=== PATIENT | male | born 1935 | race Caucasian/White ===

== ENCOUNTER 2017-07-04 07:24 | Inpatient (IN) | payer OTHER ==
[2017-07-04 07:34] VITALS: BMI 24.2
--- NOTE | 2017-07-04 07:37 | PDOC ---
History of Present Illness - General Chief Complaint: Pain Stated Complaint: ABDOMINAL PAIN Time Seen by Provider: 07/04/17 07:36 History Source: Patient - History of Present Illness Initial Comments: 07/04/17 07:44 Patient is an 82 y.o. male with a PMH of CAD (s/p stent) presents to the ED c/o 1 day h/o abdominal pain. Patient states the pain is diffuse, non-qualifiable, constant 10/10 with no identified triggering or relieving factors. The pain started yesterday morning and persisted all day yesterday increasing in severity and prompting his visit to ED this morning. Patient states he has only tolerated PO liquid intake and had 1 watery BM yesterday. Patient denies any associated fevers/chills, constipation, nausea/vomiting, dysuria/hematuria or bloody stools as well as testicular/scrotal pain. NKDA Surgical: Cardiac Stent Social: denies cigarettes, denies alcohol, denies recreational drugs PMD: Dr. Barahona 07/04/17 09:16 Past History - Past Medical History Allergies/Adverse Reactions: Allergies Allergy/AdvReac Type Severity Reaction Status Date / Time No Known Allergies Allergy Verified 07/04/17 07:30 Home Medications: Ambulatory Orders Amlodipine Besylate 5 mg PO DAILY 07/04/17 Aspirin [ASA -] 81 mg PO DAILY 07/04/17 Atenolol [Tenormin -] 50 mg PO DAILY 07/04/17 Isosorbide Mononitrate [Isosorbide Mononitrate ER] 30 mg PO DAILY 07/04/17 Losartan Potassium 50 mg PO DAILY 07/04/17 Lovastatin 40 mg PO DAILY 07/04/17 Cardiac Disorders: Yes (cad,angina) COPD: No HTN: Yes Hypercholesterolemia: Yes - Surgical History Cardiac Surgery: Yes (card stent) - Suicide/Smoking/Psychosocial Hx Smoking History: Former smoker Have you smoked in the past 12 months: No Information on smoking cessation initiated: No Hx Alcohol Use: No Drug/Substance Use Hx: No Substance Use Type: None Review of Systems - Review of Systems Constitutional: No: Chills, Fever HEENTM: No: Recent change in vision Respiratory: No: Cough, Shortness of Breath Cardiac (ROS): No: Chest Pain, Lightheadedness, Syncope ABD/GI: Yes: Abdominal cramping, Other (1 episode of loose watery stools). No: Constipated, Diarrhea, Nausea, Vomiting : No: Burning, Dysuria Neurological: No: Numbness, Tingling, Tremors, Weakness *Physical Exam - Vital Signs Last Vital Signs Temp Pulse Resp BP Pulse Ox 98.2 F 95 H 18 125/64 07/04/17 07:31 07/04/17 07:31 07/04/17 07:31 07/04/17 07:31 - Physical Exam Comments: 07/04/17 09:13 GENERAL: Awake, alert, and fully oriented, in no acute distress HEAD: No signs of trauma EYES: PERRLA, EOMI, sclera anicteric, conjunctiva clear ENT: Auricles normal inspection, hearing grossly normal, nares patent, oropharynx clear without exudates. Moist mucosa NECK: Normal ROM, supple, no lymphadenopathy, JVD, or masses LUNGS: Breath sounds equal, clear to auscultation bilaterally. No wheezes, and no crackles HEART: Regular rate and rhythm, normal S1 and S2, no murmurs, rubs or gallops ABDOMEN: diffuse TTP, (-) guarding, (-) rebound, minimal bowel sounds, (-) hernia/mass EXTREMITIES: Normal range of motion, no edema. No clubbing or cyanosis. No cords , erythema, or tenderness BACK: No midline spinal tenderness in cervical/thoracic/lumbar region NEUROLOGICAL: Normal speech, cranial nerves intact SKIN: Warm, Dry, normal turgor, no rashes or lesions noted. ED Treatment Course - LABORATORY CBC & Chemistry Diagram: 07/04/17 08:15 07/04/17 08:15 Medical Decision Making - Medical Decision Making 07/04/17 07:56 82 y.o. male with abdominal pain without fevers, emesis, GI/ signts Diffuse tenderness to palpation on physical exam without guarding or rebound. Differential diagnosis includes mesenteric ischemia, perforated diaphragm, early appendicitis, cholelithiasis. CTA angiogram for mesenteric ischemia + Abdominal XR for free air. Pain control with Morphine 07/04/17 09:23 Lactic Acid 2.9 --> will give 1 L IV NS, Cr 1.9 - no baseline in EMR. Will obtain CT w/o contrast. Abdominal XR pending 07/04/17 09:52 Abdominal XR shows dilated loops of bowel --possible illeus. No free air under diaphragm. CT pending. 07/04/17 11:19 CT showed possible complete vs. partial SBO with possible appendiceal inflammation. Paged surgery Dr. Wells. 07/04/17 12:48 Case d/w Dr. Wells. Requests CT Abdomen with PO contrast and NG Tube placement Patient's PMD, Dr. Castaneda, accepts for admission. Will continue pain control with Morphine pending BP. Will continue to monitor patient while in ED. *DC/Admit/Observation/Transfer Diagnosis at time of Disposition: Abdominal pain - Discharge Dispostion Condition at time of disposition: Good Admit: Yes - Referrals - Patient Instructions - Post Discharge Activity
--- NOTE | 2017-07-04 07:50 | PDOC ---
Attending Attestation - Resident Resident Name: Erin Friend - ED Attending Attestation I have performed the following: I have examined & evaluated the patient, The case was reviewed & discussed with the resident, I agree w/resident's findings & plan, Exceptions are as noted - HPI HPI: 07/04/17 07:49 82y M pmhx CAD, htn, hl, vascular disease, presents with 1 day of abd pain that is in the mid/lower abd diffuse, severe, constant but waxes and wanes for seconds at a time abd pain, nonradiating, without any alleviating/exacerbating factors. pain started when pt woke up yesterday and hasn't let up. no prrior episodes of similar pain. no prior hx of abd surgery. pt endorses 1 episode of loose stool. pt denies any n/v, fever/chills, melena/bpr, back pain, extermity numbness/ tingling/weakness. no associated chedst pain, shortness of breath, dc, cough. GENERAL: The patient is awake, alert, and fully oriented, Nontoxic - in no acute distress. HEAD: Normocephalic, atraumatic. EYES: extraocular movements intact, sclera anicteric, conjunctiva clear. ENT: Normal voice, Moist mucous membranes. NECK: Normal range of motion, supple LUNGS: Breath sounds equal, clear to auscultation bilaterally. No wheezes, no rhonchi, no rales. HEART: Regular rate and rhythm, normal S1 and S2 without murmur, rub or gallop. ABDOMEN: soft, moderate diffuse tenderness, +voluntary guarding EXTREMITIES: Normal range of motion, no edema. NEUROLOGICAL: No facial assymetry, Normal speech, moving ll 4 extremities spontaneously and symmetrically PSYCH: Normal mood, normal affect. SKIN: Warm, Dry, normal turgor, ddx - appendicitis, diverticulitis, uti, consider possible vascular cause -? mesenteric ischemia will ck labs, ua CTA abd will reassess morphine for pain - Physicial Exam PE: 07/06/17 07:21 see above - Medical Decision Making 07/04/17 11:11 The patient's blood work was reviewed it is notable for mild leukocytosis with a left shift Patient's creatinine was also elevated to 1.9, lactic acid also elevated. The patient was given fluids for hydration The patient's abdominal x-ray reveals a in obstructive/ileus picture His CAT scan shows SBO with possible mass, there is also inflammation of his appendix --> unclear what the acute cause of his pain but will consult surgery will give pt abx Heart Score/ECG Review - ECG Impressions Comment:: 07/04/17 08:59 Twelve-lead EKG was performed and reviewed by me. There is normal sinus rhythm with a normal rate. Right bundle-branch block TWI in leads 2,3, III
[2017-07-04] MEDS ORDERED: morphine CARPU-JECT 4 MG/1 ML DISP.SYRIN IVPUSH ONE ×2 (07:53→10:42)
[2017-07-04] MEDS ORDERED: morphine SULFATE 4 MG/ML VIAL ONE ×3 (08:09→12:01)
[2017-07-04 08:26] LABS: BASO % 0.1 % (0-2.0); HEMOGLOBIN 13.9 GM/dL (11.7-16.9); LYMPH % 5.2 % (8-40); MCH 32.8 pg (25.7-33.7); MCHC 33.7 g/dl (32.0-35.9); MEAN CELL VOLUME 97.2 fl (80-96); MONO % 4.2 % (3.8-10.2); NEUT % 90.5 % (42.8-82.8); PLATELET COUNT 266 K/MM3 (134-434); RBC 4.22 M/mm3 (4.00-5.60); WHITE BLOOD COUNT 11.4 K/mm3 (4.0-10.0)
[2017-07-04 08:44] LABS: INR 1.1 (0.82-1.09); PROTHROMBIN TIME (PATIENT) 12.4 SEC (9.98-11.88)
[2017-07-04 08:46] LABS: ACTIVATED PTT 33.7 SECONDS (26.9-34.4)
[2017-07-04 08:53] LABS: CHLORIDE 101 mmol/L (98-107); POTASSIUM 4.9 mmol/L (3.5-5.1); SODIUM 137 mmol/L (136-145)
[2017-07-04 09:06] LABS: ALBUMIN 3.8 g/dl (3.4-5.0); ALK PHOS 67 U/L (45-117); ANION GAP 14 (8-16); BLOOD UREA NITROGEN 41 mg/dL (7-18); CALCIUM 9.6 mg/dL (8.5-10.1); CO2 22 mmol/L (21-32); CREATININE 1.9 mg/dL (0.7-1.3); GLUCOSE,RANDOM 146 mg/dL (74-106); LIPASE 62 U/L (73-393); SGOT/AST 17 U/L (15-37); SGPT/ALT 18 U/L (12-78); TOT PROT 8.5 g/dl (6.4-8.2)
[2017-07-04] MEDS ORDERED: SODIUM CHLORIDE 0.9% 500 ML INFUS.BAG IV ONE (09:21)
--- NOTE | 2017-07-04 11:11 | EKG ---
Test Reason : Blood Pressure : / mmHG Vent. Rate : 085 BPM Atrial Rate : 085 BPM P-R Int : 172 ms QRS Dur : 140 ms QT Int : 380 ms P-R-T Axes : 041 089 031 degrees QTc Int : 452 ms POOR DATA QUALITY, INTERPRETATION MAY BE ADVERSELY AFFECTED NORMAL SINUS RHYTHM RIGHT BUNDLE BRANCH BLOCK ABNORMAL ECG WHEN COMPARED WITH ECG OF 04-OCT-2008 07:54, RIGHT BUNDLE BRANCH BLOCK IS NOW PRESENT Confirmed by MELISSA DUMONT MD ([id number]) on 07/04/2017 11:11:19 AM Referred By: Confirmed By:MELISSA DUMONT MD
[2017-07-04] MEDS ORDERED: morphine CARPU-JECT 2 MG/1 ML DISP.SYRIN IVPUSH ONE (11:20)
--- NOTE | 2017-07-04 13:09 | HP ---
Admitting History and Physical - Primary Care Physician PCP: Balta Castaneda - Admission Chief Complaint: pain abd History of Present Illness: 82y M pmhx CAD, htn with CKD, lipidemia, periph vascular disease, presents with 1 day of abd pain that is in the abd ;diffuse constant but varying intensity, nonradiating, without any alleviating/exacerbating factors. pain started when pt woke up yesterday and hasn't let up. no prior episodes of similar pain. no prior hx of abd surgery. he did have a BM yesterday without blood/black stools. No n-v; and has no eaten today. History Source: Patient, Family Member Limitations to Obtaining History: No Limitations - Past Medical History Cardiovascular: Yes: CAD (has coronary stent), HTN, Other (PAD) Renal/: Yes: Renal Inusuff Psych: Yes: Addictions (Hx of alcoholism--in remission) - Past Surgical History Past Surgical History: Yes: Carotid Endarterectomy Additional Past Surgical History: coronary stenting - Smoking History Smoking history: Former smoker Have you smoked in the past 12 months: No - Alcohol/Substance Use Hx Alcohol Use: No History of Substance Use: reports: None - Social History Usual Living Arrangement: Yes: With Spouse Home Medications - Allergies Allergies/Adverse Reactions: Allergies Allergy/AdvReac Type Severity Reaction Status Date / Time No Known Allergies Allergy Verified 07/04/17 07:30 Family Disease History - Family Disease History Family History: Unremarkable Review of Systems - Review of Systems Constitutional: reports: Loss of Appetite, Malaise Eyes: reports: No Symptoms HENT: reports: No Symptoms Neck: reports: No Symptoms Cardiovascular: reports: No Symptoms Respiratory: reports: No Symptoms Gastrointestinal: reports: Other (see HPI) Genitourinary: reports: No Symptoms Musculoskeletal: reports: No Symptoms Integumentary: reports: No Symptoms Neurological: reports: No Symptoms Endocrine: reports: No Symptoms Hematology/Lymphatic: reports: No Symptoms Psychiatric: reports: No Symptoms Physical Examination Vital Signs: Vital Signs Temperature 98.2 F 07/04/17 07:31 Pulse Rate 85 07/04/17 12:11 Respiratory Rate 16 07/04/17 12:11 Blood Pressure 136/66 07/04/17 12:11 O2 Sat by Pulse Oximetry (%) 98 07/04/17 12:11 Constitutional: Yes: Well Nourished, Anxious, Mild Distress Eyes: Yes: Conjunctiva Clear, EOM Intact HENT: Yes: WNL Neck: Yes: Supple Cardiovascular: Yes: Regular Rate and Rhythm Respiratory: Yes: Regular Gastrointestinal: Yes: Hypoactive Bowel Sounds, Tenderness ...Rectal Exam: Yes: Deferred Musculoskeletal: Yes: WNL Extremities: Yes: WNL Edema: No Peripheral Pulses WNL: No Peripheral Pulses: Left Doralis Pedis: 0 (no ischemic changes), Right Dorsalis Pedis: 0 (no ischemic changes) Integumentary: Yes: WNL Neurological: Yes: Alert, Oriented ...Motor Strength: WNL Psychiatric: Yes: WNL Labs: CBC, BMP 07/04/17 08:15 07/04/17 08:15 Abd Xray=ileus CT abd--filling defect in cecum EKG-RBBB Imaging - Results X-ray: Report Reviewed (abd) Cat Scan: Report Reviewed EKG: Report Reviewed Problem List - Problems (1) Pain, abdominal, generalized Assessment/Plan: more so on both RLQ and LLQ (hypersensitive to touch); BS quiet; give finding on CT could represent possible mass; AP less likely as per Surgeon. 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 PLAN renal eval pre-op; Cardio eval Code(s): I13.10 - HYP HRT & CHR KDNY DIS W/O HRT FAIL, W STG 1-4/UNSP CHR KDNY; N18.3 - CHRONIC KIDNEY DISEASE, STAGE 3 (MODERATE) (3) PAD (peripheral artery disease) Assessment/Plan: known PAD; has diminshed perfusion of the distal LE's; and is s/p CEA; also had sub-total thrombic event of the LUE in the past Code(s): I73.9 - PERIPHERAL VASCULAR DISEASE, UNSPECIFIED (4) Lipidemia Assessment/Plan: for which he takes statin Code(s): E78.5 - HYPERLIPIDEMIA, UNSPECIFIED Qualifiers: Hyperlipidemia type: unspecified Qualified Code(s): E78.5 - Hyperlipidemia , unspecified Assessment/Plan 82 y/o with cardio-vasc disease who presents with what seems to be a GI problem suggesting an acute obstruction 2nd possible malignancy; who may require surg intervention. ~~~~~~~~~~~~~~~~~~~~~~~~~~~~~ Dr Castaneda
[2017-07-04] MEDS ORDERED: MORPHINE SULFATE 10 MG/1 ML *VIAL IVPUSH PRN (13:33)
--- NOTE | 2017-07-04 15:15 | CONSULT ---
- Consultation REQUESTING PROVIDER: Ronna MOLINA/ Leonel MOLINA CONSULT REQUEST: We have been asked to surgically evaluate this patient for abdominal pain PCP:Balta Castaneda HISTORY OF PRESENT ILLNESS: 82 y/o w/male presented w/24-36 hours of diffuse abdominal pain w/o nausea and/or vomiting; he gives no other hx.; he has not seen his PCP in some time and when last seen declined an anemia w/u; he has never had a colonoscopy; he has NOC. He has had a small bowel movement but has not passed any flatus. PMHx: HTN; HLD; ASHD PSHx: none Home Medications Medication Instructions Recorded Amlodipine Besylate 5 mg PO DAILY 07/04/17 Aspirin [ASA -] 81 mg PO DAILY 07/04/17 Atenolol [Tenormin -] 50 mg PO DAILY 07/04/17 Isosorbide Mononitrate [Isosorbide 30 mg PO DAILY 07/04/17 Mononitrate ER] Losartan Potassium 50 mg PO DAILY 07/04/17 Lovastatin 40 mg PO DAILY 07/04/17 Allergies Allergy/AdvReac Type Severity Reaction Status Date / Time No Known Allergies Allergy Verified 07/04/17 07:30 REVIEW OF SYSTEMS: CONSTITUTIONAL: Absent: fever, chills, diaphoresis, , malaise, loss of appetite, weight change ; postive weakness CARDIOVASCULAR: Absent: chest pain, syncope, palpitations, irregular heart rate, lightheadedness , peripheral edema RESPIRATORY: Absent: cough, shortness of breath, dyspnea with exertion, wheezing, stridor, hemoptysis GASTROINTESTINAL: Present: abdominal pain, abdominal distension, GENITOURINARY: Absent: dysuria, frequency, urgency, hesitancy, hematuria, flank pain, genital pain MUSCULOSKELETAL: Absent: myalgia, arthralgia, joint swelling, back pain, neck pain SKIN: Absent: rash, itching, pallor HEMATOLOGIC/IMMUNOLOGIC: Absent: easy bleeding, easy bruising, lymphadenopathy NEUROLOGIC: Absent: headache, focal weakness, paresthesias, dizziness, unsteady gait, seizure, mental status changes, bladder or bowel incontinence PSYCHIATRIC: Absent: anxiety, depression, suicidal or homicidal ideation, hallucinations. PHYSICAL EXAM: GENERAL: Awake, alert, and fully oriented, in slight distress. HEAD: Normal with no signs of trauma. EYES: sclera anicteric, conjunctiva clear. NECK: Normal ROM, supple without lymphadenopathy, JVD, or masses. LUNGS: Clear to auscultation bilat anteriorly. No wheezes, and no crackles. No accessory muscle use. HEART: Regular rate and rhythm. No murmurs ABDOMEN: Soft, tender, slightly distended, hypooactive bowel sounds, voluntary guarding, no rebound, no masses. No organomegaly. No hernias MUSCULOSKELETAL: Normal ROM at all joints. No bony deformities or tenderness. No CVA tenderness. UPPER EXTREMITIES: 2+ pulses, warm, well-perfused. No cyanosis. Cap refill <2 seconds. No peripheral edema. LOWER EXTREMITIES: 2+ pulses, warm, well-perfused. No calf tenderness. No peripheral edema. NEUROLOGICAL: Normal speech, gait not observed. PSYCH: Cooperative. Good eye contact. Appropriate mood and affect. SKIN: Warm, dry, normal turgor, no rashes or lesions noted. Vital Signs Temperature 98.2 F 07/04/17 07:31 Pulse Rate 85 07/04/17 12:11 Respiratory Rate 16 07/04/17 12:11 Blood Pressure 136/66 07/04/17 12:11 O2 Sat by Pulse Oximetry (%) 98 07/04/17 12:11 Lab Results WBC 11.4 K/mm3 (4.0-10.0) H 07/04/17 08:15 RBC 4.22 M/mm3 (4.00-5.60) 07/04/17 08:15 Hgb 13.9 GM/dL (11.7-16.9) 07/04/17 08:15 Hct 41.0 % (35.4-49) 07/04/17 08:15 MCV 97.2 fl (80-96) H 07/04/17 08:15 MCHC 33.7 g/dl (32.0-35.9) 07/04/17 08:15 RDW 14.0 % (11.9-15.9) 07/04/17 08:15 Plt Count 266 K/MM3 (134-434) 07/04/17 08:15 Sodium 137 mmol/L (136-145) 07/04/17 08:15 Potassium 4.9 mmol/L (3.5-5.1) 07/04/17 08:15 Chloride 101 mmol/L (98-107) 07/04/17 08:15 Carbon Dioxide 22 mmol/L (21-32) 07/04/17 08:15 Anion Gap 14 (8-16) 07/04/17 08:15 BUN 41 mg/dL (7-18) H 07/04/17 08:15 Creatinine 1.9 mg/dL (0.7-1.3) H 07/04/17 08:15 Random Glucose 146 mg/dL (74-106) H 07/04/17 08:15 Calcium 9.6 mg/dL (8.5-10.1) 07/04/17 08:15 Blood Type O POSITIVE 07/04/17 08:15 Antibody Screen Negative 07/04/17 08:15 INR 1.10 (0.82-1.09) 07/04/17 08:15 CT scan a/p reviewed IMP: sbo secondary to possible cecal pathology w/appendiceal involvement; ? cecal malignancy vs. other. PLAN: NPO/IVF/NGT/repeat CT scan a/p w/ oral contrast; will f/u. D/W Dr. Castaneda. Wu Wells MD FACS Visit type - Case Type Case Type: ED Admission - Emergency Emergency Visit: Yes ED Registration Date: 07/04/17 Care time: The patient presented to the Emergency Department on the above date and was hospitalized for further evaluation of their emergent condition. - New patient This patient is new to me today: Yes Date on this admission: 07/04/17 - Critical Care Critical Care patient: No
--- NOTE | 2017-07-04 16:14 | CONSULT ---
Consult Consult Specialty:: Nephrology Reason for Consultation:: CKD - History of Present Illness Chief Complaint: abdominal pain History of Present Illness: Pt is an 82 year old male with pmhx of CAD, PVD and HTN who presents with abdominal pain. He was found to have SBO and is admitted for treatment. He has history of CKD and I was called to evaluate him for possible contrast. He is not aware of his CKD. He denies dysuria or hematuria. He denies nsaid use. His is at bedside and case was discussed with her as well. He denies fevers or chills. He does complain of abdominal pain. He denies nausea. - History Source History Provided By: Patient, Significant Other, Medical Record - Past Medical History Cardio/Vascular: Yes: CAD (has coronary stent), HTN, Other (PAD) Renal/: Yes: Renal Inusuff Psych: Yes: Addictions (Hx of alcoholism--in remission) - Past Surgical History Past Surgical History: Yes: Carotid Endarterectomy - Alcohol/Substance Use Hx Alcohol Use: No History of Substance Use: reports: None - Smoking History Smoking history: Former smoker Have you smoked in the past 12 months: No Home Medications - Allergies Allergies/Adverse Reactions: Allergies Allergy/AdvReac Type Severity Reaction Status Date / Time No Known Allergies Allergy Verified 07/04/17 07:30 - Home Medications Home Medications: Ambulatory Orders Amlodipine Besylate 5 mg PO DAILY 07/04/17 Aspirin [ASA -] 81 mg PO DAILY 07/04/17 Atenolol [Tenormin -] 50 mg PO DAILY 07/04/17 Isosorbide Mononitrate [Isosorbide Mononitrate ER] 30 mg PO DAILY 07/04/17 Losartan Potassium 50 mg PO DAILY 07/04/17 Lovastatin 40 mg PO DAILY 07/04/17 Family Disease History - Family Disease History Family History: Denies Review of Systems - Review of Systems Constitutional: reports: Malaise. denies: Chills, Fever Eyes: reports: No Symptoms HENT: reports: No Symptoms Neck: reports: No Symptoms Cardiovascular: reports: No Symptoms Respiratory: reports: No Symptoms Gastrointestinal: reports: Abdominal Pain Genitourinary: reports: No Symptoms Musculoskeletal: reports: No Symptoms Integumentary: reports: No Symptoms Neurological: reports: No Symptoms Endocrine: reports: No Symptoms Hematology/Lymphatic: reports: No Symptoms Psychiatric: reports: No Symptoms Physical Exam Vital Signs: Vital Signs Temperature 98.2 F 07/04/17 15:17 Pulse Rate 104 H 07/04/17 15:17 Respiratory Rate 16 07/04/17 15:17 Blood Pressure 142/79 07/04/17 15:17 O2 Sat by Pulse Oximetry (%) 95 07/04/17 15:17 Constitutional: Yes: Moderate Distress Eyes: Yes: Conjunctiva Clear HENT: Yes: Atraumatic Neck: Yes: Supple Cardiovascular: Yes: S1, S2 Respiratory: Yes: CTA Bilaterally Gastrointestinal: Yes: Distention, Tenderness Renal/: Yes: WNL Musculoskeletal: Yes: WNL Edema: No Neurological: Yes: Oriented Psychiatric: Yes: Oriented Labs: CBC, BMP 07/04/17 08:15 07/04/17 08:15 Laboratory Tests 07/04/17 07/04/17 07/04/17 08:15 08:15 08:15 WBC 11.4 H Hgb 13.9 Plt Count 266 INR Sodium 137 Potassium 4.9 Chloride 101 Carbon Dioxide 22 Anion Gap 14 BUN 41 H Creatinine 1.9 H Creat Clearance w eGFR 33.94 Random Glucose 146 H Lactic Acid 2.9 H* Calcium 9.6 Total Bilirubin 1.0 AST 17 ALT 18 Alkaline Phosphatase 67 Total Protein 8.5 H Albumin 3.8 Lipase 62 L 07/04/17 08:15 WBC Hgb Plt Count INR 1.10 Sodium Potassium Chloride Carbon Dioxide Anion Gap BUN Creatinine Creat Clearance w eGFR Random Glucose Lactic Acid Calcium Total Bilirubin AST ALT Alkaline Phosphatase Total Protein Albumin Lipase Imaging - Results Cat Scan: Report Reviewed Problem List - Problems (1) CKD (chronic kidney disease) Code(s): N18.9 - CHRONIC KIDNEY DISEASE, UNSPECIFIED (2) Lipidemia Code(s): E78.5 - HYPERLIPIDEMIA, UNSPECIFIED Qualifiers: Hyperlipidemia type: unspecified Qualified Code(s): E78.5 - Hyperlipidemia , unspecified (3) PAD (peripheral artery disease) Code(s): I73.9 - PERIPHERAL VASCULAR DISEASE, UNSPECIFIED (4) Pain, abdominal, generalized Code(s): R10.84 - GENERALIZED ABDOMINAL PAIN Assessment/Plan Current Medications Generic Name Dose Route Start Last Admin Trade Name Freq PRN Reason Stop Dose Admin Levofloxacin 250 mg in 50 mls @ 50 mls/hr 07/05/17 10:00 Levaquin 250 Mg Premixed Ivpb - IVPB DAILY NHUNG Metronidazole 500 mg in 100 mls @ 100 mls/hr 07/04/17 18:00 Flagyl 500mg Premixed Ivpb - IVPB Q8H-IV NHUNG Morphine Sulfate 4 mg 07/04/17 16:13 Morphine Sulfate IVPUSH Q4H PRN PAIN LEVEL 4 - 6 Impression 1. CKD 2. abdominal pain 3. SBO 4. HTN 5. PAD 6. hx etoh abuse 7. CAD Plan - will start fluids - pt can get PO contrast if needed - he has about a 20 to 26 percent risk of getting DOMENIC if he were to get IV contrast. He understands this and is willing to take it if needed - repeat labs in am - unable to give mucomyst as he is NPO - surgery follow up - will follow pt - pain control Dr Niño
--- NOTE | 2017-07-04 16:50 | PROC ---
Procedure Note Procedure: Patient seen and examined at bedside with Dr Wells for NG tube placement NG tube placed via right nostril without incident. Patient tolerated procedure well 500ccs of clear, yellow tinged fluid upon suction job putter up and ticket preparer. NG tube flushed and secured low suction setting
[2017-07-04] MEDS: SODIUM CHLORIDE 1,000 ML IV SCH (17:40)
[2017-07-04] MEDS: morphine SULFATE 4 MG/ML VIAL IVPUSH PRN (22:35)
[2017-07-05] MEDS: SODIUM CHLORIDE 1,000 ML IV SCH ×2 (04:55→18:00)
[2017-07-05] MEDS: morphine SULFATE 4 MG/ML VIAL IVPUSH PRN ×3 (05:52→19:47)
[2017-07-05 07:41] LABS: BASO % 0.2 % (0-2.0); EOS % 0.2 % (0-4.5); HEMATOCRIT 31.9 % (35.4-49); HEMOGLOBIN 10.9 GM/dL (11.7-16.9); MCHC 34.2 g/dl (32.0-35.9); MEAN CELL VOLUME 96.6 fl (80-96); MEAN PLT VOLUME 7.2 fl (7.5-11.1); MONO % 6.4 % (3.8-10.2); NEUT % 85.2 % (42.8-82.8); PLATELET COUNT 198 K/MM3 (134-434); RDW 14.3 % (11.9-15.9); WHITE BLOOD COUNT 9.1 K/mm3 (4.0-10.0)
[2017-07-05 08:56] LABS: ALBUMIN 2.5 g/dl (3.4-5.0); ANION GAP 13 (8-16); BILIRUBIN,TOTAL 0.7 mg/dL (0.2-1.0); BLOOD UREA NITROGEN 38 mg/dL (7-18); CALCIUM 8.1 mg/dL (8.5-10.1); CHLORIDE 108 mmol/L (98-107); CO2 21 mmol/L (21-32); CREATININE 1.5 mg/dL (0.7-1.3); GLUCOSE,RANDOM 98 mg/dL (74-106); POTASSIUM 4.3 mmol/L (3.5-5.1); SGOT/AST 13 U/L (15-37); SGPT/ALT 12 U/L (12-78); SODIUM 142 mmol/L (136-145); TOT PROT 6.3 g/dl (6.4-8.2)
[2017-07-05 08:57] LABS: ALK PHOS 52 U/L (45-117)
--- NOTE | 2017-07-05 11:03 | PN ---
Progress Note (short form) - Note Progress Note: Attending Surgeon Seen in f/u; still c/o abdominal pain and obstipation VSS AF abdo-distended and tympanitic and diffusely tender labs today reviewed; f/u CT reviewed IMP:bowel obstruction in a patient w/ no previous abdominal surgery PLAN: For ex-lap and AOSDN; d/w patient in depth and at lenghth reasons for same and informed consent obtained. Wu Wells MD FACS
[2017-07-05] MEDS ORDERED: PANTOPRAZOLE SODIUM 40 MG VIAL IVPUSH SCH (12:15)
--- NOTE | 2017-07-05 12:46 | CON.CARD ---
Consult Consult Specialty:: Cardiology Referred by:: Balta Castaneda MD Reason for Consultation:: Pre-op cardiovascular evaluation - History of Present Illness Chief Complaint: Abd pain and distension History of Present Illness: 82y M pmhx CAD s/p PCI, HTN, CKD, lipidemia, periph vascular disease, carotid stenosis post CEA presented with diffuse abdominal pain and obstipation w/o naudea or emesis, absent flatus despite NGT decompression. He denies chest pain , dyspnea, near or true syncope, palpitations, orthopnea, PND or LE edema. He is planned for exp-lap - History Source History Provided By: Patient Limitations to Obtaining History: No Limitations - Past Medical History Cardio/Vascular: Yes: CAD (has coronary stent), HTN, Other (PAD) Renal/: Yes: Renal Inusuff Psych: Yes: Addictions (Hx of alcoholism--in remission) - Past Surgical History Past Surgical History: Yes: Carotid Endarterectomy - Alcohol/Substance Use Hx Alcohol Use: No History of Substance Use: reports: None - Smoking History Smoking history: Former smoker Have you smoked in the past 12 months: No Home Medications - Allergies Allergies/Adverse Reactions: Allergies Allergy/AdvReac Type Severity Reaction Status Date / Time No Known Allergies Allergy Verified 07/04/17 07:30 - Home Medications Home Medications: Ambulatory Orders Amlodipine Besylate 5 mg PO DAILY 07/04/17 Aspirin [ASA -] 81 mg PO DAILY 07/04/17 Atenolol [Tenormin -] 50 mg PO DAILY 07/04/17 Isosorbide Mononitrate [Isosorbide Mononitrate ER] 30 mg PO DAILY 07/04/17 Losartan Potassium 50 mg PO DAILY 07/04/17 Lovastatin 40 mg PO DAILY 07/04/17 Vital Signs: Vital Signs Temperature 99.5 F 07/05/17 09:35 Pulse Rate 100 H 07/05/17 09:35 Respiratory Rate 16 07/05/17 09:35 Blood Pressure 148/78 07/05/17 09:35 O2 Sat by Pulse Oximetry (%) 97 07/05/17 09:35 Constitutional: Yes: No Distress, Calm, Thin Neck: Yes: Supple Respiratory: Yes: Regular, Diminished Gastrointestinal: Yes: Distention, Tenderness Cardiovascular: Yes: Regular Rate and Rhythm JVD: No Carotid Bruit: No Heart Sounds: Yes: S1, S2 Edema: No - Other Data Labs, Other Data: CBC, BMP 07/05/17 07:15 07/05/17 07:15 INR, PTT INR 1.10 (0.82-1.09) 07/04/17 08:15 NSR @ 85 RBBB Ejection Fraction %: LVEF > or = 40 % Imaging - Results X-ray: Report Reviewed (Possible ileus) Cat Scan: Report Reviewed (+SBO) Problem List - Problems (1) Small bowel obstruction Code(s): K56.609 - UNSP INTESTNL OBST, UNSP TO PARTIAL VERSUS COMPLETE OBST (2) Pre-operative cardiovascular examination Code(s): Z01.810 - ENCOUNTER FOR PREPROCEDURAL CARDIOVASCULAR EXAMINATION (3) Coronary artery disease Code(s): I25.10 - ATHSCL HEART DISEASE OF [place] CORONARY ARTERY W/O ANG PCTRS Qualifiers: Coronary Disease-Associated Artery/Lesion type: [place] artery [place] vs. transplanted heart: [place] heart Associated angina: without angina Qualified Code(s): I25.10 - Atherosclerotic heart disease of [place] coronary artery without angina pectoris (4) S/P coronary artery stent placement Code(s): Z95.5 - PRESENCE OF CORONARY ANGIOPLASTY IMPLANT AND GRAFT (5) CKD (chronic kidney disease) Code(s): N18.9 - CHRONIC KIDNEY DISEASE, UNSPECIFIED Qualifiers: Chronic kidney disease stage: stage 2 (mild) Qualified Code(s): N18.2 - Chronic kidney disease, stage 2 (mild) (6) Hypertensive heart and chronic kidney disease stage 3 Code(s): I13.10 - HYP HRT & CHR KDNY DIS W/O HRT FAIL, W STG 1-4/UNSP CHR KDNY; N18.3 - CHRONIC KIDNEY DISEASE, STAGE 3 (MODERATE) (7) Lipidemia Code(s): E78.5 - HYPERLIPIDEMIA, UNSPECIFIED Qualifiers: Hyperlipidemia type: pure hypercholesterolemia Qualified Code(s): E78.00 - Pure hypercholesterolemia, unspecified; E78.0 - Pure hypercholesterolemia (8) PAD (peripheral artery disease) Code(s): I73.9 - PERIPHERAL VASCULAR DISEASE, UNSPECIFIED Assessment/Plan 1. Pre-op CV evaluation prior to ex-lap for bowel obstruction 2. CAD s/p PCI (Stent) 3. PAD 4. Carotid stenosis s/p CEA 5. HTN/HCVD 6. Hyperlipidemia 7. Acute on CKD P:1. Given absence of sxs of acute coronary syndrome, decompensated CHF or malignant arrhythmia, may proceed with noncardiac surgery from CV-standpoint without further testing especially given clinical urgency 2. Hold ASA angi-op and resume once post-op hemostasis achieved 3. Maintained on empiric abx, IV Lopressor pending resumption of oral intake, monitor renal fxn 4. Thank you for consultative opportunity
[2017-07-05] MEDS ORDERED: fentaNYL CITRATE 250 MCG/5 ML VIAL ONE (13:43)
[2017-07-05] MEDS ORDERED: ePHEDrine SULFATE 50 MG/1 ML AMPULE ONE (13:43)
[2017-07-05] MEDS ORDERED: ACETAMINOPHEN INJECTION 100 ML IVPB ONE (14:01)
[2017-07-05] MEDS ORDERED: GLYCOPYRROLATE 0.2 MG/1 ML VIAL ONE ×2 (15:40)
[2017-07-05] MEDS ORDERED: NEOSTIGMINE METHYLSULFATE 0.5 MG/ML - 10 ML MDV ONE (15:40)
[2017-07-05] MEDS ORDERED: PROPOFOL 20 ML ONE (15:48)
[2017-07-05] MEDS ORDERED: ONDANSETRON 4 MG/2 ML VIAL IVPUSH PRN ×2 (16:25→17:19)
[2017-07-05] MEDS ORDERED: LACTATED RINGERS SOLUTION 1,000 ML IV SCH (16:30)
--- NOTE | 2017-07-05 16:34 | PN ---
Progress Note, Physician History of Present Illness: Pt seen and examined at bedside. He is post op. Pt had an appendectomy. - Current Medication List Current Medications: Active Medications Fentanyl (Sublimaze Injection -) 50 mcg IVPUSH [id number] PRN PRN Reason: PAIN-PACU ORDER X 4 DOSES ONLY Levofloxacin (Levaquin 250 Mg Premixed Ivpb -) 250 mg in 50 mls @ 50 mls/hr IVPB DAILY [facility] Last Admin: 07/05/17 09:41 Dose: 50 mls/hr Metronidazole (Flagyl 500mg Premixed Ivpb -) 500 mg in 100 mls @ 100 mls/hr IVPB Q8H-IV [facility] Last Admin: 07/05/17 09:23 Dose: 100 mls/hr Sodium Chloride (Normal Saline -) 1,000 mls @ 100 mls/hr IV ASDIR [facility] Last Admin: 07/05/17 04:55 Dose: 100 mls/hr Lactated Ringer's (Lactated Ringers Solution) 1,000 mls @ 125 mls/hr IV ASDIR [facility] Morphine Sulfate (Morphine Sulfate) 4 mg IVPUSH Q4H PRN PRN Reason: PAIN LEVEL 4 - 6 Last Admin: 07/05/17 10:52 Dose: 4 mg Ondansetron HCl (Zofran Injection) 4 mg IVPUSH Q6H PRN PRN Reason: NAUSEA AND/OR VOMITING Pantoprazole Sodium (Protonix Iv) 40 mg IVPUSH DAILY [facility] Last Admin: 07/05/17 14:10 Dose: Not Given - Objective Vital Signs: Vital Signs Temperature 98.6 F 07/05/17 14:56 Pulse Rate 115 H 07/05/17 14:56 Respiratory Rate 18 07/05/17 14:56 Blood Pressure 160/89 07/05/17 14:56 O2 Sat by Pulse Oximetry (%) 97 07/05/17 09:35 Constitutional: Yes: Mild Distress Eyes: Yes: Conjunctiva Clear Neck: Yes: Supple Cardiovascular: Yes: S1, S2 Respiratory: Yes: On Venti-Mask Gastrointestinal: Yes: Soft Genitourinary: Yes: Mccormack Present Musculoskeletal: Yes: WNL Extremities: Yes: WNL Edema: No Neurological: Yes: Oriented Psychiatric: Yes: Oriented Labs: CBC, BMP 07/05/17 07:15 07/05/17 07:15 INR, PTT INR 1.10 (0.82-1.09) 07/04/17 08:15 Problem List - Problems (1) CKD (chronic kidney disease) Code(s): N18.9 - CHRONIC KIDNEY DISEASE, UNSPECIFIED Qualifiers: Chronic kidney disease stage: stage 2 (mild) Qualified Code(s): N18.2 - Chronic kidney disease, stage 2 (mild) (2) Lipidemia Code(s): E78.5 - HYPERLIPIDEMIA, UNSPECIFIED Qualifiers: Hyperlipidemia type: pure hypercholesterolemia Qualified Code(s): E78.00 - Pure hypercholesterolemia, unspecified; E78.0 - Pure hypercholesterolemia (3) PAD (peripheral artery disease) Code(s): I73.9 - PERIPHERAL VASCULAR DISEASE, UNSPECIFIED (4) Pain, abdominal, generalized Code(s): R10.84 - GENERALIZED ABDOMINAL PAIN Assessment/Plan Current Medications Generic Name Dose Route Start Last Admin Trade Name Freq PRN Reason Stop Dose Admin Fentanyl 50 mcg 07/05/17 16:25 Sublimaze Injection - IVPUSH [id number] PRN PAIN-PACU ORDER X 4 DOSES ONLY Levofloxacin 250 mg in 50 mls @ 50 mls/hr 07/05/17 10:00 07/05/17 09:41 Levaquin 250 Mg Premixed Ivpb - IVPB 50 mls/hr DAILY [facility] Administration Metronidazole 500 mg in 100 mls @ 100 mls/hr 07/04/17 18:00 07/05/17 09:23 Flagyl 500mg Premixed Ivpb - IVPB 100 mls/hr Q8H-IV [facility] Administration Sodium Chloride 1,000 mls @ 100 mls/hr 07/04/17 16:30 07/05/17 04:55 Normal Saline - IV 100 mls/hr ASDIR [facility] Administration Lactated Ringer's 1,000 mls @ 125 mls/hr 07/05/17 16:30 Lactated Ringers Solution IV ASDIR [facility] Morphine Sulfate 4 mg 07/04/17 16:13 07/05/17 10:52 Morphine Sulfate IVPUSH 4 mg Q4H PRN Administration PAIN LEVEL 4 - 6 Ondansetron HCl 4 mg 07/05/17 16:25 Zofran Injection IVPUSH Q6H PRN NAUSEA AND/OR VOMITING Pantoprazole Sodium 40 mg 07/05/17 12:15 07/05/17 14:10 Protonix Iv IVPUSH Not Given DAILY [facility] Impression 1. CKD 2. abdominal pain 3. SBO 4. HTN 5. PAD 6. hx etoh abuse 7. CAD 8. appendicitis Plan - renal function is improved - pt did not need IV contrast - can see in office for renal workup - pt s/p appendectomy - fluids while npo - repeat labs in am Dr Niño
--- NOTE | 2017-07-05 16:43 | OP ---
Operative Note - Note: Operative Date: 07/05/17 Pre-Operative Diagnosis: acute abdomen, bowel obstruction Surgeon: Wu Wells Telephone Mechanic: Anayeli Engel Anesthesiologist/HISTOTECHNOLOGIST SUPERVISOR: Arthur Kirkland Anesthesia: General Specimens Removed: appendix Estimated Blood Loss (mls): 30 Drains, Volume Out (mls): 225 (chavarria) Fluid Volume Replaced (mls): 2,200 Operative Report Dictated: Yes
--- NOTE | 2017-07-05 16:44 | SURG ---
Surgery Delicatessen Department Manager Note Delicatessen Department Manager: Anayeli Engel PA-C Date of Service: 07/05/17 Diagnosis: acute abdomen, bowel obstruction Procedure: laparotomy, open appendectomy I was present for the entirety of the operative procedure. For further detail, please refer to operative report. Visit type - Case Type Case Type: ED Admission - Emergency Emergency Visit: Yes ED Registration Date: 07/04/17 Care time: The patient presented to the Emergency Department on the above date and was hospitalized for further evaluation of their emergent condition. - New patient This patient is new to me today: Yes Date on this admission: 07/05/17
[2017-07-05] MEDS ORDERED: LACTATED RINGERS SOLUTION 1,000 ML/1,000 ML INFUS.BAG IV SCH (16:45)
--- NOTE | 2017-07-05 17:37 | PN ---
Progress Note (short form) - Note Progress Note: ################# Medical-seen in post-op Current Medications Heparin Sodium (Porcine) (Heparin -) 5,000 unit SQ TID [facility] Metronidazole (Flagyl 500mg Premixed Ivpb -) 500 mg in 100 mls @ 100 mls/hr IVPB Q8H-IV [facility] Sodium Chloride (Normal Saline -) 1,000 mls @ 100 mls/hr IV ASDIR [facility] Levofloxacin (Levaquin 250 Mg Premixed Ivpb -) 250 mg in 50 mls @ 50 mls/hr IVPB DAILY [facility] Morphine Sulfate (Morphine Sulfate) 4 mg IVPUSH Q4H PRN PRN Reason: PAIN LEVEL 4 - 6 Ondansetron HCl (Zofran Injection) 4 mg IVPUSH Q6H PRN PRN Reason: NAUSEA AND/OR VOMITING Pantoprazole Sodium (Protonix Iv) 40 mg IVPUSH DAILY [facility] Laboratory Results - last 24 hr 07/04/17 07/04/17 07/05/17 19:00 19:00 07:15 WBC RBC Hgb Hct MCV MCH MCHC RDW Plt Count MPV Neutrophils % Lymphocytes % Monocytes % Eosinophils % Basophils % Sodium 142 Potassium 4.3 Chloride 108 H Carbon Dioxide 21 Anion Gap 13 BUN 38 H Creatinine 1.5 H D Creat Clearance w eGFR 44.59 Random Glucose 98 D Lactic Acid Calcium 8.1 L Magnesium 2.0 Total Bilirubin 0.7 D AST 13 L D ALT 12 D Alkaline Phosphatase 52 D LD Total 170 Total Protein 6.3 L D Albumin 2.5 L D 07/05/17 07/05/17 07:15 07:15 WBC 9.1 RBC 3.30 L D Hgb 10.9 L D Hct 31.9 L D MCV 96.6 H MCH 33.0 MCHC 34.2 RDW 14.3 Plt Count 198 D MPV 7.2 L Neutrophils % 85.2 H Lymphocytes % 8.0 D Monocytes % 6.4 Eosinophils % 0.2 D Basophils % 0.2 Sodium Potassium Chloride Carbon Dioxide Anion Gap BUN Creatinine Creat Clearance w eGFR Random Glucose Lactic Acid 1.0 Calcium Magnesium Total Bilirubin AST ALT Alkaline Phosphatase LD Total Total Protein Albumin Vital Signs Temperature 98.6 F 07/05/17 14:56 Pulse Rate 115 H 07/05/17 14:56 Respiratory Rate 18 07/05/17 14:56 Blood Pressure 160/89 07/05/17 14:56 O2 Sat by Pulse Oximetry (%) 97 07/05/17 09:35 CC: unclear (confused-post op) ``````````````````````````````` face--with NGT heart--tachy lungs--clear abd--with dressing neuro--moves all extrem; irritable; restless ````````````````````````````````````` Summ > s/p Lap--found to have acute AP alone as per surgeon; cont NPO & surg mgmt > Htn--with CKD; renal funct stable, but post op BP high; will need IV Lopressor > Delirium--post OP; ? 2nd pain: PLAN Pain control ~~~~~~~~~~~~~~~~~~~ Dr Castaneda Problem List - Problems (1) Pain, abdominal, generalized Code(s): R10.84 - GENERALIZED ABDOMINAL PAIN (2) Hypertensive heart and chronic kidney disease stage 3 Code(s): I13.10 - HYP HRT & CHR KDNY DIS W/O HRT FAIL, W STG 1-4/UNSP CHR KDNY; N18.3 - CHRONIC KIDNEY DISEASE, STAGE 3 (MODERATE) (3) PAD (peripheral artery disease) Code(s): I73.9 - PERIPHERAL VASCULAR DISEASE, UNSPECIFIED (4) Lipidemia Code(s): E78.5 - HYPERLIPIDEMIA, UNSPECIFIED Qualifiers: Hyperlipidemia type: pure hypercholesterolemia Qualified Code(s): E78.00 - Pure hypercholesterolemia, unspecified; E78.0 - Pure hypercholesterolemia
[2017-07-05] MEDS: HEPARIN NA (PORCINE) 5,000 UNITS/ML 1ML VIAL SQ SCH (21:20)
[2017-07-06] MEDS: morphine SULFATE 4 MG/ML VIAL IVPUSH PRN ×4 (01:18→18:54)
[2017-07-06] MEDS: SODIUM CHLORIDE 1,000 ML IV SCH ×2 (05:59→18:53)
[2017-07-06] MEDS: HEPARIN NA (PORCINE) 5,000 UNITS/ML 1ML VIAL SQ SCH ×3 (06:04→21:13)
[2017-07-06 07:22] LABS: BASO % 0.3 % (0-2.0); EOS % 0.2 % (0-4.5); HEMATOCRIT 33.1 % (35.4-49); HEMOGLOBIN 11.3 GM/dL (11.7-16.9); LYMPH % 10.5 % (8-40); MEAN CELL VOLUME 97.1 fl (80-96); MEAN PLT VOLUME 7.7 fl (7.5-11.1); MONO % 6.3 % (3.8-10.2); NEUT % 82.7 % (42.8-82.8); PLATELET COUNT 194 K/MM3 (134-434); RBC 3.41 M/mm3 (4.00-5.60); RDW 13.8 % (11.9-15.9)
[2017-07-06 07:35] LABS: ANION GAP 10 (8-16); BLOOD UREA NITROGEN 30 mg/dL (7-18); CALCIUM 7.9 mg/dL (8.5-10.1); CHLORIDE 112 mmol/L (98-107); CO2 21 mmol/L (21-32); CREATININE 1.1 mg/dL (0.7-1.3); GLUCOSE,RANDOM 108 mg/dL (74-106); MAGNESIUM 1.8 mg/dL (1.8-2.4); PHOSPHOROUS 2.6 mg/dL (2.5-4.9); POTASSIUM 4.3 mmol/L (3.5-5.1); SODIUM 143 mmol/L (136-145)
--- NOTE | 2017-07-06 08:00 | PROC ---
Procedure Note Procedure: Anesthesia Post op Pt seen and examined S:alert and awake O: Vital Signs Temperature 99.3 F 07/06/17 06:35 Pulse Rate 107 H 07/06/17 06:35 Respiratory Rate 15 07/06/17 06:35 Blood Pressure 138/74 07/06/17 06:35 O2 Sat by Pulse Oximetry (%) 97 07/05/17 21:00 CBC, BMP 07/06/17 06:45 A/P Current Active Problems CKD (chronic kidney disease) (Acute) Coronary artery disease (Acute) Hypertensive heart and chronic kidney disease stage 3 (Acute) Lipidemia (Acute) PAD (peripheral artery disease) (Acute) Pain, abdominal, generalized (Acute) Pre-operative cardiovascular examination (Acute) S/P coronary artery stent placement (Acute) Small bowel obstruction (Acute) s/pexploratory laparotomy Doing well post op Continue current care Leo Johnson MD
[2017-07-06] MEDS ORDERED: morphine CARPU-JECT 4 MG/1 ML DISP.SYRIN IVPUSH ONE (08:38)
[2017-07-06] MEDS: PANTOPRAZOLE SODIUM 40 MG VIAL IVPUSH SCH (10:11)
[2017-07-06] MEDS ORDERED: morphine SULFATE 4 MG/ML VIAL IVPUSH ONE (11:28)
--- NOTE | 2017-07-06 11:38 | PN ---
Progress Note (short form) - Note Progress Note: Attending Surgeon POD#1 C/o pain; no flatus VSS Af abdo-dressing c/d/i; TOBY serous; output noted labs noted and improved renal function IMP:doing well POD #1 PLAN: NPO/IVF/IVABS/pulmonary toilet/pain meds Wu Wells MD FACS
[2017-07-06] MEDS ORDERED: morphine CARPU-JECT 4 MG/1 ML DISP.SYRIN IVPUSH PRN (11:39)
[2017-07-06] MEDS ORDERED: MORPHINE SULFATE 10 MG/1 ML *VIAL IVPUSH ONE ×2 (11:45)
--- NOTE | 2017-07-06 12:21 | PN ---
Progress Note, Physician Chief Complaint: Pt is S/P AP NGT is placed to suction C/O pain so Morphine just given NS at 100 cc/hr - Current Medication List Current Medications: Active Medications Heparin Sodium (Porcine) (Heparin -) 5,000 unit SQ TID [facility] Last Admin: 07/06/17 06:04 Dose: 5,000 unit Metronidazole (Flagyl 500mg Premixed Ivpb -) 500 mg in 100 mls @ 100 mls/hr IVPB Q8H-IV [facility] Last Admin: 07/06/17 10:11 Dose: 100 mls/hr Sodium Chloride (Normal Saline -) 1,000 mls @ 100 mls/hr IV ASDIR [facility] Last Admin: 07/06/17 05:59 Dose: 100 mls/hr Levofloxacin (Levaquin 250 Mg Premixed Ivpb -) 250 mg in 50 mls @ 50 mls/hr IVPB DAILY [facility] Last Admin: 07/06/17 11:59 Dose: 50 mls/hr Metoprolol Tartrate (Lopressor Injection -) 5 mg IVPUSH Q4H PRN PRN Reason: HYPERTENSION Morphine Sulfate (Morphine Sulfate) 4 mg IVPUSH Q4H PRN PRN Reason: PAIN LEVEL 4 - 6 Last Admin: 07/06/17 06:00 Dose: 4 mg Morphine Sulfate (Morphine Injection -) 4 mg IVPUSH Q3H PRN PRN Reason: PAIN LEVEL 6-10 Ondansetron HCl (Zofran Injection) 4 mg IVPUSH Q6H PRN PRN Reason: NAUSEA AND/OR VOMITING Pantoprazole Sodium (Protonix Iv) 40 mg IVPUSH DAILY [facility] Last Admin: 07/06/17 10:11 Dose: 40 mg - Objective Vital Signs: Vital Signs Temperature 97.9 F 07/06/17 09:00 Pulse Rate 106 H 07/06/17 09:00 Respiratory Rate 17 07/06/17 09:00 Blood Pressure 146/74 07/06/17 09:00 O2 Sat by Pulse Oximetry (%) 97 07/05/17 21:00 Constitutional: Yes: Mild Distress Cardiovascular: Yes: S1, S2 Respiratory: Yes: CTA Bilaterally Gastrointestinal: Yes: Tenderness Edema: No Labs: CBC, BMP 07/06/17 06:45 07/06/17 06:45 INR, PTT INR 1.10 (0.82-1.09) 07/04/17 08:15 Assessment/Plan Impression 1. DENA improving 2. S/P AP with abdominal pain 3. SBO 4. HTN 5. PAD 6. hx etoh abuse 7. CAD Plan - Continue with present IVF for now - Rpt labs in am - Analgesia - Increase Levaquin to 500 mgs IV daily since azotemia is better Dr Cartagena
--- NOTE | 2017-07-06 13:59 | PN ---
Progress Note, Physician Chief Complaint: Events noted POD#1 exploratory laparotomy and appendectomy Complains of abdominal pain History of Present Illness: Patient was seen and examined. Awake and alert. Chart was reviewed Denies chest pain, SOB or palpitations Complains of abdominal pain - Current Medication List Current Medications: Active Medications Heparin Sodium (Porcine) (Heparin -) 5,000 unit SQ TID [facility] Last Admin: 07/06/17 06:04 Dose: 5,000 unit Metronidazole (Flagyl 500mg Premixed Ivpb -) 500 mg in 100 mls @ 100 mls/hr IVPB Q8H-IV [facility] Last Admin: 07/06/17 10:11 Dose: 100 mls/hr Sodium Chloride (Normal Saline -) 1,000 mls @ 100 mls/hr IV ASDIR [facility] Last Admin: 07/06/17 05:59 Dose: 100 mls/hr Levofloxacin (Levaquin 500 Mg Premixed Ivpb -) 500 mg in 100 mls @ 100 mls/hr IVPB DAILY [facility] Metoprolol Tartrate (Lopressor Injection -) 5 mg IVPUSH Q4H PRN PRN Reason: HYPERTENSION Morphine Sulfate (Morphine Sulfate) 4 mg IVPUSH Q4H PRN PRN Reason: PAIN LEVEL 4 - 6 Last Admin: 07/06/17 06:00 Dose: 4 mg Morphine Sulfate (Morphine Injection -) 4 mg IVPUSH Q3H PRN PRN Reason: PAIN LEVEL 6-10 Ondansetron HCl (Zofran Injection) 4 mg IVPUSH Q6H PRN PRN Reason: NAUSEA AND/OR VOMITING Pantoprazole Sodium (Protonix Iv) 40 mg IVPUSH DAILY [facility] Last Admin: 07/06/17 10:11 Dose: 40 mg - Objective Vital Signs: Vital Signs Temperature 97.9 F 07/06/17 09:00 Pulse Rate 106 H 07/06/17 09:00 Respiratory Rate 17 07/06/17 09:00 Blood Pressure 146/74 07/06/17 09:00 O2 Sat by Pulse Oximetry (%) 97 07/05/17 21:00 HENT: Yes: Atraumatic Neck: Yes: Supple Cardiovascular: Yes: Regular Rate and Rhythm, S1, S2 Respiratory: Yes: Diminished Gastrointestinal: Yes: Distention, Tenderness Edema: No Labs: CBC, BMP 07/06/17 06:45 07/06/17 06:45 Problem List - Problems (1) CKD (chronic kidney disease) Code(s): N18.9 - CHRONIC KIDNEY DISEASE, UNSPECIFIED Qualifiers: Chronic kidney disease stage: stage 2 (mild) Qualified Code(s): N18.2 - Chronic kidney disease, stage 2 (mild) (2) Coronary artery disease Code(s): I25.10 - ATHSCL HEART DISEASE OF [place] CORONARY ARTERY W/O ANG PCTRS Qualifiers: Coronary Disease-Associated Artery/Lesion type: [place] artery [place] vs. transplanted heart: [place] heart Associated angina: without angina Qualified Code(s): I25.10 - Atherosclerotic heart disease of [place] coronary artery without angina pectoris (3) PAD (peripheral artery disease) Code(s): I73.9 - PERIPHERAL VASCULAR DISEASE, UNSPECIFIED (4) S/P coronary artery stent placement Code(s): Z95.5 - PRESENCE OF CORONARY ANGIOPLASTY IMPLANT AND GRAFT (5) S/P appendectomy Code(s): Z90.49 - ACQUIRED ABSENCE OF OTHER SPECIFIED PARTS OF DIGESTIVE TRACT Assessment/Plan 1. Post exploratory-laparotomy and appendectomy 2. CAD s/p PCI (Stent) 3. PAD 4. Carotid stenosis s/p CEA 5. HTN/HCVD 6. Hyperlipidemia 7. Acute on CKD PLAN: 1. Surgery follow up 2. Hold ASA for now, but to resume once post-op hemostasis achieved and cleared by surgery 3. Maintained on empiric antibiotics, IV Lopressor pending resumption of oral intake, monitor renal function Supportive care Guarded Corey Barreto MD
--- NOTE | 2017-07-06 16:49 | PN ---
Progress Note (short form) - Note Progress Note: @@@@@@@@@@@@@ medical note Current Medications Heparin Sodium (Porcine) (Heparin -) 5,000 unit SQ TID [facility] Last Admin: 07/06/17 15:19 Dose: 5,000 unit Metronidazole (Flagyl 500mg Premixed Ivpb -) 500 mg in 100 mls @ 100 mls/hr IVPB Q8H-IV [facility] Last Admin: 07/06/17 10:11 Dose: 100 mls/hr Sodium Chloride (Normal Saline -) 1,000 mls @ 100 mls/hr IV ASDIR [facility] Last Admin: 07/06/17 05:59 Dose: 100 mls/hr Levofloxacin (Levaquin 500 Mg Premixed Ivpb -) 500 mg in 100 mls @ 100 mls/hr IVPB DAILY [facility] Metoprolol Tartrate (Lopressor Injection -) 5 mg IVPUSH Q4H PRN PRN Reason: HYPERTENSION Morphine Sulfate (Morphine Sulfate) 4 mg IVPUSH Q4H PRN PRN Reason: PAIN LEVEL 4 - 6 Last Admin: 07/06/17 15:19 Dose: 4 mg Morphine Sulfate (Morphine Injection -) 4 mg IVPUSH Q3H PRN PRN Reason: PAIN LEVEL 6-10 Ondansetron HCl (Zofran Injection) 4 mg IVPUSH Q6H PRN PRN Reason: NAUSEA AND/OR VOMITING Pantoprazole Sodium (Protonix Iv) 40 mg IVPUSH DAILY [facility] Last Admin: 07/06/17 10:11 Dose: 40 mg Laboratory Results - last 24 hr 07/06/17 07/06/17 06:45 06:45 WBC 8.0 RBC 3.41 L Hgb 11.3 L Hct 33.1 L MCV 97.1 H MCH 33.0 MCHC 34.0 RDW 13.8 Plt Count 194 MPV 7.7 Neutrophils % 82.7 Lymphocytes % 10.5 D Monocytes % 6.3 Eosinophils % 0.2 Basophils % 0.3 Sodium 143 Potassium 4.3 Chloride 112 H Carbon Dioxide 21 Anion Gap 10 BUN 30 H D Creatinine 1.1 D Random Glucose 108 H Calcium 7.9 L Phosphorus 2.6 Magnesium 1.8 Vital Signs Temp 98.2 F 07/06/17 15:24 Pulse 96 H 07/06/17 15:24 Resp 18 07/06/17 15:24 BP 137/82 07/06/17 15:24 Pulse Ox 95 07/06/17 09:00 Intake & Output 07/05/17 07/06/17 07/06/17 23:59 11:59 23:59 Intake Total 3250 1000 Output Total 1355 1005 250 Balance 1895 -5 -250 Intake: IV 3100 1000 Normal Saline - 1,000 ml 400 @ 100 mls/hr IV ASDIR [facility] Rx#:[id number] Normal Saline - 1,000 ml 1000 @ 100 mls/hr IV ASDIR [facility] Rx#:[id number] IVPB 150 Output: Gastric Drainage 150 0 Drainage 5 TOBY 5 Urine 875 1000 250 Mccormack 300 250 Void 450 700 Estimated Blood Loss 30 Other 300 Other: Voiding Method Indwelling Catheter Indwelling Catheter Indwelling Catheter Bowel Movement No No CC: abd pain ``````````````````````````````` face--with NGT draining bilious fluid heart--rr lungs--distant; unlabored abd--with dressing; TOBY drain w/ sero-sanguine fluid; distended; very sensitive to light touch neuro--drowsy but rousable; coherent; thoughts organized ````````````````````````````````````` Summ > s/p Lap--2nd acute AP; still has significant abd pain post op PLAN: Pain control w/MS; IV Abs; cont NPO & NGT to suction > Htn--with CKD; renal funct stable, BP okay > anemia--mild; post OP ~~~~~~~~~~~~~~~~~~~ Dr Castaneda Problem List - Problems (1) Pain, abdominal, generalized Code(s): R10.84 - GENERALIZED ABDOMINAL PAIN (2) Hypertensive heart and chronic kidney disease stage 3 Code(s): I13.10 - HYP HRT & CHR KDNY DIS W/O HRT FAIL, W STG 1-4/UNSP CHR KDNY; N18.3 - CHRONIC KIDNEY DISEASE, STAGE 3 (MODERATE) (3) PAD (peripheral artery disease) Code(s): I73.9 - PERIPHERAL VASCULAR DISEASE, UNSPECIFIED (4) Lipidemia Code(s): E78.5 - HYPERLIPIDEMIA, UNSPECIFIED Qualifiers: Hyperlipidemia type: pure hypercholesterolemia Qualified Code(s): E78.00 - Pure hypercholesterolemia, unspecified; E78.0 - Pure hypercholesterolemia
[2017-07-06] MEDS ORDERED: INSULIN (NOVOLOG) ASPART 100 UNITS/ML 10ML VIAL ONE (18:33)
[2017-07-07] MEDS: morphine SULFATE 4 MG/ML VIAL IVPUSH PRN ×3 (02:23→14:02)
[2017-07-07] MEDS: SODIUM CHLORIDE 1,000 ML IV SCH (05:50)
[2017-07-07] MEDS: HEPARIN NA (PORCINE) 5,000 UNITS/ML 1ML VIAL SQ SCH ×3 (05:50→21:11)
[2017-07-07 07:30] LABS: HEMATOCRIT 32.9 % (35.4-49); HEMOGLOBIN 11.3 GM/dL (11.7-16.9); MCH 32.9 pg (25.7-33.7); MCHC 34.2 g/dl (32.0-35.9); MEAN CELL VOLUME 96.4 fl (80-96); MEAN PLT VOLUME 7.1 fl (7.5-11.1); PLATELET COUNT 216 K/MM3 (134-434); RBC 3.42 M/mm3 (4.00-5.60); RDW 14.3 % (11.9-15.9)
[2017-07-07] MEDS: PANTOPRAZOLE SODIUM 40 MG VIAL IVPUSH SCH (09:20)
--- NOTE | 2017-07-07 10:31 | PN ---
Progress Note, Physician Chief Complaint: Events noted POD#2 exploratory laparotomy and appendectomy Complains of abdominal pain History of Present Illness: Patient was seen and examined. Awake and alert. Chart was reviewed Denies chest pain, SOB or palpitations Complains of abdominal pain Remains hypertensive - Current Medication List Current Medications: Active Medications Heparin Sodium (Porcine) (Heparin -) 5,000 unit SQ TID [facility] Last Admin: 07/07/17 05:50 Dose: 5,000 unit Metronidazole (Flagyl 500mg Premixed Ivpb -) 500 mg in 100 mls @ 100 mls/hr IVPB Q8H-IV [facility] Last Admin: 07/07/17 02:24 Dose: 100 mls/hr Sodium Chloride (Normal Saline -) 1,000 mls @ 100 mls/hr IV ASDIR [facility] Last Admin: 07/07/17 05:50 Dose: 100 mls/hr Levofloxacin (Levaquin 500 Mg Premixed Ivpb -) 500 mg in 100 mls @ 100 mls/hr IVPB DAILY [facility] Metoprolol Tartrate (Lopressor Injection -) 5 mg IVPUSH Q4H PRN PRN Reason: HYPERTENSION Morphine Sulfate (Morphine Sulfate) 4 mg IVPUSH Q4H PRN PRN Reason: PAIN LEVEL 4 - 6 Last Admin: 07/07/17 09:19 Dose: 4 mg Morphine Sulfate (Morphine Injection -) 4 mg IVPUSH Q3H PRN PRN Reason: PAIN LEVEL 6-10 Ondansetron HCl (Zofran Injection) 4 mg IVPUSH Q6H PRN PRN Reason: NAUSEA AND/OR VOMITING Pantoprazole Sodium (Protonix Iv) 40 mg IVPUSH DAILY [facility] Last Admin: 07/07/17 09:20 Dose: 40 mg - Objective Vital Signs: Vital Signs Temperature 99.1 F 07/07/17 09:41 Pulse Rate 111 H 07/07/17 09:41 Respiratory Rate 18 07/07/17 09:41 Blood Pressure 186/85 07/07/17 09:41 O2 Sat by Pulse Oximetry (%) 95 07/06/17 21:00 HENT: Yes: Atraumatic Neck: Yes: Supple Cardiovascular: Yes: Regular Rate and Rhythm, S1, S2 Respiratory: Yes: Diminished Gastrointestinal: Yes: Distention, Tenderness, Other (Post op) Edema: No Additional Findings/Remarks: - Review of Systems Constitutional: denies: Chills, Fever Cardiovascular: denies: Chest Pain, Shortness of Breath. denies: Palpitations Respiratory: denies: Cough, Hemoptysis, SOB. denies: Orthopnea, PND Gastrointestinal: (+) Abdominal Pain, denies: Constipation, Diarrhea, Melena, Nausea, Rectal Bleeding, Vomiting Musculoskeletal: denies: Joint Pain Neurological: denies: Dizziness, Headache, Seizure, Syncope Labs: CBC, BMP 07/07/17 06:00 Problem List - Problems (1) CKD (chronic kidney disease) Code(s): N18.9 - CHRONIC KIDNEY DISEASE, UNSPECIFIED Qualifiers: Chronic kidney disease stage: stage 2 (mild) Qualified Code(s): N18.2 - Chronic kidney disease, stage 2 (mild) (2) Coronary artery disease Code(s): I25.10 - ATHSCL HEART DISEASE OF [place] CORONARY ARTERY W/O ANG PCTRS Qualifiers: Coronary Disease-Associated Artery/Lesion type: [place] artery [place] vs. transplanted heart: [place] heart Associated angina: without angina Qualified Code(s): I25.10 - Atherosclerotic heart disease of [place] coronary artery without angina pectoris (3) PAD (peripheral artery disease) Code(s): I73.9 - PERIPHERAL VASCULAR DISEASE, UNSPECIFIED (4) S/P coronary artery stent placement Code(s): Z95.5 - PRESENCE OF CORONARY ANGIOPLASTY IMPLANT AND GRAFT (5) S/P appendectomy Code(s): Z90.49 - ACQUIRED ABSENCE OF OTHER SPECIFIED PARTS OF DIGESTIVE TRACT Assessment/Plan 1. Post exploratory-laparotomy and appendectomy 2. CAD s/p PCI (Stent) 3. PAD 4. Carotid stenosis s/p CEA 5. HTN/HCVD 6. Hyperlipidemia 7. Acute on CKD PLAN: 1. Surgery follow up. Yesterday's input noted 2. Hold ASA for now, but to resume once post-op hemostasis achieved and cleared by surgery 3. Maintained on empiric antibiotics, IV Lopressor pending resumption of oral intake, monitor renal function 4. Patient is to be transferred to telemetry unit for IV medical therapy. IV Lopressor should be given. If blood pressure is not adequately controlled, IV Vasotec can be given Supportive care Guarded Corey Barreto MD
[2017-07-07] MEDS ORDERED: ENALAPRILAT DIHYDRATE 1.25 MG/1 ML VIAL IVPB ONE (10:33)
--- NOTE | 2017-07-07 11:03 | PN ---
Progress Note (short form) - Note Progress Note: Attending Surgeon POD #2 Less c/o pain; no flatus VSS AF t max. 100.3; BP elevtaed abdo-soft; dressing c/d/i; tympanitic; TOBY serous; o/w negative. exremities-warm; no calf tenderness I/O reviewed; cultures pending; WBC wnl; ;lytes pending IMP: stable POD #2 PLAN: OOB; pulmonary toilet; incentive spirometry; to be xferred to Tele b/o elevated BP and need for IV medications to control Wu Wells MD FACS
[2017-07-07 11:05] LABS: CHLORIDE 113 mmol/L (98-107); POTASSIUM 3.9 mmol/L (3.5-5.1); SODIUM 146 mmol/L (136-145)
[2017-07-07] MEDS ORDERED: cloNIDine-TTS 0.2 MG/24 HOURS PATCH.TDWK TD SCH (11:15)
[2017-07-07 11:27] LABS: ALK PHOS 48 U/L (45-117); ANION GAP 12 (8-16); BILIRUBIN,TOTAL 0.4 mg/dL (0.2-1.0); BLOOD UREA NITROGEN 28 mg/dL (7-18); CALCIUM 8.1 mg/dL (8.5-10.1); CO2 21 mmol/L (21-32); GLUCOSE,RANDOM 98 mg/dL (74-106); SGOT/AST 17 U/L (15-37); SGPT/ALT 8 U/L (12-78); TOT PROT 5.4 g/dl (6.4-8.2)
--- NOTE | 2017-07-07 13:59 | PN ---
Progress Note, Physician Chief Complaint: He has less pain today S/P AP but BP rising so NS stopped so being transferred to telemetry incase he will need an IV antihypertensive agent CXR shows mild congestive changes and small left pleural effusion along with atelectatic changes NGT remains to suction DENA has continued to improve No BM or Flatus - Current Medication List Current Medications: Active Medications Clonidine HCl (Catapres Tts Patch -) 0.2 mg TD Q7D@1000 [facility] Last Admin: 07/07/17 11:59 Dose: 0.2 mg Heparin Sodium (Porcine) (Heparin -) 5,000 unit SQ TID [facility] Last Admin: 07/07/17 05:50 Dose: 5,000 unit Metronidazole (Flagyl 500mg Premixed Ivpb -) 500 mg in 100 mls @ 100 mls/hr IVPB Q8H-IV [facility] Last Admin: 07/07/17 11:05 Dose: 100 mls/hr Levofloxacin (Levaquin 500 Mg Premixed Ivpb -) 500 mg in 100 mls @ 100 mls/hr IVPB DAILY [facility] Last Admin: 07/07/17 10:48 Dose: 100 mls/hr Metoprolol Tartrate (Lopressor Injection -) 5 mg IVPUSH Q4H PRN PRN Reason: HYPERTENSION Morphine Sulfate (Morphine Sulfate) 4 mg IVPUSH Q4H PRN PRN Reason: PAIN LEVEL 4 - 6 Last Admin: 07/07/17 09:19 Dose: 4 mg Morphine Sulfate (Morphine Injection -) 4 mg IVPUSH Q3H PRN PRN Reason: PAIN LEVEL 6-10 Ondansetron HCl (Zofran Injection) 4 mg IVPUSH Q6H PRN PRN Reason: NAUSEA AND/OR VOMITING Pantoprazole Sodium (Protonix Iv) 40 mg IVPUSH DAILY [facility] Last Admin: 07/07/17 09:20 Dose: 40 mg - Objective Vital Signs: Vital Signs Temperature 99.1 F 07/07/17 09:41 Pulse Rate 111 H 07/07/17 12:30 Respiratory Rate 18 07/07/17 09:41 Blood Pressure 163/91 07/07/17 12:30 O2 Sat by Pulse Oximetry (%) 91 L 07/07/17 09:00 Constitutional: Yes: No Distress Cardiovascular: Yes: S1, S2. No: JVD Respiratory: Yes: CTA Bilaterally Gastrointestinal: Yes: Soft, Distention, Other (No rebound). No: Normal Bowel Sounds Edema: No Neurological: Yes: Alert, Oriented Labs: CBC, BMP 07/07/17 06:00 07/07/17 06:00 INR, PTT INR 1.10 (0.82-1.09) 07/04/17 08:15 Assessment/Plan Impression 1. DENA improving 2. S/P AP with abdominal pain 3. SBO 4. HTN 5. PAD 6. hx etoh abuse 7. CAD Plan - Agree with D/C of NS but will start D5 1/3 NS for maintenance- Pt has had 100 cc drained from the NGT since this am and 300 ccs over night- He remains NPO - Analgesia - Monitor BMP on the IV Enalaprilat as ordered by cardiology - Clonidine patch as ordered - Incentive spirometry - Transferring to telemetry - Rpt labs in am - Call placed to PMD Dr Cartagena
[2017-07-07] MEDS ORDERED: DEXTROSE 5%-1/3 NS - 500 ML IV SCH (14:15)
--- NOTE | 2017-07-07 15:01 | PN ---
Progress Note (short form) - Note Progress Note: ^^^^^^^^^^^^^^^^^^ medical note ^^^^^^^^^^^^^^^ Current Medications Clonidine HCl (Catapres Tts Patch -) 0.2 mg TD Q7D@1000 [facility] Last Admin: 07/07/17 11:59 Dose: 0.2 mg Heparin Sodium (Porcine) (Heparin -) 5,000 unit SQ TID [facility] Last Admin: 07/07/17 14:04 Dose: 5,000 unit Metronidazole (Flagyl 500mg Premixed Ivpb -) 500 mg in 100 mls @ 100 mls/hr IVPB Q8H-IV [facility] Last Admin: 07/07/17 11:05 Dose: 100 mls/hr Levofloxacin (Levaquin 500 Mg Premixed Ivpb -) 500 mg in 100 mls @ 100 mls/hr IVPB DAILY [facility] Last Admin: 07/07/17 10:48 Dose: 100 mls/hr Dextrose/Sodium Chloride (D5-1/3ns -) 500 mls @ 60 mls/hr IV ASDIR [facility] Metoprolol Tartrate (Lopressor Injection -) 5 mg IVPUSH Q4H PRN PRN Reason: HYPERTENSION Morphine Sulfate (Morphine Sulfate) 4 mg IVPUSH Q4H PRN PRN Reason: PAIN LEVEL 4 - 6 Last Admin: 07/07/17 14:02 Dose: 4 mg Morphine Sulfate (Morphine Injection -) 4 mg IVPUSH Q3H PRN PRN Reason: PAIN LEVEL 6-10 Ondansetron HCl (Zofran Injection) 4 mg IVPUSH Q6H PRN PRN Reason: NAUSEA AND/OR VOMITING Pantoprazole Sodium (Protonix Iv) 40 mg IVPUSH DAILY [facility] Last Admin: 07/07/17 09:20 Dose: 40 mg Abnormal Lab Results 07/07/17 07/07/17 06:00 06:00 RBC 3.42 L Hgb 11.3 L Hct 32.9 L MCV 96.4 H MPV 7.1 L Sodium 146 H Chloride 113 H BUN 28 H Calcium 8.1 L ALT 8 L D Total Protein 5.4 L Albumin 2.0 L Vital Signs Temp 99.4 F 07/07/17 14:38 Pulse 107 H 07/07/17 14:38 Resp 18 07/07/17 14:38 BP 163/92 07/07/17 14:38 Pulse Ox 91 L 07/07/17 09:00 Intake & Output 07/06/17 07/07/17 07/07/17 23:59 11:59 23:59 Intake Total 1250 1300 280 Output Total 577 855 600 Balance 673 445 -320 Intake: IV 1000 1200 80 Normal Saline - 1,000 ml 1000 1200 80 @ 100 mls/hr IV ASDIR [facility] Rx#:[id number] IVPB 250 100 200 Output: Drainage 27 155 100 TOBY 7 5 NG TUBE 20 150 100 Urine 550 700 500 [place] 550 700 500 Other: Voiding Method Indwelling Catheter Indwelling Catheter Indwelling Catheter Bowel Movement No No CC: abd pain (less intense today) ``````````````````````````````` face--with NGT draining bilious fluid heart--rr lungs--distant; unlabored abd--with dressing; TOBY drain w/ sero-sanguine fluid; distended; very sensitive to light touch neuro--in no distress; awake; coherent; appropriate; moves all E's on command ````````````````````````````````````` CXR= congestive changes Summ > s/p Lap--2nd acute AP; still has abd pain post op requiring MS PLAN: Pain control w/MS; cont IV Abs; cont NPO & NGT to suction > Htn--with CKD; renal funct stable, SBP much higher this AM (on this unit, we are unable to give IV anti-hypertensives given his NPO status): PLAN: apply clonidine patch, and will hope to transfer to monitored bed in order to administer cardio-vascular meds IV. change fluids to hypotonic solution and reduce rate (as per Renal MD) > anemia--mild; post OP > hypernatremia--mild; change to hypotonic fluids. follow chems. 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
[2017-07-07] MEDS ORDERED: PT OWN MED DRAWER 7, Y5N ONE (18:28)
[2017-07-08] MEDS: HEPARIN NA (PORCINE) 5,000 UNITS/ML 1ML VIAL SQ SCH ×3 (06:30→21:10)
[2017-07-08 07:06] LABS: BASO % 0.2 % (0-2.0); EOS % 0.7 % (0-4.5); HEMATOCRIT 35.7 % (35.4-49); HEMOGLOBIN 12.1 GM/dL (11.7-16.9); LYMPH % 9.9 % (8-40); MCH 32.5 pg (25.7-33.7); MCHC 33.9 g/dl (32.0-35.9); MEAN CELL VOLUME 95.9 fl (80-96); MEAN PLT VOLUME 7.3 fl (7.5-11.1); MONO % 7.6 % (3.8-10.2); NEUT % 81.6 % (42.8-82.8); PLATELET COUNT 231 K/MM3 (134-434); RBC 3.72 M/mm3 (4.00-5.60); RDW 13.8 % (11.9-15.9); WHITE BLOOD COUNT 10.4 K/mm3 (4.0-10.0)
[2017-07-08 07:39] LABS: ANION GAP 8 (8-16); BLOOD UREA NITROGEN 29 mg/dL (7-18); CALCIUM 8.6 mg/dL (8.5-10.1); CHLORIDE 112 mmol/L (98-107); CO2 28 mmol/L (21-32); GLUCOSE,RANDOM 113 mg/dL (74-106); POTASSIUM 3.9 mmol/L (3.5-5.1); SODIUM 148 mmol/L (136-145)
[2017-07-08] MEDS: METOPROLOL TARTRATE 5 MG/5 ML VIAL IVPUSH PRN ×2 (08:21→17:23)
[2017-07-08] MEDS: PANTOPRAZOLE SODIUM 40 MG VIAL IVPUSH SCH (10:11)
--- NOTE | 2017-07-08 10:48 | PN ---
Progress Note, Physician History of Present Illness: POD#3 katina lap and appendectomy, awaiting flatus. - Current Medication List Current Medications: Active Medications Clonidine HCl (Catapres Tts Patch -) 0.2 mg TD Q7D@1000 [facility] Last Admin: 07/07/17 11:59 Dose: 0.2 mg Heparin Sodium (Porcine) (Heparin -) 5,000 unit SQ TID [facility] Last Admin: 07/08/17 06:30 Dose: 5,000 unit Metronidazole (Flagyl 500mg Premixed Ivpb -) 500 mg in 100 mls @ 100 mls/hr IVPB Q8H-IV [facility] Last Admin: 07/08/17 10:11 Dose: 100 mls/hr Levofloxacin (Levaquin 500 Mg Premixed Ivpb -) 500 mg in 100 mls @ 100 mls/hr IVPB DAILY [facility] Last Admin: 07/08/17 10:10 Dose: 100 mls/hr Dextrose/Sodium Chloride (D5-1/3ns -) 500 mls @ 60 mls/hr IV ASDIR [facility] Last Admin: 07/07/17 17:18 Dose: 60 mls/hr Metoprolol Tartrate (Lopressor Injection -) 5 mg IVPUSH Q4H PRN PRN Reason: HYPERTENSION Last Admin: 07/08/17 08:21 Dose: 5 mg Morphine Sulfate (Morphine Sulfate) 4 mg IVPUSH Q4H PRN PRN Reason: PAIN LEVEL 4 - 6 Last Admin: 07/07/17 14:02 Dose: 4 mg Morphine Sulfate (Morphine Injection -) 4 mg IVPUSH Q3H PRN PRN Reason: PAIN LEVEL 6-10 Ondansetron HCl (Zofran Injection) 4 mg IVPUSH Q6H PRN PRN Reason: NAUSEA AND/OR VOMITING Pantoprazole Sodium (Protonix Iv) 40 mg IVPUSH DAILY [facility] Last Admin: 07/08/17 10:11 Dose: 40 mg - Objective Vital Signs: Vital Signs Temperature 97.8 F 07/08/17 06:00 Pulse Rate 114 H 07/08/17 08:21 Respiratory Rate 18 07/08/17 06:00 Blood Pressure 181/88 07/08/17 08:21 O2 Sat by Pulse Oximetry (%) 95 07/07/17 21:00 Constitutional: Yes: No Distress, Calm, Thin Neck: Yes: Supple Cardiovascular: Yes: Regular Rate and Rhythm Respiratory: Yes: Regular, Diminished, On Nasal O2 Gastrointestinal: Yes: Hypoactive Bowel Sounds, Tenderness Edema: No Labs: CBC, BMP 07/08/17 06:45 07/08/17 06:45 INR, PTT INR 1.10 (0.82-1.09) 07/04/17 08:15 Problem List - Problems (1) Small bowel obstruction Code(s): K56.609 - UNSP INTESTNL OBST, UNSP TO PARTIAL VERSUS COMPLETE OBST (2) Coronary artery disease Code(s): I25.10 - ATHSCL HEART DISEASE OF [place] CORONARY ARTERY W/O ANG PCTRS Qualifiers: Coronary Disease-Associated Artery/Lesion type: [place] artery [place] vs. transplanted heart: [place] heart Associated angina: without angina Qualified Code(s): I25.10 - Atherosclerotic heart disease of [place] coronary artery without angina pectoris (3) S/P coronary artery stent placement Code(s): Z95.5 - PRESENCE OF CORONARY ANGIOPLASTY IMPLANT AND GRAFT (4) CKD (chronic kidney disease) Code(s): N18.9 - CHRONIC KIDNEY DISEASE, UNSPECIFIED Qualifiers: Chronic kidney disease stage: stage 2 (mild) Qualified Code(s): N18.2 - Chronic kidney disease, stage 2 (mild) (5) Hypertensive heart and chronic kidney disease stage 3 Code(s): I13.10 - HYP HRT & CHR KDNY DIS W/O HRT FAIL, W STG 1-4/UNSP CHR KDNY; N18.3 - CHRONIC KIDNEY DISEASE, STAGE 3 (MODERATE) (6) Lipidemia Code(s): E78.5 - HYPERLIPIDEMIA, UNSPECIFIED Qualifiers: Hyperlipidemia type: pure hypercholesterolemia Qualified Code(s): E78.00 - Pure hypercholesterolemia, unspecified; E78.0 - Pure hypercholesterolemia (7) PAD (peripheral artery disease) Code(s): I73.9 - PERIPHERAL VASCULAR DISEASE, UNSPECIFIED (8) S/P appendectomy Code(s): Z90.49 - ACQUIRED ABSENCE OF OTHER SPECIFIED PARTS OF DIGESTIVE TRACT Assessment/Plan 1. POD#3 exploratory-laparotomy and appendectomy 2. CAD s/p PCI (Stent) 3. PAD 4. Carotid stenosis s/p CEA 5. HTN/HCVD 6. Hyperlipidemia 7. Acute on CKD improving PLAN: 1. Surgery follow up. Yesterday's input noted 2. Hold ASA for now, but to resume once post-op hemostasis achieved and cleared by surgery 3. Maintained on empiric antibiotics, IV Lopressor and Vasotec pending resumption of oral intake, monitor renal function, placed on catapres patch 4. DVT and GI prophylaxis, analgesia as needed
--- NOTE | 2017-07-08 14:42 | PN ---
Progress Note (short form) - Note Progress Note: Attending Surgeon POD#3 No c/o; no flatus; no BM VSS AF abdo-soft; non tender; minimal tympany; minimal distention; TOBY serous; incision c/d/i w/ santi in place. labs; I/O noted; cultures negative to date IMP: doing well PLAN: Cont. present tx.; D/C NGT; OOB keep NPO until flatus. Wu Wells MD FACS
--- NOTE | 2017-07-08 14:51 | PN ---
Progress Note (short form) - Note Progress Note: ############### medical ################ Current Medications Clonidine HCl (Catapres Tts Patch -) 0.2 mg TD Q7D@1000 [facility] Last Admin: 07/07/17 11:59 Dose: 0.2 mg Enalaprilat (Vasotec Injection -) 1.25 mg IVPB Q6H-IV [facility] Heparin Sodium (Porcine) (Heparin -) 5,000 unit SQ TID [facility] Last Admin: 07/08/17 06:30 Dose: 5,000 unit Metronidazole (Flagyl 500mg Premixed Ivpb -) 500 mg in 100 mls @ 100 mls/hr IVPB Q8H-IV [facility] Last Admin: 07/08/17 10:11 Dose: 100 mls/hr Levofloxacin (Levaquin 500 Mg Premixed Ivpb -) 500 mg in 100 mls @ 100 mls/hr IVPB DAILY [facility] Last Admin: 07/08/17 10:10 Dose: 100 mls/hr Dextrose/Sodium Chloride (D5-1/3ns -) 500 mls @ 60 mls/hr IV ASDIR [facility] Last Admin: 07/07/17 17:18 Dose: 60 mls/hr Metoprolol Tartrate (Lopressor Injection -) 5 mg IVPUSH Q4H PRN PRN Reason: HYPERTENSION Last Admin: 07/08/17 08:21 Dose: 5 mg Morphine Sulfate (Morphine Sulfate) 4 mg IVPUSH Q4H PRN PRN Reason: PAIN LEVEL 4 - 6 Last Admin: 07/07/17 14:02 Dose: 4 mg Morphine Sulfate (Morphine Injection -) 4 mg IVPUSH Q3H PRN PRN Reason: PAIN LEVEL 6-10 Ondansetron HCl (Zofran Injection) 4 mg IVPUSH Q6H PRN PRN Reason: NAUSEA AND/OR VOMITING Pantoprazole Sodium (Protonix Iv) 40 mg IVPUSH DAILY [facility] Last Admin: 07/08/17 10:11 Dose: 40 mg Laboratory Results - last 24 hr 07/08/17 07/08/17 06:45 06:45 WBC 10.4 H RBC 3.72 L Hgb 12.1 Hct 35.7 MCV 95.9 MCH 32.5 MCHC 33.9 RDW 13.8 Plt Count 231 MPV 7.3 L Neutrophils % 81.6 Lymphocytes % 9.9 Monocytes % 7.6 Eosinophils % 0.7 D Basophils % 0.2 Sodium 148 H Potassium 3.9 Chloride 112 H Carbon Dioxide 28 D Anion Gap 8 BUN 29 H Creatinine 1.0 Random Glucose 113 H Calcium 8.6 Vital Signs Temperature 97.8 F 07/08/17 06:00 Pulse Rate 114 H 07/08/17 08:21 Respiratory Rate 18 07/08/17 06:00 Blood Pressure 181/88 07/08/17 08:21 O2 Sat by Pulse Oximetry (%) 95 07/07/17 21:00 CC: less pain ``````````````````````````````` face--with NGT heart--rr lungs--distant; unlabored abd--with dressing; BS absent, NT neuro--in no distress; awake; coherent; appropriate; moves all E's on command ````````````````````````````````````` CXR= reduced congestion Summ > s/p Lap--2nd acute AP; still NPO PLAN: Pain control w/MS; cont IV Abs; cont NPO & NGT as per surgeon > Htn--with CKD; renal funct stable, SBP still high; ghot 1 dose of IV BB this AM with little effect: PLAN: cont clonidine patch, and adjust IV BP meds > anemia--mild; post OP > hypernatremia--mild; mgmt as per renal. 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
[2017-07-08] MEDS: ENALAPRILAT DIHYDRATE 1.25 MG/1 ML VIAL IVPB SCH ×2 (15:33→21:04)
--- NOTE | 2017-07-08 15:38 | PN ---
Progress Note, Physician History of Present Illness: Pt seen and examined at bedside. He still has the NG tube. - Current Medication List Current Medications: Active Medications Clonidine HCl (Catapres Tts Patch -) 0.2 mg TD Q7D@1000 [facility] Last Admin: 07/07/17 11:59 Dose: 0.2 mg Enalaprilat (Vasotec Injection -) 1.25 mg IVPB Q6H-IV [facility] Last Admin: 07/08/17 15:33 Dose: Not Given Heparin Sodium (Porcine) (Heparin -) 5,000 unit SQ TID [facility] Last Admin: 07/08/17 06:30 Dose: 5,000 unit Metronidazole (Flagyl 500mg Premixed Ivpb -) 500 mg in 100 mls @ 100 mls/hr IVPB Q8H-IV [facility] Last Admin: 07/08/17 10:11 Dose: 100 mls/hr Levofloxacin (Levaquin 500 Mg Premixed Ivpb -) 500 mg in 100 mls @ 100 mls/hr IVPB DAILY [facility] Last Admin: 07/08/17 10:10 Dose: 100 mls/hr Dextrose/Sodium Chloride (D5-1/3ns -) 500 mls @ 60 mls/hr IV ASDIR [facility] Last Admin: 07/07/17 17:18 Dose: 60 mls/hr Metoprolol Tartrate (Lopressor Injection -) 5 mg IVPUSH Q4H PRN PRN Reason: HYPERTENSION Last Admin: 07/08/17 08:21 Dose: 5 mg Morphine Sulfate (Morphine Sulfate) 4 mg IVPUSH Q4H PRN PRN Reason: PAIN LEVEL 4 - 6 Last Admin: 07/07/17 14:02 Dose: 4 mg Morphine Sulfate (Morphine Injection -) 4 mg IVPUSH Q3H PRN PRN Reason: PAIN LEVEL 6-10 Ondansetron HCl (Zofran Injection) 4 mg IVPUSH Q6H PRN PRN Reason: NAUSEA AND/OR VOMITING Pantoprazole Sodium (Protonix Iv) 40 mg IVPUSH DAILY [facility] Last Admin: 07/08/17 10:11 Dose: 40 mg - Objective Vital Signs: Vital Signs Temperature 98.4 F 07/08/17 14:00 Pulse Rate 104 H 07/08/17 14:00 Respiratory Rate 18 07/08/17 06:00 Blood Pressure 148/89 07/08/17 14:00 O2 Sat by Pulse Oximetry (%) 95 07/07/17 21:00 Constitutional: Yes: Calm Eyes: Yes: Conjunctiva Clear HENT: Yes: Atraumatic Cardiovascular: Yes: S1, S2 Respiratory: Yes: CTA Bilaterally Gastrointestinal: Yes: Soft Genitourinary: Yes: WNL Musculoskeletal: Yes: WNL Edema: No Neurological: Yes: Oriented Psychiatric: Yes: Oriented Labs: CBC, BMP 07/08/17 06:45 07/08/17 06:45 INR, PTT INR 1.10 (0.82-1.09) 07/04/17 08:15 Problem List - Problems (1) CKD (chronic kidney disease) Code(s): N18.9 - CHRONIC KIDNEY DISEASE, UNSPECIFIED Qualifiers: Chronic kidney disease stage: stage 2 (mild) Qualified Code(s): N18.2 - Chronic kidney disease, stage 2 (mild) (2) Lipidemia Code(s): E78.5 - HYPERLIPIDEMIA, UNSPECIFIED Qualifiers: Hyperlipidemia type: pure hypercholesterolemia Qualified Code(s): E78.00 - Pure hypercholesterolemia, unspecified; E78.0 - Pure hypercholesterolemia (3) PAD (peripheral artery disease) Code(s): I73.9 - PERIPHERAL VASCULAR DISEASE, UNSPECIFIED (4) Pain, abdominal, generalized Code(s): R10.84 - GENERALIZED ABDOMINAL PAIN Assessment/Plan Current Medications Generic Name Dose Route Start Last Admin Trade Name Freq PRN Reason Stop Dose Admin Clonidine HCl 0.2 mg 07/07/17 11:15 07/07/17 11:59 Catapres Tts Patch - TD 0.2 mg Q7D@1000 [facility] Administration Enalaprilat 1.25 mg 07/08/17 15:00 07/08/17 15:33 Vasotec Injection - IVPB Not Given Q6H-IV [facility] Heparin Sodium (Porcine) 5,000 unit 07/05/17 22:00 07/08/17 06:30 Heparin - SQ 5,000 unit TID [facility] Administration Metronidazole 500 mg in 100 mls @ 100 mls/hr 07/05/17 18:00 07/08/17 10:11 Flagyl 500mg Premixed Ivpb - IVPB 100 mls/hr Q8H-IV [facility] Administration Levofloxacin 500 mg in 100 mls @ 100 mls/hr 07/07/17 10:00 07/08/17 10:10 Levaquin 500 Mg Premixed Ivpb - IVPB 100 mls/hr DAILY [facility] Administration Dextrose/Sodium Chloride 500 mls @ 60 mls/hr 07/07/17 14:15 07/07/17 17:18 D5-1/3ns - IV 60 mls/hr ASDIR [facility] Administration Metoprolol Tartrate 5 mg 07/05/17 17:37 07/08/17 08:21 Lopressor Injection - IVPUSH 5 mg Q4H PRN Administration HYPERTENSION Morphine Sulfate 4 mg 07/05/17 17:19 07/07/17 14:02 Morphine Sulfate IVPUSH 4 mg Q4H PRN Administration PAIN LEVEL 4 - 6 Morphine Sulfate 4 mg 07/06/17 11:39 Morphine Injection - IVPUSH Q3H PRN PAIN LEVEL 6-10 Ondansetron HCl 4 mg 07/05/17 17:19 Zofran Injection IVPUSH Q6H PRN NAUSEA AND/OR VOMITING Pantoprazole Sodium 40 mg 07/06/17 10:00 07/08/17 10:11 Protonix Iv IVPUSH 40 mg DAILY [facility] Administration Impression 1. CKD 2. abdominal pain 3. hypernatremia 4. HTN 5. PAD 6. hx etoh abuse 7. CAD 8. appendicitis Plan - cont with hypotonic fluid - repeat labs in am - renal function is improved - will repeat ua once stable - fluids while npo Dr Niño
[2017-07-08] MEDS: DEXTROSE 5%-1/3 NS - 500 ML IV SCH (21:05)
[2017-07-08] MEDS ORDERED: morphine SULFATE 4 MG/ML VIAL ONE (22:51)
[2017-07-09] MEDS: DEXTROSE 5%-1/3 NS - 500 ML IV SCH ×2 (01:15→14:00)
[2017-07-09] MEDS: ENALAPRILAT DIHYDRATE 1.25 MG/1 ML VIAL IVPB SCH ×4 (03:44→23:05)
[2017-07-09] MEDS: HEPARIN NA (PORCINE) 5,000 UNITS/ML 1ML VIAL SQ SCH ×3 (06:04→23:05)
[2017-07-09 07:21] LABS: HEMATOCRIT 34.5 % (35.4-49); HEMOGLOBIN 11.8 GM/dL (11.7-16.9); MCH 32.9 pg (25.7-33.7); MCHC 34.1 g/dl (32.0-35.9); MEAN CELL VOLUME 96.6 fl (80-96); MEAN PLT VOLUME 7.6 fl (7.5-11.1); PLATELET COUNT 229 K/MM3 (134-434); RBC 3.57 M/mm3 (4.00-5.60); RDW 14.2 % (11.9-15.9); WHITE BLOOD COUNT 9.7 K/mm3 (4.0-10.0)
[2017-07-09 07:45] LABS: ANION GAP 5 (8-16); BLOOD UREA NITROGEN 43 mg/dL (7-18); CHLORIDE 112 mmol/L (98-107); CO2 29 mmol/L (21-32); GLUCOSE,RANDOM 130 mg/dL (74-106); POTASSIUM 3.7 mmol/L (3.5-5.1); SODIUM 146 mmol/L (136-145)
[2017-07-09 07:46] LABS: CREATININE 1.1 mg/dL (0.7-1.3)
[2017-07-09] MEDS: PANTOPRAZOLE SODIUM 40 MG VIAL IVPUSH SCH (09:12)
--- NOTE | 2017-07-09 10:45 | OP ---
DATE OF OPERATION: 07/05/2017 PREOPERATIVE DIAGNOSIS: Acute abdomen secondary to bowel obstruction. POSTOPERATIVE DIAGNOSIS: Acute abdomen due to appendicitis and ileus. PROCEDURE: Laparotomy and open appendectomy. SURGEON: Wu Wells MD [employer] WORKER: Anayeli Engel PA-C ANESTHESIA: General. OPERATIVE FINDINGS: There was diffuse ileus of the small bowel and what appeared to be acute appendicitis involving the proximal appendix and base of the appendix. There were some reactive changes along the sigmoid in the pelvis where the appendix had been adjacent to. The rest of the findings were unremarkable. DESCRIPTION OF PROCEDURE: The patient was placed on the operating room in supine position, and after the induction of general anesthesia, the patient's abdomen was prepped with ChloraPrep and draped in sterile fashion. A Mccormack catheter was placed. The peritoneal cavity was then entered through a midline incision after a time- out was taken. Upon exploration, the previously noted findings were observed. Using blunt dissection, the appendix was mobilized off the rectosigmoid junction and the mesoappendix serially divided between right-angle clamps and the pedicles ligated with 3-0 Vicryl suture. The appendix was traced down to its base at the confluence of the tinea of the right colon and then clamped twice and excised. The appendix was passed off the operative field and sent for pathological examination. The base of the appendix was doubly ligated with 0 chromic suture. Next, copious irrigation was carried out, and a 10-mm Andrew-Almaraz drain was placed in the right lower quadrant and brought out through a stab wound in the right lower abdomen and secured to the skin with 2-0 silk suture. Hemostasis was verified as was the position of the nasogastric tube and then the abdomen was closed in a single layer using continuous No. 2 Prolene suture. The subcutaneous tissue was irrigated and then the skin edges reapproximated with surgical santi. The drain was connected to bulb self- suction and the patient aroused from general anesthesia and transferred to the post anesthesia care unit in stable condition awake and alert. ESTIMATED BLOOD LOSS: 30 mL. REPLACEMENT: Crystalloid. DRAINS: One No. 10 Andrew-Almaraz. SPECIMEN: Appendix to pathology. I, Wu Wells, was physically present in the operating room from the time the patient was placed on the operating room table until he was transferred to the post anesthesia care unit in [facility]. MD JOAN Cardenas/[id number] MTDD
--- NOTE | 2017-07-09 10:47 | PN ---
Progress Note (short form) - Note Progress Note: Chief Complaint: Events noted, notes reviewed, POD#4 post exploratory laparotomy and appendectomy, remains NPO, antihypertensive therapy being administered intravenously, denies any chest pain or dyspnea History of Present Illness: Seen and examined on telemetry. Events noted, notes reviewed, POD#4 exploratory laparotomy and appendectomy, remains NPO, antihypertensive therapy being administered intravenously, denies any chest pain or dyspnea - Current Medication List Current Medications Clonidine HCl (Catapres Tts Patch -) 0.2 mg TD Q7D@1000 [facility] Last Admin: 07/07/17 11:59 Dose: 0.2 mg Enalaprilat (Vasotec Injection -) 1.25 mg IVPB Q6H-IV [facility] Last Admin: 07/09/17 09:11 Dose: 1.25 mg Heparin Sodium (Porcine) (Heparin -) 5,000 unit SQ TID [facility] Last Admin: 07/09/17 06:04 Dose: 5,000 unit Metronidazole (Flagyl 500mg Premixed Ivpb -) 500 mg in 100 mls @ 100 mls/hr IVPB Q8H-IV [facility] Last Admin: 07/09/17 09:11 Dose: 100 mls/hr Levofloxacin (Levaquin 500 Mg Premixed Ivpb -) 500 mg in 100 mls @ 100 mls/hr IVPB DAILY [facility] Last Admin: 07/09/17 09:11 Dose: 100 mls/hr Dextrose/Sodium Chloride (D5-1/3ns -) 500 mls @ 80 mls/hr IV ASDIR [facility] Last Admin: 07/09/17 01:15 Dose: 80 mls/hr Metoprolol Tartrate (Lopressor Injection -) 5 mg IVPUSH Q4H PRN PRN Reason: HYPERTENSION Last Admin: 07/08/17 17:23 Dose: 5 mg Morphine Sulfate (Morphine Injection -) 4 mg IVPUSH Q3H PRN PRN Reason: PAIN LEVEL 6-10 Last Admin: 07/08/17 22:55 Dose: 4 mg Ondansetron HCl (Zofran Injection) 4 mg IVPUSH Q6H PRN PRN Reason: NAUSEA AND/OR VOMITING Pantoprazole Sodium (Protonix Iv) 40 mg IVPUSH DAILY [facility] Last Admin: 07/09/17 09:12 Dose: 40 mg - Review of Systems Constitutional: denies: Chills, Fever Cardiovascular: as noted above Respiratory: denies: Cough Gastrointestinal: denies: Nausea, Vomiting, Diarrhea, Constipation Musculoskeletal: denies: Joint Pain Neurological: denies: Dizziness or Headache - Objective Vital Signs: Last Vital Signs Temp Pulse Resp BP Pulse Ox 97.5 F L 85 20 157/77 94 L 07/09/17 05:30 07/09/17 05:30 07/09/17 05:30 07/09/17 05:30 07/08/17 21:00 Intake & Output 07/06/17 07/07/17 07/08/17 07/09/17 23:59 23:59 23:59 23:59 Intake Total 2250 2070 920 980 Output Total 1582 1610 1735 110 Balance 668 460 -815 870 HENT: Atraumatic Neck: Supple Negative JVD No Bruit Cardiovascular: S1 S2 Regular Rate and Rhythm No Murmurs Respiratory: Diminished at the Bases Gastrointestinal: Soft Benign Hypoactive Bowel Sounds Ext: No Edema Labs: CBC, BMP 07/09/17 06:57 07/09/17 06:57 Assessment/Plan ASSESSMENT: 1. POD#4 post exploratory-laparotomy and appendectomy 2. CAD postp PCI (Stent) angina pectoris 3. Diastolic LV dysfunction with class 0 NYHA classification LV failure 4. HTN 5. Hyperlipidemia 6. Carotid stenosis post CEA 7. PAD 8. Acute on CKD 9. Hypernatremia PLAN: 1. Resume ASA once oral intake is resumed and post-op hemostasis is achieved 2. Continue IV Vasotec pending PO intake 3. Continue IV Lopressor as needed pending PO intake 4. Continue Catapres Patch 5. Antibiotics as per the primary team Elías Renteria MD
--- NOTE | 2017-07-09 14:36 | PN ---
Progress Note, Physician History of Present Illness: Pt seen and examined at bedside. He is awake and alert. He says he feels hungry. - Current Medication List Current Medications: Active Medications Clonidine HCl (Catapres Tts Patch -) 0.2 mg TD Q7D@1000 [facility] Last Admin: 07/07/17 11:59 Dose: 0.2 mg Enalaprilat (Vasotec Injection -) 1.25 mg IVPB Q6H-IV [facility] Last Admin: 07/09/17 09:11 Dose: 1.25 mg Heparin Sodium (Porcine) (Heparin -) 5,000 unit SQ TID [facility] Last Admin: 07/09/17 06:04 Dose: 5,000 unit Metronidazole (Flagyl 500mg Premixed Ivpb -) 500 mg in 100 mls @ 100 mls/hr IVPB Q8H-IV [facility] Last Admin: 07/09/17 09:11 Dose: 100 mls/hr Levofloxacin (Levaquin 500 Mg Premixed Ivpb -) 500 mg in 100 mls @ 100 mls/hr IVPB DAILY [facility] Last Admin: 07/09/17 09:11 Dose: 100 mls/hr Dextrose/Sodium Chloride (D5-1/3ns -) 500 mls @ 80 mls/hr IV ASDIR [facility] Last Admin: 07/09/17 01:15 Dose: 80 mls/hr Metoprolol Tartrate (Lopressor Injection -) 5 mg IVPUSH Q4H PRN PRN Reason: HYPERTENSION Last Admin: 07/08/17 17:23 Dose: 5 mg Morphine Sulfate (Morphine Injection -) 4 mg IVPUSH Q3H PRN PRN Reason: PAIN LEVEL 6-10 Last Admin: 07/08/17 22:55 Dose: 4 mg Ondansetron HCl (Zofran Injection) 4 mg IVPUSH Q6H PRN PRN Reason: NAUSEA AND/OR VOMITING Pantoprazole Sodium (Protonix Iv) 40 mg IVPUSH DAILY [facility] Last Admin: 07/09/17 09:12 Dose: 40 mg - Objective Vital Signs: Vital Signs Temperature 99.9 F H 07/09/17 10:00 Pulse Rate 90 07/09/17 10:00 Respiratory Rate 20 07/09/17 10:00 Blood Pressure 140/78 07/09/17 10:00 O2 Sat by Pulse Oximetry (%) 94 L 07/09/17 10:00 Constitutional: Yes: Calm Eyes: Yes: Conjunctiva Clear HENT: Yes: Atraumatic Cardiovascular: Yes: S1, S2 Respiratory: Yes: CTA Bilaterally Gastrointestinal: Yes: Soft Genitourinary: Yes: WNL Musculoskeletal: Yes: WNL Edema: No Neurological: Yes: Oriented Psychiatric: Yes: Oriented Labs: CBC, BMP 07/09/17 06:57 07/09/17 06:57 INR, PTT INR 1.10 (0.82-1.09) 07/04/17 08:15 Problem List - Problems (1) CKD (chronic kidney disease) Code(s): N18.9 - CHRONIC KIDNEY DISEASE, UNSPECIFIED Qualifiers: Chronic kidney disease stage: stage 2 (mild) Qualified Code(s): N18.2 - Chronic kidney disease, stage 2 (mild) (2) Lipidemia Code(s): E78.5 - HYPERLIPIDEMIA, UNSPECIFIED Qualifiers: Hyperlipidemia type: pure hypercholesterolemia Qualified Code(s): E78.00 - Pure hypercholesterolemia, unspecified; E78.0 - Pure hypercholesterolemia (3) PAD (peripheral artery disease) Code(s): I73.9 - PERIPHERAL VASCULAR DISEASE, UNSPECIFIED (4) Pain, abdominal, generalized Code(s): R10.84 - GENERALIZED ABDOMINAL PAIN Assessment/Plan Current Medications Generic Name Dose Route Start Last Admin Trade Name Denis PRN Reason Stop Dose Admin Clonidine HCl 0.2 mg 07/07/17 11:15 07/07/17 11:59 Catapres Tts Patch - TD 0.2 mg Q7D@1000 [facility] Administration Enalaprilat 1.25 mg 07/08/17 15:00 07/09/17 09:11 Vasotec Injection - IVPB 1.25 mg Q6H-IV [facility] Administration Heparin Sodium (Porcine) 5,000 unit 07/05/17 22:00 07/09/17 06:04 Heparin - SQ 5,000 unit TID [facility] Administration Metronidazole 500 mg in 100 mls @ 100 mls/hr 07/05/17 18:00 07/09/17 09:11 Flagyl 500mg Premixed Ivpb - IVPB 100 mls/hr Q8H-IV [facility] Administration Levofloxacin 500 mg in 100 mls @ 100 mls/hr 07/07/17 10:00 07/09/17 09:11 Levaquin 500 Mg Premixed Ivpb - IVPB 100 mls/hr DAILY [facility] Administration Dextrose/Sodium Chloride 500 mls @ 80 mls/hr 07/08/17 15:38 07/09/17 01:15 D5-1/3ns - IV 80 mls/hr ASDIR [facility] Administration Metoprolol Tartrate 5 mg 07/05/17 17:37 07/08/17 17:23 Lopressor Injection - IVPUSH 5 mg Q4H PRN Administration HYPERTENSION Morphine Sulfate 4 mg 07/06/17 11:39 07/08/17 22:55 Morphine Injection - IVPUSH 4 mg Q3H PRN Administration PAIN LEVEL 6-10 Ondansetron HCl 4 mg 07/05/17 17:19 Zofran Injection IVPUSH Q6H PRN NAUSEA AND/OR VOMITING Pantoprazole Sodium 40 mg 07/06/17 10:00 07/09/17 09:12 Protonix Iv IVPUSH 40 mg DAILY [facility] Administration Impression 1. CKD 2. abdominal pain 3. hypernatremia 4. HTN 5. PAD 6. hx etoh abuse 7. CAD 8. appendicitis Plan - cont fluids - sodium starting to improve - surgery follow up - repeat labs in am - will repeat ua once stable - fluids while npo Dr Niño
--- NOTE | 2017-07-09 17:35 | PN ---
Progress Note (short form) - Note Progress Note: medical Current Medications Clonidine HCl (Catapres Tts Patch -) 0.2 mg TD Q7D@1000 [facility] Last Admin: 07/07/17 11:59 Dose: 0.2 mg Enalaprilat (Vasotec Injection -) 1.25 mg IVPB Q6H-IV [facility] Last Admin: 07/09/17 16:08 Dose: Not Given Heparin Sodium (Porcine) (Heparin -) 5,000 unit SQ TID [facility] Last Admin: 07/09/17 16:12 Dose: 5,000 unit Metronidazole (Flagyl 500mg Premixed Ivpb -) 500 mg in 100 mls @ 100 mls/hr IVPB Q8H-IV [facility] Last Admin: 07/09/17 09:11 Dose: 100 mls/hr Levofloxacin (Levaquin 500 Mg Premixed Ivpb -) 500 mg in 100 mls @ 100 mls/hr IVPB DAILY [facility] Last Admin: 07/09/17 09:11 Dose: 100 mls/hr Dextrose/Sodium Chloride (D5-1/3ns -) 500 mls @ 80 mls/hr IV ASDIR [facility] Last Admin: 07/09/17 01:15 Dose: 80 mls/hr Metoprolol Tartrate (Lopressor Injection -) 5 mg IVPUSH Q4H PRN PRN Reason: HYPERTENSION Last Admin: 07/08/17 17:23 Dose: 5 mg Morphine Sulfate (Morphine Injection -) 4 mg IVPUSH Q3H PRN PRN Reason: PAIN LEVEL 6-10 Last Admin: 07/08/17 22:55 Dose: 4 mg Ondansetron HCl (Zofran Injection) 4 mg IVPUSH Q6H PRN PRN Reason: NAUSEA AND/OR VOMITING Pantoprazole Sodium (Protonix Iv) 40 mg IVPUSH DAILY [facility] Last Admin: 07/09/17 09:12 Dose: 40 mg Laboratory Results - last 24 hr 07/09/17 07/09/17 06:57 06:57 WBC 9.7 RBC 3.57 L Hgb 11.8 Hct 34.5 L MCV 96.6 H MCH 32.9 MCHC 34.1 RDW 14.2 Plt Count 229 MPV 7.6 Sodium 146 H Potassium 3.7 Chloride 112 H Carbon Dioxide 29 Anion Gap 5 L BUN 43 H D Creatinine 1.1 Random Glucose 130 H Calcium 8.0 L Vital Signs Temperature 98.3 F 07/09/17 14:00 Pulse Rate 89 07/09/17 14:00 Respiratory Rate 20 07/09/17 10:00 Blood Pressure 127/63 07/09/17 14:00 O2 Sat by Pulse Oximetry (%) 94 L 07/09/17 10:00 CC: less pain; feels weak ``````````````````````````````` T-max 99.9 heart--rr lungs--distant; unlabored abd--distended BS present; passed a bit of wind today. neuro--not toxic appearing; in no distress; awake; coherent; appropriate; moves all E's on command ````````````````````````````````````` Summ > s/p Lap--2nd acute AP; still NPO but starting to have BS; PLAN: Pain control w /MS; cont IV Abs; start low dose Clinimix > Htn--with CKD; BP okay; but Bun slightly higher: PLAN: cont clonidine patch, IV [id number]; check daily chems > anemia--mild; post OP > hypernatremia--mild; mgmt as per renal. 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
[2017-07-10] MEDS: ENALAPRILAT DIHYDRATE 1.25 MG/1 ML VIAL IVPB SCH ×3 (04:00→16:16)
[2017-07-10] MEDS: DEXTROSE 5%-1/3 NS - 500 ML IV SCH ×2 (06:14→17:00)
[2017-07-10] MEDS: HEPARIN NA (PORCINE) 5,000 UNITS/ML 1ML VIAL SQ SCH ×3 (06:20→21:48)
[2017-07-10 06:57] LABS: BASO % 0.4 % (0-2.0); EOS % 2.8 % (0-4.5); HEMATOCRIT 32.2 % (35.4-49); HEMOGLOBIN 11.1 GM/dL (11.7-16.9); LYMPH % 16.6 % (8-40); MCH 33.1 pg (25.7-33.7); MCHC 34.5 g/dl (32.0-35.9); MEAN CELL VOLUME 96.1 fl (80-96); MEAN PLT VOLUME 7.6 fl (7.5-11.1); MONO % 8.1 % (3.8-10.2); NEUT % 72.1 % (42.8-82.8); PLATELET COUNT 239 K/MM3 (134-434); RBC 3.35 M/mm3 (4.00-5.60); WHITE BLOOD COUNT 8.4 K/mm3 (4.0-10.0)
[2017-07-10 07:31] LABS: ANION GAP 7 (8-16); BLOOD UREA NITROGEN 43 mg/dL (7-18); CALCIUM 7.6 mg/dL (8.5-10.1); CHLORIDE 113 mmol/L (98-107); CO2 26 mmol/L (21-32); CREATININE 1.1 mg/dL (0.7-1.3); GLUCOSE,RANDOM 95 mg/dL (74-106); POTASSIUM 3.3 mmol/L (3.5-5.1); SODIUM 146 mmol/L (136-145)
--- NOTE | 2017-07-10 09:15 | PN ---
Progress Note, Physician History of Present Illness: POD#5 katina lap and appendectomy, + flatus, tolerating ice chips. - Current Medication List Current Medications: Active Medications Clonidine HCl (Catapres Tts Patch -) 0.2 mg TD Q7D@1000 [facility] Last Admin: 07/07/17 11:59 Dose: 0.2 mg Enalaprilat (Vasotec Injection -) 1.25 mg IVPB Q6H-IV [facility] Last Admin: 07/10/17 04:00 Dose: 1.25 mg Heparin Sodium (Porcine) (Heparin -) 5,000 unit SQ TID [facility] Last Admin: 07/10/17 06:20 Dose: 5,000 unit Metronidazole (Flagyl 500mg Premixed Ivpb -) 500 mg in 100 mls @ 100 mls/hr IVPB Q8H-IV [facility] Last Admin: 07/10/17 02:00 Dose: 100 mls/hr Levofloxacin (Levaquin 500 Mg Premixed Ivpb -) 500 mg in 100 mls @ 100 mls/hr IVPB DAILY [facility] Last Admin: 07/09/17 09:11 Dose: 100 mls/hr Dextrose/Sodium Chloride (D5-1/3ns -) 500 mls @ 80 mls/hr IV ASDIR [facility] Last Admin: 07/10/17 06:14 Dose: 80 mls/hr Metoprolol Tartrate (Lopressor Injection -) 5 mg IVPUSH Q4H PRN PRN Reason: HYPERTENSION Last Admin: 07/08/17 17:23 Dose: 5 mg Morphine Sulfate (Morphine Injection -) 4 mg IVPUSH Q3H PRN PRN Reason: PAIN LEVEL 6-10 Last Admin: 07/08/17 22:55 Dose: 4 mg Ondansetron HCl (Zofran Injection) 4 mg IVPUSH Q6H PRN PRN Reason: NAUSEA AND/OR VOMITING Pantoprazole Sodium (Protonix Iv) 40 mg IVPUSH DAILY [facility] Last Admin: 07/09/17 09:12 Dose: 40 mg - Objective Vital Signs: Vital Signs Temperature 98.1 F 07/10/17 06:00 Pulse Rate 86 07/10/17 06:00 Respiratory Rate 20 07/10/17 06:00 Blood Pressure 145/67 07/10/17 06:00 O2 Sat by Pulse Oximetry (%) 92 L 07/09/17 21:00 Constitutional: Yes: No Distress, Calm Neck: Yes: Supple Cardiovascular: Yes: Regular Rate and Rhythm Respiratory: Yes: Regular, Diminished, On Nasal O2 Gastrointestinal: Yes: Normal Bowel Sounds, Soft Edema: No Labs: CBC, BMP 07/10/17 06:40 07/10/17 06:40 INR, PTT INR 1.10 (0.82-1.09) 07/04/17 08:15 Problem List - Problems (1) Small bowel obstruction Code(s): K56.609 - UNSP INTESTNL OBST, UNSP TO PARTIAL VERSUS COMPLETE OBST (2) Coronary artery disease Code(s): I25.10 - ATHSCL HEART DISEASE OF [place] CORONARY ARTERY W/O ANG PCTRS Qualifiers: Coronary Disease-Associated Artery/Lesion type: [place] artery [place] vs. transplanted heart: [place]er heart Associated angina: without angina Qualified Code(s): I25.10 - Atherosclerotic heart disease of [place] coronary artery without angina pectoris (3) S/P coronary artery stent placement Code(s): Z95.5 - PRESENCE OF CORONARY ANGIOPLASTY IMPLANT AND GRAFT (4) CKD (chronic kidney disease) Code(s): N18.9 - CHRONIC KIDNEY DISEASE, UNSPECIFIED Qualifiers: Chronic kidney disease stage: stage 2 (mild) Qualified Code(s): N18.2 - Chronic kidney disease, stage 2 (mild) (5) Hypertensive heart and chronic kidney disease stage 3 Code(s): I13.10 - HYP HRT & CHR KDNY DIS W/O HRT FAIL, W STG 1-4/UNSP CHR KDNY; N18.3 - CHRONIC KIDNEY DISEASE, STAGE 3 (MODERATE) (6) Lipidemia Code(s): E78.5 - HYPERLIPIDEMIA, UNSPECIFIED Qualifiers: Hyperlipidemia type: pure hypercholesterolemia Qualified Code(s): E78.00 - Pure hypercholesterolemia, unspecified; E78.0 - Pure hypercholesterolemia (7) PAD (peripheral artery disease) Code(s): I73.9 - PERIPHERAL VASCULAR DISEASE, UNSPECIFIED (8) S/P appendectomy Code(s): Z90.49 - ACQUIRED ABSENCE OF OTHER SPECIFIED PARTS OF DIGESTIVE TRACT Assessment/Plan 1. POD#5 post exploratory laparotomy and appendectomy 2. CAD post PCI (Stent) angina pectoris 3. Diastolic LV dysfunction with class 0 NYHA classification LV failure 4. HTN 5. Hyperlipidemia 6. Carotid stenosis post CEA 7. PAD 8. Acute on CKD resolved 9. Hypernatremia PLAN: 1. Resume ASA once oral intake is resumed and post-op hemostasis is achieved, K repletion 2. Continue IV Vasotec 1.25 q6 pending PO intake 3. Continue IV Lopressor 5 q4 as needed pending PO intake 4. Continue Catapres Patch 5. Empiric antibiotics as per the primary team 6. Advance diet per surgery, DVT and GI prophylaxis, OOB to chair, analgesia as needed
[2017-07-10] MEDS ORDERED: PT OWN MED DRAWER 7, Y5N ONE (09:20)
[2017-07-10] MEDS: PANTOPRAZOLE SODIUM 40 MG VIAL IVPUSH SCH (09:27)
--- NOTE | 2017-07-10 10:21 | PN ---
Progress Note (short form) - Note Progress Note: POD#5 Pt states that he is having flatus, no BM. NO nausea or emesis. Was oob to chair yesterday, briefly and had drop in BP. Vital Signs Period Temp Pulse Resp BP Sys/Holguin Pulse Ox Last 24 Hr 98.1 F-99 F 57-93 20-20 101-145/60-76 92 TOBY:45 serous drainage GEN: Appear comfortable ABd: soft, slight distended, inc tenderness. Inc c/d/i CBC, BMP 07/10/17 06:40 07/10/17 06:40 Microbiology 07/05/17 17:15 Peritoneal Fluid Gram Stain - Final 07/05/17 17:15 Peritoneal Fluid Anaerobic Culture - Final NO GROWTH OF AEROBIC ORGANISMS AFTER 48 HOURS INCUBATION NO ANAEROBES WERE ISOLATED Problem List - Problems (1) S/P appendectomy Assessment/Plan: May begin trial of clears today Continue oob to chair/PT May resume medications by mouth Discontinue IV abx Continue TOBY for now D/w Dr. eWlls Code(s): Z90.49 - ACQUIRED ABSENCE OF OTHER SPECIFIED PARTS OF DIGESTIVE TRACT
--- NOTE | 2017-07-10 12:15 | PN ---
Progress Note, Physician History of Present Illness: Pt seen and examined at bedside. He is awake and alert. - Current Medication List Current Medications: Active Medications Clonidine HCl (Catapres Tts Patch -) 0.2 mg TD Q7D@1000 [facility] Last Admin: 07/07/17 11:59 Dose: 0.2 mg Enalaprilat (Vasotec Injection -) 1.25 mg IVPB Q6H-IV [facility] Last Admin: 07/10/17 04:00 Dose: 1.25 mg Heparin Sodium (Porcine) (Heparin -) 5,000 unit SQ TID [facility] Last Admin: 07/10/17 06:20 Dose: 5,000 unit Dextrose/Sodium Chloride (D5-1/3ns -) 500 mls @ 80 mls/hr IV ASDIR [facility] Last Admin: 07/10/17 06:14 Dose: 80 mls/hr Metoprolol Tartrate (Lopressor Injection -) 5 mg IVPUSH Q4H PRN PRN Reason: HYPERTENSION Last Admin: 07/08/17 17:23 Dose: 5 mg Morphine Sulfate (Morphine Injection -) 4 mg IVPUSH Q3H PRN PRN Reason: PAIN LEVEL 6-10 Last Admin: 07/08/17 22:55 Dose: 4 mg Ondansetron HCl (Zofran Injection) 4 mg IVPUSH Q6H PRN PRN Reason: NAUSEA AND/OR VOMITING Pantoprazole Sodium (Protonix Iv) 40 mg IVPUSH DAILY [facility] Last Admin: 07/10/17 09:27 Dose: 40 mg - Objective Vital Signs: Vital Signs Temperature 97.5 F L 07/10/17 10:00 Pulse Rate 82 07/10/17 10:00 Respiratory Rate 22 07/10/17 10:00 Blood Pressure 115/64 07/10/17 10:00 O2 Sat by Pulse Oximetry (%) 95 07/10/17 09:00 Constitutional: Yes: Calm Eyes: Yes: Conjunctiva Clear HENT: Yes: Atraumatic Cardiovascular: Yes: S1, S2 Respiratory: Yes: CTA Bilaterally Gastrointestinal: Yes: Soft, Tenderness Genitourinary: Yes: Mccormack Present Edema: No Neurological: Yes: Oriented Psychiatric: Yes: Oriented Labs: CBC, BMP 07/10/17 06:40 07/10/17 06:40 INR, PTT INR 1.10 (0.82-1.09) 07/04/17 08:15 Problem List - Problems (1) CKD (chronic kidney disease) Code(s): N18.9 - CHRONIC KIDNEY DISEASE, UNSPECIFIED Qualifiers: Chronic kidney disease stage: stage 2 (mild) Qualified Code(s): N18.2 - Chronic kidney disease, stage 2 (mild) (2) Lipidemia Code(s): E78.5 - HYPERLIPIDEMIA, UNSPECIFIED Qualifiers: Hyperlipidemia type: pure hypercholesterolemia Qualified Code(s): E78.00 - Pure hypercholesterolemia, unspecified; E78.0 - Pure hypercholesterolemia (3) PAD (peripheral artery disease) Code(s): I73.9 - PERIPHERAL VASCULAR DISEASE, UNSPECIFIED (4) Pain, abdominal, generalized Code(s): R10.84 - GENERALIZED ABDOMINAL PAIN Assessment/Plan Current Medications Generic Name Dose Route Start Last Admin Trade Name Freq PRN Reason Stop Dose Admin Clonidine HCl 0.2 mg 07/07/17 11:15 07/07/17 11:59 Catapres Tts Patch - TD 0.2 mg Q7D@1000 [facility] Administration Enalaprilat 1.25 mg 07/08/17 15:00 07/10/17 04:00 Vasotec Injection - IVPB 1.25 mg Q6H-IV [facility] Administration Heparin Sodium (Porcine) 5,000 unit 07/05/17 22:00 07/10/17 06:20 Heparin - SQ 5,000 unit TID [facility] Administration Dextrose/Sodium Chloride 500 mls @ 80 mls/hr 07/08/17 15:38 07/10/17 06:14 D5-1/3ns - IV 80 mls/hr ASDIR [facility] Administration Metoprolol Tartrate 5 mg 07/05/17 17:37 07/08/17 17:23 Lopressor Injection - IVPUSH 5 mg Q4H PRN Administration HYPERTENSION Morphine Sulfate 4 mg 07/06/17 11:39 07/08/17 22:55 Morphine Injection - IVPUSH 4 mg Q3H PRN Administration PAIN LEVEL 6-10 Ondansetron HCl 4 mg 07/05/17 17:19 Zofran Injection IVPUSH Q6H PRN NAUSEA AND/OR VOMITING Pantoprazole Sodium 40 mg 07/06/17 10:00 07/10/17 09:27 Protonix Iv IVPUSH 40 mg DAILY [facility] Administration Impression 1. CKD 2. abdominal pain 3. hypernatremia 4. HTN 5. PAD 6. hx etoh abuse 7. CAD 8. appendicitis Plan - replace potassium - pt starting clears today - cont fluids for now - repeat labs in am - check mag level - voiding trial once more mobile Dr Niño
[2017-07-10] MEDS ORDERED: POTASSIUM CHLORIDE ORAL LIQUID 20 MEQ/15 ML PO ONE (14:00)
--- NOTE | 2017-07-10 15:52 | PN ---
Progress Note (short form) - Note Progress Note: @@@@@@@@@@@@@@ medical @@@@@@@@@@@@@@ Current Medications Clonidine HCl (Catapres Tts Patch -) 0.2 mg TD Q7D@1000 [facility] Last Admin: 07/07/17 11:59 Dose: 0.2 mg Heparin Sodium (Porcine) (Heparin -) 5,000 unit SQ TID [facility] Last Admin: 07/10/17 13:46 Dose: 5,000 unit Dextrose/Sodium Chloride (D5-1/3ns -) 500 mls @ 80 mls/hr IV ASDIR [facility] Last Admin: 07/10/17 06:14 Dose: 80 mls/hr Metoprolol Succinate (Toprol Xl -) 12.5 mg PO DAILY [facility] Metoprolol Tartrate (Lopressor Injection -) 5 mg IVPUSH Q4H PRN PRN Reason: HYPERTENSION Last Admin: 07/08/17 17:23 Dose: 5 mg Morphine Sulfate (Morphine Injection -) 4 mg IVPUSH Q3H PRN PRN Reason: PAIN LEVEL 6-10 Last Admin: 07/08/17 22:55 Dose: 4 mg Ondansetron HCl (Zofran Injection) 4 mg IVPUSH Q6H PRN PRN Reason: NAUSEA AND/OR VOMITING Pantoprazole Sodium (Protonix Iv) 40 mg IVPUSH DAILY [facility] Last Admin: 07/10/17 09:27 Dose: 40 mg Laboratory Results - last 24 hr 07/10/17 07/10/17 06:40 06:40 WBC 8.4 RBC 3.35 L Hgb 11.1 L Hct 32.2 L MCV 96.1 H MCH 33.1 MCHC 34.5 RDW 14.0 Plt Count 239 MPV 7.6 Neutrophils % 72.1 Lymphocytes % 16.6 D Monocytes % 8.1 Eosinophils % 2.8 D Basophils % 0.4 Sodium 146 H Potassium 3.3 L Chloride 113 H Carbon Dioxide 26 Anion Gap 7 L BUN 43 H Creatinine 1.1 Random Glucose 95 D Calcium 7.6 L Vital Signs Temperature 97.5 F L 07/10/17 10:00 Pulse Rate 82 07/10/17 10:00 Respiratory Rate 22 07/10/17 10:00 Blood Pressure 115/64 07/10/17 10:00 O2 Sat by Pulse Oximetry (%) 95 07/10/17 09:00 CC: feels weak, but ate today, walked a few steps ``````````````````````````````` skin--NL color; IV site clean heart--rr lungs--distant; unlabored abd--BS quiet, had small BM. neuro--not toxic appearing; in no distress; awake; coherent; appropriate; moves all E's on command ````````````````````````````````````` Summ > s/p Lap--2nd acute AP; now eating; no need for clinimix PLAN: await path report > Htn--with CKD; BP okay; but Bun slightly higher: PLAN: cont clonidine patch for now, start PO BB > anemia--mild; post OP > urinary retention--post OP; replace chavarria > low Potassium--replensih as needed > hypernatremia--mild; fluid mgmt as per renal. 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
[2017-07-11] MEDS: HEPARIN NA (PORCINE) 5,000 UNITS/ML 1ML VIAL SQ SCH ×3 (05:55→22:38)
[2017-07-11 06:42] LABS: ALBUMIN 1.7 g/dl (3.4-5.0); ANION GAP 7 (8-16); BLOOD UREA NITROGEN 47 mg/dL (7-18); CALCIUM 7.2 mg/dL (8.5-10.1); CHLORIDE 112 mmol/L (98-107); CO2 25 mmol/L (21-32); CREATININE 1.3 mg/dL (0.7-1.3); GLUCOSE,RANDOM 106 mg/dL (74-106); MAGNESIUM 1.7 mg/dL (1.8-2.4); POTASSIUM 3.4 mmol/L (3.5-5.1); SGOT/AST 22 U/L (15-37); SGPT/ALT 12 U/L (12-78); SODIUM 144 mmol/L (136-145)
[2017-07-11 06:43] LABS: ALK PHOS 36 U/L (45-117); BILIRUBIN,TOTAL 0.2 mg/dL (0.2-1.0); TOT PROT 4.4 g/dl (6.4-8.2)
[2017-07-11 06:46] LABS: BASO % 0.5 % (0-2.0); EOS % 3.4 % (0-4.5); HEMATOCRIT 29.7 % (35.4-49); HEMOGLOBIN 10.6 GM/dL (11.7-16.9); LYMPH % 14.2 % (8-40); MCH 34.2 pg (25.7-33.7); MCHC 35.7 g/dl (32.0-35.9); MEAN CELL VOLUME 95.8 fl (80-96); NEUT % 73.9 % (42.8-82.8); PLATELET COUNT 253 K/MM3 (134-434); RDW 13.9 % (11.9-15.9); WHITE BLOOD COUNT 7.7 K/mm3 (4.0-10.0)
[2017-07-11] MEDS ORDERED: oxyCODONE HCL 5 MG TABLET PO PRN (09:01)
[2017-07-11] MEDS ORDERED: ACETAMINOPHEN 325 MG TABLET (FP) PO PRN (09:02)
[2017-07-11] MEDS ORDERED: ATENOLOL 25 MG TABLET (FP) PO SCH (10:00)
[2017-07-11] MEDS ORDERED: metoPROLOL SUCCINATE 25 MG TAB.SR.24H (FP) PO SCH (10:00)
--- NOTE | 2017-07-11 10:01 | PN ---
Progress Note, Physician History of Present Illness: POD#6 exp lap and appendectomy, + BM, clear liquid diet. - Current Medication List Current Medications: Active Medications Acetaminophen (Tylenol -) 650 mg PO Q6H PRN PRN Reason: PAIN LEVEL 1 - 3 Clonidine HCl (Catapres Tts Patch -) 0.2 mg TD Q7D@1000 [facility] Last Admin: 07/07/17 11:59 Dose: 0.2 mg Heparin Sodium (Porcine) (Heparin -) 5,000 unit SQ TID [facility] Last Admin: 07/11/17 05:55 Dose: 5,000 unit Dextrose/Sodium Chloride (D5-1/3ns -) 500 mls @ 80 mls/hr IV ASDIR [facility] Last Admin: 07/10/17 17:00 Dose: 80 mls/hr Metoprolol Succinate (Toprol Xl -) 12.5 mg PO DAILY [facility] Metoprolol Tartrate (Lopressor Injection -) 5 mg IVPUSH Q4H PRN PRN Reason: HYPERTENSION Last Admin: 07/08/17 17:23 Dose: 5 mg Ondansetron HCl (Zofran Injection) 4 mg IVPUSH Q6H PRN PRN Reason: NAUSEA AND/OR VOMITING Oxycodone HCl (Roxicodone -) 5 mg PO Q6H PRN PRN Reason: PAIN LEVEL 1-5 Pantoprazole Sodium (Protonix Iv) 40 mg IVPUSH DAILY [facility] Last Admin: 07/10/17 09:27 Dose: 40 mg - Objective Vital Signs: Vital Signs Temperature 98.4 F 07/11/17 05:48 Pulse Rate 76 07/11/17 05:48 Respiratory Rate 18 07/11/17 05:48 Blood Pressure 138/64 07/11/17 05:48 O2 Sat by Pulse Oximetry (%) 96 07/10/17 21:00 Constitutional: Yes: No Distress, Calm, Thin Neck: Yes: Supple Cardiovascular: Yes: Regular Rate and Rhythm Respiratory: Yes: Regular, Diminished Gastrointestinal: Yes: Normal Bowel Sounds, Soft Edema: No Labs: CBC, BMP 07/11/17 05:10 07/11/17 05:10 INR, PTT INR 1.10 (0.82-1.09) 07/04/17 08:15 Problem List - Problems (1) Small bowel obstruction Code(s): K56.609 - UNSP INTESTNL OBST, UNSP TO PARTIAL VERSUS COMPLETE OBST (2) Coronary artery disease Code(s): I25.10 - ATHSCL HEART DISEASE OF [place] CORONARY ARTERY W/O ANG PCTRS Qualifiers: Coronary Disease-Associated Artery/Lesion type: [place] artery [place] vs. transplanted heart: [place] heart Associated angina: without angina Qualified Code(s): I25.10 - Atherosclerotic heart disease of [place] coronary artery without angina pectoris (3) S/P coronary artery stent placement Code(s): Z95.5 - PRESENCE OF CORONARY ANGIOPLASTY IMPLANT AND GRAFT (4) CKD (chronic kidney disease) Code(s): N18.9 - CHRONIC KIDNEY DISEASE, UNSPECIFIED Qualifiers: Chronic kidney disease stage: stage 2 (mild) Qualified Code(s): N18.2 - Chronic kidney disease, stage 2 (mild) (5) Hypertensive heart and chronic kidney disease stage 3 Code(s): I13.10 - HYP HRT & CHR KDNY DIS W/O HRT FAIL, W STG 1-4/UNSP CHR KDNY; N18.3 - CHRONIC KIDNEY DISEASE, STAGE 3 (MODERATE) (6) Lipidemia Code(s): E78.5 - HYPERLIPIDEMIA, UNSPECIFIED Qualifiers: Hyperlipidemia type: pure hypercholesterolemia Qualified Code(s): E78.00 - Pure hypercholesterolemia, unspecified; E78.0 - Pure hypercholesterolemia (7) PAD (peripheral artery disease) Code(s): I73.9 - PERIPHERAL VASCULAR DISEASE, UNSPECIFIED (8) S/P appendectomy Code(s): Z90.49 - ACQUIRED ABSENCE OF OTHER SPECIFIED PARTS OF DIGESTIVE TRACT Assessment/Plan 1. POD#6 post exploratory laparotomy and appendectomy 2. CAD post PCI (Stent) angina pectoris 3. Diastolic LV dysfunction with class 0 NYHA classification LV failure 4. HTN 5. Hyperlipidemia 6. Carotid stenosis post CEA 7. PAD 8. Acute on CKD resolved 9. Hypernatremia PLAN: 1. Resume ASA 81 qd once post-op hemostasis is achieved, K repletion 2. Resume Atenolol 50 qd, losartan 50 qd, Norvasc 5 qd, Imdur 30 qd and Mevacor 40 qd gradually as hemodynamics tolerate 3. D/c Catapres Patch 4. Advance diet and TOBY drain management per surgery, DVT and GI prophylaxis, OOB to chair, analgesia as needed 5. Ambulate, OOB to chair, transfer to med-surgical floor
[2017-07-11] MEDS ORDERED: POTASSIUM CHLORIDE ORAL LIQUID 20 MEQ/15 ML PO ONE (10:08)
[2017-07-11] MEDS: PANTOPRAZOLE SODIUM 40 MG VIAL IVPUSH SCH (10:15)
[2017-07-11] MEDS: ATENOLOL 25 MG TABLET (FP) PO SCH (10:27)
[2017-07-11] MEDS: LOSARTAN POTASSIUM 50 MG TABLET (FP) PO SCH (10:27)
--- NOTE | 2017-07-11 10:54 | PN ---
Progress Note (short form) - Note Progress Note: Attending Surgeon POD#6 No c/o; passing flatus and had a BM; tolerating diet; FC in place VSS AF abdomen-soft; non tender; incision c/d/i/ and healing well w/santi in place; TOBY serous; o/w negative WBC-nl IMP: doing well PLAN: advance diet; awaiting pathology; ambulate Wu Wells MD FACS
--- NOTE | 2017-07-11 12:36 | PN ---
Progress Note, Physician History of Present Illness: Pt seen and examined at bedside. He is tolerating diet and will be advanced today. He denies shortness of breath. - Current Medication List Current Medications: Active Medications Acetaminophen (Tylenol -) 650 mg PO Q6H PRN PRN Reason: PAIN LEVEL 1 - 3 Aspirin (Asa -) 81 mg PO DAILY [facility] Atenolol (Tenormin -) 25 mg PO DAILY [facility] Last Admin: 07/11/17 10:27 Dose: 25 mg Heparin Sodium (Porcine) (Heparin -) 5,000 unit SQ TID [facility] Last Admin: 07/11/17 05:55 Dose: 5,000 unit Dextrose/Sodium Chloride (D5-1/3ns -) 500 mls @ 80 mls/hr IV ASDIR [facility] Last Admin: 07/10/17 17:00 Dose: 80 mls/hr Losartan Potassium (Cozaar -) 25 mg PO DAILY [facility] Last Admin: 07/11/17 10:27 Dose: 25 mg Ondansetron HCl (Zofran Injection) 4 mg IVPUSH Q6H PRN PRN Reason: NAUSEA AND/OR VOMITING Oxycodone HCl (Roxicodone -) 5 mg PO Q6H PRN PRN Reason: PAIN LEVEL 1-5 Pantoprazole Sodium (Protonix Iv) 40 mg IVPUSH DAILY [facility] Last Admin: 07/11/17 10:15 Dose: 40 mg - Objective Vital Signs: Vital Signs Temperature 98.6 F 07/11/17 10:00 Pulse Rate 87 07/11/17 10:00 Respiratory Rate 22 07/11/17 10:00 Blood Pressure 138/64 07/11/17 10:00 O2 Sat by Pulse Oximetry (%) 96 07/10/17 21:00 Constitutional: Yes: Calm Eyes: Yes: Conjunctiva Clear HENT: Yes: Atraumatic Neck: Yes: Supple Cardiovascular: Yes: S1, S2 Respiratory: Yes: CTA Bilaterally Gastrointestinal: Yes: Soft Genitourinary: Yes: [place] Present Musculoskeletal: Yes: WNL Edema: No Neurological: Yes: Oriented Psychiatric: Yes: Oriented Labs: CBC, BMP 07/11/17 05:10 07/11/17 05:10 INR, PTT INR 1.10 (0.82-1.09) 07/04/17 08:15 Problem List - Problems (1) CKD (chronic kidney disease) Code(s): N18.9 - CHRONIC KIDNEY DISEASE, UNSPECIFIED Qualifiers: Chronic kidney disease stage: stage 2 (mild) Qualified Code(s): N18.2 - Chronic kidney disease, stage 2 (mild) (2) Lipidemia Code(s): E78.5 - HYPERLIPIDEMIA, UNSPECIFIED Qualifiers: Hyperlipidemia type: pure hypercholesterolemia Qualified Code(s): E78.00 - Pure hypercholesterolemia, unspecified; E78.0 - Pure hypercholesterolemia (3) PAD (peripheral artery disease) Code(s): I73.9 - PERIPHERAL VASCULAR DISEASE, UNSPECIFIED (4) Pain, abdominal, generalized Code(s): R10.84 - GENERALIZED ABDOMINAL PAIN Assessment/Plan Current Medications Generic Name Dose Route Start Last Admin Trade Name Freq PRN Reason Stop Dose Admin Clonidine HCl 0.2 mg 07/07/17 11:15 07/07/17 11:59 Catapres Tts Patch - TD 0.2 mg Q7D@1000 [facility] Administration Enalaprilat 1.25 mg 07/08/17 15:00 07/10/17 04:00 Vasotec Injection - IVPB 1.25 mg Q6H-IV [facility] Administration Heparin Sodium (Porcine) 5,000 unit 07/05/17 22:00 07/10/17 06:20 Heparin - SQ 5,000 unit TID [facility] Administration Dextrose/Sodium Chloride 500 mls @ 80 mls/hr 07/08/17 15:38 07/10/17 06:14 D5-1/3ns - IV 80 mls/hr ASDIR [facility] Administration Metoprolol Tartrate 5 mg 07/05/17 17:37 07/08/17 17:23 Lopressor Injection - IVPUSH 5 mg Q4H PRN Administration HYPERTENSION Morphine Sulfate 4 mg 07/06/17 11:39 07/08/17 22:55 Morphine Injection - IVPUSH 4 mg Q3H PRN Administration PAIN LEVEL 6-10 Ondansetron HCl 4 mg 07/05/17 17:19 Zofran Injection IVPUSH Q6H PRN NAUSEA AND/OR VOMITING Pantoprazole Sodium 40 mg 07/06/17 10:00 07/10/17 09:27 Protonix Iv IVPUSH 40 mg DAILY [facility] Administration Laboratory Tests 07/11/17 05:10 Magnesium 1.7 L Impression 1. CKD 2. abdominal pain 3. hypernatremia 4. HTN 5. PAD 6. hx etoh abuse 7. CAD 8. appendicitis Plan - replace potassium and mag - cont fluids until he is tolerating diet - surgery input appreciated - repeat labs in am - voiding trial once more mobile Dr Niño
[2017-07-11] MEDS ORDERED: MAGNESIUM SULF 50% (8.12 MEQ/2 ML-1 GM VIAL) IVPB ONE (12:41)
[2017-07-11] MEDS ORDERED: MAGNESIUM 1GM/D5W - 1 GM/100 ML IVPB IVPB ONE (14:00)
[2017-07-11] MEDS: DEXTROSE 5%-1/3 NS - 500 ML IV SCH (15:56)
--- NOTE | 2017-07-11 17:56 | PN ---
Progress Note (short form) - Note Progress Note: ########## medical ############ Current Medications Acetaminophen (Tylenol -) 650 mg PO Q6H PRN PRN Reason: PAIN LEVEL 1 - 3 Aspirin (Asa -) 81 mg PO DAILY [facility] Atenolol (Tenormin -) 25 mg PO DAILY [facility] Last Admin: 07/11/17 10:27 Dose: 25 mg Heparin Sodium (Porcine) (Heparin -) 5,000 unit SQ TID [facility] Last Admin: 07/11/17 15:15 Dose: 5,000 unit Dextrose/Sodium Chloride (D5-1/3ns -) 500 mls @ 80 mls/hr IV ASDIR [facility] Last Admin: 07/11/17 15:56 Dose: 80 mls/hr Losartan Potassium (Cozaar -) 25 mg PO DAILY [facility] Last Admin: 07/11/17 10:27 Dose: 25 mg Ondansetron HCl (Zofran Injection) 4 mg IVPUSH Q6H PRN PRN Reason: NAUSEA AND/OR VOMITING Oxycodone HCl (Roxicodone -) 5 mg PO Q6H PRN PRN Reason: PAIN LEVEL 1-5 Pantoprazole Sodium (Protonix Iv) 40 mg IVPUSH DAILY [facility] Last Admin: 07/11/17 10:15 Dose: 40 mg Laboratory Results - last 24 hr 07/11/17 07/11/17 05:10 05:10 WBC 7.7 RBC 3.10 L Hgb 10.6 L Hct 29.7 L MCV 95.8 MCH 34.2 H MCHC 35.7 RDW 13.9 Plt Count 253 MPV 8.0 Neutrophils % 73.9 Lymphocytes % 14.2 Monocytes % 8.0 Eosinophils % 3.4 Basophils % 0.5 Sodium 144 Potassium 3.4 L Chloride 112 H Carbon Dioxide 25 Anion Gap 7 L BUN 47 H Creatinine 1.3 Creat Clearance w eGFR 52.59 Random Glucose 106 Calcium 7.2 L Magnesium 1.7 L Total Bilirubin 0.2 D AST 22 D ALT 12 D Alkaline Phosphatase 36 L D Total Protein 4.4 L Albumin 1.7 L Vital Signs Temperature 97.4 F L 07/11/17 14:00 Pulse Rate 81 07/11/17 14:00 Respiratory Rate 22 07/11/17 10:00 Blood Pressure 111/56 07/11/17 14:00 O2 Sat by Pulse Oximetry (%) 98 07/11/17 09:00 CC: ate today, walked better, no pain, had more BMs ``````````````````````````````` skin--NL color; IV site clean heart--rr lungs--distant; unlabored abd--BS quiet. neuro--not toxic appearing; in no distress; awake; coherent; appropriate; moves all E's on command ````````````````````````````````````` Summ > s/p Lap--2nd acute AP; now eating; no need for clinimix PLAN: await path report > Htn--with CKD; BP okay; but Bun slightly higher: PLAN: resume PO meds; off clonidine > anemia--mild; post OP > low Potassium/Mag--replenish as needed ~~~~~~~~~~~~~~~~~~ Dr Castaneda Problem List - Problems (1) Pain, abdominal, generalized Code(s): R10.84 - GENERALIZED ABDOMINAL PAIN (2) Hypertensive heart and chronic kidney disease stage 3 Code(s): I13.10 - HYP HRT & CHR KDNY DIS W/O HRT FAIL, W STG 1-4/UNSP CHR KDNY; N18.3 - CHRONIC KIDNEY DISEASE, STAGE 3 (MODERATE) (3) PAD (peripheral artery disease) Code(s): I73.9 - PERIPHERAL VASCULAR DISEASE, UNSPECIFIED (4) Lipidemia Code(s): E78.5 - HYPERLIPIDEMIA, UNSPECIFIED Qualifiers: Hyperlipidemia type: pure hypercholesterolemia Qualified Code(s): E78.00 - Pure hypercholesterolemia, unspecified; E78.0 - Pure hypercholesterolemia
[2017-07-12] MEDS: HEPARIN NA (PORCINE) 5,000 UNITS/ML 1ML VIAL SQ SCH ×3 (05:43→22:08)
[2017-07-12 08:33] LABS: ANION GAP 11 (8-16); BLOOD UREA NITROGEN 35 mg/dL (7-18); CALCIUM 7.6 mg/dL (8.5-10.1); CHLORIDE 109 mmol/L (98-107); CO2 23 mmol/L (21-32); GLUCOSE,RANDOM 93 mg/dL (74-106); POTASSIUM 3.7 mmol/L (3.5-5.1); SODIUM 143 mmol/L (136-145)
[2017-07-12 08:35] LABS: CREATININE 1.2 mg/dL (0.7-1.3)
--- NOTE | 2017-07-12 10:47 | PN ---
Progress Note, Physician History of Present Illness: POD#7 exp lap and appendectomy, + BM, tolerates diet. - Current Medication List Current Medications: Active Medications Acetaminophen (Tylenol -) 650 mg PO Q6H PRN PRN Reason: PAIN LEVEL 1 - 3 Aspirin (Asa -) 81 mg PO DAILY [facility] Atenolol (Tenormin -) 25 mg PO DAILY [facility] Last Admin: 07/11/17 10:27 Dose: 25 mg Heparin Sodium (Porcine) (Heparin -) 5,000 unit SQ TID [facility] Last Admin: 07/12/17 05:43 Dose: 5,000 unit Dextrose/Sodium Chloride (D5-1/3ns -) 500 mls @ 80 mls/hr IV ASDIR [facility] Last Admin: 07/11/17 15:56 Dose: 80 mls/hr Losartan Potassium (Cozaar -) 25 mg PO DAILY [facility] Last Admin: 07/11/17 10:27 Dose: 25 mg Ondansetron HCl (Zofran Injection) 4 mg IVPUSH Q6H PRN PRN Reason: NAUSEA AND/OR VOMITING Oxycodone HCl (Roxicodone -) 5 mg PO Q6H PRN PRN Reason: PAIN LEVEL 1-5 Pantoprazole Sodium (Protonix Iv) 40 mg IVPUSH DAILY [facility] Last Admin: 07/11/17 10:15 Dose: 40 mg - Objective Vital Signs: Vital Signs Temperature 99.2 F 07/12/17 07:14 Pulse Rate 82 07/12/17 07:14 Respiratory Rate 20 07/12/17 07:14 Blood Pressure 137/60 07/12/17 07:14 O2 Sat by Pulse Oximetry (%) 95 07/11/17 21:00 Constitutional: Yes: No Distress, Calm, Thin Neck: Yes: Supple Cardiovascular: Yes: Regular Rate and Rhythm Respiratory: Yes: Regular, Diminished, On Nasal O2 Gastrointestinal: Yes: Normal Bowel Sounds, Soft, Other (TOBY drain) Edema: No Labs: CBC, BMP 07/11/17 05:10 07/12/17 06:49 INR, PTT INR 1.10 (0.82-1.09) 07/04/17 08:15 Problem List - Problems (1) Small bowel obstruction Code(s): K56.609 - UNSP INTESTNL OBST, UNSP TO PARTIAL VERSUS COMPLETE OBST (2) Coronary artery disease Code(s): I25.10 - ATHSCL HEART DISEASE OF [place] CORONARY ARTERY W/O ANG PCTRS Qualifiers: Coronary Disease-Associated Artery/Lesion type: [place] artery [place] vs. transplanted heart: [place] heart Associated angina: without angina Qualified Code(s): I25.10 - Atherosclerotic heart disease of [place] coronary artery without angina pectoris (3) S/P coronary artery stent placement Code(s): Z95.5 - PRESENCE OF CORONARY ANGIOPLASTY IMPLANT AND GRAFT (4) CKD (chronic kidney disease) Code(s): N18.9 - CHRONIC KIDNEY DISEASE, UNSPECIFIED Qualifiers: Chronic kidney disease stage: stage 2 (mild) Qualified Code(s): N18.2 - Chronic kidney disease, stage 2 (mild) (5) Hypertensive heart and chronic kidney disease stage 3 Code(s): I13.10 - HYP HRT & CHR KDNY DIS W/O HRT FAIL, W STG 1-4/UNSP CHR KDNY; N18.3 - CHRONIC KIDNEY DISEASE, STAGE 3 (MODERATE) (6) Lipidemia Code(s): E78.5 - HYPERLIPIDEMIA, UNSPECIFIED Qualifiers: Hyperlipidemia type: pure hypercholesterolemia Qualified Code(s): E78.00 - Pure hypercholesterolemia, unspecified; E78.0 - Pure hypercholesterolemia (7) PAD (peripheral artery disease) Code(s): I73.9 - PERIPHERAL VASCULAR DISEASE, UNSPECIFIED (8) S/P appendectomy Code(s): Z90.49 - ACQUIRED ABSENCE OF OTHER SPECIFIED PARTS OF DIGESTIVE TRACT Assessment/Plan 1. POD#7 post exploratory laparotomy and appendectomy 2. CAD post PCI (Stent) angina pectoris 3. Diastolic LV dysfunction with class 0 NYHA classification LV failure 4. HTN 5. Hyperlipidemia 6. Carotid stenosis post CEA 7. PAD 8. Acute on CKD resolved 9. Hypernatremia PLAN: 1. Continue ASA 81 qd as post-op hemostasis has been achieved, K repletion 2. Resume Atenolol 50 qd, losartan 50 qd, Norvasc 5 qd, Imdur 30 qd and Mevacor 40 qd gradually as hemodynamics tolerate 3. Advance diet and TOBY drain management per surgery, DVT and GI prophylaxis, analgesia as needed, d/c IVF now that patient is eating 4. Ambulate, OOB to chair, PT->SNF
--- NOTE | 2017-07-12 11:00 | PN ---
Progress Note (short form) - Note Progress Note: Attending Surgeon POD #7 No c/o; tolerating diet VSS AF abdomen-soft; flat and non tender; TOBY serous; incision c/d/i/; santi in place. WBC-wnl pathology: acute appendicitis IMP:doing well PLAN:Drain removed; needs to ambulate Wu Wells MD FACS
[2017-07-12] MEDS: ASPIRIN 81 MG CHEWABLE TABLETS PO SCH ×2 (11:13→11:17)
[2017-07-12] MEDS: LOSARTAN POTASSIUM 50 MG TABLET (FP) PO SCH (11:13)
[2017-07-12] MEDS: PANTOPRAZOLE SODIUM 40 MG VIAL IVPUSH SCH (11:14)
[2017-07-12] MEDS: ATENOLOL 25 MG TABLET (FP) PO SCH (11:17)
--- NOTE | 2017-07-12 13:50 | PN ---
Progress Note, Physician History of Present Illness: Pt seen and examined at bedside. He is awake and alert. He is tolerating diet. - Current Medication List Current Medications: Active Medications Acetaminophen (Tylenol -) 650 mg PO Q6H PRN PRN Reason: PAIN LEVEL 1 - 3 Aspirin (Asa -) 81 mg PO DAILY [facility] Last Admin: 07/12/17 11:17 Dose: Not Given Atenolol (Tenormin -) 50 mg PO DAILY [facility] Heparin Sodium (Porcine) (Heparin -) 5,000 unit SQ TID [facility] Last Admin: 07/12/17 05:43 Dose: 5,000 unit Losartan Potassium (Cozaar -) 25 mg PO DAILY [facility] Last Admin: 07/12/17 11:13 Dose: 25 mg Ondansetron HCl (Zofran Injection) 4 mg IVPUSH Q6H PRN PRN Reason: NAUSEA AND/OR VOMITING Oxycodone HCl (Roxicodone -) 5 mg PO Q6H PRN PRN Reason: PAIN LEVEL 1-5 Pantoprazole Sodium (Protonix Iv) 40 mg IVPUSH DAILY [facility] Last Admin: 07/12/17 11:14 Dose: 40 mg - Objective Vital Signs: Vital Signs Temperature 98.2 F 07/12/17 10:00 Pulse Rate 78 07/12/17 10:00 Respiratory Rate 18 07/12/17 10:00 Blood Pressure 136/69 07/12/17 10:00 O2 Sat by Pulse Oximetry (%) 95 07/11/17 21:00 Constitutional: Yes: Calm Eyes: Yes: Conjunctiva Clear HENT: Yes: Atraumatic Neck: Yes: Supple Cardiovascular: Yes: S1, S2 Respiratory: Yes: CTA Bilaterally Gastrointestinal: Yes: Soft Genitourinary: Yes: WNL Musculoskeletal: Yes: WNL Edema: No Neurological: Yes: Oriented Psychiatric: Yes: Oriented Labs: CBC, BMP 07/11/17 05:10 07/12/17 06:49 INR, PTT INR 1.10 (0.82-1.09) 07/04/17 08:15 Problem List - Problems (1) CKD (chronic kidney disease) Code(s): N18.9 - CHRONIC KIDNEY DISEASE, UNSPECIFIED Qualifiers: Chronic kidney disease stage: stage 2 (mild) Qualified Code(s): N18.2 - Chronic kidney disease, stage 2 (mild) (2) Lipidemia Code(s): E78.5 - HYPERLIPIDEMIA, UNSPECIFIED Qualifiers: Hyperlipidemia type: pure hypercholesterolemia Qualified Code(s): E78.00 - Pure hypercholesterolemia, unspecified; E78.0 - Pure hypercholesterolemia (3) PAD (peripheral artery disease) Code(s): I73.9 - PERIPHERAL VASCULAR DISEASE, UNSPECIFIED (4) Pain, abdominal, generalized Code(s): R10.84 - GENERALIZED ABDOMINAL PAIN Assessment/Plan Current Medications Generic Name Dose Route Start Last Admin Trade Name Freq PRN Reason Stop Dose Admin Acetaminophen 650 mg 07/11/17 09:02 Tylenol - PO Q6H PRN PAIN LEVEL 1 - 3 Aspirin 81 mg 07/12/17 10:00 07/12/17 11:17 Asa - PO Not Given DAILY [facility] Atenolol 50 mg 07/12/17 10:54 Tenormin - PO DAILY [facility] Heparin Sodium (Porcine) 5,000 unit 07/05/17 22:00 07/12/17 05:43 Heparin - SQ 5,000 unit TID [facility] Administration Losartan Potassium 25 mg 07/11/17 10:15 07/12/17 11:13 Cozaar - PO 25 mg DAILY [facility] Administration Ondansetron HCl 4 mg 07/05/17 17:19 Zofran Injection IVPUSH Q6H PRN NAUSEA AND/OR VOMITING Oxycodone HCl 5 mg 07/11/17 09:01 Roxicodone - PO Q6H PRN PAIN LEVEL 1-5 Pantoprazole Sodium 40 mg 07/06/17 10:00 07/12/17 11:14 Protonix Iv IVPUSH 40 mg DAILY [facility] Administration Impression 1. CKD 2. abdominal pain 3. hypernatremia 4. HTN 5. PAD 6. hx etoh abuse 7. CAD 8. appendicitis Plan - renal function is stable - potassium improved - surgery input appreciated - he tolerated voiding trial - will see in office for renal workup for abnormal urine - will follow PRN Dr Niño
--- NOTE | 2017-07-12 17:08 | PN ---
Progress Note (short form) - Note Progress Note: >>>>>>>>>> medical note <<<<<<<<<< Current Medications Acetaminophen (Tylenol -) 650 mg PO Q6H PRN PRN Reason: PAIN LEVEL 1 - 3 Aspirin (Asa -) 81 mg PO DAILY [facility] Last Admin: 07/12/17 11:17 Dose: Not Given Atenolol (Tenormin -) 50 mg PO DAILY [facility] Heparin Sodium (Porcine) (Heparin -) 5,000 unit SQ TID [facility] Last Admin: 07/12/17 15:42 Dose: 5,000 unit Losartan Potassium (Cozaar -) 25 mg PO DAILY [facility] Last Admin: 07/12/17 11:13 Dose: 25 mg Ondansetron HCl (Zofran Injection) 4 mg IVPUSH Q6H PRN PRN Reason: NAUSEA AND/OR VOMITING Pantoprazole Sodium (Protonix Iv) 40 mg IVPUSH DAILY [facility] Last Admin: 07/12/17 11:14 Dose: 40 mg Laboratory Results - last 24 hr 07/12/17 06:49 Sodium 143 Potassium 3.7 Chloride 109 H Carbon Dioxide 23 Anion Gap 11 BUN 35 H D Creatinine 1.2 Random Glucose 93 Calcium 7.6 L Vital Signs Temperature 98.1 F 07/12/17 15:23 Pulse Rate 66 07/12/17 15:23 Respiratory Rate 18 07/12/17 15:23 Blood Pressure 117/53 07/12/17 15:23 O2 Sat by Pulse Oximetry (%) 95 07/11/17 21:00 CC: no pain, had more BMs ``````````````````````````````` skin--NL color; IV site clean heart--rr lungs--distant; unlabored abd--BS quiet. neuro--not toxic appearing; in no distress; awake; coherent; appropriate; moves all E's on command ````````````````````````````````````` Summ > s/p Lap--2nd acute AP; now eating; no need for clinimix PLAN: probable AM discharge. Family () does NOT wish to have 1) VNS 2) walker. The reasons for this was explained to them (benefits, etc), but declined to accept services. > Htn--BP okay PLAN: resume PO meds; off clonidine > anemia--stable, mild; post OP > low Potassium/Mag--replenish as needed ~~~~~~~~~~~~~~~~~~ Dr Castaneda Problem List - Problems (1) Pain, abdominal, generalized Code(s): R10.84 - GENERALIZED ABDOMINAL PAIN (2) Hypertensive heart and chronic kidney disease stage 3 Code(s): I13.10 - HYP HRT & CHR KDNY DIS W/O HRT FAIL, W STG 1-4/UNSP CHR KDNY; N18.3 - CHRONIC KIDNEY DISEASE, STAGE 3 (MODERATE) (3) PAD (peripheral artery disease) Code(s): I73.9 - PERIPHERAL VASCULAR DISEASE, UNSPECIFIED (4) Lipidemia Code(s): E78.5 - HYPERLIPIDEMIA, UNSPECIFIED Qualifiers: Hyperlipidemia type: pure hypercholesterolemia Qualified Code(s): E78.00 - Pure hypercholesterolemia, unspecified; E78.0 - Pure hypercholesterolemia
[2017-07-13] MEDS: HEPARIN NA (PORCINE) 5,000 UNITS/ML 1ML VIAL SQ SCH ×3 (05:22→21:39)
[2017-07-13 08:40] LABS: ANION GAP 8 (8-16); BLOOD UREA NITROGEN 28 mg/dL (7-18); CALCIUM 7.4 mg/dL (8.5-10.1); CHLORIDE 110 mmol/L (98-107); CO2 25 mmol/L (21-32); GLUCOSE,RANDOM 95 mg/dL (74-106); POTASSIUM 3.9 mmol/L (3.5-5.1); SODIUM 143 mmol/L (136-145)
[2017-07-13] MEDS: ASPIRIN 81 MG CHEWABLE TABLETS PO SCH (09:55)
[2017-07-13] MEDS: LOSARTAN POTASSIUM 50 MG TABLET (FP) PO SCH (09:55)
[2017-07-13] MEDS: PANTOPRAZOLE SODIUM 40 MG VIAL IVPUSH SCH (09:55)
[2017-07-13] MEDS: ATENOLOL 50 MG TABLET (FP) PO SCH (09:56)
--- NOTE | 2017-07-13 14:29 | PN ---
Progress Note (short form) - Note Progress Note: Chief Complaint: Events noted, notes reviewed, POD#8 post exploratory laparotomy and appendectomy, lethargic but arousable, denies any chest pain or dyspnea History of Present Illness: Seen and examined. Events noted, notes reviewed, POD#8 post exploratory laparotomy and appendectomy, lethargic but arousable, denies any chest pain or dyspnea - Current Medication List Current Medications Acetaminophen (Tylenol -) 650 mg PO Q6H PRN PRN Reason: PAIN LEVEL 1 - 3 Aspirin (Asa -) 81 mg PO DAILY [facility] Last Admin: 07/13/17 09:55 Dose: 81 mg Atenolol (Tenormin -) 50 mg PO DAILY [facility] Last Admin: 07/13/17 09:56 Dose: 50 mg Heparin Sodium (Porcine) (Heparin -) 5,000 unit SQ TID [facility] Last Admin: 07/13/17 13:27 Dose: 5,000 unit Losartan Potassium (Cozaar -) 25 mg PO DAILY [facility] Last Admin: 07/13/17 09:55 Dose: 25 mg Ondansetron HCl (Zofran Injection) 4 mg IVPUSH Q6H PRN PRN Reason: NAUSEA AND/OR VOMITING Pantoprazole Sodium (Protonix Iv) 40 mg IVPUSH DAILY [facility] Last Admin: 07/13/17 09:55 Dose: 40 mg - Objective Vital Signs: Last Vital Signs Temp Pulse Resp BP Pulse Ox 98.3 F 68 18 153/69 95 07/13/17 06:00 07/13/17 06:00 07/13/17 06:00 07/13/17 06:00 07/12/17 21:00 Intake & Output 07/10/17 07/11/17 07/12/17 07/13/17 23:59 23:59 23:59 23:59 Intake Total 1260 1400 1960 Output Total 485 815 480 Balance 829 293 6610 HEENT: Atraumatic Neck: Supple Negative JVD No Bruit Cardiovascular: S1 S2 Regular Rate and Rhythm No Murmurs Respiratory: Diminished at the Bases Gastrointestinal: Soft Benign Hypoactive Bowel Sounds Ext: No Edema Labs: CBC, BMP 07/11/17 05:10 07/13/17 06:55 Assessment/Plan ASSESSMENT: 1. POD#8 post exploratory-laparotomy and appendectomy 2. CAD post PCI (Stent) angina pectoris 3. Diastolic LV dysfunction with class 0 NYHA classification LV failure 4. HTN 5. Hyperlipidemia 6. Carotid stenosis post CEA 7. PAD 8. Acute on CKD 9. Anemia 10. Hypernatremia, resolved PLAN: 1. Continue ASA with caution 2. Continue Cozaar 3. Continue Tenormin 4. Ambulate and D/C planning as per the primary team Elías Renteria MD
--- NOTE | 2017-07-13 14:53 | PN ---
Progress Note (short form) - Note Progress Note: <<<<<<<<<<< medical note >>>>>>>>>>>>> Current Medications Acetaminophen (Tylenol -) 650 mg PO Q6H PRN PRN Reason: PAIN LEVEL 1 - 3 Aspirin (Asa -) 81 mg PO DAILY [facility] Last Admin: 07/13/17 09:55 Dose: 81 mg Atenolol (Tenormin -) 50 mg PO DAILY [facility] Last Admin: 07/13/17 09:56 Dose: 50 mg Heparin Sodium (Porcine) (Heparin -) 5,000 unit SQ TID [facility] Last Admin: 07/13/17 13:27 Dose: 5,000 unit Losartan Potassium (Cozaar -) 25 mg PO DAILY [facility] Last Admin: 07/13/17 09:55 Dose: 25 mg Ondansetron HCl (Zofran Injection) 4 mg IVPUSH Q6H PRN PRN Reason: NAUSEA AND/OR VOMITING Pantoprazole Sodium (Protonix Iv) 40 mg IVPUSH DAILY [facility] Last Admin: 07/13/17 09:55 Dose: 40 mg Laboratory Results - last 24 hr 07/13/17 06:55 Sodium 143 Potassium 3.9 Chloride 110 H Carbon Dioxide 25 Anion Gap 8 BUN 28 H Creatinine 1.0 Random Glucose 95 Calcium 7.4 L Magnesium 2.0 Vital Signs Temperature 98.3 F 07/13/17 06:00 Pulse Rate 68 07/13/17 06:00 Respiratory Rate 18 07/13/17 06:00 Blood Pressure 153/69 07/13/17 06:00 O2 Sat by Pulse Oximetry (%) 95 07/12/17 21:00 CC: "unsteady" on his feet ``````````````````````````````` skin--NL color; IV site clean heart--rr lungs--distant; unlabored abd--BS quiet. santi intact; no drainage neuro--not toxic appearing; in no distress; awake; coherent; appropriate; moves all E's on command, but is weak when upright. No focal deficits ````````````````````````````````````` Summ > Gait dysf--probably 2nd deconditioning; needs assist of 2 side by side when ambulating to prevent falling. His cognition is intact; and has no focal deficits. PLAN: Pt & have changed their minds and now seem open for short term rehab > s/p Lap--2nd acute AP; now eating; no need for clinimix PLAN: as per surgeon > Htn--BP okay PLAN: resume PO meds; may need to raise dose of the ARB > anemia--stable, mild; post OP > low Potassium/Mag--replenish as needed ~~~~~~~~~~~~~~~~~~ Dr Castaneda Problem List - Problems (1) Pain, abdominal, generalized Code(s): R10.84 - GENERALIZED ABDOMINAL PAIN (2) Hypertensive heart and chronic kidney disease stage 3 Code(s): I13.10 - HYP HRT & CHR KDNY DIS W/O HRT FAIL, W STG 1-4/UNSP CHR KDNY; N18.3 - CHRONIC KIDNEY DISEASE, STAGE 3 (MODERATE) (3) PAD (peripheral artery disease) Code(s): I73.9 - PERIPHERAL VASCULAR DISEASE, UNSPECIFIED (4) Lipidemia Code(s): E78.5 - HYPERLIPIDEMIA, UNSPECIFIED Qualifiers: Hyperlipidemia type: pure hypercholesterolemia Qualified Code(s): E78.00 - Pure hypercholesterolemia, unspecified; E78.0 - Pure hypercholesterolemia
[2017-07-14] MEDS: HEPARIN NA (PORCINE) 5,000 UNITS/ML 1ML VIAL SQ SCH ×3 (05:47→21:32)
[2017-07-14] MEDS: ASPIRIN 81 MG CHEWABLE TABLETS PO SCH (09:07)
[2017-07-14] MEDS: LOSARTAN POTASSIUM 50 MG TABLET (FP) PO SCH (09:08)
[2017-07-14] MEDS: ATENOLOL 50 MG TABLET (FP) PO SCH (09:08)
[2017-07-14] MEDS: RANITIDINE HCL 150 MG TABLET (FP) PO SCH (09:08)
--- NOTE | 2017-07-14 13:33 | PN ---
Progress Note (short form) - Note Progress Note: Chief Complaint: Events noted, notes reviewed, POD#9 post exploratory laparotomy and appendectomy, denies any chest pain or dyspnea History of Present Illness: Seen and examined. Events noted, notes reviewed, POD#8 post exploratory laparotomy and appendectomy, denies any chest pain or dyspnea - Current Medication List Current Medications Acetaminophen (Tylenol -) 650 mg PO Q6H PRN PRN Reason: PAIN LEVEL 1 - 3 Aspirin (Asa -) 81 mg PO DAILY [facility] Last Admin: 07/14/17 09:07 Dose: 81 mg Atenolol (Tenormin -) 50 mg PO DAILY [facility] Last Admin: 07/14/17 09:08 Dose: 50 mg Heparin Sodium (Porcine) (Heparin -) 5,000 unit SQ TID [facility] Last Admin: 07/14/17 05:47 Dose: 5,000 unit Losartan Potassium (Cozaar -) 25 mg PO DAILY [facility] Last Admin: 07/14/17 09:08 Dose: 25 mg Ondansetron HCl (Zofran Injection) 4 mg IVPUSH Q6H PRN PRN Reason: NAUSEA AND/OR VOMITING Ranitidine HCl (Zantac -) 150 mg PO DAILY [facility] Last Admin: 07/14/17 09:08 Dose: 150 mg - Objective Vital Signs: Last Vital Signs Temp Pulse Resp BP Pulse Ox 987 F H 78 20 141/69 96 07/14/17 09:00 07/14/17 09:00 07/14/17 09:00 07/14/17 09:00 07/14/17 09:00 Intake & Output 07/11/17 07/12/17 07/13/17 07/14/17 23:59 23:59 23:59 23:59 Intake Total 1400 1960 Output Total 815 480 Balance 585 1480 HEENT: Atraumatic Neck: Supple Negative JVD No Bruit Cardiovascular: S1 S2 Regular Rate and Rhythm No Murmurs Respiratory: Diminished at the Bases Gastrointestinal: Soft Benign Hypoactive Bowel Sounds Ext: No Edema Labs: CBC, BMP 07/11/17 05:10 07/13/17 06:55 Assessment/Plan ASSESSMENT: 1. POD#9 post exploratory-laparotomy and appendectomy 2. CAD post PCI (Stent) angina pectoris 3. Diastolic LV dysfunction with class 0 NYHA classification LV failure 4. HTN 5. Hyperlipidemia 6. Carotid stenosis post CEA 7. PAD 8. Acute on CKD 9. Anemia 10. Hypernatremia, resolved PLAN: 1. Continue ASA with caution 2. Continue Cozaar 3. Continue Tenormin 4. Ambulate and D/C planning as per the primary team Elías Renteria MD
--- NOTE | 2017-07-14 13:41 | DS ---
Physical Examination Vital Signs: Vital Signs Temperature 987 F H 07/14/17 09:00 Pulse Rate 78 07/14/17 09:00 Respiratory Rate 20 07/14/17 09:00 Blood Pressure 141/69 07/14/17 09:00 O2 Sat by Pulse Oximetry (%) 96 07/14/17 09:00 Constitutional: Yes: Well Nourished, No Distress, Calm Eyes: Yes: Conjunctiva Clear, EOM Intact Neck: Yes: WNL, Supple Cardiovascular: Yes: Regular Rate and Rhythm Respiratory: Yes: Regular Gastrointestinal: Yes: Normal Bowel Sounds, Soft Musculoskeletal: Yes: WNL Edema: No Peripheral Pulses WNL: No Peripheral Pulses: Left Doralis Pedis: 0 (no ischemic changes; warm to touch), Right Dorsalis Pedis: 0 (no ischemic changes; warm to touch) Integumentary: Yes: Incision (intact; no drainage) Wound/Incision: Yes: Well Approximated, Wendy Intact Neurological: Yes: WNL ...Motor Strength: WNL (deconditioned) Psychiatric: Yes: WNL Labs: CBC, BMP 07/11/17 05:10 07/13/17 06:55 Discharge Summary Reason For Visit: ABDOMINAL PAIN Current Active Problems Coronary artery disease 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 The pain was severe unrelenting. No associated diarrhea, rectal bleed. CT scan showed possible cecal lesion. Exam showed distention & guarding consistent with SBO. see by surgeon; NGT placed and underwent lap showing appendicitis which did not rupture. Post op course was complicated by protracted pain & ileus, but eventually regained BS, and was fed tolerating all PO food & medas. The remaining problem was that he was unable to stand & walk safely and required assist of 2; placing him at risk for falls & injury. Plan is for short term rehab to which he agrees before going home. Condition: Good - Instructions Diet, Activity, Other Instructions: low salt diet low cholesterol diet wound/incision care Physical Tx for gait strenghten & ambulation check blood work prior to discharge can resume his meds once he goes home Disposition: ALF FACILITY - Home Medications Comprehensive Discharge Medication List: Ambulatory Orders Aspirin [ASA -] 81 mg PO DAILY 07/04/17 Atenolol [Tenormin -] 50 mg PO DAILY 07/04/17 Isosorbide Mononitrate [Isosorbide Mononitrate ER] 30 mg PO DAILY 07/04/17 Acetaminophen [Tylenol .Regular Strength -] 650 mg PO Q6H PRN tablet 07/14/17 Amlodipine Besylate [Norvasc -] 2.5 mg PO DAILY #30 tablet 07/14/17 Losartan Potassium [Cozaar -] 25 mg PO DAILY tablet 07/14/17 Lovastatin 20 mg PO DAILY #30 tablet 07/14/17 Ranitidine [Zantac -] 150 mg PO DAILY tablet 07/14/17
[2017-07-15] MEDS: HEPARIN NA (PORCINE) 5,000 UNITS/ML 1ML VIAL SQ SCH ×2 (05:06→13:36)
[2017-07-15] MEDS: LOSARTAN POTASSIUM 50 MG TABLET (FP) PO SCH (09:42)
[2017-07-15] MEDS: ATENOLOL 50 MG TABLET (FP) PO SCH (09:42)
[2017-07-15] MEDS: RANITIDINE HCL 150 MG TABLET (FP) PO SCH (09:42)
[2017-07-15] MEDS: ASPIRIN 81 MG CHEWABLE TABLETS PO SCH (09:42)
--- NOTE | 2017-07-15 10:17 | PN ---
Progress Note, Physician History of Present Illness: POD#10 exp lap and appendectomy, + BM, tolerates diet. - Current Medication List Current Medications: Active Medications Acetaminophen (Tylenol -) 650 mg PO Q6H PRN PRN Reason: PAIN LEVEL 1 - 3 Aspirin (Asa -) 81 mg PO DAILY [facility] Last Admin: 07/15/17 09:42 Dose: 81 mg Atenolol (Tenormin -) 50 mg PO DAILY [facility] Last Admin: 07/15/17 09:42 Dose: 50 mg Heparin Sodium (Porcine) (Heparin -) 5,000 unit SQ TID [facility] Last Admin: 07/15/17 05:06 Dose: 5,000 unit Losartan Potassium (Cozaar -) 25 mg PO DAILY [facility] Last Admin: 07/15/17 09:42 Dose: 25 mg Ondansetron HCl (Zofran Injection) 4 mg IVPUSH Q6H PRN PRN Reason: NAUSEA AND/OR VOMITING Ranitidine HCl (Zantac -) 150 mg PO DAILY [facility] Last Admin: 07/15/17 09:42 Dose: 150 mg - Objective Vital Signs: Vital Signs Temperature 98.2 F 07/15/17 06:00 Pulse Rate 65 07/15/17 06:00 Respiratory Rate 20 07/15/17 06:00 Blood Pressure 146/66 07/15/17 06:00 O2 Sat by Pulse Oximetry (%) 96 07/14/17 21:00 Constitutional: Yes: No Distress, Calm, Thin Neck: Yes: Supple Cardiovascular: Yes: Regular Rate and Rhythm Respiratory: Yes: Regular, Diminished Gastrointestinal: Yes: Normal Bowel Sounds, Soft Edema: No Labs: CBC, BMP 07/11/17 05:10 07/13/17 06:55 INR, PTT INR 1.10 (0.82-1.09) 07/04/17 08:15 Problem List - Problems (1) Small bowel obstruction Code(s): K56.609 - UNSP INTESTNL OBST, UNSP TO PARTIAL VERSUS COMPLETE OBST (2) Coronary artery disease Code(s): I25.10 - ATHSCL HEART DISEASE OF [place] CORONARY ARTERY W/O ANG PCTRS Qualifiers: Coronary Disease-Associated Artery/Lesion type: [place] artery [place] vs. transplanted heart: [place] heart Associated angina: without angina Qualified Code(s): I25.10 - Atherosclerotic heart disease of [place] coronary artery without angina pectoris (3) S/P coronary artery stent placement Code(s): Z95.5 - PRESENCE OF CORONARY ANGIOPLASTY IMPLANT AND GRAFT (4) CKD (chronic kidney disease) Code(s): N18.9 - CHRONIC KIDNEY DISEASE, UNSPECIFIED Qualifiers: Chronic kidney disease stage: stage 2 (mild) Qualified Code(s): N18.2 - Chronic kidney disease, stage 2 (mild) (5) Hypertensive heart and chronic kidney disease stage 3 Code(s): I13.10 - HYP HRT & CHR KDNY DIS W/O HRT FAIL, W STG 1-4/UNSP CHR KDNY; N18.3 - CHRONIC KIDNEY DISEASE, STAGE 3 (MODERATE) (6) Lipidemia Code(s): E78.5 - HYPERLIPIDEMIA, UNSPECIFIED Qualifiers: Hyperlipidemia type: pure hypercholesterolemia Qualified Code(s): E78.00 - Pure hypercholesterolemia, unspecified; E78.0 - Pure hypercholesterolemia (7) PAD (peripheral artery disease) Code(s): I73.9 - PERIPHERAL VASCULAR DISEASE, UNSPECIFIED (8) S/P appendectomy Code(s): Z90.49 - ACQUIRED ABSENCE OF OTHER SPECIFIED PARTS OF DIGESTIVE TRACT Assessment/Plan 1. POD#10 post exploratory laparotomy and appendectomy 2. CAD post PCI (Stent) angina pectoris 3. Diastolic LV dysfunction with class 0 NYHA classification LV failure 4. HTN 5. Hyperlipidemia 6. Carotid stenosis post CEA 7. PAD 8. Acute on CKD resolved 9. Hypernatremia, resolved PLAN: 1. Continue ASA 81 qd, Atenolol 50 qd, increase losartan 50 qd, and Mevacor 40 qd gradually as hemodynamics tolerate 3. Diet and post-op management per surgery, DVT and GI prophylaxis, analgesia as needed, 4. Ambulate, OOB to chair, PT->SNF
[2017-07-15] MEDS ORDERED: LOSARTAN POTASSIUM 50 MG TABLET (FP) PO SCH (10:20)
[2017-07-15 12:43] VITALS: BP 137/57; PULSE 68; TEMP 98.4
== END 2017-07-15 13:40 | DRG 342 ==
LOC: JER 07:24 → JERBED 12:45 → J5S 16:21 → J4W 07-07 19:09 → J8W 07-12 07:14
PROVIDERS: ADMIT Internal Medicine; ATTEND Internal Medicine
PROC: 0D9670Z Drainage of Stomach with Drainage Device, Via Natural or Artificial Opening (ICD-10-PCS; 2017-07-04)
PROC: 0DTJ0ZZ Resection of Appendix, Open Approach (ICD-10-PCS; principal; 2017-07-05 13:00)
DX: K56.699 Other intestinal obstruction unspecified as to partial versus complete obstruction (principal); F05 Delirium due to known physiological condition; K35.80 Unspecified acute appendicitis; N17.9 Acute kidney failure, unspecified; J90 Pleural effusion, not elsewhere classified; E87.0 Hyperosmolality and hypernatremia; I50.1 Left ventricular failure, unspecified; I13.0 Hypertensive heart and chronic kidney disease with heart failure and stage 1 through stage 4 chronic kidney disease, or unspecified chronic kidney disease; I25.10 Atherosclerotic heart disease of native coronary artery without angina pectoris; Z87.891 Personal history of nicotine dependence; I45.10 Unspecified right bundle-branch block; I73.9 Peripheral vascular disease, unspecified; F10.11 Alcohol abuse, in remission; N18.3 Chronic kidney disease, stage 3 (moderate); Z98.61 Coronary angioplasty status; D64.9 Anemia, unspecified; N99.89 Other postprocedural complications and disorders of genitourinary system; R33.8 Other retention of urine; Y83.8 Other surgical procedures as the cause of abnormal reaction of the patient, or of later complication, without mention of misadventure at the time of the procedure; R26.89 Other abnormalities of gait and mobility
CPT/HCPCS: 36415; 71045-TC-FY; 74019-TC-FY; 74176-TC; 80048; 80053; 83605; 83615; 83690; 83735; 84100; 85025; 85027; 85610; 85730; 86850; 86900; 86901; 87070; 87075; 87076; 87205; 88304-TC; 93005; 93010; 94010; 94760; 97116-GP; 97161-GP; 99282-25; J0131; J1644; J7030

== ENCOUNTER 2018-02-03 08:54 | Inpatient (IN) | payer OTHER ==
--- NOTE | 2018-02-03 09:19 | PDOC ---
History of Present Illness <Mirtha Cadena - Last Filed: 02/03/18 11:19> - History of Present Illness Initial Comments: 02/03/18 09:30 Mr. Woodson is an 83 yo male w/ pmh of CAD, HTN w/ CKD, lipidemia, PVD who presents for evaluation of several week history of shortness of breath and weakness. Per patient he was previously active and able to do yard work outside however is now mostly bed bound. He also complains of a several week history of cough productive of clear phlegm. Presents (after weeks) on advice of PCP Dr. Castaneda. The patient denies chest pain, headache and dizziness. Denies fever, chills, nausea, vomit, diarrhea and constipation. Denies dysuria, frequency, urgency and hematuria. <González Salcedo - Last Filed: 02/03/18 11:35> - General Chief Complaint: Shortness of Breath Stated Complaint: SOB Time Seen by Provider: 02/03/18 09:18 Past History <Mirtha Cadena - Last Filed: 02/03/18 11:19> - Past Medical History Cardiac Disorders: Yes (cad,angina) COPD: No HTN: Yes Hypercholesterolemia: Yes - Surgical History Cardiac Surgery: Yes (cardiac stent) - Suicide/Smoking/Psychosocial Hx Smoking History: Former smoker Have you smoked in the past 12 months: No Information on smoking cessation initiated: No Hx Alcohol Use: No Drug/Substance Use Hx: No Substance Use Type: None <González Salcedo - Last Filed: 02/03/18 11:35> - Past Medical History Allergies/Adverse Reactions: Allergies Allergy/AdvReac Type Severity Reaction Status Date / Time No Known Allergies Allergy Verified 02/03/18 09:09 Home Medications: Ambulatory Orders Aspirin [ASA -] 81 mg PO DAILY 07/04/17 Atenolol [Tenormin -] 50 mg PO DAILY 07/04/17 Isosorbide Mononitrate [Isosorbide Mononitrate ER] 30 mg PO DAILY 07/04/17 Acetaminophen [Tylenol .Regular Strength -] 650 mg PO Q6H PRN tablet 07/14/17 Amlodipine Besylate [Norvasc -] 5 mg PO DAILY 02/03/18 Losartan Potassium [Cozaar -] 50 mg PO DAILY 02/03/18 Lovastatin 40 mg PO DAILY 02/03/18 Review of Systems - Review of Systems Comments:: 02/03/18 09:33 GENERAL/CONSTITUTIONAL: +Weakness as described. No fever or chills. HEAD, EYES, EARS, NOSE AND THROAT: No change in vision. No ear pain or discharge. No sore throat. CARDIOVASCULAR: +SOB as described (no chest pain). RESPIRATORY: +Cough as described., No wheezing, or hemoptysis. GASTROINTESTINAL: No nausea, vomiting, diarrhea or constipation. GENITOURINARY: No dysuria, frequency, or change in urination. MUSCULOSKELETAL: No joint or muscle swelling or pain. No neck or back pain. SKIN: No rash NEUROLOGIC: No headache, vertigo, loss of consciousness, or change in strength/ sensation. ENDOCRINE: No increased thirst. No abnormal weight change HEMATOLOGIC/LYMPHATIC: No anemia, easy bleeding, or history of blood clots. ALLERGIC/IMMUNOLOGIC: No hives or skin allergy. <González Salcedo - Last Filed: 02/03/18 11:35> *Physical Exam - Vital Signs Last Vital Signs Temp Pulse Resp BP Pulse Ox 94 H 20 128/74 98 02/03/18 11:11 02/03/18 11:11 02/03/18 11:11 02/03/18 11:11 <Mirtha Cadena - Last Filed: 02/03/18 11:19> - Vital Signs Last Vital Signs Temp Pulse Resp BP Pulse Ox 98 H 22 H 99/55 L 02/03/18 09:11 02/03/18 09:11 02/03/18 09:11 - Physical Exam Comments: 02/03/18 09:34 GENERAL: Awake, alert, and fully oriented, in no acute distress HEAD: No signs of trauma, normocephalic, atraumatic EYES: PERRLA, EOMI, sclera anicteric, conjunctiva clear ENT: Auricles normal inspection, hearing grossly normal, nares patent, oropharynx clear without exudates. Moist mucosa NECK: Normal ROM, supple, no lymphadenopathy, JVD, or masses LUNGS: +Coarse breath sounds appreciated throughout lung ocasio. HEART: Regular rate and rhythm, normal S1 and S2, no murmurs, rubs or gallops, peripheral pulses normal and equal bilaterally. ABDOMEN: Soft, nontender, normoactive bowel sounds. No guarding, no rebound. No masses EXTREMITIES: Normal inspection, Normal range of motion, no edema. No clubbing or cyanosis. NEUROLOGICAL: Cranial nerves II through XII grossly intact. Normal speech, normal gait, no focal sensorimotor deficits SKIN: Warm, Dry, normal turgor, no rashes or lesions noted. <González Salcedo - Last Filed: 02/03/18 11:35> ED Treatment Course - LABORATORY CBC & Chemistry Diagram: 02/03/18 10:18 02/03/18 10:18 - ADDITIONAL ORDERS Additional order review: Laboratory Results 02/03/18 02/03/18 02/03/18 10:18 10:18 10:18 PT with INR INR PTT (Actin FS) VBG pH 7.32 POC VBG pCO2 47.0 POC VBG pO2 17.5 L* Mixed VBG HCO3 23.4 Sodium 138 Potassium 4.8 Chloride 106 Carbon Dioxide 23 Anion Gap 9 BUN 34 H Creatinine 1.6 H Creat Clearance w eGFR 41.29 Random Glucose 115 H Calcium 11.4 H Total Bilirubin 0.6 AST 18 ALT 11 L Alkaline Phosphatase 55 Troponin I 0.04 B-Natriuretic Peptide 2603.9 H Total Protein 6.9 Albumin 2.6 L 02/03/18 10:18 PT with INR 14.10 H INR 1.19 H PTT (Actin FS) 26.2 VBG pH POC VBG pCO2 POC VBG pO2 Mixed VBG HCO3 Sodium Potassium Chloride Carbon Dioxide Anion Gap BUN Creatinine Creat Clearance w eGFR Random Glucose Calcium Total Bilirubin AST ALT Alkaline Phosphatase Troponin I B-Natriuretic Peptide Total Protein Albumin 02/03/18 10:18 RBC 3.81 L MCV 91.4 MCHC 33.3 RDW 14.8 MPV 7.7 Neutrophils % 81.3 Lymphocytes % 11.9 Monocytes % 5.2 Eosinophils % 0.5 D Basophils % 1.1 - Medications Given in the ED: ED Medications Discontinued Medications Generic Name Dose Route Start Last Admin Trade Name Freq PRN Reason Stop Dose Admin Albuterol/Ipratropium 1 amp 02/03/18 09:29 02/03/18 09:30 Duoneb - NEB 02/03/18 09:30 1 amp ONCE ONE Administration - Consult/PCP Time Called: 11:19 (Paged Dr. Castaneda's service. ) <Mirtha Cadena - Last Filed: 02/03/18 11:19> - LABORATORY CBC & Chemistry Diagram: 02/03/18 10:18 02/03/18 10:18 <González Salcedo - Last Filed: 02/03/18 11:35> Medical Decision Making - Medical Decision Making 02/03/18 10:34 Patient is an 83 yo male w/ pmh as described who presents for evaluation of SOB w/ weakness. Workup started for infectious vs. structural cause. Per patient PCP has previously been worried about cancerous process as well. Patient currently pending laboratory / imaging. EKG concerning for possible afib. Diagnostic Radiologic Technologist consulted who recommended repeat EKG. 02/03/18 11:04 CXR concerning for R pleural effusion and increased mass noted on R side. Azithromycin / Ceftriaxone given for prophylaxis. Repeat EKG remains indeterminate. 02/03/18 11:22 Labs noted as below. PCP called for admission for further evaluation. 02/03/18 11:34 Discussed with PCP who will admit for r/o pneumonia and further evaluation. <González Salcedo - Last Filed: 02/03/18 11:35> *DC/Admit/Observation/Transfer <Mirtha Cadena - Last Filed: 02/03/18 11:19> - Discharge Dispostion Decision to Admit order: Yes <González Salcedo - Last Filed: 02/03/18 11:35> Diagnosis at time of Disposition: Pleural effusion, Shortness of breath - Referrals Referrals: Balta Castaneda MD [Primary Care Provider] - - Patient Instructions - Post Discharge Activity
[2018-02-03] MEDS ORDERED: ALBUTEROL SO4 2.5/IPRATROPIUM 0.5 INH SOL 3 ML VIAL.NEB. NEB ONE ×2 (09:29→20:05)
--- NOTE | 2018-02-03 09:55 | PDOC ---
Attending Attestation - Medical Decision Making Emergency Contact: (Marissa- ) Please update with plan, room#, etc. <Mirtha Cadena - Last Filed: 02/03/18 10:08> - Resident Resident Name: González Salcedo - ED Attending Attestation I have performed the following: I have examined & evaluated the patient, The case was reviewed & discussed with the resident, I agree w/resident's findings & plan, Exceptions are as noted - HPI HPI: 02/03/18 09:56 83-year-old male with history of coronary artery disease, hypertension, chronic kidney disease, hyperlipidemia, peripheral vascular disease presents with several weeks of nonproductive cough and generalized weakness. The patient reported feeling generally more fatigued. Several weeks ago, the patient has been seeing his primary care physician, Dr. Castaneda who advised patient to go to the ER. At that time, it was unclear with the patient's coughing was from. According to the family, the patient may have either pneumonia or some underlying lung malignancy. The patient is reporting intermittent tactile fevers. Reports some shortness of breath but denies chest pain. Reports worsened appetite. Eventually, the patient came to the ER at the assistance of the family. - Physicial Exam PE: 02/03/18 09:56 GENERAL: Awake, alert, and fully oriented, in no acute distress. + tired appearing HEAD: No signs of trauma EYES: EOMI, sclera anicteric, conjunctiva clear ENT: Auricles normal inspection, hearing grossly normal, nares patent, dry mucous membranes mucosa NECK: Normal ROM, supple LUNGS: Breath sounds equal, clear to auscultation bilaterally. No wheezes, and no crackles HEART: Irregular rate and rhythm, normal S1 and S2, no murmurs, rubs or gallops ABDOMEN: Soft, nontender, No guarding, no rebound. No masses EXTREMITIES: Normal range of motion, no edema. No clubbing or cyanosis. No cords, erythema, or tenderness NEUROLOGICAL: Cranial nerves II through XII grossly intact. Normal speech SKIN: Warm, Dry, normal turgor, no rashes or lesions noted. - Medical Decision Making 02/03/18 09:53 A portion of this note was documented by scribe services under my direction. I have reviewed the details of the note, within reason, and agree with the documentation with the following case summary and management plan written by me. Patient treated in the ED. Nursing notes are reviewed and incorporated into the medical decision-making. Vital signs reviewed. Peripheral IV access obtained by the nurse, laboratory studies are drawn and sent, reviewed and interpreted by myself. Vital Signs Temp Pulse Resp BP Pulse Ox 98 H 22 H 99/55 L 02/03/18 09:11 02/03/18 09:11 02/03/18 09:11 Patient has been coughing frequently throughout the exam. My concerns are for pneumonia versus potential malignancy if there were concerning outpatient findings. We'll initiate adulterous protocol. Patient should be started on empiric antibiotics. Admit. 02/03/18 09:55 Also noted on ECG is afib. Is this new onset? Will need to contact pt PMD. 02/03/18 10:22 Pt's field associate is Dr. Viramontes. He is in ED. Will consult Dr. Viramontes. 02/03/18 11:04 CBC, BMP 02/03/18 10:18 Chest xray: increased R sided mass and pleural effusion. Malignancy should be considered. <Bala Gifford - Last Filed: 02/03/18 11:04> Heart Score/ECG Review #1 ECG reviewed & interpreted by me at: 09:45 02/03/18 09:54 afib 98, RBBB, no std/mayra QTC 485 msec #2 ECG reviewed & interpreted by me at: 11:00 02/03/18 11:03 undetermine rhythm 94, RBBB, no std/mayra, QTC 470 msec <Bala Gifford - Last Filed: 02/03/18 11:04>
[2018-02-03] MEDS ORDERED: SODIUM CHLORIDE 1,000 ML IV STA (09:57)
[2018-02-03] MEDS ORDERED: AZITHROMYCIN IVPB 500 MG in DEXTROSE 5%-WATER - 250 ML IVPB ONE (09:58)
[2018-02-03] MEDS ORDERED: CEFTRIAXONE 1,000 MG in DEXTROSE 5%-WATER - 50 ML IVPB ONE (09:58)
--- NOTE | 2018-02-03 10:29 | CON.CARD ---
Consult Consult Specialty:: Cardiology Referred by:: Emergency Medicine Reason for Consultation:: Dyspnea, cough - History of Present Illness Chief Complaint: Dyspnea, cough History of Present Illness: 83y M pmhx CAD s/p PCI, HTN, CKD, hyperlipidemia, peripheral vascular disease, carotid stenosis post CEA presented with progressive dyspnea, weakness, decreased exercise capacity, cough productive of clear sputum, improved with nebulizer treatment, denies chest pain, palpitations, near or true syncope, orthopnea, PND or LE edema. Chest CT shows RLL mass with post-obstructive PNA. - History Source History Provided By: Patient Limitations to Obtaining History: No Limitations - Past Medical History Cardio/Vascular: Yes: CAD (has coronary stent), HTN, Other (PAD) Renal/: Yes: Renal Inusuff Psych: Yes: Addictions (Hx of alcoholism--in remission) - Past Surgical History Past Surgical History: Yes: Carotid Endarterectomy - Alcohol/Substance Use Hx Alcohol Use: No History of Substance Use: reports: None - Smoking History Smoking history: Former smoker Have you smoked in the past 12 months: No Home Medications - Allergies Allergies/Adverse Reactions: Allergies Allergy/AdvReac Type Severity Reaction Status Date / Time No Known Allergies Allergy Verified 02/03/18 09:09 - Home Medications Home Medications: Ambulatory Orders Aspirin [ASA -] 81 mg PO DAILY 07/04/17 Atenolol [Tenormin -] 50 mg PO DAILY 07/04/17 Isosorbide Mononitrate [Isosorbide Mononitrate ER] 30 mg PO DAILY 07/04/17 Acetaminophen [Tylenol .Regular Strength -] 650 mg PO Q6H PRN tablet 07/14/17 Amlodipine Besylate [Norvasc -] 5 mg PO DAILY 02/03/18 Losartan Potassium [Cozaar -] 50 mg PO DAILY 02/03/18 Lovastatin 40 mg PO DAILY 02/03/18 Family Disease History - Family Disease History Family History: Denies Review of Systems - Review of Systems Constitutional: reports: Lethargy, Weakness Neck: reports: No Symptoms Cardiovascular: reports: Shortness of Breath Respiratory: reports: Cough Gastrointestinal: reports: No Symptoms Genitourinary: reports: No Symptoms Integumentary: reports: No Symptoms Neurological: reports: No Symptoms Vital Signs: Vital Signs Temperature Pulse Rate 98 H 02/03/18 09:11 Respiratory Rate 22 H 02/03/18 09:11 Blood Pressure 99/55 L 02/03/18 09:11 O2 Sat by Pulse Oximetry (%) Constitutional: Yes: No Distress, Calm, Thin Neck: Yes: Supple Respiratory: Yes: Regular, Diminished Gastrointestinal: Yes: Normal Bowel Sounds, Soft Cardiovascular: Yes: Regular Rate and Rhythm JVD: No Carotid Bruit: No Heart Sounds: Yes: S1, S2 Murmur: Yes: Systolic Murmur, Grade 1 Edema: No - Other Data NSR RBBB Ejection Fraction %: LVEF > or = 40 % Imaging - Results Cat Scan: Report Reviewed (Enlarging RLL mass with post-obstructive PNA) Problem List - Problems (1) Coronary artery disease Code(s): I25.10 - ATHSCL HEART DISEASE OF [place] CORONARY ARTERY W/O ANG PCTRS Qualifiers: Qualified Code(s): I25.10 - Atherosclerotic heart disease of [place] coronary artery without angina pectoris (2) Lipidemia Code(s): E78.5 - HYPERLIPIDEMIA, UNSPECIFIED Qualifiers: Qualified Code(s): E78.00 - Pure hypercholesterolemia, unspecified; E78.0 - Pure hypercholesterolemia (3) PAD (peripheral artery disease) Code(s): I73.9 - PERIPHERAL VASCULAR DISEASE, UNSPECIFIED (4) S/P coronary artery stent placement Code(s): Z95.5 - PRESENCE OF CORONARY ANGIOPLASTY IMPLANT AND GRAFT (5) Hypertensive heart and chronic kidney disease stage 3 Code(s): I13.10 - HYP HRT & CHR KDNY DIS W/O HRT FAIL, W STG 1-4/UNSP CHR KDNY; N18.3 - CHRONIC KIDNEY DISEASE, STAGE 3 (MODERATE) Assessment/Plan 1. Bronchodilator-responsive dyspnea, cough -> RLL mass with post-obstructive PNA 2. CAD post PCI (Stent) angina pectoris 3. LV diastolic dysfunction 4. HTN 5. Hyperlipidemia 6. Carotid stenosis post CEA 7. PAD 8. CKD PLAN: 1. Continue ASA 81 qd, Atenolol 50 qd, losartan 50 qd, Norvasc 5 qd and Mevacor 40 qd gradually as hemodynamics tolerate 2. BD, O2 as needed, empiric abx, check BNP, echo, DVT and GI prophylaxis, biopsy of lung mass if not already performed 3. Ambulate, OOB to chair, PT->SNF 4. Thank you for consultative opportunity
[2018-02-03 10:38] LABS: BASO % 1.1 % (0-2.0); EOS % 0.5 % (0-4.5); HEMATOCRIT 34.8 % (35.4-49); HEMOGLOBIN 11.6 GM/dL (11.7-16.9); LYMPH % 11.9 % (8-40); MCH 30.4 pg (25.7-33.7); MCHC 33.3 g/dl (32.0-35.9); MEAN CELL VOLUME 91.4 fl (80-96); MEAN PLT VOLUME 7.7 fl (7.5-11.1); MONO % 5.2 % (3.8-10.2); NEUT % 81.3 % (42.8-82.8); PLATELET COUNT 339 K/MM3 (134-434); RBC 3.81 M/mm3 (4.00-5.60); RDW 14.8 % (11.9-15.9); WHITE BLOOD COUNT 9.5 K/mm3 (4.0-10.0)
[2018-02-03 10:43] LABS: VENOUS PH 7.32 (7.32-7.42); VENOUS PO2 17.5 mmHg (28-48)
[2018-02-03 10:49] LABS: INR 1.19 (0.83-1.09); PROTHROMBIN TIME (PATIENT) 14.1 SEC (9.7-13.0)
[2018-02-03 10:52] LABS: ACTIVATED PTT 26.2 SECONDS (25.2-36.5)
[2018-02-03 11:10] LABS: N-TERMINAL BNP 2603.9 pg/ml (5-450)
[2018-02-03 11:12] LABS: ALBUMIN 2.6 g/dl (3.4-5.0); ALK PHOS 55 U/L (45-117); ANION GAP 9 MMOL/L (8-16); BILIRUBIN,TOTAL 0.6 mg/dL (0.2-1); BLOOD UREA NITROGEN 34 mg/dL (7-18); CALCIUM 11.4 mg/dL (8.5-10.1); CHLORIDE 106 mmol/L (98-107); CO2 23 mmol/L (21-32); CREATININE 1.6 mg/dL (0.55-1.3); GLUCOSE,RANDOM 115 mg/dL (74-106); POTASSIUM 4.8 mmol/L (3.5-5.1); SGOT/AST 18 U/L (15-37); SGPT/ALT 11 U/L (13-61); SODIUM 138 mmol/L (136-145); TOT PROT 6.9 g/dl (6.4-8.2)
[2018-02-03] MEDS ORDERED: AZITHROMYCIN IVPB 500 MG/250 ML BAG IVPB ONE (11:25)
[2018-02-03] MEDS ORDERED: CEFTRIAXONE 1 GM/50 ML BAG ONE (11:25)
--- NOTE | 2018-02-03 18:07 | HP ---
Admitting History and Physical - Primary Care Physician PCP: Balta Castaneda - Admission Chief Complaint: weakness & confusion History of Present Illness: 83 y/o poorly compliant male w/ pmh of CAD, HTN w/ CKD, lipidemia, PAD who arrives from home because of progressive weakness/debility and confusion. The patient was failing to thrive at home for the past several months after it was noted that he had a growing lesion/neoplasm in the Rt lung that did not respond to multiple courses of antibiotics. A vague image abnormality was first detected in late june of this year when he presented to the ER with acute abd pain (which was due to acute AP). He underwent appendectomy but kept having abd pain afterwards; he eventually regained bowel motility but became very deconditioned and was sent to short term rehab. He was advised to f/u upon his release from rehab but he chose to delay his follow up to the month of September, citing that he was not feeling ill when he was released home from the SNF; but thereafter he began to complain of loss of stamina. He was given an order for imaging studies but declined to do them at the time. He was seen by his Insurance Agency Manager various times who felt his malaise could be due to the effects of the Beta-hardeep he was on however, med adjustments did not produce any clinical improvements. He then returned to see me in the month of November c/o feeling progressively ill. He was found to have lost some weight and seemed more listless. Basic blood work revealed mild anemia, low proteins, and a high ESR. He then decided to do the imaging studies previously advised and it showed what was described as a Rt lung infiltrate and pancreatic cyst. He declined to be hospitalized and opted for oral antibiotics which had no effect clinically. He was again seen in f/u in December and advised to have a CT scan; which showed a large Rt lung base lesion to suggest a neoplasm (but no pancreatic lesions). He did not wish to proceed with any invasive out-patient diagnostic procedures nor did he wish to be hospitalized. Sputum for cytology did not reveal any malignant cells. Serum "quantiferon" was negative. He was tried on oral Cipro approx 2 weeks ago to which he did not respond. His reported that he was getting weaker, and today she had him brought to the ER. He denies any pain, SOB at rest, abd pains, n-v, or cough. he claims to have eaten this AM and had a BM as well. he lives at home with his . History Source: Patient, Medical Record Limitations to Obtaining History: Clinical Condition, Poor Historian - Past Medical History Cardiovascular: Yes: CAD (has coronary stent), HTN, Other (PAD) Pulmonary: Yes: Other (Rt lung neoplasm) Gastrointestinal: Yes: Other (s/p AP this year) Renal/: Yes: Renal Inusuff Heme/Onc: Yes: Anemia Psych: Yes: Addictions (Hx of alcoholism--in remission) - Past Surgical History Past Surgical History: Yes: Appendectomy, Carotid Endarterectomy - Smoking History Smoking history: Former smoker Have you smoked in the past 12 months: No - Alcohol/Substance Use Hx Alcohol Use: No History of Substance Use: reports: None - Social History Usual Living Arrangement: Yes: With Spouse History of Recent Travel: No Home Medications - Allergies Allergies/Adverse Reactions: Allergies Allergy/AdvReac Type Severity Reaction Status Date / Time No Known Allergies Allergy Verified 02/03/18 09:09 - Home Medications Home Medications: Ambulatory Orders Aspirin [ASA -] 81 mg PO DAILY 07/04/17 Atenolol [Tenormin -] 50 mg PO DAILY 07/04/17 Isosorbide Mononitrate [Isosorbide Mononitrate ER] 30 mg PO DAILY 07/04/17 Acetaminophen [Tylenol .Regular Strength -] 650 mg PO Q6H PRN tablet 07/14/17 Amlodipine Besylate [Norvasc -] 5 mg PO DAILY 02/03/18 Losartan Potassium [Cozaar -] 50 mg PO DAILY 02/03/18 Lovastatin 40 mg PO DAILY 02/03/18 Family Disease History - Family Disease History Family History: Unremarkable Review of Systems - Review of Systems Constitutional: reports: Weakness Eyes: reports: No Symptoms HENT: reports: No Symptoms Neck: reports: No Symptoms Cardiovascular: reports: No Symptoms Respiratory: reports: Cough Gastrointestinal: reports: No Symptoms Genitourinary: reports: No Symptoms Musculoskeletal: reports: No Symptoms Integumentary: reports: No Symptoms Neurological: reports: Weakness Endocrine: reports: No Symptoms Hematology/Lymphatic: reports: No Symptoms Psychiatric: reports: No Symptoms Physical Examination Vital Signs: Vital Signs Temperature 98.2 F 02/03/18 16:58 Pulse Rate 102 H 02/03/18 16:58 Respiratory Rate 18 02/03/18 16:58 Blood Pressure 142/91 02/03/18 16:58 O2 Sat by Pulse Oximetry (%) 98 02/03/18 16:58 Findings/Remarks: {found on mickie in the ER, in an open corrider. Examination limited by inability to place him in an exam room 2nd lack of availability} skin--mild pallor eyes--non injected; eomi, anicteric oral--no droop; mucosal dry; with upper dentures neck--old CEA scar heart--irreg; distant HR lungs--dimnished BS RT lung; with some exp & insp wheezing; Lt lung grossly clear abd--old surg incision; no gross organomegally (rectal deferred due to location of exam) back--no michi tenderness ext--diminished radial pulse on LT side; reduced pedal pulses; no gross ischemic changes; diffuse muscle atrophy; no CCE neuro--awake; fully verbal; speech is fluent; thought content impaired; judgment impaired; able to follow commands; good eye contact; no gross motor/ sens deficits; no rigidity or tremors; mood anxious. Labs: CBC, BMP 02/03/18 10:18 02/03/18 10:18 Imaging - Results Chest X-ray: Report Reviewed Cat Scan: Report Reviewed EKG: Report Reviewed (irregular rhythym; baseline unclear) Problem List - Problems (1) Lung neoplasm Assessment/Plan: Rt lung base; expanding; likely to represent a cancerous lesion of which he has previously chosen not to have any diagnostic studies done. PLAN: will need to get thoracic surgery eval; supportive Tx w/ neb Tx and Abs Code(s): D49.1 - NEOPLASM OF UNSPECIFIED BEHAVIOR OF RESPIRATORY SYSTEM (2) Hypertensive heart and chronic kidney disease stage 3 Assessment/Plan: not new; will Tx as necessary Code(s): I13.10 - HYP HRT & CHR KDNY DIS W/O HRT FAIL, W STG 1-4/UNSP CHR KDNY; N18.3 - CHRONIC KIDNEY DISEASE, STAGE 3 (MODERATE) (3) Abnormal EKG Assessment/Plan: which seems to suggest an NON sinus rhythm, and possible atrial fib; however, baseline is poor. Even if this is new onset ATF; he is not a safe a/c candidate at this time in view of this very suspicious lung lesion. PLAN: will repeat EKG Code(s): R94.31 - ABNORMAL ELECTROCARDIOGRAM [ECG] [EKG] (4) Lipidemia Assessment/Plan: will need to suspend statin for now Code(s): E78.5 - HYPERLIPIDEMIA, UNSPECIFIED Qualifiers: Hyperlipidemia type: pure hypercholesterolemia Qualified Code(s): E78.00 - Pure hypercholesterolemia, unspecified; E78.0 - Pure hypercholesterolemia (5) Dehydration Assessment/Plan: moustapha 2nd fail thrive; which could be contributing to his confusion. PLAN: IV Hydration Code(s): E86.0 - DEHYDRATION (6) PAD (peripheral artery disease) Assessment/Plan: Not new; has been managed by statins, BP control Code(s): I73.9 - PERIPHERAL VASCULAR DISEASE, UNSPECIFIED (7) Delirium due to another medical condition Assessment/Plan: 2nd underlying lung disease and its ramifications Code(s): F05 - DELIRIUM DUE TO KNOWN PHYSIOLOGICAL CONDITION Assessment/Plan 83 y/o ill appearing male whose findings are very suspicious for a lung malignancy and whose clinical state has deteriorated to the point where he could not be cared at home ~~~~~~~~~~~~~~~~~~~~~~~~~~~~~~~~~~ Dr Castaneda
[2018-02-03] MEDS ORDERED: metoPROLOL SUCCINATE 25 MG TAB.SR.24H (FP) PO ONE (18:33)
[2018-02-03] MEDS ORDERED: ALPRAZolam 0.25 MG TABLET PO PRN (18:35)
[2018-02-03] MEDS: DEXTROSE 5%-0.45% SALINE 1,000 ML IV SCH (19:10)
[2018-02-03] MEDS: ALBUTEROL SO4 2.5/IPRATROPIUM 0.5 INH SOL 3 ML VIAL.NEB. NEB SCH (20:11)
--- NOTE | 2018-02-03 21:23 | EKG ---
Test Reason : Blood Pressure : / mmHG Vent. Rate : 098 BPM Atrial Rate : 092 BPM P-R Int : 000 ms QRS Dur : 144 ms QT Int : 380 ms P-R-T Axes : 000 083 002 degrees QTc Int : 485 ms ATRIAL FIBRILLATION RIGHT BUNDLE BRANCH BLOCK ABNORMAL ECG WHEN COMPARED WITH ECG OF 04-JUL-2017 08:42, ATRIAL FIBRILLATION HAS REPLACED SINUS RHYTHM Confirmed by ITALO BOLTON MD ([id number]) on 02/03/2018 9:22:39 PM Referred By: Confirmed By:ITALO BOLTON MD
[2018-02-04 00:03] VITALS: BMI 19.2
[2018-02-04 08:28] LABS: HEMOGLOBIN 10.5 GM/dL (11.7-16.9); MCHC 32.9 g/dl (32.0-35.9); MEAN CELL VOLUME 91.3 fl (80-96); MEAN PLT VOLUME 7.7 fl (7.5-11.1); PLATELET COUNT 247 K/MM3 (134-434); RDW 15.6 % (11.9-15.9); WHITE BLOOD COUNT 6.7 K/mm3 (4.0-10.0)
[2018-02-04 08:43] LABS: URINE APPEARANCE CLEAR; URINE BILIRUBIN NEGATIVE (<2.0 mg/dL); URINE COLOR YELLOW; URINE GLUCOSE (UA) NEGATIVE (NEGATIVE); URINE KETONE NEGATIVE (NEGATIVE); URINE LEUK ESTERASE NEGATIVE (NEGATIVE); URINE NITRITE NEGATIVE (NEGATIVE); URINE PROTEIN NEGATIVE (NEGATIVE); URINE UROBILINOGEN NEGATIVE mg/dL (0.2-1.0)
[2018-02-04] MEDS: ALBUTEROL SO4 2.5/IPRATROPIUM 0.5 INH SOL 3 ML VIAL.NEB. NEB SCH ×3 (08:46→20:36)
[2018-02-04 08:55] LABS: URINE HYALINE CAST 1 /lpf; URINE MUCUS RARE
[2018-02-04 08:56] LABS: ANION GAP 8 MMOL/L (8-16); BLOOD UREA NITROGEN 31 mg/dL (7-18); CALCIUM 10.7 mg/dL (8.5-10.1); CHLORIDE 110 mmol/L (98-107); CO2 22 mmol/L (21-32); CREATININE 1.3 mg/dL (0.55-1.3); GLUCOSE,RANDOM 91 mg/dL (74-106); POTASSIUM 3.9 mmol/L (3.5-5.1); SODIUM 139 mmol/L (136-145)
[2018-02-04] MEDS ORDERED: PNEUMOC 13-VAL CONJ-DIP CRM/PF 0.5 ML DISP.SYRIN IM ONE (10:00)
[2018-02-04] MEDS ORDERED: FLU VACCINE QUAD 60 MCG/0.5 ML (MDV 18-19) IM ONE (10:00)
[2018-02-04] MEDS ORDERED: cefTRIAXone SODIUM 1 GM VIAL ONE (10:05)
[2018-02-04] MEDS ORDERED: DEXTROSE 5%-WATER - 50 ML IVPB ONE (10:06)
[2018-02-04] MEDS: metoPROLOL SUCCINATE 25 MG TAB.SR.24H (FP) PO SCH (10:10)
[2018-02-04] MEDS: CEFTRIAXONE 1 GM in DEXTROSE 5%-WATER - 50 ML IVPB SCH (10:20)
--- NOTE | 2018-02-04 12:29 | PN ---
Progress Note, Physician Chief Complaint: Events noted Not in distress History of Present Illness: Patient was seen and examined. Awake and alert. Chart was reviewed Denies chest pain or palpitations Less SOB feeling comfortable - Current Medication List Current Medications: Active Medications Albuterol/Ipratropium (Duoneb -) 1 amp NEB RTID [facility] Last Admin: 02/04/18 08:46 Dose: Not Given Alprazolam (Xanax -) 0.25 mg PO Q8H PRN PRN Reason: ANXIETY Dextrose/Sodium Chloride (D5-1/2ns -) 1,000 mls @ 75 mls/hr IV ASDIR [facility] Last Admin: 02/03/18 19:10 Dose: 75 mls/hr Ceftriaxone Sodium 1 gm/ (Dextrose) 50 mls @ 100 mls/hr IVPB DAILY [facility] Last Admin: 02/04/18 10:20 Dose: 100 mls/hr Metoprolol Succinate (Toprol Xl -) 25 mg PO DAILY [facility] Last Admin: 02/04/18 10:10 Dose: Not Given - Objective Vital Signs: Vital Signs Temperature 97.9 F 02/04/18 09:00 Pulse Rate 70 02/04/18 09:00 Respiratory Rate 18 02/04/18 09:00 Blood Pressure 90/68 02/04/18 09:00 O2 Sat by Pulse Oximetry (%) 96 02/04/18 09:00 Neck: Yes: Supple Cardiovascular: Yes: Regular Rate and Rhythm, S1, S2 Respiratory: Yes: Diminished Gastrointestinal: Yes: Normal Bowel Sounds, Soft. No: Tenderness Edema: No Labs: CBC, BMP 02/04/18 07:20 02/04/18 07:20 INR, PTT INR 1.19 (0.83-1.09) H 02/03/18 10:18 Problem List - Problems (1) Abnormal EKG Code(s): R94.31 - ABNORMAL ELECTROCARDIOGRAM [ECG] [EKG] (2) Lung neoplasm Code(s): D49.1 - NEOPLASM OF UNSPECIFIED BEHAVIOR OF RESPIRATORY SYSTEM (3) Pleural effusion Code(s): J90 - PLEURAL EFFUSION, NOT ELSEWHERE CLASSIFIED (4) Shortness of breath Code(s): R06.02 - SHORTNESS OF BREATH (5) CKD (chronic kidney disease) Code(s): N18.9 - CHRONIC KIDNEY DISEASE, UNSPECIFIED Qualifiers: Chronic kidney disease stage: stage 2 (mild) Qualified Code(s): N18.2 - Chronic kidney disease, stage 2 (mild) (6) Coronary artery disease Code(s): I25.10 - ATHSCL HEART DISEASE OF [place] CORONARY ARTERY W/O ANG PCTRS Qualifiers: Coronary Disease-Associated Artery/Lesion type: [place] artery [place] vs. transplanted heart: [place] heart Associated angina: without angina Qualified Code(s): I25.10 - Atherosclerotic heart disease of [place] coronary artery without angina pectoris (7) PAD (peripheral artery disease) Code(s): I73.9 - PERIPHERAL VASCULAR DISEASE, UNSPECIFIED Assessment/Plan 1. RLL mass with post-obstructive PNA 2. CAD post PCI (Stent) angina pectoris 3. LV diastolic dysfunction 4. HTN 5. Hyperlipidemia 6. Carotid stenosis post CEA 7. PAD 8. CKD PLAN: 1. Continue ASA 81 qd, Atenolol 50 qd, losartan 50 qd, Norvasc 5 qd and Mevacor 40 qd as tolerated 2. Bronchodilator, O2 as needed, empiric antibiotic. 3. echocardiography to assess LV/RV and valvular function 4. DVT and GI prophylaxis 5. Ambulate, OOB to chair 6. PT and SNF Further plans are to follow Corey Barreto MD
--- NOTE | 2018-02-04 12:57 | EKG ---
Test Reason : Blood Pressure : / mmHG Vent. Rate : 094 BPM Atrial Rate : 085 BPM P-R Int : 000 ms QRS Dur : 138 ms QT Int : 376 ms P-R-T Axes : 000 088 044 degrees QTc Int : 470 ms POOR DATA QUALITY, INTERPRETATION MAY BE ADVERSELY AFFECTED UNDETERMINED RHYTHM RIGHT BUNDLE BRANCH BLOCK ABNORMAL ECG Confirmed by MD KVNG, CHARLENE ([id number]) on 02/04/2018 12:56:36 PM Referred By: Confirmed By:CHARLENE CALDERON MD
[2018-02-04] MEDS: DEXTROSE 5%-0.45% SALINE 1,000 ML IV SCH ×2 (14:44→19:07)
--- NOTE | 2018-02-04 17:18 | CONSULT ---
Consult Consult Specialty:: Thoracic Surgery Referred by:: Dr. Castaneda Reason for Consultation:: Lung mass - History of Present Illness Chief Complaint: failure to thrive, weakness x several weeks History of Present Illness: 83M with smoking history p/w weakness over several weeks. Imaging w/u shows lung mass. Referred for dx and staging. Endorses weight loss. Denies pain, hemoptysis, cough, or sob. - History Source History Provided By: Patient, Medical Record Limitations to Obtaining History: No Limitations - Past Medical History Cardio/Vascular: Yes: CAD (has coronary stent), HTN, Other (PAD) Pulmonary: Yes: Other (Rt lung neoplasm) Gastrointestinal: Yes: Other (s/p AP this year) Renal/: Yes: Renal Inusuff Psych: Yes: Addictions (Hx of alcoholism--in remission) - Past Surgical History Past Surgical History: Yes: Appendectomy, Carotid Endarterectomy - Alcohol/Substance Use Hx Alcohol Use: No History of Substance Use: reports: None - Smoking History Smoking history: Former smoker Have you smoked in the past 12 months: No - Social History History of Recent Travel: No Home Medications - Allergies Allergies/Adverse Reactions: Allergies Allergy/AdvReac Type Severity Reaction Status Date / Time No Known Allergies Allergy Verified 02/03/18 09:09 - Home Medications Home Medications: Ambulatory Orders Aspirin [ASA -] 81 mg PO DAILY 07/04/17 Atenolol [Tenormin -] 50 mg PO DAILY 07/04/17 Isosorbide Mononitrate [Isosorbide Mononitrate ER] 30 mg PO DAILY 07/04/17 Acetaminophen [Tylenol .Regular Strength -] 650 mg PO Q6H PRN tablet 07/14/17 Amlodipine Besylate [Norvasc -] 5 mg PO DAILY 02/03/18 Losartan Potassium [Cozaar -] 50 mg PO DAILY 02/03/18 Lovastatin 40 mg PO DAILY 02/03/18 Family Disease History - Family Disease History Family History: Unremarkable Review of Systems - Review of Systems Constitutional: reports: Unintentional Wgt. Loss, Weakness HENT: reports: No Symptoms Neck: reports: No Symptoms Cardiovascular: reports: No Symptoms Respiratory: reports: No Symptoms Musculoskeletal: reports: No Symptoms Physical Exam Vital Signs: Vital Signs Temperature 98 F 02/04/18 14:57 Pulse Rate 83 10/23/18 14:57 Respiratory Rate 17 02/04/18 14:57 Blood Pressure 120/63 02/04/18 14:57 O2 Sat by Pulse Oximetry (%) 96 02/04/18 09:00 Constitutional: Yes: No Distress Eyes: Yes: WNL Respiratory: Yes: CTA Bilaterally Gastrointestinal: Yes: Soft Edema: LLE: Trace, RLE: Trace Labs: CBC, BMP 02/04/18 07:20 02/04/18 07:20 Imaging - Results Cat Scan: Image Reviewed Problem List - Problems (1) Lung neoplasm Code(s): D49.1 - NEOPLASM OF UNSPECIFIED BEHAVIOR OF RESPIRATORY SYSTEM (2) Pleural effusion Code(s): J90 - PLEURAL EFFUSION, NOT ELSEWHERE CLASSIFIED (3) Coronary artery disease Code(s): I25.10 - ATHSCL HEART DISEASE OF [place] CORONARY ARTERY W/O ANG PCTRS Qualifiers: Coronary Disease-Associated Artery/Lesion type: [place] artery [place] vs. transplanted heart: [place] heart Associated angina: without angina Qualified Code(s): I25.10 - Atherosclerotic heart disease of [place] coronary artery without angina pectoris (4) Hypertensive heart and chronic kidney disease stage 3 Code(s): I13.10 - HYP HRT & CHR KDNY DIS W/O HRT FAIL, W STG 1-4/UNSP CHR KDNY; N18.3 - CHRONIC KIDNEY DISEASE, STAGE 3 (MODERATE) (5) Lipidemia Code(s): E78.5 - HYPERLIPIDEMIA, UNSPECIFIED Qualifiers: Hyperlipidemia type: pure hypercholesterolemia Qualified Code(s): E78.00 - Pure hypercholesterolemia, unspecified; E78.0 - Pure hypercholesterolemia (6) PAD (peripheral artery disease) Code(s): I73.9 - PERIPHERAL VASCULAR DISEASE, UNSPECIFIED (7) S/P appendectomy Code(s): Z90.49 - ACQUIRED ABSENCE OF OTHER SPECIFIED PARTS OF DIGESTIVE TRACT Assessment/Plan 83M with multiple medical problems, weakness, confusion, right lung mass that is most likely cancer with associated effusion. 1. Recommend thoracentesis vs. biopsy: please consult IR to evaluate, thoracentesis only if safe and easy. This may make dx and stage but not sure if patient can undergo treatment, it appears if localized radiation and chemo might be options, if advanced chemo may be option; 2. Consider oncology consult at some point as well.
--- NOTE | 2018-02-04 17:47 | PN ---
Progress Note (short form) - Note Progress Note: Current Medications Albuterol/Ipratropium (Duoneb -) 1 amp NEB RTID [facility] Last Admin: 02/04/18 08:46 Dose: Not Given Alprazolam (Xanax -) 0.25 mg PO Q8H PRN PRN Reason: ANXIETY Dextrose/Sodium Chloride (D5-1/2ns -) 1,000 mls @ 75 mls/hr IV ASDIR [facility] Last Admin: 02/04/18 14:44 Dose: 75 mls/hr Ceftriaxone Sodium 1 gm/ (Dextrose) 50 mls @ 100 mls/hr IVPB DAILY [facility] Last Admin: 02/04/18 10:20 Dose: 100 mls/hr Metoprolol Succinate (Toprol Xl -) 25 mg PO DAILY [facility] Last Admin: 02/04/18 10:10 Dose: Not Given Laboratory Results - last 24 hr 02/03/18 02/03/18 02/04/18 07:00 10:18 07:20 WBC 6.7 RBC 3.50 L Hgb 10.5 L Hct 32.0 L MCV 91.3 MCH 30.0 MCHC 32.9 RDW 15.6 Plt Count 247 D MPV 7.7 VBG pH 7.32 POC VBG pCO2 47.0 POC VBG pO2 17.5 L* Mixed VBG HCO3 23.4 Sodium Potassium Chloride Carbon Dioxide Anion Gap BUN Creatinine Creat Clearance w eGFR POC Glucometer Random Glucose Calcium TSH Urine Color Yellow Urine Appearance Clear Urine pH 5.0 Ur Specific [place] 1.023 Urine Protein Negative Urine Glucose (UA) Negative Urine Ketones Negative Urine Blood 1+ H Urine Nitrite Negative Urine Bilirubin Negative Urine Urobilinogen Negative Ur Leukocyte Esterase Negative Urine WBC (Auto) 1 Urine RBC (Auto) 1 Hyaline Casts 1 Urine Mucus Rare 02/04/18 02/04/18 07:20 12:36 WBC RBC Hgb Hct MCV MCH MCHC RDW Plt Count MPV VBG pH POC VBG pCO2 POC VBG pO2 Mixed VBG HCO3 Sodium 139 Potassium 3.9 Chloride 110 H Carbon Dioxide 22 Anion Gap 8 BUN 31 H Creatinine 1.3 Creat Clearance w eGFR 52.47 POC Glucometer 103 Random Glucose 91 Calcium 10.7 H TSH 0.81 Urine Color Urine Appearance Urine pH Ur Specific [place] Urine Protein Urine Glucose (UA) Urine Ketones Urine Blood Urine Nitrite Urine Bilirubin Urine Urobilinogen Ur Leukocyte Esterase Urine WBC (Auto) Urine RBC (Auto) Hyaline Casts Urine Mucus Vital Signs Temperature 98 F 02/04/18 14:57 Pulse Rate 83 02/04/18 14:57 Respiratory Rate 17 02/04/18 14:57 Blood Pressure 120/63 02/04/18 14:57 O2 Sat by Pulse Oximetry (%) 96 02/04/18 09:00 CC: feels listless ```````````````````` skin--no acute lesions appreciated eyes--anicteric, eomi heart--mostly RR lungs--reduced BS Rt side; unlabored abd--grossly benign ext--no edema neuro--awake; verbal, more lucid; thoughts better organized; no focal deficits ````````````````````````````````````````````````````````````` Summary > Fail thrive--due to progressing Rt lung lesion and its ramifications; seems better today, but still unable to walk. PLAN: PT eval > Dehydration--improved with IVF > PNA--possibly post obstructive; cont IV abs for now & Neb Tx > Rt lung neoplasm--with local adenopathy; TS note read (recommends Bx by IR); both he & now seem to be willing to have a diagnostic invasive study done but prognosis is guarded. > Htn--with ASHD; clinically stable; BP controled by BB alone; would avoid use of ARB because of tenuous BP; he is not a candidate for ASA now > AbnL EKG--undetermined rhythm; though may have underlying ATF but is not an a/ c candidate at this time > high calcium--improved with IVF; 2nd malignancy > anemia--of possible malignant dz ~~~~~~~~~~~~~~~~~~ Dr Castaneda Problem List - Problems (1) Lung neoplasm Code(s): D49.1 - NEOPLASM OF UNSPECIFIED BEHAVIOR OF RESPIRATORY SYSTEM (2) Hypertensive heart and chronic kidney disease stage 3 Code(s): I13.10 - HYP HRT & CHR KDNY DIS W/O HRT FAIL, W STG 1-4/UNSP CHR KDNY; N18.3 - CHRONIC KIDNEY DISEASE, STAGE 3 (MODERATE) (3) Abnormal EKG Code(s): R94.31 - ABNORMAL ELECTROCARDIOGRAM [ECG] [EKG] (4) Lipidemia Code(s): E78.5 - HYPERLIPIDEMIA, UNSPECIFIED Qualifiers: Hyperlipidemia type: pure hypercholesterolemia Qualified Code(s): E78.00 - Pure hypercholesterolemia, unspecified; E78.0 - Pure hypercholesterolemia (5) Dehydration Code(s): E86.0 - DEHYDRATION (6) PAD (peripheral artery disease) Code(s): I73.9 - PERIPHERAL VASCULAR DISEASE, UNSPECIFIED (7) Delirium due to another medical condition Code(s): F05 - DELIRIUM DUE TO KNOWN PHYSIOLOGICAL CONDITION
[2018-02-04] MEDS ORDERED: PT OWN MED DRAWER 7, Y5N ONE (19:35)
[2018-02-05] MEDS: DEXTROSE 5%-0.45% SALINE 1,000 ML IV SCH ×2 (05:22→22:48)
[2018-02-05 08:02] LABS: BASO % 0.9 % (0-2.0); EOS % 3.3 % (0-4.5); HEMATOCRIT 33.2 % (35.4-49); HEMOGLOBIN 10.8 GM/dL (11.7-16.9); LYMPH % 15.2 % (8-40); MCH 30.2 pg (25.7-33.7); MCHC 32.6 g/dl (32.0-35.9); MEAN CELL VOLUME 92.7 fl (80-96); MEAN PLT VOLUME 7.7 fl (7.5-11.1); MONO % 5.5 % (3.8-10.2); NEUT % 75.1 % (42.8-82.8); PLATELET COUNT 237 K/MM3 (134-434); RBC 3.58 M/mm3 (4.00-5.60); RDW 15.3 % (11.9-15.9); WHITE BLOOD COUNT 7.1 K/mm3 (4.0-10.0)
[2018-02-05] MEDS: ALBUTEROL SO4 2.5/IPRATROPIUM 0.5 INH SOL 3 ML VIAL.NEB. NEB SCH ×3 (08:05→20:38)
[2018-02-05 08:28] LABS: ANION GAP 8 MMOL/L (8-16); BLOOD UREA NITROGEN 24 mg/dL (7-18); CALCIUM 10.3 mg/dL (8.5-10.1); CHLORIDE 108 mmol/L (98-107); CO2 22 mmol/L (21-32); CREATININE 1.2 mg/dL (0.55-1.3); GLUCOSE,RANDOM 79 mg/dL (74-106); MAGNESIUM 1.6 mg/dL (1.8-2.4); POTASSIUM 3.8 mmol/L (3.5-5.1); SODIUM 138 mmol/L (136-145)
[2018-02-05] MEDS ORDERED: MAGNESIUM 1GM/D5W - 1 GM/100 ML IVPB IVPB ONE (09:12)
[2018-02-05] MEDS ORDERED: DEXTROSE 5%-WATER - 50 ML IVPB ONE (10:13)
[2018-02-05] MEDS ORDERED: cefTRIAXone SODIUM 1 GM VIAL ONE (10:13)
[2018-02-05] MEDS: CEFTRIAXONE 1 GM in DEXTROSE 5%-WATER - 50 ML IVPB SCH (10:32)
[2018-02-05] MEDS: metoPROLOL SUCCINATE 25 MG TAB.SR.24H (FP) PO SCH (10:32)
[2018-02-05] MEDS ORDERED: PT OWN MED DRAWER 7, Y5N ONE ×3 (12:57→17:53)
--- NOTE | 2018-02-05 15:17 | PN ---
Progress Note, Physician History of Present Illness: Still with dyspnea, weakness, cough productive of clear sputum, denies chest pain, palpitations, near or true syncope, orthopnea, PND or LE edema. - Current Medication List Current Medications: Active Medications Albuterol/Ipratropium (Duoneb -) 1 amp NEB RTID [facility] Last Admin: 02/05/18 14:00 Dose: 1 amp Alprazolam (Xanax -) 0.25 mg PO Q8H PRN PRN Reason: ANXIETY Dextrose/Sodium Chloride (D5-1/2ns -) 1,000 mls @ 75 mls/hr IV ASDIR [facility] Last Admin: 02/05/18 05:22 Dose: 75 mls/hr Ceftriaxone Sodium 1 gm/ (Dextrose) 50 mls @ 100 mls/hr IVPB DAILY [facility] Last Admin: 02/05/18 10:32 Dose: 100 mls/hr Metoprolol Succinate (Toprol Xl -) 25 mg PO DAILY [facility] Last Admin: 02/05/18 10:32 Dose: 25 mg - Objective Vital Signs: Vital Signs Temperature 97.3 F L 02/05/18 14:32 Pulse Rate 60 02/05/18 14:09 Respiratory Rate 20 02/05/18 14:09 Blood Pressure 92/50 L 02/05/18 14:09 O2 Sat by Pulse Oximetry (%) 96 02/04/18 21:00 Constitutional: Yes: No Distress, Calm, Cachectic, Thin Neck: Yes: Supple Cardiovascular: Yes: Regular Rate and Rhythm Respiratory: Yes: Regular, Diminished, On Nasal O2 Gastrointestinal: Yes: Normal Bowel Sounds, Soft Edema: No Labs: CBC, BMP 02/05/18 06:50 02/05/18 06:50 INR, PTT INR 1.19 (0.83-1.09) H 02/03/18 10:18 Problem List - Problems (1) Coronary artery disease Code(s): I25.10 - ATHSCL HEART DISEASE OF [place] CORONARY ARTERY W/O ANG PCTRS Qualifiers: Coronary Disease-Associated Artery/Lesion type: [place] artery [place] vs. transplanted heart: [place] heart Associated angina: without angina Qualified Code(s): I25.10 - Atherosclerotic heart disease of [place] coronary artery without angina pectoris (2) Lipidemia Code(s): E78.5 - HYPERLIPIDEMIA, UNSPECIFIED Qualifiers: Hyperlipidemia type: pure hypercholesterolemia Qualified Code(s): E78.00 - Pure hypercholesterolemia, unspecified; E78.0 - Pure hypercholesterolemia (3) PAD (peripheral artery disease) Code(s): I73.9 - PERIPHERAL VASCULAR DISEASE, UNSPECIFIED (4) S/P coronary artery stent placement Code(s): Z95.5 - PRESENCE OF CORONARY ANGIOPLASTY IMPLANT AND GRAFT (5) Hypertensive heart and chronic kidney disease stage 3 Code(s): I13.10 - HYP HRT & CHR KDNY DIS W/O HRT FAIL, W STG 1-4/UNSP CHR KDNY; N18.3 - CHRONIC KIDNEY DISEASE, STAGE 3 (MODERATE) (6) Lung neoplasm Code(s): D49.1 - NEOPLASM OF UNSPECIFIED BEHAVIOR OF RESPIRATORY SYSTEM Assessment/Plan 1. RLL mass with post-obstructive PNA 2. CAD post PCI (Stent) angina pectoris 3. LV diastolic dysfunction 4. HTN 5. Hyperlipidemia 6. Carotid stenosis post CEA 7. PAD 8. CKD PLAN: 1. Continue Toprol XL 12.5 qd as tolerated 2. Bronchodilator, O2 as needed, empiric antibiotic, ASA held pre-biopsy 3. Echocardiography to assess LV/RV and valvular function 4. DVT and GI prophylaxis
--- NOTE | 2018-02-05 16:35 | PN ---
Progress Note (short form) - Note Progress Note: Current Medications Albuterol/Ipratropium (Duoneb -) 1 amp NEB RTID [facility] Last Admin: 02/05/18 14:00 Dose: 1 amp Alprazolam (Xanax -) 0.25 mg PO Q8H PRN PRN Reason: ANXIETY Dextrose/Sodium Chloride (D5-1/2ns -) 1,000 mls @ 75 mls/hr IV ASDIR [facility] Last Admin: 02/05/18 05:22 Dose: 75 mls/hr Ceftriaxone Sodium 1 gm/ (Dextrose) 50 mls @ 100 mls/hr IVPB DAILY [facility] Last Admin: 02/05/18 10:32 Dose: 100 mls/hr Metoprolol Succinate (Toprol Xl -) 25 mg PO DAILY [facility] Last Admin: 02/05/18 10:32 Dose: 25 mg Laboratory Results - last 24 hr 02/05/18 02/05/18 06:50 06:50 WBC 7.1 RBC 3.58 L Hgb 10.8 L Hct 33.2 L MCV 92.7 MCH 30.2 MCHC 32.6 RDW 15.3 Plt Count 237 MPV 7.7 Absolute Neuts (auto) 5.3 Neutrophils % 75.1 Lymphocytes % 15.2 D Monocytes % 5.5 Eosinophils % 3.3 D Basophils % 0.9 Nucleated RBC % 0 Sodium 138 Potassium 3.8 Chloride 108 H Carbon Dioxide 22 Anion Gap 8 BUN 24 H Creatinine 1.2 Creat Clearance w eGFR 57.54 Random Glucose 79 Calcium 10.3 H Magnesium 1.6 L Vital Signs Temperature 97.3 F L 02/05/18 14:32 Pulse Rate 60 02/05/18 14:09 Respiratory Rate 20 02/05/18 14:09 Blood Pressure 92/50 L 02/05/18 14:09 O2 Sat by Pulse Oximetry (%) 96 02/04/18 21:00 CC: no pain or SOB ```````````````````` skin--no acute lesions appreciated; IV site clean eyes--anicteric, eomi heart--RR lungs--reduced BS Rt side; unlabored abd--grossly benign ext--no edema neuro--asthenic; awake; verbal, more lucid; thoughts better organized; no focal deficits ````````````````````````````````````````````````````````````` Summary > Fail thrive--due to progressing Rt lung lesion and its ramifications; supportive care > Dehydration--improved with IVF > PNA--possibly post obstructive; cont IV abs for now & Neb Tx > Rt lung neoplasm--with local adenopathy; have arranged for thoracentesis & Tissue Bx via IR possibly for 02/10/18; in order to known exactly what type of disease or malignancy we are being confronted with. > Htn--with ASHD; clinically stable; BP seems to drop on occasion; will maintain IVF and lower the dose of the BB given his well controlled HR. He is not a candidate for a/c or ASA as we are preparing to hopefully do a surgical procedure early next week. > Low Mag--replenish as needed > AbnL EKG--undetermined rhythm; though may have underlying ATF (is not an a/c candidate at this time); will monitor HR, and get Echo > high calcium--likely 2nd malignancy > anemia--stable; 2nd possible malignant dz ~~~~~~~~~~~~~~~~~~ Dr Castaneda Problem List - Problems (1) Lung neoplasm Code(s): D49.1 - NEOPLASM OF UNSPECIFIED BEHAVIOR OF RESPIRATORY SYSTEM (2) Hypertensive heart and chronic kidney disease stage 3 Code(s): I13.10 - HYP HRT & CHR KDNY DIS W/O HRT FAIL, W STG 1-4/UNSP CHR KDNY; N18.3 - CHRONIC KIDNEY DISEASE, STAGE 3 (MODERATE) (3) Abnormal EKG Code(s): R94.31 - ABNORMAL ELECTROCARDIOGRAM [ECG] [EKG] (4) Lipidemia Code(s): E78.5 - HYPERLIPIDEMIA, UNSPECIFIED Qualifiers: Hyperlipidemia type: pure hypercholesterolemia Qualified Code(s): E78.00 - Pure hypercholesterolemia, unspecified; E78.0 - Pure hypercholesterolemia (5) Dehydration Code(s): E86.0 - DEHYDRATION (6) PAD (peripheral artery disease) Code(s): I73.9 - PERIPHERAL VASCULAR DISEASE, UNSPECIFIED (7) Delirium due to another medical condition Code(s): F05 - DELIRIUM DUE TO KNOWN PHYSIOLOGICAL CONDITION
[2018-02-05] MEDS: AMINO ACIDS/PROTEIN HYDROLYS 30 ML LIQUID.PKT PO SCH (17:55)
[2018-02-06 07:36] LABS: HEMOGLOBIN 10.2 GM/dL (11.7-16.9); MCH 29.9 pg (25.7-33.7); MCHC 32.8 g/dl (32.0-35.9); MEAN CELL VOLUME 91.1 fl (80-96); MEAN PLT VOLUME 7.6 fl (7.5-11.1); PLATELET COUNT 222 K/MM3 (134-434); RDW 15.3 % (11.9-15.9); WHITE BLOOD COUNT 6.4 K/mm3 (4.0-10.0)
[2018-02-06 08:00] LABS: ANION GAP 9 MMOL/L (8-16); BLOOD UREA NITROGEN 24 mg/dL (7-18); CHLORIDE 107 mmol/L (98-107); CO2 22 mmol/L (21-32); CREATININE 1.1 mg/dL (0.55-1.3); GLUCOSE,RANDOM 88 mg/dL (74-106); SODIUM 138 mmol/L (136-145)
[2018-02-06] MEDS: ALBUTEROL SO4 2.5/IPRATROPIUM 0.5 INH SOL 3 ML VIAL.NEB. NEB SCH ×3 (08:08→22:15)
[2018-02-06] MEDS ORDERED: DEXTROSE 5%-WATER - 50 ML IVPB ONE (10:46)
[2018-02-06] MEDS ORDERED: cefTRIAXone SODIUM 1 GM VIAL ONE (10:46)
[2018-02-06] MEDS: MULTIVITAMINS (DAILY MVI) TABLET (FP) PO SCH (11:17)
[2018-02-06] MEDS: AMINO ACIDS/PROTEIN HYDROLYS 30 ML LIQUID.PKT PO SCH ×2 (11:17→18:22)
[2018-02-06] MEDS: ENOXAPARIN NA (PORCINE) 40 MG/0.4 ML DISP.SYRIN SQ SCH (11:17)
[2018-02-06] MEDS: metoPROLOL SUCCINATE 25 MG TAB.SR.24H (FP) PO SCH (11:17)
[2018-02-06] MEDS: CEFTRIAXONE 1 GM in DEXTROSE 5%-WATER - 50 ML IVPB SCH (11:18)
--- NOTE | 2018-02-06 12:12 | PN ---
Progress Note, Physician History of Present Illness: Still with dyspnea, weakness, cough productive of clear sputum, denies chest pain, palpitations, near or true syncope, orthopnea, PND or LE edema. - Current Medication List Current Medications: Active Medications Albuterol/Ipratropium (Duoneb -) 1 amp NEB RTID [facility] Last Admin: 02/06/18 08:08 Dose: 1 amp Amino Acids (Prosource No Carb Liquid Pkt) 30 ml PO BID@0800,1730 [facility] Last Admin: 02/06/18 11:17 Dose: 30 ml Enoxaparin Sodium (Lovenox -) 40 mg SQ DAILY [facility] Last Admin: 02/06/18 11:17 Dose: 40 mg Dextrose/Sodium Chloride (D5-1/2ns -) 1,000 mls @ 75 mls/hr IV ASDIR [facility] Last Admin: 02/05/18 22:48 Dose: Not Given Ceftriaxone Sodium 1 gm/ (Dextrose) 50 mls @ 100 mls/hr IVPB DAILY [facility] Last Admin: 02/06/18 11:18 Dose: 100 mls/hr Metoprolol Succinate (Toprol Xl -) 12.5 mg PO DAILY [facility] Last Admin: 02/06/18 11:17 Dose: 12.5 mg Multivitamins/Minerals/Vitamin C (Tab-A-Vit -) 1 tab PO DAILY [facility] Last Admin: 02/06/18 11:17 Dose: 1 tab - Objective Vital Signs: Vital Signs Temperature 97.3 F L 02/06/18 08:55 Pulse Rate 88 02/06/18 08:55 Respiratory Rate 20 02/06/18 08:55 Blood Pressure 123/53 L 02/06/18 08:55 O2 Sat by Pulse Oximetry (%) 98 02/06/18 09:00 Constitutional: Yes: No Distress, Calm, Cachectic, Thin Neck: Yes: Supple Cardiovascular: Yes: Regular Rate and Rhythm Respiratory: Yes: Regular, Diminished, On Nasal O2 Gastrointestinal: Yes: Normal Bowel Sounds, Soft Edema: No Labs: CBC, BMP 02/06/18 06:50 02/06/18 06:50 INR, PTT INR 1.19 (0.83-1.09) H 02/03/18 10:18 Problem List - Problems (1) Coronary artery disease Code(s): I25.10 - ATHSCL HEART DISEASE OF [place] CORONARY ARTERY W/O ANG PCTRS Qualifiers: Coronary Disease-Associated Artery/Lesion type: [place] artery [place] vs. transplanted heart: [place] heart Associated angina: without angina Qualified Code(s): I25.10 - Atherosclerotic heart disease of [place] coronary artery without angina pectoris (2) Lipidemia Code(s): E78.5 - HYPERLIPIDEMIA, UNSPECIFIED Qualifiers: Hyperlipidemia type: pure hypercholesterolemia Qualified Code(s): E78.00 - Pure hypercholesterolemia, unspecified; E78.0 - Pure hypercholesterolemia (3) PAD (peripheral artery disease) Code(s): I73.9 - PERIPHERAL VASCULAR DISEASE, UNSPECIFIED (4) S/P coronary artery stent placement Code(s): Z95.5 - PRESENCE OF CORONARY ANGIOPLASTY IMPLANT AND GRAFT (5) Hypertensive heart and chronic kidney disease stage 3 Code(s): I13.10 - HYP HRT & CHR KDNY DIS W/O HRT FAIL, W STG 1-4/UNSP CHR KDNY; N18.3 - CHRONIC KIDNEY DISEASE, STAGE 3 (MODERATE) (6) Lung neoplasm Code(s): D49.1 - NEOPLASM OF UNSPECIFIED BEHAVIOR OF RESPIRATORY SYSTEM Assessment/Plan 1. RLL mass with post-obstructive PNA 2. CAD post PCI (Stent) angina pectoris 3. LV diastolic dysfunction 4. HTN 5. Hyperlipidemia 6. Carotid stenosis post CEA 7. PAD 8. CKD PLAN: 1. Continue Toprol XL 12.5 qd as tolerated 2. Bronchodilator, O2 as needed, empiric antibiotic, ASA held pre-biopsy 3. Echocardiography to assess LV/RV and valvular function 4. DVT and GI prophylaxis
--- NOTE | 2018-02-06 13:34 | ECHO ---
Name: MIKALNAIN Exam:Adult Echocardiogram Study Date: 02/06/2018 10:06 AM Age: 83 yrs Reason For Study: HTN Height: 66 in Weight: 119 lb BSA: 1.6 m2 MMode/2D Measurements & Calculations IVSd: 0.71 cm Ao root diam: 3.0 cm LVIDd: 4.2 cm LA dimension: 3.6 cm LVIDs: 2.7 cm LVPWd: 0.78 cm EDV(Teich): 78.1 ml LVOT diam: 2.2 cm ESV(Teich): 26.9 ml Procedure A complete two-dimensional transthoracic echocardiogram was performed (2D, M-mode, Doppler and color flow Doppler). Left Ventricle The left ventricular size, thickness and function are normal. The left ventricular ejection fraction is normal. Ejection Fraction = 55-60%. The left ventricular wall motion is normal. Right Ventricle The right ventricle is normal in size and function. Atria Normal left and right atrial size and function. Mitral Valve There is trace mitral regurgitation. Tricuspid Valve There is mild tricuspid regurgitation. Right ventricular systolic pressure is normal. Aortic Valve No hemodynamically significant valvular aortic stenosis. No aortic regurgitation is present. Pulmonic Valve There is no pulmonic valvular regurgitation. Great Vessels The aortic root is normal size. Pericardium/Pleura There is no pericardial effusion. Interpretation Summary The left ventricular size, thickness and function are normal The right ventricle is normal in size and function. There is mild tricuspid regurgitation. There is trace mitral regurgitation. MD Major Rondon 02/06/2018 01:33 PM
--- NOTE | 2018-02-06 16:21 | PN ---
Progress Note (short form) - Note Progress Note: Current Medications Albuterol/Ipratropium (Duoneb -) 1 amp NEB RTID [facility] Last Admin: 02/06/18 16:16 Dose: 1 amp Amino Acids (Prosource No Carb Liquid Pkt) 30 ml PO BID@0800,1730 [facility] Last Admin: 02/06/18 11:17 Dose: 30 ml Enoxaparin Sodium (Lovenox -) 40 mg SQ DAILY [facility] Last Admin: 02/06/18 11:17 Dose: 40 mg Dextrose/Sodium Chloride (D5-1/2ns -) 1,000 mls @ 75 mls/hr IV ASDIR [facility] Last Admin: 02/05/18 22:48 Dose: Not Given Ceftriaxone Sodium 1 gm/ (Dextrose) 50 mls @ 100 mls/hr IVPB DAILY [facility] Last Admin: 02/06/18 11:18 Dose: 100 mls/hr Metoprolol Succinate (Toprol Xl -) 12.5 mg PO DAILY [facility] Last Admin: 02/06/18 11:17 Dose: 12.5 mg Multivitamins/Minerals/Vitamin C (Tab-A-Vit -) 1 tab PO DAILY [facility] Last Admin: 02/06/18 11:17 Dose: 1 tab Laboratory Results - last 24 hr 02/06/18 02/06/18 06:50 06:50 WBC 6.4 RBC 3.40 L Hgb 10.2 L Hct 31.0 L MCV 91.1 MCH 29.9 MCHC 32.8 RDW 15.3 Plt Count 222 MPV 7.6 Sodium 138 Potassium 4.0 Chloride 107 Carbon Dioxide 22 Anion Gap 9 BUN 24 H Creatinine 1.1 Creat Clearance w eGFR > 60 Random Glucose 88 Calcium 10.0 Vital Signs Temperature 97.9 F 02/06/18 15:04 Pulse Rate 85 02/06/18 15:04 Respiratory Rate 18 02/06/18 15:04 Blood Pressure 121/76 02/06/18 15:04 O2 Sat by Pulse Oximetry (%) 98 02/06/18 09:00 CC: no desire to eat ```````````````````` skin--no acute lesions appreciated; IV site clean eyes--anicteric, eomi heart--RR lungs--reduced BS Rt side; unlabored abd--grossly benign ext--no edema neuro--asthenic; awake; verbal, more lucid; thoughts better organized; no focal deficits ````````````````````````````````````````````````````````````` Summary > Fail thrive--likely 2nd Rt lung lesion and its ramifications; supportive care > Dehydration--improved with IVF > PNA--possibly post obstructive; cont IV abs for now & Neb Tx > Rt lung neoplasm--with local adenopathy; have arranged for thoracentesis & Tissue Bx via IR possibly for 02/10/18; in order to known exactly what type of disease or malignancy we are being confronted with. > Htn--with ASHD; clinically stable; BP seems to drop on occasion; dose of BB reduced and HR in range so far. > Low Mag--replenish as needed > AbnL EKG--undetermined rhythm; though may have underlying ATF (is not an a/c candidate at this time); HR seems to be in range; await echo report > high calcium--likely 2nd malignancy > anemia--stable; 2nd possible malignant dz ~~~~~~~~~~~~~~~~~~ Dr Castaneda Problem List - Problems (1) Lung neoplasm Code(s): D49.1 - NEOPLASM OF UNSPECIFIED BEHAVIOR OF RESPIRATORY SYSTEM (2) Hypertensive heart and chronic kidney disease stage 3 Code(s): I13.10 - HYP HRT & CHR KDNY DIS W/O HRT FAIL, W STG 1-4/UNSP CHR KDNY; N18.3 - CHRONIC KIDNEY DISEASE, STAGE 3 (MODERATE) (3) Abnormal EKG Code(s): R94.31 - ABNORMAL ELECTROCARDIOGRAM [ECG] [EKG] (4) Lipidemia Code(s): E78.5 - HYPERLIPIDEMIA, UNSPECIFIED Qualifiers: Hyperlipidemia type: pure hypercholesterolemia Qualified Code(s): E78.00 - Pure hypercholesterolemia, unspecified; E78.0 - Pure hypercholesterolemia (5) Dehydration Code(s): E86.0 - DEHYDRATION (6) PAD (peripheral artery disease) Code(s): I73.9 - PERIPHERAL VASCULAR DISEASE, UNSPECIFIED (7) Delirium due to another medical condition Code(s): F05 - DELIRIUM DUE TO KNOWN PHYSIOLOGICAL CONDITION
[2018-02-06] MEDS: AMINO ACIDS 4.25%/D5W 1,000 ML IV SCH (18:45)
[2018-02-07] MEDS: AMINO ACIDS 4.25%/D5W 1,000 ML IV SCH ×2 (04:31→17:18)
[2018-02-07] MEDS: ALBUTEROL SO4 2.5/IPRATROPIUM 0.5 INH SOL 3 ML VIAL.NEB. NEB SCH ×3 (07:42→20:00)
[2018-02-07] MEDS: AMINO ACIDS/PROTEIN HYDROLYS 30 ML LIQUID.PKT PO SCH ×2 (08:00→17:20)
[2018-02-07 08:13] LABS: HEMATOCRIT 31.2 % (35.4-49); HEMOGLOBIN 10.2 GM/dL (11.7-16.9); MCH 29.9 pg (25.7-33.7); MCHC 32.7 g/dl (32.0-35.9); MEAN CELL VOLUME 91.5 fl (80-96); MEAN PLT VOLUME 7.9 fl (7.5-11.1); PLATELET COUNT 231 K/MM3 (134-434); RBC 3.41 M/mm3 (4.00-5.60); RDW 15.3 % (11.9-15.9); WHITE BLOOD COUNT 7.2 K/mm3 (4.0-10.0)
[2018-02-07 08:30] LABS: ANION GAP 8 MMOL/L (8-16); BLOOD UREA NITROGEN 29 mg/dL (7-18); CALCIUM 9.8 mg/dL (8.5-10.1); CHLORIDE 103 mmol/L (98-107); CO2 24 mmol/L (21-32); CREATININE 1.2 mg/dL (0.55-1.3); GLUCOSE,RANDOM 78 mg/dL (74-106); MAGNESIUM 1.9 mg/dL (1.8-2.4); POTASSIUM 4.5 mmol/L (3.5-5.1); SODIUM 136 mmol/L (136-145)
[2018-02-07] MEDS ORDERED: cefTRIAXone SODIUM 1 GM VIAL ONE (11:05)
[2018-02-07] MEDS ORDERED: DEXTROSE 5%-WATER - 50 ML IVPB ONE (11:05)
[2018-02-07] MEDS: metoPROLOL SUCCINATE 25 MG TAB.SR.24H (FP) PO SCH (11:12)
[2018-02-07] MEDS: MULTIVITAMINS (DAILY MVI) TABLET (FP) PO SCH (11:12)
[2018-02-07] MEDS: ENOXAPARIN NA (PORCINE) 40 MG/0.4 ML DISP.SYRIN SQ SCH (11:12)
[2018-02-07] MEDS: CEFTRIAXONE 1 GM in DEXTROSE 5%-WATER - 50 ML IVPB SCH (11:13)
--- NOTE | 2018-02-07 11:35 | PN ---
Progress Note, Physician History of Present Illness: Still with dyspnea, weakness, cough productive of clear sputum, denies chest pain, palpitations, near or true syncope, orthopnea, PND or LE edema. - Current Medication List Current Medications: Active Medications Albuterol/Ipratropium (Duoneb -) 1 amp NEB RTID [facility] Last Admin: 02/06/18 22:15 Dose: 1 amp Amino Acids (Prosource No Carb Liquid Pkt) 30 ml PO BID@0800,1730 [facility] Last Admin: 02/07/18 08:00 Dose: 30 ml Enoxaparin Sodium (Lovenox -) 40 mg SQ DAILY [facility] Last Admin: 02/07/18 11:12 Dose: 40 mg Ceftriaxone Sodium 1 gm/ (Dextrose) 50 mls @ 100 mls/hr IVPB DAILY [facility] Last Admin: 02/07/18 11:13 Dose: 100 mls/hr Amino Acids (Clinimix -) 1,000 mls @ 42 mls/hr IV Q12H [facility] Last Admin: 02/07/18 04:31 Dose: Not Given Metoprolol Succinate (Toprol Xl -) 12.5 mg PO DAILY [facility] Last Admin: 02/07/18 11:12 Dose: 12.5 mg Multivitamins/Minerals/Vitamin C (Tab-A-Vit -) 1 tab PO DAILY [facility] Last Admin: 02/07/18 11:12 Dose: 1 tab - Objective Vital Signs: Vital Signs Temperature 97.6 F 02/07/18 09:12 Pulse Rate 88 02/07/18 09:12 Respiratory Rate 20 02/07/18 09:12 Blood Pressure 91/51 L 02/07/18 09:12 O2 Sat by Pulse Oximetry (%) 97 02/06/18 21:00 Constitutional: Yes: No Distress, Calm, Thin Neck: Yes: Supple Cardiovascular: Yes: Regular Rate and Rhythm Respiratory: Yes: Regular, Diminished, On Nasal O2 Gastrointestinal: Yes: Normal Bowel Sounds, Soft Edema: No Labs: CBC, BMP 02/07/18 06:00 02/07/18 06:00 INR, PTT INR 1.19 (0.83-1.09) H 02/03/18 10:18 Problem List - Problems (1) Coronary artery disease Code(s): I25.10 - ATHSCL HEART DISEASE OF [place] CORONARY ARTERY W/O ANG PCTRS Qualifiers: Coronary Disease-Associated Artery/Lesion type: [place] artery [place] vs. transplanted heart: [place] heart Associated angina: without angina Qualified Code(s): I25.10 - Atherosclerotic heart disease of [place] coronary artery without angina pectoris (2) Lipidemia Code(s): E78.5 - HYPERLIPIDEMIA, UNSPECIFIED Qualifiers: Hyperlipidemia type: pure hypercholesterolemia Qualified Code(s): E78.00 - Pure hypercholesterolemia, unspecified; E78.0 - Pure hypercholesterolemia (3) PAD (peripheral artery disease) Code(s): I73.9 - PERIPHERAL VASCULAR DISEASE, UNSPECIFIED (4) S/P coronary artery stent placement Code(s): Z95.5 - PRESENCE OF CORONARY ANGIOPLASTY IMPLANT AND GRAFT (5) Hypertensive heart and chronic kidney disease stage 3 Code(s): I13.10 - HYP HRT & CHR KDNY DIS W/O HRT FAIL, W STG 1-4/UNSP CHR KDNY; N18.3 - CHRONIC KIDNEY DISEASE, STAGE 3 (MODERATE) (6) Lung neoplasm Code(s): D49.1 - NEOPLASM OF UNSPECIFIED BEHAVIOR OF RESPIRATORY SYSTEM Assessment/Plan 02/06/2018: Normal biventricular size and fxn, mild TR, tr MR 1. RLL mass with post-obstructive PNA 2. CAD post PCI (Stent) angina pectoris 3. LV diastolic dysfunction 4. HTN 5. Hyperlipidemia 6. Carotid stenosis post CEA 7. PAD 8. CKD PLAN: 1. Continue Toprol XL 12.5 qd as tolerated 2. Bronchodilator, O2 as needed, empiric antibiotic, ASA held pre-biopsy 2017 3. DVT and GI prophylaxis
--- NOTE | 2018-02-07 17:22 | PN ---
Progress Note (short form) - Note Progress Note: Current Medications Albuterol/Ipratropium (Duoneb -) 1 amp NEB RTID [facility] Last Admin: 02/07/18 14:54 Dose: Not Given Amino Acids (Prosource No Carb Liquid Pkt) 30 ml PO BID@0800,1730 [facility] Last Admin: 02/07/18 08:00 Dose: 30 ml Enoxaparin Sodium (Lovenox -) 40 mg SQ DAILY [facility] Last Admin: 02/07/18 11:12 Dose: 40 mg Ceftriaxone Sodium 1 gm/ (Dextrose) 50 mls @ 100 mls/hr IVPB DAILY [facility] Last Admin: 02/07/18 11:13 Dose: 100 mls/hr Amino Acids (Clinimix -) 1,000 mls @ 42 mls/hr IV Q12H [facility] Last Admin: 02/07/18 04:31 Dose: Not Given Metoprolol Succinate (Toprol Xl -) 12.5 mg PO DAILY [facility] Last Admin: 02/07/18 11:12 Dose: 12.5 mg Multivitamins/Minerals/Vitamin C (Tab-A-Vit -) 1 tab PO DAILY [facility] Last Admin: 02/07/18 11:12 Dose: 1 tab Laboratory Results - last 24 hr 02/07/18 02/07/18 06:00 06:00 WBC 7.2 RBC 3.41 L Hgb 10.2 L Hct 31.2 L MCV 91.5 MCH 29.9 MCHC 32.7 RDW 15.3 Plt Count 231 MPV 7.9 Sodium 136 Potassium 4.5 Chloride 103 Carbon Dioxide 24 Anion Gap 8 BUN 29 H Creatinine 1.2 Creat Clearance w eGFR 57.54 Random Glucose 78 Calcium 9.8 Magnesium 1.9 Vital Signs Temperature 97.7 F 02/07/18 14:35 Pulse Rate 65 02/07/18 14:35 Respiratory Rate 20 02/07/18 14:35 Blood Pressure 116/67 02/07/18 14:35 O2 Sat by Pulse Oximetry (%) 97 02/07/18 09:00 CC: no desire to eat ```````````````````` skin--IV site clean eyes--anicteric, eomi heart--RR lungs--reduced BS Rt side; unlabored; no wheezing abd--grossly benign ext--no edema neuro--asthenic; awake; verbal, more lucid; thoughts better organized; no focal deficits ````````````````````````````````````````````````````````````` Summary > Fail thrive--likely 2nd Rt lung lesion and its ramifications; supportive care > Dehydration--improved with IVF > PNA--possibly post obstructive; cont IV abs for now & Neb Tx > Rt lung neoplasm--with local adenopathy; have arranged for thoracentesis & Tissue Bx via IR possibly for 02/10/18. > Htn--with ASHD; clinically stable; BP seems to drop on occasion; dose of BB reduced and HR in range so far. > Low Mag--replenish as needed > AbnL EKG--undetermined rhythm; though may have underlying ATF (is not an a/c candidate at this time); HR seems to be in range. > high calcium--corrected; likely 2nd malignancy > anemia--stable; 2nd possible malignant dz ~~~~~~~~~~~~~~~~~~ Dr Castaneda Problem List - Problems (1) Lung neoplasm Code(s): D49.1 - NEOPLASM OF UNSPECIFIED BEHAVIOR OF RESPIRATORY SYSTEM (2) Hypertensive heart and chronic kidney disease stage 3 Code(s): I13.10 - HYP HRT & CHR KDNY DIS W/O HRT FAIL, W STG 1-4/UNSP CHR KDNY; N18.3 - CHRONIC KIDNEY DISEASE, STAGE 3 (MODERATE) (3) Abnormal EKG Code(s): R94.31 - ABNORMAL ELECTROCARDIOGRAM [ECG] [EKG] (4) Lipidemia Code(s): E78.5 - HYPERLIPIDEMIA, UNSPECIFIED Qualifiers: Hyperlipidemia type: pure hypercholesterolemia Qualified Code(s): E78.00 - Pure hypercholesterolemia, unspecified; E78.0 - Pure hypercholesterolemia (5) Dehydration Code(s): E86.0 - DEHYDRATION (6) PAD (peripheral artery disease) Code(s): I73.9 - PERIPHERAL VASCULAR DISEASE, UNSPECIFIED (7) Delirium due to another medical condition Code(s): F05 - DELIRIUM DUE TO KNOWN PHYSIOLOGICAL CONDITION
[2018-02-08] MEDS: AMINO ACIDS 4.25%/D5W 1,000 ML IV SCH ×2 (05:57→17:29)
[2018-02-08] MEDS: ALBUTEROL SO4 2.5/IPRATROPIUM 0.5 INH SOL 3 ML VIAL.NEB. NEB SCH ×3 (08:20→20:30)
[2018-02-08 08:58] LABS: ANION GAP 6 MMOL/L (8-16); BLOOD UREA NITROGEN 26 mg/dL (7-18); CALCIUM 9.8 mg/dL (8.5-10.1); CHLORIDE 106 mmol/L (98-107); CO2 24 mmol/L (21-32); GLUCOSE,RANDOM 85 mg/dL (74-106); POTASSIUM 4.3 mmol/L (3.5-5.1); SODIUM 136 mmol/L (136-145)
[2018-02-08] MEDS ORDERED: PT OWN MED DRAWER 7, Y5N ONE (09:50)
[2018-02-08] MEDS ORDERED: DEXTROSE 5%-WATER - 50 ML IVPB ONE (09:50)
[2018-02-08] MEDS ORDERED: cefTRIAXone SODIUM 1 GM VIAL ONE (09:50)
[2018-02-08] MEDS: CEFTRIAXONE 1 GM in DEXTROSE 5%-WATER - 50 ML IVPB SCH (09:52)
[2018-02-08] MEDS: AMINO ACIDS/PROTEIN HYDROLYS 30 ML LIQUID.PKT PO SCH ×2 (09:52→17:29)
[2018-02-08] MEDS: ENOXAPARIN NA (PORCINE) 40 MG/0.4 ML DISP.SYRIN SQ SCH (09:54)
[2018-02-08] MEDS: metoPROLOL SUCCINATE 25 MG TAB.SR.24H (FP) PO SCH (09:54)
[2018-02-08] MEDS: MULTIVITAMINS (DAILY MVI) TABLET (FP) PO SCH (09:54)
--- NOTE | 2018-02-08 12:35 | PN ---
Progress Note (short form) - Note Progress Note: Chief Complaint: Events noted, notes reviewed, denies any chest pain or dyspnea History of Present Illness: Seen and examined. Events noted, notes reviewed, denies any chest pain or dyspnea - Current Medication List Current Medications Albuterol/Ipratropium (Duoneb -) 1 amp NEB RTID [facility] Last Admin: 02/08/18 08:20 Dose: Not Given Amino Acids (Prosource No Carb Liquid Pkt) 30 ml PO BID@0800,1730 [facility] Last Admin: 02/08/18 09:52 Dose: 30 ml Enoxaparin Sodium (Lovenox -) 40 mg SQ DAILY [facility] Last Admin: 02/08/18 09:54 Dose: 40 mg Ceftriaxone Sodium 1 gm/ (Dextrose) 50 mls @ 100 mls/hr IVPB DAILY [facility] Last Admin: 02/08/18 09:52 Dose: 100 mls/hr Amino Acids (Clinimix -) 1,000 mls @ 42 mls/hr IV Q12H [facility] Last Admin: 02/08/18 05:57 Dose: Not Given Metoprolol Succinate (Toprol Xl -) 12.5 mg PO DAILY [facility] Last Admin: 02/08/18 09:54 Dose: 12.5 mg Multivitamins/Minerals/Vitamin C (Tab-A-Vit -) 1 tab PO DAILY [facility] Last Admin: 02/08/18 09:54 Dose: 1 tab - Objective Vital Signs: Last Vital Signs Temp Pulse Resp BP Pulse Ox 97.7 F 91 H 20 149/71 97 02/08/18 09:00 02/08/18 09:00 02/08/18 09:00 02/08/18 09:00 02/07/18 21:00 Intake & Output 02/05/18 02/06/18 02/07/18 02/08/18 23:59 23:59 23:59 23:59 Intake Total 2300 1850 1300 600 Output Total 400 600 750 150 Balance 1900 1250 550 450 HEENT: Atraumatic Neck: Supple Negative JVD No Bruit Cardiovascular: S1 S2 Regular Rate and Rhythm No Murmurs Respiratory: Diminished at the Bases Gastrointestinal: Soft Benign Normal Bowel Sounds Ext: No Edema Labs: CBC, BMP 02/07/18 06:00 02/08/18 07:15 Hepatic Panel Total Bilirubin 0.6 mg/dL (0.2-1) 02/03/18 10:18 AST 18 U/L (15-37) 02/03/18 10:18 ALT 11 U/L (13-61) L 02/03/18 10:18 Alkaline Phosphatase 55 U/L (45-117) 02/03/18 10:18 Albumin 2.6 g/dl (3.4-5.0) L 02/03/18 10:18 INR, PTT INR 1.19 (0.83-1.09) H 02/03/18 10:18 Assessment/Plan ASSESSMENT: 1. Right lower lobe mass with post-obstructive pneumonia, resolving 2. CAD post PCI (stent) angina pectoris 3. Diastolic LV dysfunction with class 0 NYHA classification LV failure 4. HTN 5. Hyperlipidemia 6. Carotid stenosis post CEA 7. PAD 8. CKD 9. Anemia PLAN: 1. Continue Toprol XL 2. Continue antibiotics as per the primary team 3. Lovenox for DVT prophylaxis Elías Renteria MD
--- NOTE | 2018-02-08 14:11 | PN ---
Progress Note (short form) - Note Progress Note: Current Medications Albuterol/Ipratropium (Duoneb -) 1 amp NEB RTID [facility] Last Admin: 02/08/18 08:20 Dose: Not Given Amino Acids (Prosource No Carb Liquid Pkt) 30 ml PO BID@0800,1730 [facility] Last Admin: 02/08/18 09:52 Dose: 30 ml Enoxaparin Sodium (Lovenox -) 40 mg SQ DAILY [facility] Last Admin: 02/08/18 09:54 Dose: 40 mg Ceftriaxone Sodium 1 gm/ (Dextrose) 50 mls @ 100 mls/hr IVPB DAILY [facility] Last Admin: 02/08/18 09:52 Dose: 100 mls/hr Amino Acids (Clinimix -) 1,000 mls @ 42 mls/hr IV Q12H [facility] Last Admin: 02/08/18 05:57 Dose: Not Given Metoprolol Succinate (Toprol Xl -) 12.5 mg PO DAILY [facility] Last Admin: 02/08/18 09:54 Dose: 12.5 mg Multivitamins/Minerals/Vitamin C (Tab-A-Vit -) 1 tab PO DAILY [facility] Last Admin: 02/08/18 09:54 Dose: 1 tab Laboratory Results - last 24 hr 02/08/18 07:15 Sodium 136 Potassium 4.3 Chloride 106 Carbon Dioxide 24 Anion Gap 6 L BUN 26 H Creatinine 1.0 Creat Clearance w eGFR > 60 Random Glucose 85 Calcium 9.8 Vital Signs Temperature 97.7 F 02/08/18 09:00 Pulse Rate 91 H 02/08/18 09:00 Respiratory Rate 20 02/08/18 09:00 Blood Pressure 149/71 02/08/18 09:00 O2 Sat by Pulse Oximetry (%) 98 02/08/18 09:00 CC: no new issues ```````````````````` skin--IV site clean eyes--anicteric, eomi heart--RR lungs--unlabored; no wheezing abd--grossly benign ext--no edema neuro--asthenic; awake; verbal, lucid; thoughts better organized, but preoccupied; no focal deficits ````````````````````````````````````````````````````````````` Summary > Fail thrive--likely 2nd Rt lung lesion and its ramifications; supportive care > Dehydration--improved with IVF > PNA--possibly post obstructive; cont IV abs for now & Neb Tx; will reeval post procedure > Rt lung neoplasm--with local adenopathy; have arranged for thoracentesis & Tissue Bx via IR possibly for 02/10/18. > Htn--with ASHD; clinically stable; BP seems to drop on occasion; dose of BB reduced and HR in range so far. > Low Mag--replenish as needed > AbnL EKG--undetermined rhythm; though may have underlying ATF (is not an a/c candidate at this time); HR seems to be in range; repeat EKG. > high calcium--corrected; likely 2nd malignancy > anemia--stable; 2nd possible malignant dz ~~~~~~~~~~~~~~~~~~ Dr Castaneda Problem List - Problems (1) Lung neoplasm Code(s): D49.1 - NEOPLASM OF UNSPECIFIED BEHAVIOR OF RESPIRATORY SYSTEM (2) Hypertensive heart and chronic kidney disease stage 3 Code(s): I13.10 - HYP HRT & CHR KDNY DIS W/O HRT FAIL, W STG 1-4/UNSP CHR KDNY; N18.3 - CHRONIC KIDNEY DISEASE, STAGE 3 (MODERATE) (3) Abnormal EKG Code(s): R94.31 - ABNORMAL ELECTROCARDIOGRAM [ECG] [EKG] (4) Lipidemia Code(s): E78.5 - HYPERLIPIDEMIA, UNSPECIFIED Qualifiers: Hyperlipidemia type: pure hypercholesterolemia Qualified Code(s): E78.00 - Pure hypercholesterolemia, unspecified; E78.0 - Pure hypercholesterolemia (5) Dehydration Code(s): E86.0 - DEHYDRATION (6) PAD (peripheral artery disease) Code(s): I73.9 - PERIPHERAL VASCULAR DISEASE, UNSPECIFIED (7) Delirium due to another medical condition Code(s): F05 - DELIRIUM DUE TO KNOWN PHYSIOLOGICAL CONDITION
[2018-02-09] MEDS: AMINO ACIDS 4.25%/D5W 1,000 ML IV SCH ×3 (05:59→20:19)
[2018-02-09 07:51] LABS: HEMATOCRIT 31.2 % (35.4-49); HEMOGLOBIN 10.2 GM/dL (11.7-16.9); MCH 29.6 pg (25.7-33.7); MCHC 32.5 g/dl (32.0-35.9); MEAN CELL VOLUME 91.1 fl (80-96); MEAN PLT VOLUME 7.4 fl (7.5-11.1); PLATELET COUNT 248 K/MM3 (134-434); RBC 3.43 M/mm3 (4.00-5.60); RDW 15.7 % (11.9-15.9); WHITE BLOOD COUNT 6.6 K/mm3 (4.0-10.0)
[2018-02-09] MEDS: ALBUTEROL SO4 2.5/IPRATROPIUM 0.5 INH SOL 3 ML VIAL.NEB. NEB SCH ×3 (07:56→20:00)
[2018-02-09 08:03] LABS: INR 1.14 (0.83-1.09); PROTHROMBIN TIME (PATIENT) 13.5 SEC (9.7-13.0)
[2018-02-09] MEDS ORDERED: PT OWN MED DRAWER 7, Y5N ONE (08:39)
[2018-02-09] MEDS ORDERED: cefTRIAXone SODIUM 1 GM VIAL ONE (08:39)
[2018-02-09] MEDS ORDERED: DEXTROSE 5%-WATER - 50 ML IVPB ONE (08:39)
[2018-02-09] MEDS: AMINO ACIDS/PROTEIN HYDROLYS 30 ML LIQUID.PKT PO SCH ×2 (08:58→17:31)
[2018-02-09 09:01] LABS: ANION GAP 10 MMOL/L (8-16); BLOOD UREA NITROGEN 27 mg/dL (7-18); CALCIUM 10.1 mg/dL (8.5-10.1); CHLORIDE 107 mmol/L (98-107); CO2 20 mmol/L (21-32); CREATININE 0.8 mg/dL (0.55-1.3); GLUCOSE,RANDOM 82 mg/dL (74-106); POTASSIUM 3.9 mmol/L (3.5-5.1); SODIUM 138 mmol/L (136-145)
[2018-02-09] MEDS: MULTIVITAMINS (DAILY MVI) TABLET (FP) PO SCH (09:01)
[2018-02-09] MEDS: CEFTRIAXONE 1 GM in DEXTROSE 5%-WATER - 50 ML IVPB SCH (09:01)
[2018-02-09] MEDS: metoPROLOL SUCCINATE 25 MG TAB.SR.24H (FP) PO SCH (09:01)
[2018-02-09] MEDS: ENOXAPARIN NA (PORCINE) 40 MG/0.4 ML DISP.SYRIN SQ SCH (09:01)
--- NOTE | 2018-02-09 12:20 | PN ---
Progress Note (short form) - Note Progress Note: Chief Complaint: Events noted, notes reviewed, denies any chest pain or dyspnea History of Present Illness: Seen and examined. Events noted, notes reviewed, denies any chest pain or dyspnea - Current Medication List Current Medications Albuterol/Ipratropium (Duoneb -) 1 amp NEB RTID [facility] Last Admin: 02/09/18 07:56 Dose: 1 amp Amino Acids (Prosource No Carb Liquid Pkt) 30 ml PO BID@0800,1730 [facility] Last Admin: 02/09/18 08:58 Dose: 30 ml Enoxaparin Sodium (Lovenox -) 40 mg SQ DAILY [facility] Last Admin: 02/09/18 09:01 Dose: 40 mg Ceftriaxone Sodium 1 gm/ (Dextrose) 50 mls @ 100 mls/hr IVPB DAILY [facility] Last Admin: 02/09/18 09:01 Dose: 100 mls/hr Amino Acids (Clinimix -) 1,000 mls @ 42 mls/hr IV Q12H [facility] Last Admin: 02/09/18 05:59 Dose: Not Given Metoprolol Succinate (Toprol Xl -) 12.5 mg PO DAILY [facility] Last Admin: 02/09/18 09:01 Dose: 12.5 mg Multivitamins/Minerals/Vitamin C (Tab-A-Vit -) 1 tab PO DAILY [facility] Last Admin: 02/09/18 09:01 Dose: 1 tab - Objective Vital Signs: Last Vital Signs Temp Pulse Resp BP Pulse Ox 97.9 F 81 18 140/87 99 02/09/18 09:00 02/09/18 09:00 02/09/18 09:00 02/09/18 09:00 02/09/18 09:00 Intake & Output 02/06/18 02/07/18 02/08/18 02/09/18 23:59 23:59 23:59 23:59 Intake Total 1850 1300 1154 554 Output Total 600 750 400 Balance 1250 550 754 554 HEENT: Atraumatic Neck: Supple Negative JVD No Bruit Cardiovascular: S1 S2 Regular Rate and Rhythm No Murmurs Respiratory: Diminished at the Bases Gastrointestinal: Soft Benign Normal Bowel Sounds Ext: No Edema Labs: CBC, BMP 02/09/18 07:15 02/09/18 07:15 Hepatic Panel Total Bilirubin 0.6 mg/dL (0.2-1) 02/03/18 10:18 AST 18 U/L (15-37) 02/03/18 10:18 ALT 11 U/L (13-61) L 02/03/18 10:18 Alkaline Phosphatase 55 U/L (45-117) 02/03/18 10:18 Albumin 2.6 g/dl (3.4-5.0) L 02/03/18 10:18 INR, PTT INR 1.14 (0.83-1.09) H 02/09/18 07:15 Assessment/Plan ASSESSMENT: 1. Right lower lobe mass with post-obstructive pneumonia, resolving 2. CAD post PCI (stent) angina pectoris 3. Diastolic LV dysfunction with class 0 NYHA classification LV failure, compensated/euvolemic 4. HTN 5. Hyperlipidemia 6. Carotid stenosis post CEA 7. PAD 8. CKD, pre-renal azotemia 9. Anemia PLAN: 1. Continue Toprol XL and titrate dosage as needed and as tolerated hemodynamics permitting 2. Continue antibiotics as per the primary team 3. Lovenox for DVT prophylaxis Elías Renteria MD
--- NOTE | 2018-02-09 14:03 | EKG ---
Test Reason : Blood Pressure : / mmHG Vent. Rate : 100 BPM Atrial Rate : 125 BPM P-R Int : 000 ms QRS Dur : 146 ms QT Int : 368 ms P-R-T Axes : 000 097 003 degrees QTc Int : 474 ms ATRIAL FIBRILLATION RIGHT BUNDLE BRANCH BLOCK T WAVE ABNORMALITY, CONSIDER ANTERIOR ISCHEMIA Confirmed by MD Toro, Yonny ([id number]) on 02/09/2018 2:02:50 PM Referred By: Latesha TIERNEY Confirmed By:Yonny Engel MD
[2018-02-09] MEDS ORDERED: ZOLPIDEM TARTRATE 5 MG TABLET PO PRN (17:35)
--- NOTE | 2018-02-09 17:47 | PN ---
Progress Note (short form) - Note Progress Note: Current Medications Albuterol/Ipratropium (Duoneb -) 1 amp NEB RTID [facility] Last Admin: 02/09/18 13:35 Dose: 1 amp Amino Acids (Prosource No Carb Liquid Pkt) 30 ml PO BID@0800,1730 [facility] Last Admin: 02/09/18 17:31 Dose: 30 ml Enoxaparin Sodium (Lovenox -) 40 mg SQ DAILY [facility] Last Admin: 02/09/18 09:01 Dose: 40 mg Ceftriaxone Sodium 1 gm/ (Dextrose) 50 mls @ 100 mls/hr IVPB DAILY [facility] Last Admin: 02/09/18 09:01 Dose: 100 mls/hr Amino Acids (Clinimix -) 1,000 mls @ 42 mls/hr IV Q24H [facility] Last Admin: 02/09/18 13:50 Dose: Not Given Metoprolol Succinate (Toprol Xl -) 12.5 mg PO DAILY [facility] Last Admin: 02/09/18 09:01 Dose: 12.5 mg Multivitamins/Minerals/Vitamin C (Tab-A-Vit -) 1 tab PO DAILY [facility] Last Admin: 02/09/18 09:01 Dose: 1 tab Zolpidem Tartrate (Ambien -) 5 mg PO HS PRN PRN Reason: INSOMNIA Laboratory Results - last 24 hr 02/09/18 02/09/18 02/09/18 07:15 07:15 07:15 WBC 6.6 RBC 3.43 L Hgb 10.2 L Hct 31.2 L MCV 91.1 MCH 29.6 MCHC 32.5 RDW 15.7 Plt Count 248 MPV 7.4 L PT with INR 13.50 H INR 1.14 H Sodium 138 Potassium 3.9 Chloride 107 Carbon Dioxide 20 L Anion Gap 10 BUN 27 H Creatinine 0.8 Creat Clearance w eGFR > 60 Random Glucose 82 Calcium 10.1 EKG==> ATF Vital Signs Temperature 97.9 F 02/09/18 09:00 Pulse Rate 81 02/09/18 09:00 Respiratory Rate 18 02/09/18 09:00 Blood Pressure 140/87 02/09/18 09:00 O2 Sat by Pulse Oximetry (%) 99 02/09/18 09:00 CC: no new issues ```````````````````` skin--IV site clean eyes--anicteric, eomi heart--RR lungs--unlabored; no wheezing but diminished BS on Rt side abd--grossly benign ext--no edema neuro--asthenic; awake; verbal, lucid; thoughts better organized, but preoccupied; no focal deficits; able to self feed ````````````````````````````````````````````````````````````` Summary > Fail thrive--likely 2nd Rt lung lesion and its ramifications; supportive care for now > Dehydration--improved with IVF > PNA--possibly post obstructive; cont IV abs for now & Neb Tx; will re-eval post procedure > Rt lung neoplasm--with local adenopathy; set thoracentesis & Tissue Bx via IR possibly for 02/10/18. All pre-ops are in good range; and should be stable enough to undergo this procedure > Htn--with ASHD; clinically stable; BP seems to drop on occasion; dose of BB reduced and HR mostly in range. > Low Mag--replenish as needed > Atrial fib--rate seems to be controlled; recent onset, but is currently not a candidate for anti-coag due to the presence of what seems to be an extensive Rt lung neoplasm that could increase risk of hemorrhage. Will re-evaluate for use of a-c once procedure is done and definite Dx is known. > high calcium--corrected; likely 2nd malignancy > anemia--stable; 2nd possible malignant dz ~~~~~~~~~~~~~~~~~~ Dr Castaneda Problem List - Problems (1) Lung neoplasm Code(s): D49.1 - NEOPLASM OF UNSPECIFIED BEHAVIOR OF RESPIRATORY SYSTEM (2) Hypertensive heart and chronic kidney disease stage 3 Code(s): I13.10 - HYP HRT & CHR KDNY DIS W/O HRT FAIL, W STG 1-4/UNSP CHR KDNY; N18.3 - CHRONIC KIDNEY DISEASE, STAGE 3 (MODERATE) (3) Abnormal EKG Code(s): R94.31 - ABNORMAL ELECTROCARDIOGRAM [ECG] [EKG] (4) Lipidemia Code(s): E78.5 - HYPERLIPIDEMIA, UNSPECIFIED Qualifiers: Hyperlipidemia type: pure hypercholesterolemia Qualified Code(s): E78.00 - Pure hypercholesterolemia, unspecified; E78.0 - Pure hypercholesterolemia (5) Dehydration Code(s): E86.0 - DEHYDRATION (6) PAD (peripheral artery disease) Code(s): I73.9 - PERIPHERAL VASCULAR DISEASE, UNSPECIFIED (7) Delirium due to another medical condition Code(s): F05 - DELIRIUM DUE TO KNOWN PHYSIOLOGICAL CONDITION
[2018-02-10] MEDS: ALBUTEROL SO4 2.5/IPRATROPIUM 0.5 INH SOL 3 ML VIAL.NEB. NEB SCH ×4 (08:45→21:25)
[2018-02-10] MEDS ORDERED: cefTRIAXone SODIUM 1 GM VIAL ONE (11:31)
[2018-02-10] MEDS ORDERED: DEXTROSE 5%-WATER - 50 ML IVPB ONE (11:32)
[2018-02-10] MEDS: CEFTRIAXONE 1 GM in DEXTROSE 5%-WATER - 50 ML IVPB SCH (11:36)
[2018-02-10] MEDS: AMINO ACIDS/PROTEIN HYDROLYS 30 ML LIQUID.PKT PO SCH ×2 (11:36→17:23)
[2018-02-10] MEDS: metoPROLOL SUCCINATE 25 MG TAB.SR.24H (FP) PO SCH (11:37)
[2018-02-10] MEDS: MULTIVITAMINS (DAILY MVI) TABLET (FP) PO SCH (11:37)
[2018-02-10 12:16] LABS: PLEURAL FLUID APPEARANCE CLEAR; PLEURAL FLUID COLOR COLORLESS
[2018-02-10 12:17] LABS: PLEURAL FLUID RBC 1735 /mm3
--- NOTE | 2018-02-10 12:20 | PN ---
Progress Note, Physician History of Present Illness: Underwent U/S guided right chest tube placement. - Current Medication List Current Medications: Active Medications Albuterol/Ipratropium (Duoneb -) 1 amp NEB RTID [facility] Last Admin: 02/09/18 20:00 Dose: Not Given Amino Acids (Prosource No Carb Liquid Pkt) 30 ml PO BID@0800,1730 [facility] Last Admin: 02/10/18 11:36 Dose: 30 ml Ceftriaxone Sodium 1 gm/ (Dextrose) 50 mls @ 100 mls/hr IVPB DAILY [facility] Last Admin: 02/10/18 11:36 Dose: 100 mls/hr Amino Acids (Clinimix -) 1,000 mls @ 42 mls/hr IV Q24H [facility] Last Admin: 02/09/18 20:19 Dose: 42 mls/hr Metoprolol Succinate (Toprol Xl -) 12.5 mg PO DAILY [facility] Last Admin: 02/10/18 11:37 Dose: 12.5 mg Multivitamins/Minerals/Vitamin C (Tab-A-Vit -) 1 tab PO DAILY [facility] Last Admin: 02/10/18 11:37 Dose: 1 tab Zolpidem Tartrate (Ambien -) 5 mg PO HS PRN PRN Reason: INSOMNIA - Objective Vital Signs: Vital Signs Temperature 98.0 F 02/10/18 11:42 Pulse Rate 100 H 02/10/18 11:42 Respiratory Rate 18 02/10/18 11:42 Blood Pressure 141/83 02/10/18 11:42 O2 Sat by Pulse Oximetry (%) 99 02/09/18 21:00 Constitutional: Yes: No Distress, Calm Neck: Yes: Supple Cardiovascular: Yes: Regular Rate and Rhythm Respiratory: Yes: Regular, Diminished, On Nasal O2, Other (Right chest tube in place) Gastrointestinal: Yes: Normal Bowel Sounds, Soft Edema: No Labs: CBC, BMP 02/09/18 07:15 02/09/18 07:15 INR, PTT INR 1.14 (0.83-1.09) H 02/09/18 07:15 Problem List - Problems (1) Coronary artery disease Code(s): I25.10 - ATHSCL HEART DISEASE OF [place] CORONARY ARTERY W/O ANG PCTRS Qualifiers: Coronary Disease-Associated Artery/Lesion type: [place] artery [place] vs. transplanted heart: [place] heart Associated angina: without angina Qualified Code(s): I25.10 - Atherosclerotic heart disease of [place] coronary artery without angina pectoris (2) Lipidemia Code(s): E78.5 - HYPERLIPIDEMIA, UNSPECIFIED Qualifiers: Hyperlipidemia type: pure hypercholesterolemia Qualified Code(s): E78.00 - Pure hypercholesterolemia, unspecified; E78.0 - Pure hypercholesterolemia (3) PAD (peripheral artery disease) Code(s): I73.9 - PERIPHERAL VASCULAR DISEASE, UNSPECIFIED (4) S/P coronary artery stent placement Code(s): Z95.5 - PRESENCE OF CORONARY ANGIOPLASTY IMPLANT AND GRAFT (5) Hypertensive heart and chronic kidney disease stage 3 Code(s): I13.10 - HYP HRT & CHR KDNY DIS W/O HRT FAIL, W STG 1-4/UNSP CHR KDNY; N18.3 - CHRONIC KIDNEY DISEASE, STAGE 3 (MODERATE) (6) Lung neoplasm Code(s): D49.1 - NEOPLASM OF UNSPECIFIED BEHAVIOR OF RESPIRATORY SYSTEM Assessment/Plan 02/06/2018: Normal biventricular size and fxn, mild TR, tr MR 1. RLL mass with post-obstructive PNA resolving post chest tube thoracotomy 2. CAD post PCI (Stent) angina pectoris 3. LV diastolic dysfunction 4. HTN 5. Hyperlipidemia 6. Carotid stenosis post CEA 7. PAD 8. CKD PLAN: 1. Continue Toprol XL 12.5 qd and titrate dosage as needed and as tolerated hemodynamics permitting 2. Continue antibiotics as per the primary team 3. Lovenox for DVT prophylaxis, f/u cytopathology
[2018-02-10 13:27] LABS: PLEURAL FLUID LYMPHOCYTES 46 %; PLEURAL FLUID MACROPHAGES 28 %; PLEURAL FLUID NEUTROPHIL 10 %
[2018-02-10] MEDS ORDERED: oxyCODONE HCL 5 MG TABLET PO ONE (14:30)
[2018-02-10] MEDS: AMINO ACIDS 4.25%/D5W 1,000 ML IV SCH (14:35)
--- NOTE | 2018-02-10 16:27 | PN ---
Progress Note (short form) - Note Progress Note: Current Medications Albuterol/Ipratropium (Duoneb -) 1 amp NEB RTID [facility] Last Admin: 02/10/18 13:10 Dose: 1 amp Amino Acids (Prosource No Carb Liquid Pkt) 30 ml PO BID@0800,1730 [facility] Last Admin: 02/10/18 11:36 Dose: 30 ml Docusate Sodium (Colace -) 100 mg PO BID [facility] Ceftriaxone Sodium 1 gm/ (Dextrose) 50 mls @ 100 mls/hr IVPB DAILY [facility] Last Admin: 02/10/18 11:36 Dose: 100 mls/hr Amino Acids (Clinimix -) 1,000 mls @ 42 mls/hr IV Q24H [facility] Last Admin: 02/10/18 14:35 Dose: 42 mls/hr Metoprolol Succinate (Toprol Xl -) 12.5 mg PO DAILY [facility] Last Admin: 02/10/18 11:37 Dose: 12.5 mg Multivitamins/Minerals/Vitamin C (Tab-A-Vit -) 1 tab PO DAILY [facility] Last Admin: 02/10/18 11:37 Dose: 1 tab Oxycodone HCl (Roxicodone -) 5 mg PO Q4H PRN PRN Reason: PAIN LEVEL 4 - 6 Zolpidem Tartrate (Ambien -) 5 mg PO HS PRN PRN Reason: INSOMNIA Laboratory Results - last 24 hr 02/10/18 10:45 Fluid Other Cells Pleural Fluid Source Pleural Pleural Color Colorless Pleural Appearance Clear Pleural WBC 599 Pleural RBC 1735 Pleural Neutrophils 10 Pleural Lymphocytes 46 Pleural Macrophages 28 Vital Signs Temperature 97.8 F 02/10/18 15:37 Pulse Rate 107 H 02/10/18 15:37 Respiratory Rate 18 02/10/18 15:37 Blood Pressure 139/69 02/10/18 15:37 O2 Sat by Pulse Oximetry (%) 99 02/10/18 09:00 CC: c/o thoracic pain over entry site ```````````````````` skin--IV site clean eyes--anicteric, eomi heart--RR lungs--unlabored; no wheezing (draining chest tube in place on Rt side) abd--grossly benign neuro--asthenic; awake; verbal, no focal deficits. ````````````````````````````````````````````````````````````` Summary > Fail thrive--likely 2nd Rt lung lesion and its ramifications; supportive care for now > PNA--possibly post obstructive; cont IV abs for now & Neb Tx; will re-eval post procedure > Rt lung neoplasm--with local adenopathy; thoracentesis done and for Tissue Bx via IR PLAN: pain control > Htn--with ASHD; clinically stable; BP seems to drop on occasion; dose of BB reduced and HR mostly in range. > Low Mag--replenish as needed > Atrial fib--rate seems to be controlled; recent onset, but is currently not a candidate for anti-coag due to the presence of what seems to be an extensive Rt lung neoplasm that could increase risk of hemorrhage. Will re-evaluate for use of a-c once procedure is done and definite Dx is known. > high calcium--corrected; likely 2nd malignancy > anemia--stable; 2nd possible malignant dz ~~~~~~~~~~~~~~~~~~ Dr Castaneda Problem List - Problems (1) Lung neoplasm Code(s): D49.1 - NEOPLASM OF UNSPECIFIED BEHAVIOR OF RESPIRATORY SYSTEM (2) Hypertensive heart and chronic kidney disease stage 3 Code(s): I13.10 - HYP HRT & CHR KDNY DIS W/O HRT FAIL, W STG 1-4/UNSP CHR KDNY; N18.3 - CHRONIC KIDNEY DISEASE, STAGE 3 (MODERATE) (3) Abnormal EKG Code(s): R94.31 - ABNORMAL ELECTROCARDIOGRAM [ECG] [EKG] (4) Lipidemia Code(s): E78.5 - HYPERLIPIDEMIA, UNSPECIFIED Qualifiers: Hyperlipidemia type: pure hypercholesterolemia Qualified Code(s): E78.00 - Pure hypercholesterolemia, unspecified; E78.0 - Pure hypercholesterolemia (5) Dehydration Code(s): E86.0 - DEHYDRATION (6) PAD (peripheral artery disease) Code(s): I73.9 - PERIPHERAL VASCULAR DISEASE, UNSPECIFIED (7) Delirium due to another medical condition Code(s): F05 - DELIRIUM DUE TO KNOWN PHYSIOLOGICAL CONDITION
[2018-02-10] MEDS: DOCUSATE SODIUM 100 MG CAPSULE (FP) PO SCH (22:01)
[2018-02-11] MEDS: oxyCODONE HCL 5 MG TABLET PO PRN (07:17)
[2018-02-11 07:33] LABS: ANION GAP 5 MMOL/L (8-16); BLOOD UREA NITROGEN 29 mg/dL (7-18); CHLORIDE 106 mmol/L (98-107); CO2 25 mmol/L (21-32); CREATININE 0.9 mg/dL (0.55-1.3); GLUCOSE,RANDOM 100 mg/dL (74-106); POTASSIUM 3.8 mmol/L (3.5-5.1); SODIUM 136 mmol/L (136-145)
[2018-02-11] MEDS: ALBUTEROL SO4 2.5/IPRATROPIUM 0.5 INH SOL 3 ML VIAL.NEB. NEB SCH ×3 (07:58→19:45)
[2018-02-11] MEDS ORDERED: cefTRIAXone SODIUM 1 GM VIAL ONE (12:56)
[2018-02-11] MEDS ORDERED: DEXTROSE 5%-WATER - 50 ML IVPB ONE (12:56)
[2018-02-11] MEDS: metoPROLOL SUCCINATE 25 MG TAB.SR.24H (FP) PO SCH (13:00)
[2018-02-11] MEDS: AMINO ACIDS/PROTEIN HYDROLYS 30 ML LIQUID.PKT PO SCH ×2 (13:00→17:29)
[2018-02-11] MEDS: MULTIVITAMINS (DAILY MVI) TABLET (FP) PO SCH (13:01)
[2018-02-11] MEDS: CEFTRIAXONE 1 GM in DEXTROSE 5%-WATER - 50 ML IVPB SCH (13:01)
[2018-02-11] MEDS: DOCUSATE SODIUM 100 MG CAPSULE (FP) PO SCH ×2 (13:01→21:31)
[2018-02-11] MEDS: AMINO ACIDS 4.25%/D5W 1,000 ML IV SCH (13:05)
--- NOTE | 2018-02-11 14:04 | PN ---
Progress Note (short form) - Note Progress Note: Active Medications Albuterol/Ipratropium (Duoneb -) 1 amp NEB RTID [facility] Last Admin: 02/11/18 07:58 Dose: Not Given Amino Acids (Prosource No Carb Liquid Pkt) 30 ml PO BID@0800,1730 [facility] Last Admin: 02/11/18 13:00 Dose: Not Given Docusate Sodium (Colace -) 100 mg PO BID [facility] Last Admin: 02/11/18 13:01 Dose: 100 mg Ceftriaxone Sodium 1 gm/ (Dextrose) 50 mls @ 100 mls/hr IVPB DAILY [facility] Last Admin: 02/11/18 13:01 Dose: 100 mls/hr Amino Acids (Clinimix -) 1,000 mls @ 42 mls/hr IV Q24H [facility] Last Admin: 02/11/18 13:05 Dose: 42 mls/hr Metoprolol Succinate (Toprol Xl -) 12.5 mg PO DAILY [facility] Last Admin: 02/11/18 13:00 Dose: 12.5 mg Multivitamins/Minerals/Vitamin C (Tab-A-Vit -) 1 tab PO DAILY [facility] Last Admin: 02/11/18 13:01 Dose: 1 tab Oxycodone HCl (Roxicodone -) 5 mg PO Q4H PRN PRN Reason: PAIN LEVEL 4 - 6 Last Admin: 02/11/18 07:17 Dose: 5 mg Zolpidem Tartrate (Ambien -) 5 mg PO HS PRN PRN Reason: INSOMNIA Last Admin: 02/10/18 22:01 Dose: 5 mg Laboratory Results - last 24 hr 02/10/18 02/11/18 10:45 06:30 Sodium 136 Potassium 3.8 Chloride 106 Carbon Dioxide 25 Anion Gap 5 L BUN 29 H Creatinine 0.9 Creat Clearance w eGFR > 60 Random Glucose 100 Calcium 11.0 H Fluid Other Cells Pleural Fluid Source Pleural Pleural Color Colorless Pleural Appearance Clear Pleural WBC 599 Pleural RBC 1735 Pleural Neutrophils 10 Pleural Lymphocytes 46 Pleural Macrophages 28 Vital Signs Temperature 98.5 F 02/11/18 06:00 Pulse Rate 94 H 02/11/18 11:15 Respiratory Rate 27 H 02/11/18 11:15 Blood Pressure 128/81 02/11/18 11:15 O2 Sat by Pulse Oximetry (%) 100 02/11/18 11:15 CC: drowsy (post procedure) ```````````````````` skin--IV site clean eyes--anicteric, eomi heart--RR lungs--unlabored; no wheezing (draining chest tube in place on Rt side) abd--BS+; soft neuro--drowsy but rousable & verbal. ````````````````````````````````````````````````````````````` Summary > Fail thrive--likely 2nd Rt lung lesion and its ramifications; supportive care for now > PNA--possibly post obstructive; cont IV abs for now & Neb Tx > Rt lung neoplasm--with local adenopathy; thoracentesis & Biopsy done by IR PLAN: await pathology report > Htn--with ASHD; clinically stable; BP seems to drop on occasion; HR mostly in range. > Low Mag--replenish as needed > Atrial fib--rate seems to be controlled; currently not a candidate for anti- coag due to the presence of what seems to be an extensive Rt lung neoplasm that could increase risk of hemorrhage. Will re-evaluate for use of a-c once procedure is done and definite Dx is known. > high calcium--likely 2nd malignancy > anemia--stable; 2nd possible malignant dz ~~~~~~~~~~~~~~~~~~ Dr Castaneda Problem List - Problems (1) Lung neoplasm Code(s): D49.1 - NEOPLASM OF UNSPECIFIED BEHAVIOR OF RESPIRATORY SYSTEM (2) Hypertensive heart and chronic kidney disease stage 3 Code(s): I13.10 - HYP HRT & CHR KDNY DIS W/O HRT FAIL, W STG 1-4/UNSP CHR KDNY; N18.3 - CHRONIC KIDNEY DISEASE, STAGE 3 (MODERATE) (3) Abnormal EKG Code(s): R94.31 - ABNORMAL ELECTROCARDIOGRAM [ECG] [EKG] (4) Lipidemia Code(s): E78.5 - HYPERLIPIDEMIA, UNSPECIFIED Qualifiers: Hyperlipidemia type: pure hypercholesterolemia Qualified Code(s): E78.00 - Pure hypercholesterolemia, unspecified; E78.0 - Pure hypercholesterolemia (5) Dehydration Code(s): E86.0 - DEHYDRATION (6) PAD (peripheral artery disease) Code(s): I73.9 - PERIPHERAL VASCULAR DISEASE, UNSPECIFIED (7) Delirium due to another medical condition Code(s): F05 - DELIRIUM DUE TO KNOWN PHYSIOLOGICAL CONDITION
[2018-02-11] MEDS ORDERED: INSULIN (NOVOLOG) ASPART 100 UNITS/ML 10ML VIAL ONE (18:06)
[2018-02-12 06:47] LABS: ANION GAP 9 MMOL/L (8-16); BLOOD UREA NITROGEN 30 mg/dL (7-18); CALCIUM 11.1 mg/dL (8.5-10.1); CHLORIDE 105 mmol/L (98-107); CO2 23 mmol/L (21-32); CREATININE 0.8 mg/dL (0.55-1.3); GLUCOSE,RANDOM 95 mg/dL (74-106); SODIUM 136 mmol/L (136-145)
[2018-02-12 06:51] LABS: HEMATOCRIT 32.9 % (35.4-49); HEMOGLOBIN 10.9 GM/dL (11.7-16.9); MCH 30.2 pg (25.7-33.7); MCHC 33.2 g/dl (32.0-35.9); MEAN CELL VOLUME 90.9 fl (80-96); MEAN PLT VOLUME 7.4 fl (7.5-11.1); PLATELET COUNT 283 K/MM3 (134-434); RBC 3.63 M/mm3 (4.00-5.60); RDW 15.7 % (11.9-15.9); WHITE BLOOD COUNT 7.6 K/mm3 (4.0-10.0)
[2018-02-12] MEDS: ALBUTEROL SO4 2.5/IPRATROPIUM 0.5 INH SOL 3 ML VIAL.NEB. NEB SCH ×3 (07:30→20:23)
[2018-02-12] MEDS ORDERED: PT OWN MED DRAWER 7, Y5N ONE (10:07)
[2018-02-12] MEDS ORDERED: cefTRIAXone SODIUM 1 GM VIAL ONE (10:07)
[2018-02-12] MEDS ORDERED: DEXTROSE 5%-WATER - 50 ML IVPB ONE (10:07)
[2018-02-12] MEDS: DOCUSATE SODIUM 100 MG CAPSULE (FP) PO SCH ×2 (10:13→22:27)
[2018-02-12] MEDS: MULTIVITAMINS (DAILY MVI) TABLET (FP) PO SCH (10:13)
[2018-02-12] MEDS: AMINO ACIDS/PROTEIN HYDROLYS 30 ML LIQUID.PKT PO SCH ×2 (10:13→17:09)
[2018-02-12] MEDS: CEFTRIAXONE 1 GM in DEXTROSE 5%-WATER - 50 ML IVPB SCH (10:13)
[2018-02-12] MEDS: metoPROLOL SUCCINATE 25 MG TAB.SR.24H (FP) PO SCH (10:21)
--- NOTE | 2018-02-12 11:34 | PN ---
Progress Note, Physician History of Present Illness: Underwent right lung biopsy and chest tube placement, await pathology. - Current Medication List Current Medications: Active Medications Albuterol/Ipratropium (Duoneb -) 1 amp NEB RTID [facility] Last Admin: 02/12/18 07:30 Dose: 1 amp Amino Acids (Prosource No Carb Liquid Pkt) 30 ml PO BID@0800,1730 [facility] Last Admin: 02/12/18 10:13 Dose: 30 ml Docusate Sodium (Colace -) 100 mg PO BID [facility] Last Admin: 02/12/18 10:13 Dose: 100 mg Ceftriaxone Sodium 1 gm/ (Dextrose) 50 mls @ 100 mls/hr IVPB DAILY [facility] Last Admin: 02/12/18 10:13 Dose: 100 mls/hr Amino Acids (Clinimix -) 1,000 mls @ 42 mls/hr IV Q24H [facility] Last Admin: 02/11/18 13:05 Dose: 42 mls/hr Metoprolol Succinate (Toprol Xl -) 12.5 mg PO DAILY [facility] Last Admin: 02/12/18 10:21 Dose: 12.5 mg Multivitamins/Minerals/Vitamin C (Tab-A-Vit -) 1 tab PO DAILY [facility] Last Admin: 02/12/18 10:13 Dose: 1 tab Oxycodone HCl (Roxicodone -) 5 mg PO Q4H PRN PRN Reason: PAIN LEVEL 4 - 6 Last Admin: 02/11/18 07:17 Dose: 5 mg Zolpidem Tartrate (Ambien -) 5 mg PO HS PRN PRN Reason: INSOMNIA Last Admin: 02/10/18 22:01 Dose: 5 mg - Objective Vital Signs: Vital Signs Temperature 97.6 F 02/12/18 09:00 Pulse Rate 98 H 02/12/18 09:00 Respiratory Rate 20 02/12/18 09:00 Blood Pressure 124/61 02/12/18 09:00 O2 Sat by Pulse Oximetry (%) 100 02/11/18 21:00 Constitutional: Yes: No Distress, Calm, Thin Neck: Yes: Supple Cardiovascular: Yes: Pulse Irregular Respiratory: Yes: Regular, Diminished, On Nasal O2, Other (Right chest tube) Gastrointestinal: Yes: Normal Bowel Sounds, Soft Edema: No Labs: CBC, BMP 10/31/18 05:30 02/12/18 05:30 INR, PTT INR 1.14 (0.83-1.09) H 02/09/18 07:15 - ....Imaging Chest X-ray: Report Reviewed (Rt base PTX with chest tube) EKG: Report Reviewed (Afib @ 100) Problem List - Problems (1) Coronary artery disease Code(s): I25.10 - ATHSCL HEART DISEASE OF [place] CORONARY ARTERY W/O ANG PCTRS Qualifiers: Coronary Disease-Associated Artery/Lesion type: [place] artery [place] vs. transplanted heart: [place] heart Associated angina: without angina Qualified Code(s): I25.10 - Atherosclerotic heart disease of [place] coronary artery without angina pectoris (2) Lipidemia Code(s): E78.5 - HYPERLIPIDEMIA, UNSPECIFIED Qualifiers: Hyperlipidemia type: pure hypercholesterolemia Qualified Code(s): E78.00 - Pure hypercholesterolemia, unspecified; E78.0 - Pure hypercholesterolemia (3) PAD (peripheral artery disease) Code(s): I73.9 - PERIPHERAL VASCULAR DISEASE, UNSPECIFIED (4) S/P coronary artery stent placement Code(s): Z95.5 - PRESENCE OF CORONARY ANGIOPLASTY IMPLANT AND GRAFT (5) Hypertensive heart and chronic kidney disease stage 3 Code(s): I13.10 - HYP HRT & CHR KDNY DIS W/O HRT FAIL, W STG 1-4/UNSP CHR KDNY; N18.3 - CHRONIC KIDNEY DISEASE, STAGE 3 (MODERATE) (6) Lung neoplasm Code(s): D49.1 - NEOPLASM OF UNSPECIFIED BEHAVIOR OF RESPIRATORY SYSTEM (7) Persistent atrial fibrillation Code(s): I48.1 - PERSISTENT ATRIAL FIBRILLATION Assessment/Plan 02/06/2018: Normal biventricular size and fxn, mild TR, tr MR 1. RLL mass with post-obstructive PNA resolving post chest tube thoracotomy 2. CAD post PCI (Stent) angina pectoris 3. LV diastolic dysfunction 4. HTN 5. Persistent afib 6. Carotid stenosis post CEA 7. PAD 8. CKD PLAN: 1. Continue Toprol XL 12.5 qd and titrate dosage as needed and as tolerated hemodynamics permitting 2. Continue antibiotics, BD 3. Start Eliquis 2.5 bid for afib and DVT prophylaxis, f/u pathology
[2018-02-12] MEDS: AMINO ACIDS 4.25%/D5W 1,000 ML IV SCH (12:31)
--- NOTE | 2018-02-12 12:34 | PATH ---
Cytology Non-Gynecological Report Patient Name: NAIN REN [facility]. Rec. #: [id number] /Age/Gender: 1935 (Age: 83) / M Account: [id number] Location: [address] [place] [address]/[facility] Taken: 02/10/2018 Received: 02/10/2018 Reported: 02/12/2018 Physicians: Rodger Tobar M.D. Specimen(s) Received PLEURAL FLUID RECEIVED IN 50% ALCOHOL Clinical History Pleural effusion Final Diagnosis PLEURAL FLUID, THORACENTESIS: SATISFACTORY FOR EVALUATION NO MALIGNANT CELLS IDENTIFIED. MESOTHELIAL CELLS, MACROPHAGES AND RARE LYMPHOCYTES PRESENT. Electronically Signed Jamal Tavares M.D. Gross Description Approximately 50cc of yellow fluid received fixed in 50% alcohol. One cytofunnel and one cellblock prepared.
--- NOTE | 2018-02-12 12:45 | PN ---
Progress Note (short form) - Note Progress Note: Current Medications Albuterol/Ipratropium (Duoneb -) 1 amp NEB RTID [facility] Last Admin: 02/12/18 07:30 Dose: 1 amp Amino Acids (Prosource No Carb Liquid Pkt) 30 ml PO BID@0800,1730 [facility] Last Admin: 02/12/18 10:13 Dose: 30 ml Apixaban (Eliquis -) 2.5 mg PO BID [facility] Docusate Sodium (Colace -) 100 mg PO BID [facility] Last Admin: 02/12/18 10:13 Dose: 100 mg Ceftriaxone Sodium 1 gm/ (Dextrose) 50 mls @ 100 mls/hr IVPB DAILY [facility] Last Admin: 02/12/18 10:13 Dose: 100 mls/hr Amino Acids (Clinimix -) 1,000 mls @ 42 mls/hr IV Q24H [facility] Last Admin: 02/12/18 12:31 Dose: 42 mls/hr Metoprolol Succinate (Toprol Xl -) 12.5 mg PO DAILY [facility] Last Admin: 02/12/18 10:21 Dose: 12.5 mg Mirtazapine (Remeron -) 7.5 mg PO HS [facility] Multivitamins/Minerals/Vitamin C (Tab-A-Vit -) 1 tab PO DAILY [facility] Last Admin: 02/12/18 10:13 Dose: 1 tab Oxycodone HCl (Roxicodone -) 5 mg PO Q4H PRN PRN Reason: PAIN LEVEL 4 - 6 Last Admin: 02/11/18 07:17 Dose: 5 mg Laboratory Results - last 24 hr 02/12/18 02/12/18 05:30 05:30 WBC 7.6 RBC 3.63 L Hgb 10.9 L Hct 32.9 L MCV 90.9 MCH 30.2 MCHC 33.2 RDW 15.7 Plt Count 283 MPV 7.4 L Sodium 136 Potassium 4.0 Chloride 105 Carbon Dioxide 23 Anion Gap 9 BUN 30 H Creatinine 0.8 Creat Clearance w eGFR > 60 Random Glucose 95 Calcium 11.1 H Vital Signs Temperature 97.6 F 02/12/18 09:00 Pulse Rate 98 H 02/12/18 09:00 Respiratory Rate 20 02/12/18 09:00 Blood Pressure 124/61 02/12/18 09:00 O2 Sat by Pulse Oximetry (%) 100 10/30/18 21:00 CC: not hungry ```````````````````` skin--IV site clean eyes--anicteric, eomi heart--irreg lungs--unlabored; no wheezing (draining chest tube in place on Rt side) abd--BS+; soft neuro--less drowsy; seems coherent. ````````````````````````````````````````````````````````````` Summary > Fail thrive--likely 2nd Rt lung lesion and its ramifications; supportive care for now > feeding difficulty--2nd depression & malignant disease; will Rx appetite enhancing Anti-depressant > PNA--possibly post obstructive; cont IV abs x 10 days at least; as well as & Neb Tx > Pneumo/thorax--following Rt Lung Bx; breathing unlabored; saturating well; has Chest tube in place: PLAN: periodic CXR > Rt lung neoplasm--with local adenopathy; thoracentesis & Biopsy done by IR PLAN: await pathology report > Htn--with ASHD; clinically stable; BP okay; HR mostly in range. > Low Mag--replenish as needed > Atrial fib--rate seems to be controlled; but stands at risk for DVT; PE and CVA ( 2nd Atf). Will start a/c in AM, and monitor cbc. > high calcium--likely 2nd malignancy > anemia--stable; 2nd possible malignant dz ~~~~~~~~~~~~~~~~~~ Dr Castaneda Problem List - Problems (1) Lung neoplasm Code(s): D49.1 - NEOPLASM OF UNSPECIFIED BEHAVIOR OF RESPIRATORY SYSTEM (2) Hypertensive heart and chronic kidney disease stage 3 Code(s): I13.10 - HYP HRT & CHR KDNY DIS W/O HRT FAIL, W STG 1-4/UNSP CHR KDNY; N18.3 - CHRONIC KIDNEY DISEASE, STAGE 3 (MODERATE) (3) Abnormal EKG Code(s): R94.31 - ABNORMAL ELECTROCARDIOGRAM [ECG] [EKG] (4) Lipidemia Code(s): E78.5 - HYPERLIPIDEMIA, UNSPECIFIED Qualifiers: Hyperlipidemia type: pure hypercholesterolemia Qualified Code(s): E78.00 - Pure hypercholesterolemia, unspecified; E78.0 - Pure hypercholesterolemia (5) Dehydration Code(s): E86.0 - DEHYDRATION (6) PAD (peripheral artery disease) Code(s): I73.9 - PERIPHERAL VASCULAR DISEASE, UNSPECIFIED (7) Delirium due to another medical condition Code(s): F05 - DELIRIUM DUE TO KNOWN PHYSIOLOGICAL CONDITION
[2018-02-12 12:46] LABS: TOTAL PROTEIN,PLEURAL FLUID 2.8
[2018-02-12 12:47] LABS: GLUCOSE,PLEURAL FLUID 105
[2018-02-12] MEDS: MIRTAZAPINE 15 MG TABLET (FP) PO SCH (22:27)
[2018-02-12] MEDS: oxyCODONE HCL 5 MG TABLET PO PRN (22:27)
[2018-02-13 07:24] LABS: HEMATOCRIT 34.6 % (35.4-49); HEMOGLOBIN 11.3 GM/dL (11.7-16.9); MCHC 32.5 g/dl (32.0-35.9); MEAN CELL VOLUME 92.1 fl (80-96); MEAN PLT VOLUME 7.2 fl (7.5-11.1); PLATELET COUNT 325 K/MM3 (134-434); RBC 3.76 M/mm3 (4.00-5.60); RDW 15.9 % (11.9-15.9); WHITE BLOOD COUNT 9.6 K/mm3 (4.0-10.0)
[2018-02-13 08:00] LABS: ALBUMIN 2.2 g/dl (3.4-5.0); ALK PHOS 59 U/L (45-117); ANION GAP 11 MMOL/L (8-16); BILIRUBIN,TOTAL 0.4 mg/dL (0.2-1); BLOOD UREA NITROGEN 38 mg/dL (7-18); CALCIUM 12.4 mg/dL (8.5-10.1); CHLORIDE 103 mmol/L (98-107); CO2 21 mmol/L (21-32); CREATININE 1.2 mg/dL (0.55-1.3); GLUCOSE,RANDOM 97 mg/dL (74-106); POTASSIUM 3.2 mmol/L (3.5-5.1); SGOT/AST 22 U/L (15-37); SGPT/ALT 19 U/L (13-61); SODIUM 135 mmol/L (136-145); TOT PROT 6.3 g/dl (6.4-8.2)
[2018-02-13] MEDS: ALBUTEROL SO4 2.5/IPRATROPIUM 0.5 INH SOL 3 ML VIAL.NEB. NEB SCH ×3 (08:34→20:50)
[2018-02-13] MEDS ORDERED: cefTRIAXone SODIUM 1 GM VIAL ONE (10:13)
[2018-02-13] MEDS ORDERED: PT OWN MED DRAWER 7, Y5N ONE (10:13)
[2018-02-13] MEDS ORDERED: DEXTROSE 5%-WATER - 50 ML IVPB ONE (10:14)
[2018-02-13] MEDS: CEFTRIAXONE 1 GM in DEXTROSE 5%-WATER - 50 ML IVPB SCH (10:22)
[2018-02-13] MEDS: AMINO ACIDS/PROTEIN HYDROLYS 30 ML LIQUID.PKT PO SCH ×2 (10:22→17:14)
[2018-02-13] MEDS: MULTIVITAMINS (DAILY MVI) TABLET (FP) PO SCH (10:22)
[2018-02-13] MEDS: metoPROLOL SUCCINATE 25 MG TAB.SR.24H (FP) PO SCH (10:22)
[2018-02-13] MEDS: APIXABAN 2.5 MG TABLET PO SCH ×2 (10:22→22:08)
[2018-02-13] MEDS: DOCUSATE SODIUM 100 MG CAPSULE (FP) PO SCH ×2 (10:22→22:09)
--- NOTE | 2018-02-13 11:45 | PN ---
Progress Note, Physician History of Present Illness: Underwent right lung biopsy and chest tube placement, await pathology. - Current Medication List Current Medications: Active Medications Albuterol/Ipratropium (Duoneb -) 1 amp NEB RTID [facility] Last Admin: 02/13/18 08:34 Dose: 1 amp Amino Acids (Prosource No Carb Liquid Pkt) 30 ml PO BID@0800,1730 [facility] Last Admin: 02/13/18 10:22 Dose: 30 ml Apixaban (Eliquis -) 2.5 mg PO BID [facility] Last Admin: 02/13/18 10:22 Dose: 2.5 mg Docusate Sodium (Colace -) 100 mg PO BID [facility] Last Admin: 02/13/18 10:22 Dose: 100 mg Ceftriaxone Sodium 1 gm/ (Dextrose) 50 mls @ 100 mls/hr IVPB DAILY [facility] Last Admin: 02/13/18 10:22 Dose: 100 mls/hr Amino Acids (Clinimix -) 1,000 mls @ 42 mls/hr IV Q24H [facility] Last Admin: 02/12/18 12:31 Dose: 42 mls/hr Metoprolol Succinate (Toprol Xl -) 12.5 mg PO DAILY [facility] Last Admin: 02/13/18 10:22 Dose: 12.5 mg Mirtazapine (Remeron -) 7.5 mg PO HS [facility] Last Admin: 02/12/18 22:27 Dose: 7.5 mg Multivitamins/Minerals/Vitamin C (Tab-A-Vit -) 1 tab PO DAILY [facility] Last Admin: 02/13/18 10:22 Dose: 1 tab Oxycodone HCl (Roxicodone -) 5 mg PO Q4H PRN PRN Reason: PAIN LEVEL 4 - 6 Last Admin: 02/12/18 22:27 Dose: 5 mg - Objective Vital Signs: Vital Signs Temperature 97.9 F 02/13/18 09:27 Pulse Rate 92 H 02/13/18 09:27 Respiratory Rate 20 02/13/18 09:27 Blood Pressure 122/61 02/13/18 09:27 O2 Sat by Pulse Oximetry (%) 96 02/12/18 21:00 Constitutional: Yes: No Distress, Calm, Thin Neck: Yes: Supple Cardiovascular: Yes: Pulse Irregular Respiratory: Yes: Regular, Diminished, Other (Right chest tube) Gastrointestinal: Yes: Normal Bowel Sounds, Soft Edema: No Labs: CBC, BMP 02/13/18 06:48 02/13/18 06:48 INR, PTT INR 1.14 (0.83-1.09) H 02/09/18 07:15 Problem List - Problems (1) Coronary artery disease Code(s): I25.10 - ATHSCL HEART DISEASE OF [place] CORONARY ARTERY W/O ANG PCTRS Qualifiers: Coronary Disease-Associated Artery/Lesion type: [place] artery [place] vs. transplanted heart: [place] heart Associated angina: without angina Qualified Code(s): I25.10 - Atherosclerotic heart disease of [place] coronary artery without angina pectoris (2) Lipidemia Code(s): E78.5 - HYPERLIPIDEMIA, UNSPECIFIED Qualifiers: Hyperlipidemia type: pure hypercholesterolemia Qualified Code(s): E78.00 - Pure hypercholesterolemia, unspecified; E78.0 - Pure hypercholesterolemia (3) PAD (peripheral artery disease) Code(s): I73.9 - PERIPHERAL VASCULAR DISEASE, UNSPECIFIED (4) S/P coronary artery stent placement Code(s): Z95.5 - PRESENCE OF CORONARY ANGIOPLASTY IMPLANT AND GRAFT (5) Hypertensive heart and chronic kidney disease stage 3 Code(s): I13.10 - HYP HRT & CHR KDNY DIS W/O HRT FAIL, W STG 1-4/UNSP CHR KDNY; N18.3 - CHRONIC KIDNEY DISEASE, STAGE 3 (MODERATE) (6) Lung neoplasm Code(s): D49.1 - NEOPLASM OF UNSPECIFIED BEHAVIOR OF RESPIRATORY SYSTEM (7) Persistent atrial fibrillation Code(s): I48.1 - PERSISTENT ATRIAL FIBRILLATION Assessment/Plan 02/06/2018: Normal biventricular size and fxn, mild TR, tr MR 1. RLL mass with post-obstructive PNA resolving post chest tube thoracotomy 2. CAD post PCI (Stent) angina pectoris 3. LV diastolic dysfunction 4. HTN 5. Persistent afib 6. Carotid stenosis post CEA 7. PAD 8. CKD PLAN: 1. Continue Toprol XL 12.5 qd and titrate dosage as needed and as tolerated hemodynamics permitting 2. Continue antibiotics, BD 3. Start Eliquis 2.5 bid for afib and DVT prophylaxis, f/u pathology
--- NOTE | 2018-02-13 13:47 | PATH ---
Surgical Pathology Report Patient Name: NAIN REN [facility]. Rec. #: [id number] /Age/Gender: 1935 (Age: 83) / M Account: [id number] Location: 4 SO PEDS/ADOL Taken: 02/11/2018 Received: 02/11/2018 Reported: 02/13/2018 Physicians: Rodger Tobar M.D. 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 See comment. Comment: Immunohistochemical stains performed and interpreted at [facility] show the tumor is positive for p63 and TTF-1 (weak, patchy), while negative for CK7. Additional immunohistochemical stains performed at [place], [place] ([id number]) and interpreted at [facility] show the tumor is positive for CK5/6 and p40, while negative for Napsin-A. Overall histomorphology and immunophenotype support the diagnosis. PDL-1 ([facility]) is pending and will be reported separately. Findings discussed with Dr. Castaneda. Electronically Signed Deysi Munroe M.D. Addendum Reported: 02/20/2018 Addendum Diagnosis PD-L1([place]ako 22C3) performed and interpreted at [facility] ([id number]) shows the following: RESULTS: Low PD-L1 expression, TPS 2%. TUMOR PROPORTION SCORE (TPS) RESULT: 2%. Staining Location: Membranous Staining Distribution: 1-49 % Staining Intensity: 1+ Tumor infiltrating Immune cells (TILs) Result: Present. Staining Distribution: 0-9% Staining Intensity: 0 See Emerge report for additional details ([id number]) Deysi Munroe M.D. Gross Description Received in formalin labeled "right lung biopsy," are 3 tirado cylindrical portions of soft tissue ranging from 0.4-1.0 cm in length and averaging 0.1 cm diameter. The specimens are submitted in toto in one cassette. 02/11/201802/11/2018
--- NOTE | 2018-02-13 13:58 | PN ---
Progress Note (short form) - Note Progress Note: Current Medications Albuterol/Ipratropium (Duoneb -) 1 amp NEB RTID [facility] Last Admin: 02/13/18 08:34 Dose: 1 amp Amino Acids (Prosource No Carb Liquid Pkt) 30 ml PO BID@0800,1730 [facility] Last Admin: 02/13/18 10:22 Dose: 30 ml Apixaban (Eliquis -) 2.5 mg PO BID [facility] Last Admin: 02/13/18 10:22 Dose: 2.5 mg Docusate Sodium (Colace -) 100 mg PO BID [facility] Last Admin: 02/13/18 10:22 Dose: 100 mg Ceftriaxone Sodium 1 gm/ (Dextrose) 50 mls @ 100 mls/hr IVPB DAILY [facility] Last Admin: 02/13/18 10:22 Dose: 100 mls/hr Amino Acids (Clinimix -) 1,000 mls @ 42 mls/hr IV Q24H [facility] Last Admin: 02/12/18 12:31 Dose: 42 mls/hr Metoprolol Succinate (Toprol Xl -) 12.5 mg PO DAILY [facility] Last Admin: 02/13/18 10:22 Dose: 12.5 mg Mirtazapine (Remeron -) 7.5 mg PO HS [facility] Last Admin: 02/12/18 22:27 Dose: 7.5 mg Multivitamins/Minerals/Vitamin C (Tab-A-Vit -) 1 tab PO DAILY [facility] Last Admin: 02/13/18 10:22 Dose: 1 tab Oxycodone HCl (Roxicodone -) 5 mg PO Q4H PRN PRN Reason: PAIN LEVEL 4 - 6 Last Admin: 02/12/18 22:27 Dose: 5 mg Laboratory Results - last 24 hr 02/10/18 02/13/18 02/13/18 10:45 06:48 06:48 WBC 9.6 RBC 3.76 L Hgb 11.3 L Hct 34.6 L MCV 92.1 MCH 30.0 MCHC 32.5 RDW 15.9 Plt Count 325 MPV 7.2 L Sodium 135 L Potassium 3.2 L Chloride 103 Carbon Dioxide 21 Anion Gap 11 BUN 38 H Creatinine 1.2 Creat Clearance w eGFR 57.54 Random Glucose 97 Calcium 12.4 H Total Bilirubin 0.4 AST 22 ALT 19 Alkaline Phosphatase 59 Total Protein 6.3 L Albumin 2.2 L Pleural Cholesterol 28 Vital Signs Temperature 97.9 F 02/13/18 09:27 Pulse Rate 92 H 02/13/18 09:27 Respiratory Rate 20 02/13/18 09:27 Blood Pressure 122/61 02/13/18 09:27 O2 Sat by Pulse Oximetry (%) 96 02/12/18 21:00 CC: not hungry; wants to go home ```````````````````` skin--IV site clean eyes--anicteric, eomi heart--irreg lungs--unlabored; no wheezing (draining chest tube in place on Rt side) abd--BS+; soft neuro--less drowsy; seems coherent. ````````````````````````````````````````````````````````````` Summary > RT lung cancer--with local metastasis; Biopsy reveals poorly diff squamous cell type. He does not wish to have IV chemo; has declined surgery; he wishes to go home. PDR 1 marker is pending > Fail thrive--likely 2nd Rt lung lesion and its ramifications; supportive care for now > feeding difficulty--2nd depression & malignant disease; will Rx appetite enhancing Anti-depressant > PNA--possibly post obstructive; cont IV abs x 10 days at least; as well as & Neb Tx > Pneumo/thorax--following Rt Lung Bx; breathing unlabored; saturating well; CXR still shows PneumoTx, but wishes to have tube removed > Htn--with ASHD; clinically stable; BP okay; HR mostly in range. > Low Mag/potassium--replenish as needed > Atrial fib--rate seems to be controlled; but stands at risk for DVT; PE and CVA ( 2nd Atf). Now on a/c. > high calcium--likely 2nd malignancy; corrected calcium is 13.8; will Rx IVF > anemia--stable; 2nd possible malignant dz ~~~~~~~~~~~~~~~~~~ Dr Castaneda Problem List - Problems (1) Lung neoplasm Code(s): D49.1 - NEOPLASM OF UNSPECIFIED BEHAVIOR OF RESPIRATORY SYSTEM (2) Hypertensive heart and chronic kidney disease stage 3 Code(s): I13.10 - HYP HRT & CHR KDNY DIS W/O HRT FAIL, W STG 1-4/UNSP CHR KDNY; N18.3 - CHRONIC KIDNEY DISEASE, STAGE 3 (MODERATE) (3) Abnormal EKG Code(s): R94.31 - ABNORMAL ELECTROCARDIOGRAM [ECG] [EKG] (4) Lipidemia Code(s): E78.5 - HYPERLIPIDEMIA, UNSPECIFIED Qualifiers: Hyperlipidemia type: pure hypercholesterolemia Qualified Code(s): E78.00 - Pure hypercholesterolemia, unspecified; E78.0 - Pure hypercholesterolemia (5) Dehydration Code(s): E86.0 - DEHYDRATION (6) PAD (peripheral artery disease) Code(s): I73.9 - PERIPHERAL VASCULAR DISEASE, UNSPECIFIED (7) Delirium due to another medical condition Code(s): F05 - DELIRIUM DUE TO KNOWN PHYSIOLOGICAL CONDITION
[2018-02-13] MEDS ORDERED: DEXTROSE 5%-0.45% SALINE 1,000 ML IV SCH (14:00)
[2018-02-13] MEDS ORDERED: POTASSIUM CHLORIDE TABS 20 MEQ TABLET.ER (FP) PO ONE (14:00)
[2018-02-13] MEDS: AMINO ACIDS 4.25%/D5W 1,000 ML IV SCH (14:16)
[2018-02-13] MEDS: DEXTROSE 5%-0.45% SALINE 1,000 ML IV SCH (14:25)
[2018-02-13] MEDS: MIRTAZAPINE 15 MG TABLET (FP) PO SCH (22:08)
[2018-02-14] MEDS: DEXTROSE 5%-0.45% SALINE 1,000 ML IV SCH ×3 (00:19→16:38)
[2018-02-14] MEDS: ALBUTEROL SO4 2.5/IPRATROPIUM 0.5 INH SOL 3 ML VIAL.NEB. NEB SCH ×3 (08:09→21:08)
[2018-02-14] MEDS: AMINO ACIDS/PROTEIN HYDROLYS 30 ML LIQUID.PKT PO SCH ×2 (08:27→17:20)
[2018-02-14 08:28] LABS: ALBUMIN 1.8 g/dl (3.4-5.0); ALK PHOS 54 U/L (45-117); ANION GAP 8 MMOL/L (8-16); BILIRUBIN,TOTAL 0.3 mg/dL (0.2-1); BLOOD UREA NITROGEN 32 mg/dL (7-18); CALCIUM 11.5 mg/dL (8.5-10.1); CHLORIDE 107 mmol/L (98-107); CO2 22 mmol/L (21-32); CREATININE 0.8 mg/dL (0.55-1.3); GLUCOSE,RANDOM 99 mg/dL (74-106); POTASSIUM 3.4 mmol/L (3.5-5.1); SGOT/AST 35 U/L (15-37); SGPT/ALT 28 U/L (13-61); SODIUM 136 mmol/L (136-145); TOT PROT 5.3 g/dl (6.4-8.2)
[2018-02-14] MEDS ORDERED: POTASSIUM CHLORIDE TABS 20 MEQ TABLET.ER (FP) PO ONE (09:53)
[2018-02-14] MEDS: MULTIVITAMINS (DAILY MVI) TABLET (FP) PO SCH (10:16)
[2018-02-14] MEDS: DOCUSATE SODIUM 100 MG CAPSULE (FP) PO SCH ×2 (10:17→21:51)
[2018-02-14] MEDS: metoPROLOL SUCCINATE 25 MG TAB.SR.24H (FP) PO SCH (10:17)
[2018-02-14] MEDS: APIXABAN 2.5 MG TABLET PO SCH ×2 (12:43→21:51)
--- NOTE | 2018-02-14 14:27 | PN ---
Progress Note, Physician History of Present Illness: Pathology confirms RLL poorly differentiated SCC. - Current Medication List Current Medications: Active Medications Albuterol/Ipratropium (Duoneb -) 1 amp NEB RTID [facility] Last Admin: 02/14/18 08:09 Dose: 1 amp Amino Acids (Prosource No Carb Liquid Pkt) 30 ml PO BID@0800,1730 [facility] Last Admin: 02/14/18 08:27 Dose: 30 ml Apixaban (Eliquis -) 2.5 mg PO BID [facility] Last Admin: 02/14/18 12:43 Dose: Not Given Docusate Sodium (Colace -) 100 mg PO BID [facility] Last Admin: 02/14/18 10:17 Dose: 100 mg Dextrose/Sodium Chloride (D5-1/2ns -) 1,000 mls @ 125 mls/hr IV ASDIR [facility] Last Admin: 02/14/18 12:50 Dose: 125 mls/hr Metoprolol Succinate (Toprol Xl -) 12.5 mg PO DAILY [facility] Last Admin: 02/14/18 10:17 Dose: 12.5 mg Mirtazapine (Remeron -) 7.5 mg PO HS [facility] Last Admin: 02/13/18 22:08 Dose: 7.5 mg Multivitamins/Minerals/Vitamin C (Tab-A-Vit -) 1 tab PO DAILY [facility] Last Admin: 02/14/18 10:16 Dose: 1 tab Oxycodone HCl (Roxicodone -) 5 mg PO Q4H PRN PRN Reason: PAIN LEVEL 4 - 6 Last Admin: 02/12/18 22:27 Dose: 5 mg - Objective Vital Signs: Vital Signs Temperature 97.7 F 02/14/18 10:00 Pulse Rate 81 02/14/18 10:00 Respiratory Rate 18 02/14/18 10:00 Blood Pressure 134/62 02/14/18 10:00 O2 Sat by Pulse Oximetry (%) 97 02/13/18 21:00 Constitutional: Yes: No Distress, Calm, Cachectic, Thin Neck: Yes: Supple Cardiovascular: Yes: Pulse Irregular Respiratory: Yes: Regular, Diminished, On Nasal O2, Other (Right chest tube) Gastrointestinal: Yes: Normal Bowel Sounds, Soft Edema: No Labs: CBC, BMP 02/13/18 06:48 02/14/18 06:35 INR, PTT INR 1.14 (0.83-1.09) H 02/09/18 07:15 - ....Imaging Cat Scan: Report Reviewed (HCT: No mets) Problem List - Problems (1) Coronary artery disease Code(s): I25.10 - ATHSCL HEART DISEASE OF [place] CORONARY ARTERY W/O ANG PCTRS Qualifiers: Coronary Disease-Associated Artery/Lesion type: [place] artery [place] vs. transplanted heart: [place] heart Associated angina: without angina Qualified Code(s): I25.10 - Atherosclerotic heart disease of [place] coronary artery without angina pectoris (2) Lipidemia Code(s): E78.5 - HYPERLIPIDEMIA, UNSPECIFIED Qualifiers: Hyperlipidemia type: pure hypercholesterolemia Qualified Code(s): E78.00 - Pure hypercholesterolemia, unspecified; E78.0 - Pure hypercholesterolemia (3) PAD (peripheral artery disease) Code(s): I73.9 - PERIPHERAL VASCULAR DISEASE, UNSPECIFIED (4) S/P coronary artery stent placement Code(s): Z95.5 - PRESENCE OF CORONARY ANGIOPLASTY IMPLANT AND GRAFT (5) Hypertensive heart and chronic kidney disease stage 3 Code(s): I13.10 - HYP HRT & CHR KDNY DIS W/O HRT FAIL, W STG 1-4/UNSP CHR KDNY; N18.3 - CHRONIC KIDNEY DISEASE, STAGE 3 (MODERATE) (6) Lung neoplasm Code(s): D49.1 - NEOPLASM OF UNSPECIFIED BEHAVIOR OF RESPIRATORY SYSTEM (7) Persistent atrial fibrillation Code(s): I48.1 - PERSISTENT ATRIAL FIBRILLATION Assessment/Plan 02/06/2018: Normal biventricular size and fxn, mild TR, tr MR 1. RLL mass (poorly differentiated SCC) with post-obstructive PNA resolving post chest tube thoracotomy 2. CAD post PCI (Stent) angina pectoris 3. LV diastolic dysfunction 4. HTN 5. Persistent afib 6. Carotid stenosis post CEA 7. PAD 8. CKD PLAN: 1. Continue Toprol XL 12.5 qd and titrate dosage as needed and as tolerated hemodynamics permitting 2. Completed empiric antibiotic course, BD and O2 as needed 3. Continue Eliquis 2.5 bid for afib and DVT prophylaxis, wants palliative care , not interested in chemotherapy
[2018-02-14] MEDS ORDERED: SODIUM CHLORIDE 0.9% 500 ML INFUS.BAG IV ONE (16:00)
--- NOTE | 2018-02-14 16:09 | RAPID ---
Physical Examination Vital Signs: Vital Signs Temperature 97.7 F 02/14/18 10:00 Pulse Rate 81 02/14/18 10:00 Respiratory Rate 18 02/14/18 10:00 Blood Pressure 134/62 02/14/18 10:00 O2 Sat by Pulse Oximetry (%) 97 02/13/18 21:00 Constitutional: Yes: Mild Distress Eyes: Yes: EOM Intact Cardiovascular: Yes: Regular Rate and Rhythm Respiratory: Yes: CTA Bilaterally Gastrointestinal: Yes: Normal Bowel Sounds Neurological: Yes: Other (AAX2- oriented to time and self but not place) ...Motor Strength: WNL Labs: CBC, BMP 02/13/18 06:48 02/14/18 06:35 Rapid Response - Rapid Response Assessment: Rapid response was called at 3:51 pm, on-call team alerted and responded. Patient in 511-A was found to be hypotensive according to nurses, initial BP was 74/53 with HR of 85 and saturation was 93%, next BP was 79/50. Patient had recently gotten back from interventional radiology after having a chest tube placed. CBC, CMP ordered in addition to stat EKG, chest XRAY and a set of troponins- patient given a 500 cc bolus of NS and is being transferred to telemetry. Time PMD Notified: 03:50
[2018-02-14] MEDS ORDERED: SODIUM CHLORIDE 500 ML IV ONE (16:15)
--- NOTE | 2018-02-14 16:16 | CONSULT ---
Consult Consult Specialty:: Heme/Onc Referred by:: Dr. Sousa Reason for Consultation:: Discuss therapy for Lung SCC - History of Present Illness Chief Complaint: Weakness History of Present Illness: 83M with history of CAD HTN CKD HLD PAD presents for worsening weakness and confusion. Patient has a right lung Ca which was found to be squamous cell carcinoma. We were consulted to see if there are any oral treatment options as patient does not wish to have treatment with chemotherapy. He does not want surgery and he also does not want any IV drugs per Dr. Randle. PDL1 expressitivity is pending. Per Dr. Randle he was seen in December and advised to have a CT scan which showed a large Rt lung base lesion to suggest a neoplasm but no pancreatic lesions. He did not wish to proceed with any invasive out-patient diagnostic procedures nor did he wish to be hospitalized. Sputum for cytology did not reveal any malignant cells. Serum quantiferon was negative. Today patient had a rapid response due to hypotension. He is now being worked up getting IVF and being transferred to telemetry. Patient does not give much for history but states he does not want any treatment for his cancer - History Source History Provided By: Medical Record Limitations to Obtaining History: Clinical Condition - Past Medical History Cardio/Vascular: Yes: CAD (has coronary stent), HTN, Other (PAD) Pulmonary: Yes: Other (Rt lung neoplasm) Gastrointestinal: Yes: Other (s/p AP this year) Renal/: Yes: Renal Inusuff Psych: Yes: Addictions (Hx of alcoholism--in remission) - Past Surgical History Past Surgical History: Yes: Appendectomy, Carotid Endarterectomy - Alcohol/Substance Use Hx Alcohol Use: No History of Substance Use: reports: None - Smoking History Smoking history: Former smoker Have you smoked in the past 12 months: No - Social History History of Recent Travel: No Home Medications - Allergies Allergies/Adverse Reactions: Allergies Allergy/AdvReac Type Severity Reaction Status Date / Time No Known Allergies Allergy Verified 02/03/18 09:09 - Home Medications Home Medications: Ambulatory Orders Aspirin [ASA -] 81 mg PO DAILY 07/04/17 Atenolol [Tenormin -] 50 mg PO DAILY 07/04/17 Isosorbide Mononitrate [Isosorbide Mononitrate ER] 30 mg PO DAILY 07/04/17 Acetaminophen [Tylenol .Regular Strength -] 650 mg PO Q6H PRN tablet 07/14/17 Amlodipine Besylate [Norvasc -] 5 mg PO DAILY 02/03/18 Losartan Potassium [Cozaar -] 50 mg PO DAILY 02/03/18 Lovastatin 40 mg PO DAILY 02/03/18 Family Disease History - Family Disease History Family History: Unable to Obtain Review of Systems - Review of Systems Constitutional: reports: Loss of Appetite, Unintentional Wgt. Loss (patient states 35 pounds), Weakness Eyes: reports: No Symptoms HENT: reports: No Symptoms Neck: reports: No Symptoms Cardiovascular: reports: No Symptoms Respiratory: reports: No Symptoms Gastrointestinal: reports: No Symptoms Genitourinary: reports: No Symptoms Musculoskeletal: reports: No Symptoms Integumentary: reports: No Symptoms Neurological: reports: No Symptoms Endocrine: reports: No Symptoms Physical Exam Vital Signs: Vital Signs Temperature 97.7 F 02/14/18 10:00 Pulse Rate 81 02/14/18 10:00 Respiratory Rate 18 02/14/18 10:00 Blood Pressure 134/62 02/14/18 10:00 O2 Sat by Pulse Oximetry (%) 97 02/13/18 21:00 Constitutional: Yes: No Distress, Calm, Thin Eyes: Yes: Conjunctiva Clear, PERRL HENT: Yes: Atraumatic, Normocephalic Neck: Yes: Supple, Trachea Midline. No: Lymphadenopathy Cardiovascular: Yes: Pulse Irregular Respiratory: Yes: Diminished, Poor Air Entry, Other (crackles R>L) Gastrointestinal: Yes: Normal Bowel Sounds, Soft Renal/: No: CVA Tenderness - Left, CVA Tenderness - Right Extremities: Yes: Other (no inguinal lymphadenopathy) Edema: No Neurological: Yes: Alert, Oriented (knows year, knows the presodent, thinks he is in [place], cant subtract 7 from 100) Labs: CBC, BMP 02/13/18 06:48 02/14/18 06:35 Assessment/Plan 83M with multiple medical problems presents to the hospital with weakness and failure to thrive has a right squamous cell carcinoma, oncology consulted to discuss treatment options other than chemotherapy. Problem List: HTN HLD CKD right lung squamous cell carcinoma weakness failure to thrive PAD CAD A. fib on eliquis hypocytic hypochromic hypercalcemia- r/o paraneoplastic syndrome given SCC Plan: there are no oral medications that can be given for squamous cell carcinoma. There is Keytruda which could be used a monotherapy is a drug that provides immunotherapy but the PDL-1 expressivity needs to be >50% For Adenoacarcinoma if the tumor expresses eGFR, ROS-1, or ALK, then there are specific targeted therapy but his hsitological diagnosis is a squamous cell so his only option is Keytruda as a monotherapy/immunotherapy If his expression of PDL-1 is between 1-49% then he will not be a candidate for Keytruda Discussed with Dr. Randle and patient really does not want any treatment For hypercalcemia need to consider paraneoplastic syndrome given squamous cell carcinoma - will send parathyroid related peptide on Saturday as needs approval from pathology will send intact PTH and calcium in AM will give zometa 4mg over 45-60 minutes-patient already getting IVF for hypotension
--- NOTE | 2018-02-14 17:03 | PN ---
Progress Note (short form) - Note Progress Note: Current Medications Albuterol/Ipratropium (Duoneb -) 1 amp NEB RTID [facility] Last Admin: 02/14/18 14:43 Dose: Not Given Amino Acids (Prosource No Carb Liquid Pkt) 30 ml PO BID@0800,1730 [facility] Last Admin: 02/14/18 08:27 Dose: 30 ml Apixaban (Eliquis -) 2.5 mg PO BID [facility] Last Admin: 02/14/18 12:43 Dose: Not Given Docusate Sodium (Colace -) 100 mg PO BID [facility] Last Admin: 02/14/18 10:17 Dose: 100 mg Dextrose/Sodium Chloride (D5-1/2ns -) 1,000 mls @ 125 mls/hr IV ASDIR [facility] Last Admin: 02/14/18 16:38 Dose: Not Given Sodium Chloride (Normal Saline -) 500 mls @ 500 mls/hr IV ONCE ONE Stop: 02/14/18 17:14 Dextrose/Sodium Chloride (D5-Ns -) 1,000 mls @ 100 mls/hr IV ASDIR [facility] Metoprolol Succinate (Toprol Xl -) 12.5 mg PO DAILY [facility] Last Admin: 02/14/18 10:17 Dose: 12.5 mg Mirtazapine (Remeron -) 7.5 mg PO HS [facility] Last Admin: 02/13/18 22:08 Dose: 7.5 mg Multivitamins/Minerals/Vitamin C (Tab-A-Vit -) 1 tab PO DAILY [facility] Last Admin: 02/14/18 10:16 Dose: 1 tab Oxycodone HCl (Roxicodone -) 5 mg PO Q4H PRN PRN Reason: PAIN LEVEL 4 - 6 Last Admin: 02/12/18 22:27 Dose: 5 mg Laboratory Results - last 24 hr 02/14/18 06:35 Sodium 136 Potassium 3.4 L Chloride 107 Carbon Dioxide 22 Anion Gap 8 BUN 32 H Creatinine 0.8 Creat Clearance w eGFR > 60 Random Glucose 99 Calcium 11.5 H Total Bilirubin 0.3 AST 35 ALT 28 Alkaline Phosphatase 54 Total Protein 5.3 L Albumin 1.8 L Vital Signs Temperature 97.7 F 02/14/18 10:00 Pulse Rate 81 02/14/18 10:00 Respiratory Rate 18 02/14/18 10:00 Blood Pressure 134/62 02/14/18 10:00 O2 Sat by Pulse Oximetry (%) 97 02/13/18 21:00 CC; feels weak ````````````````` skin--pale eyes--midline heart--Irreg lungs--distant BS; unlabored abd--benign ext--no gross edema neuro--awake; anxious; speech fluent; moves all Ext nppurposefully on command `````````````````````````````````````````````` Summ > acute hypotensive episode-->following the removal of the Rt sided chest tube; clear drainage noted upon arrival to . SBP reportedly dropped to the low 70's ; and rapid response code called;BP joselito back up (as per respondant's note) and started on IVF. CXR taken (result pending); EKG showed ATf with a HR of 76 BPM; PLAN: IVF support; transfer to telemetry; await cbc & chem > Pneumothorax-->Rt lung; following thoracentesis & lung Bx; CT now removed > Rt lung cancer-->type shown to be poorly diff squamous cell. He appears to be at stage 3; Patient does not wish to have conventional Chemo. Type of agent would depend on result of the PDL-1; however, he might benefit from RT in order to control local disease effects. Prognosis however, is poor. informed. > ATF-->rate seems to be controlled; cont with BB, and now on oral a/c; no overt signs of bleeding. Will check CBC. > Hypercalcemia--2nd malignant dz; corrected Calcium is still 13.3; PLAN: IV Hydration then possible Zometa to lower the calcium > Low potassium/Magnesium--> correct as needed > azotemia--2nd intravasc depletion and Low protein state: PLAN: IVF ````````````````````````````````` Dr Castaneda Problem List - Problems (1) Lung neoplasm Code(s): D49.1 - NEOPLASM OF UNSPECIFIED BEHAVIOR OF RESPIRATORY SYSTEM (2) Hypertensive heart and chronic kidney disease stage 3 Code(s): I13.10 - HYP HRT & CHR KDNY DIS W/O HRT FAIL, W STG 1-4/UNSP CHR KDNY; N18.3 - CHRONIC KIDNEY DISEASE, STAGE 3 (MODERATE) (3) Abnormal EKG Code(s): R94.31 - ABNORMAL ELECTROCARDIOGRAM [ECG] [EKG] (4) Lipidemia Code(s): E78.5 - HYPERLIPIDEMIA, UNSPECIFIED Qualifiers: Hyperlipidemia type: pure hypercholesterolemia Qualified Code(s): E78.00 - Pure hypercholesterolemia, unspecified; E78.0 - Pure hypercholesterolemia (5) Dehydration Code(s): E86.0 - DEHYDRATION (6) PAD (peripheral artery disease) Code(s): I73.9 - PERIPHERAL VASCULAR DISEASE, UNSPECIFIED (7) Delirium due to another medical condition Code(s): F05 - DELIRIUM DUE TO KNOWN PHYSIOLOGICAL CONDITION
[2018-02-14] MEDS: DEXTROSE 5%-NORMAL SALINE 1,000 ML IV SCH (17:18)
[2018-02-14 17:34] LABS: HEMATOCRIT 28.8 % (35.4-49); HEMOGLOBIN 9.8 GM/dL (11.7-16.9); MCH 31.2 pg (25.7-33.7); MCHC 34.1 g/dl (32.0-35.9); MEAN CELL VOLUME 91.3 fl (80-96); MEAN PLT VOLUME 7.4 fl (7.5-11.1); PLATELET COUNT 308 K/MM3 (134-434); RBC 3.15 M/mm3 (4.00-5.60); RDW 16.1 % (11.9-15.9); WHITE BLOOD COUNT 6.5 K/mm3 (4.0-10.0)
--- NOTE | 2018-02-14 17:44 | PN ---
Teaching Attending Note Name of Resident: Kayden Serna ATTENDING PHYSICIAN STATEMENT I saw and evaluated the patient. I reviewed the resident's note and discussed the case with the resident. I agree with the resident's findings and plan as documented. 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 No targetable agent for SCC. Only non chemotherapy treatment would be RT - no improvement in overall survival ,but improvement in local control or if PDL-1 . 50% could consider immunotherpay with pembrolizumab. 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 Will give zometa . Currently receiving fluids. Will also need bone scan and PTH intact level. OBJECTIVE: ASSESSMENT AND PLAN:
[2018-02-14] MEDS ORDERED: ZOLEDRONIC ACID 4 MG in SODIUM CHLORIDE 100 ML IVPB ONE (17:45)
[2018-02-14 18:11] LABS: ALBUMIN 1.8 g/dl (3.4-5.0); ALK PHOS 59 U/L (45-117); ANION GAP 7 MMOL/L (8-16); BILIRUBIN,TOTAL 0.2 mg/dL (0.2-1); BLOOD UREA NITROGEN 30 mg/dL (7-18); CALCIUM 11.1 mg/dL (8.5-10.1); CHLORIDE 108 mmol/L (98-107); CO2 23 mmol/L (21-32); CREATININE 0.9 mg/dL (0.55-1.3); GLUCOSE,RANDOM 77 mg/dL (74-106); POTASSIUM 3.7 mmol/L (3.5-5.1); SGOT/AST 44 U/L (15-37); SGPT/ALT 36 U/L (13-61); SODIUM 138 mmol/L (136-145); TOT PROT 5.4 g/dl (6.4-8.2)
[2018-02-14] MEDS: MIRTAZAPINE 15 MG TABLET (FP) PO SCH (21:51)
[2018-02-15] MEDS: DEXTROSE 5%-NORMAL SALINE 1,000 ML IV SCH ×2 (05:59→16:52)
[2018-02-15] MEDS: ALBUTEROL SO4 2.5/IPRATROPIUM 0.5 INH SOL 3 ML VIAL.NEB. NEB SCH ×3 (07:30→20:14)
[2018-02-15 08:36] LABS: BASO % 0.6 % (0-2.0); EOS % 3.7 % (0-4.5); HEMATOCRIT 31.3 % (35.4-49); HEMOGLOBIN 10.7 GM/dL (11.7-16.9); LYMPH % 5.9 % (8-40); MCH 31.3 pg (25.7-33.7); MCHC 34.1 g/dl (32.0-35.9); MEAN CELL VOLUME 91.8 fl (80-96); MEAN PLT VOLUME 7.5 fl (7.5-11.1); MONO % 2.8 % (3.8-10.2); PLATELET COUNT 327 K/MM3 (134-434); RBC 3.41 M/mm3 (4.00-5.60); RDW 16.2 % (11.9-15.9); WHITE BLOOD COUNT 7.4 K/mm3 (4.0-10.0)
[2018-02-15 09:03] LABS: ALBUMIN 1.9 g/dl (3.4-5.0); ALK PHOS 61 U/L (45-117); ANION GAP 9 MMOL/L (8-16); BILIRUBIN,TOTAL 0.4 mg/dL (0.2-1); BLOOD UREA NITROGEN 27 mg/dL (7-18); CALCIUM 10.7 mg/dL (8.5-10.1); CHLORIDE 112 mmol/L (98-107); CO2 19 mmol/L (21-32); CREATININE 0.8 mg/dL (0.55-1.3); GLUCOSE,RANDOM 84 mg/dL (74-106); MAGNESIUM 1.8 mg/dL (1.8-2.4); POTASSIUM 4.2 mmol/L (3.5-5.1); SGOT/AST 54 U/L (15-37); SGPT/ALT 52 U/L (13-61); SODIUM 140 mmol/L (136-145); TOT PROT 5.8 g/dl (6.4-8.2)
[2018-02-15] MEDS: metoPROLOL SUCCINATE 25 MG TAB.SR.24H (FP) PO SCH (10:34)
[2018-02-15] MEDS: APIXABAN 2.5 MG TABLET PO SCH ×2 (10:34→21:24)
[2018-02-15] MEDS: AMINO ACIDS/PROTEIN HYDROLYS 30 ML LIQUID.PKT PO SCH ×2 (10:34→16:56)
[2018-02-15] MEDS: DOCUSATE SODIUM 100 MG CAPSULE (FP) PO SCH ×2 (10:34→21:23)
[2018-02-15] MEDS: MULTIVITAMINS (DAILY MVI) TABLET (FP) PO SCH (10:34)
--- NOTE | 2018-02-15 12:41 | EKG ---
Test Reason : Blood Pressure : / mmHG Vent. Rate : 076 BPM Atrial Rate : 068 BPM P-R Int : 000 ms QRS Dur : 146 ms QT Int : 398 ms P-R-T Axes : 000 096 051 degrees QTc Int : 447 ms ATRIAL FIBRILLATION RIGHT BUNDLE BRANCH BLOCK ABNORMAL ECG WHEN COMPARED WITH ECG OF 08-FEB-2018 14:57, NO SIGNIFICANT CHANGE WAS FOUND Confirmed by VIOLETA NINO MD ([id number]) on 02/15/2018 12:41:21 PM Referred By: Confirmed By:VIOLETA NINO MD
--- NOTE | 2018-02-15 15:39 | PN ---
Progress Note (short form) - Note Progress Note: Current Medications Albuterol/Ipratropium (Duoneb -) 1 amp NEB RTID [facility] Last Admin: 02/15/18 13:59 Dose: 1 amp Amino Acids (Prosource No Carb Liquid Pkt) 30 ml PO BID@0800,1730 [facility] Last Admin: 02/15/18 10:34 Dose: 30 ml Apixaban (Eliquis -) 2.5 mg PO BID [facility] Last Admin: 02/15/18 10:34 Dose: 2.5 mg Docusate Sodium (Colace -) 100 mg PO BID [facility] Last Admin: 02/15/18 10:34 Dose: 100 mg Dextrose/Sodium Chloride (D5-Ns -) 1,000 mls @ 100 mls/hr IV ASDIR [facility] Last Admin: 02/15/18 05:59 Dose: 100 mls/hr Metoprolol Succinate (Toprol Xl -) 12.5 mg PO DAILY [facility] Last Admin: 02/15/18 10:34 Dose: 12.5 mg Mirtazapine (Remeron -) 7.5 mg PO HS [facility] Last Admin: 02/14/18 21:51 Dose: 7.5 mg Multivitamins/Minerals/Vitamin C (Tab-A-Vit -) 1 tab PO DAILY [facility] Last Admin: 02/15/18 10:34 Dose: 1 tab Potassium Phos/Sodium Phos (Phos-Nak Packet -) 1 packet PO DAILY [facility] Laboratory Results - last 24 hr 02/14/18 02/14/18 02/15/18 17:00 17:00 06:10 WBC 6.5 RBC 3.15 L Hgb 9.8 L Hct 28.8 L D MCV 91.3 MCH 31.2 MCHC 34.1 RDW 16.1 H Plt Count 308 MPV 7.4 L Absolute Neuts (auto) Neutrophils % Lymphocytes % Monocytes % Eosinophils % Basophils % Nucleated RBC % Sodium 138 140 Potassium 3.7 4.2 Chloride 108 H 112 H Carbon Dioxide 23 19 L Anion Gap 7 L 9 BUN 30 H 27 H Creatinine 0.9 0.8 Creat Clearance w eGFR > 60 > 60 Random Glucose 77 84 Calcium 11.1 H 10.7 H Phosphorus 2.0 L Magnesium 1.8 Total Bilirubin 0.2 0.4 AST 44 H 54 H ALT 36 52 Alkaline Phosphatase 59 61 Creatine Kinase 14 L 18 L Troponin I 0.04 0.03 Total Protein 5.4 L 5.8 L Albumin 1.8 L 1.9 L 02/15/18 06:10 WBC 7.4 RBC 3.41 L Hgb 10.7 L Hct 31.3 L MCV 91.8 MCH 31.3 MCHC 34.1 RDW 16.2 H Plt Count 327 MPV 7.5 Absolute Neuts (auto) 6.5 Neutrophils % 87.0 H Lymphocytes % 5.9 L D Monocytes % 2.8 L Eosinophils % 3.7 Basophils % 0.6 Nucleated RBC % 0 Sodium Potassium Chloride Carbon Dioxide Anion Gap BUN Creatinine Creat Clearance w eGFR Random Glucose Calcium Phosphorus Magnesium Total Bilirubin AST ALT Alkaline Phosphatase Creatine Kinase Troponin I Total Protein Albumin Vital Signs Temperature 98.4 F 02/15/18 14:07 Pulse Rate 92 H 02/15/18 14:07 Respiratory Rate 18 02/15/18 14:07 Blood Pressure 101/64 02/15/18 14:07 O2 Sat by Pulse Oximetry (%) 100 02/15/18 09:00 CC; no complaints; stated that he ate breakfast & lunch ````````````````` skin--pale; IV site non red eyes--midline heart--Irreg lungs--distant BS; unlabored abd--benign ext--no gross edema appreciated neuro--awake; anxious; speech fluent; moves all Ext purposefully on command `````````````````````````````````````````````` Summ > acute hypotensive episode-->following the removal of the Rt sided chest tube on 02/14/18; Now in IV NS but BP still on low end of NL. HR controlled as per telemetry monitoring; Troponins negative. 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 He appears to be at stage 3; Patient does not wish to have conventional Chemo. Type of agent would depend on result of the PDL-1; however, he might benefit from RT in order to control local disease effects. Prognosis however, is poor. informed. > ATF-->rate seems to be controlled; cont with BB, and now on oral a/c; no overt signs of bleeding. > Hypercalcemia--2nd malignant dz; corrected Calcium is now 12.4; PLAN: IV Hydration; zometa Given. > Low phosphate--start neutra-phosph > Low potassium/Magnesium--> correct as needed > azotemia--improved since the start of IV NS; made worse by high calcemic state : PLAN: IVF; calcium lowering measures ````````````````````````````````` Dr Castaneda Problem List - Problems (1) Lung neoplasm Code(s): D49.1 - NEOPLASM OF UNSPECIFIED BEHAVIOR OF RESPIRATORY SYSTEM (2) Hypertensive heart and chronic kidney disease stage 3 Code(s): I13.10 - HYP HRT & CHR KDNY DIS W/O HRT FAIL, W STG 1-4/UNSP CHR KDNY; N18.3 - CHRONIC KIDNEY DISEASE, STAGE 3 (MODERATE) (3) Abnormal EKG Code(s): R94.31 - ABNORMAL ELECTROCARDIOGRAM [ECG] [EKG] (4) Lipidemia Code(s): E78.5 - HYPERLIPIDEMIA, UNSPECIFIED Qualifiers: Hyperlipidemia type: pure hypercholesterolemia Qualified Code(s): E78.00 - Pure hypercholesterolemia, unspecified; E78.0 - Pure hypercholesterolemia (5) Dehydration Code(s): E86.0 - DEHYDRATION (6) PAD (peripheral artery disease) Code(s): I73.9 - PERIPHERAL VASCULAR DISEASE, UNSPECIFIED (7) Delirium due to another medical condition Code(s): F05 - DELIRIUM DUE TO KNOWN PHYSIOLOGICAL CONDITION
[2018-02-15] MEDS: MIRTAZAPINE 15 MG TABLET (FP) PO SCH (21:24)
[2018-02-16] MEDS: ALBUTEROL SO4 2.5/IPRATROPIUM 0.5 INH SOL 3 ML VIAL.NEB. NEB SCH ×3 (07:25→20:58)
[2018-02-16 07:36] LABS: HEMATOCRIT 29.8 % (35.4-49); HEMOGLOBIN 10.4 GM/dL (11.7-16.9); MCH 32.2 pg (25.7-33.7); MCHC 34.7 g/dl (32.0-35.9); MEAN CELL VOLUME 92.8 fl (80-96); MEAN PLT VOLUME 7.2 fl (7.5-11.1); PLATELET COUNT 327 K/MM3 (134-434); RBC 3.22 M/mm3 (4.00-5.60); RDW 16.4 % (11.9-15.9); WHITE BLOOD COUNT 6.2 K/mm3 (4.0-10.0)
[2018-02-16 08:51] LABS: ANION GAP 8 MMOL/L (8-16); BLOOD UREA NITROGEN 23 mg/dL (7-18); CALCIUM 9.8 mg/dL (8.5-10.1); CHLORIDE 116 mmol/L (98-107); CO2 19 mmol/L (21-32); CREATININE 0.9 mg/dL (0.55-1.3); GLUCOSE,RANDOM 86 mg/dL (74-106); POTASSIUM 3.9 mmol/L (3.5-5.1); SODIUM 144 mmol/L (136-145)
[2018-02-16] MEDS: APIXABAN 2.5 MG TABLET PO SCH ×2 (09:52→21:23)
[2018-02-16] MEDS: AMINO ACIDS/PROTEIN HYDROLYS 30 ML LIQUID.PKT PO SCH ×2 (09:52→17:04)
[2018-02-16] MEDS: MULTIVITAMINS (DAILY MVI) TABLET (FP) PO SCH (09:52)
[2018-02-16] MEDS: NAPH,MB-DB/K PH,MBDB POWDER PACKET PO SCH (09:52)
[2018-02-16] MEDS: metoPROLOL SUCCINATE 25 MG TAB.SR.24H (FP) PO SCH (09:53)
[2018-02-16] MEDS: DOCUSATE SODIUM 100 MG CAPSULE (FP) PO SCH ×2 (09:53→21:23)
--- NOTE | 2018-02-16 11:26 | PN ---
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 No targetable agent for SCC. Only non chemotherapy treatment would be RT - no improvement in overall survival ,but improvement in local control or if PDL-1 . 50% could consider immunotherpay with pembrolizumab. 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 Hypercalcemia better
--- NOTE | 2018-02-16 15:41 | PN ---
Progress Note, Physician History of Present Illness: Pathology confirms RLL poorly differentiated SCC. Chest tube removed 2 days ago. Discussed with patient and , they decline all intervention for SCC. - Current Medication List Current Medications: Active Medications Albuterol/Ipratropium (Duoneb -) 1 amp NEB RTID [facility] Last Admin: 02/16/18 14:07 Dose: 1 amp Amino Acids (Prosource No Carb Liquid Pkt) 30 ml PO BID@0800,1730 [facility] Last Admin: 02/16/18 09:52 Dose: 30 ml Apixaban (Eliquis -) 2.5 mg PO BID [facility] Last Admin: 02/16/18 09:52 Dose: 2.5 mg Docusate Sodium (Colace -) 100 mg PO BID [facility] Last Admin: 02/16/18 09:53 Dose: 100 mg Dextrose/Sodium Chloride (D5-Ns -) 1,000 mls @ 100 mls/hr IV ASDIR [facility] Last Admin: 02/15/18 16:52 Dose: 100 mls/hr Metoprolol Succinate (Toprol Xl -) 12.5 mg PO DAILY [facility] Last Admin: 02/16/18 09:53 Dose: 12.5 mg Mirtazapine (Remeron -) 7.5 mg PO HS [facility] Last Admin: 02/15/18 21:24 Dose: 7.5 mg Multivitamins/Minerals/Vitamin C (Tab-A-Vit -) 1 tab PO DAILY [facility] Last Admin: 02/16/18 09:52 Dose: 1 tab Potassium Phos/Sodium Phos (Phos-Nak Packet -) 1 packet PO DAILY [facility] Last Admin: 02/16/18 09:52 Dose: 1 packet - Objective Vital Signs: Vital Signs Temperature 98.2 F 02/16/18 14:25 Pulse Rate 106 H 02/16/18 14:25 Respiratory Rate 16 02/16/18 14:25 Blood Pressure 137/65 02/16/18 14:25 O2 Sat by Pulse Oximetry (%) 97 02/16/18 09:00 Constitutional: Yes: No Distress, Calm, Cachectic, Thin Neck: Yes: Supple Cardiovascular: Yes: Pulse Irregular Respiratory: Yes: Regular, Diminished Gastrointestinal: Yes: Normal Bowel Sounds, Soft Edema: No Labs: CBC, BMP 02/16/18 06:30 02/16/18 06:30 INR, PTT INR 1.14 (0.83-1.09) H 02/09/18 07:15 - ....Imaging EKG: Report Reviewed (Afib with PVC) Problem List - Problems (1) Coronary artery disease Code(s): I25.10 - ATHSCL HEART DISEASE OF [place] CORONARY ARTERY W/O ANG PCTRS Qualifiers: Coronary Disease-Associated Artery/Lesion type: [place] artery [place] vs. transplanted heart: [place] heart Associated angina: without angina Qualified Code(s): I25.10 - Atherosclerotic heart disease of [place] coronary artery without angina pectoris (2) Lipidemia Code(s): E78.5 - HYPERLIPIDEMIA, UNSPECIFIED Qualifiers: Hyperlipidemia type: pure hypercholesterolemia Qualified Code(s): E78.00 - Pure hypercholesterolemia, unspecified; E78.0 - Pure hypercholesterolemia (3) PAD (peripheral artery disease) Code(s): I73.9 - PERIPHERAL VASCULAR DISEASE, UNSPECIFIED (4) S/P coronary artery stent placement Code(s): Z95.5 - PRESENCE OF CORONARY ANGIOPLASTY IMPLANT AND GRAFT (5) Hypertensive heart and chronic kidney disease stage 3 Code(s): I13.10 - HYP HRT & CHR KDNY DIS W/O HRT FAIL, W STG 1-4/UNSP CHR KDNY; N18.3 - CHRONIC KIDNEY DISEASE, STAGE 3 (MODERATE) (6) Persistent atrial fibrillation Code(s): I48.1 - PERSISTENT ATRIAL FIBRILLATION (7) Squamous cell carcinoma of lung, stage III Code(s): C34.90 - MALIGNANT NEOPLASM OF UNSP PART OF UNSP BRONCHUS OR LUNG Qualifiers: Laterality: right Qualified Code(s): C34.91 - Malignant neoplasm of unspecified part of right bronchus or lung Assessment/Plan 02/06/2018: Normal biventricular size and fxn, mild TR, tr MR 1. 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 with post-obstructive PNA resolving post chest tube thoracotomy 2. CAD post PCI (Stent) angina pectoris 3. LV diastolic dysfunction 4. HTN 5. Persistent afib 6. Carotid stenosis post CEA 7. PAD 8. CKD 9. 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 PLAN: 1. Continue Toprol XL 12.5 qd and titrate dosage as needed and as tolerated hemodynamics permitting 2. Completed empiric antibiotic course, BD and O2 as needed 3. Continue Eliquis 2.5 bid for afib and DVT prophylaxis, wants palliative care , not interested in chemotherapy 4. Patient and decline intervention for SCC including RT
--- NOTE | 2018-02-16 16:32 | PN ---
Progress Note (short form) - Note Progress Note: Current Medications Albuterol/Ipratropium (Duoneb -) 1 amp NEB RTID [facility] Last Admin: 02/16/18 14:07 Dose: 1 amp Amino Acids (Prosource No Carb Liquid Pkt) 30 ml PO BID@0800,1730 [facility] Last Admin: 02/16/18 09:52 Dose: 30 ml Apixaban (Eliquis -) 2.5 mg PO BID [facility] Last Admin: 02/16/18 09:52 Dose: 2.5 mg Docusate Sodium (Colace -) 100 mg PO BID [facility] Last Admin: 02/16/18 09:53 Dose: 100 mg Dextrose/Sodium Chloride (D5-Ns -) 1,000 mls @ 100 mls/hr IV ASDIR [facility] Last Admin: 02/15/18 16:52 Dose: 100 mls/hr Metoprolol Succinate (Toprol Xl -) 12.5 mg PO DAILY [facility] Last Admin: 02/16/18 09:53 Dose: 12.5 mg Mirtazapine (Remeron -) 7.5 mg PO HS [facility] Last Admin: 02/15/18 21:24 Dose: 7.5 mg Multivitamins/Minerals/Vitamin C (Tab-A-Vit -) 1 tab PO DAILY [facility] Last Admin: 02/16/18 09:52 Dose: 1 tab Potassium Phos/Sodium Phos (Phos-Nak Packet -) 1 packet PO DAILY [facility] Last Admin: 02/16/18 09:52 Dose: 1 packet Laboratory Results - last 24 hr 02/16/18 02/16/18 06:30 06:30 WBC 6.2 RBC 3.22 L Hgb 10.4 L Hct 29.8 L MCV 92.8 MCH 32.2 MCHC 34.7 RDW 16.4 H Plt Count 327 MPV 7.2 L Sodium 144 Potassium 3.9 Chloride 116 H Carbon Dioxide 19 L Anion Gap 8 BUN 23 H Creatinine 0.9 Creat Clearance w eGFR > 60 Random Glucose 86 Calcium 9.8 Vital Signs Temperature 98.2 F 02/16/18 14:25 Pulse Rate 106 H 02/16/18 14:25 Respiratory Rate 16 02/16/18 14:25 Blood Pressure 137/65 02/16/18 14:25 O2 Sat by Pulse Oximetry (%) 97 02/16/18 09:00 CC; no complaints; just wishes to go home ````````````````` skin--pale; IV site non red eyes--midline; anicteric heart--Irreg lungs--distant BS; unlabored abd--benign ext--no gross edema appreciated neuro--awake; anxious; speech fluent; moves all Ext purposefully on command `````````````````````````````````````````````` Summ > acute hypotensive episode=seems to have resolved > Rt lung cancer-->cell type is poorly diff squamous cell. He appears to be at stage 3; Patient does not wish to have conventional Chemo, or any other form of intervention. Both he & have been made to understand that his demise will be imminent without treatment, but he has REPEATEDLY declined chemoTx. The only possible agent that he might be eligible for is "Keytruda" if the PDL marker is above 50; however, this result is still pending and we may have to release/ discharge him (at his request! )before this marker test is ready . He might benefit from RT in order to control local disease effects. Prognosis is poor without any intervention. His was told that he may not last another month if he does not meet his nutritional and hydration needs; notwithstanding the possibility that he may develop additional cancer related morbidities that will expediate his demise. > ATF-->rate seems to be controlled; cont with BB, will revert back to atenolol ; however, the benefit of continuing a/c in the face of an aggressively terminal disease with a very short life expectancy is dubious and will likely discontinue it at the time discharge. > Hypercalcemia--2nd malignant dz; level has normalized post IV hydration and use of Zometa; may need oral Bisphosphonates. > Low phosphate--start neutra-phosph > Low potassium/Magnesium--> correct as needed > azotemia--improved since the start of IV NS; will continue until day of discharge > fail to thrive--remains bed bound and devoid of stamina & desire to eat; which will likely contribute to his demise once he is discharged ````````````````````````````````` Dr Castaneda Problem List - Problems (1) Lung neoplasm Code(s): D49.1 - NEOPLASM OF UNSPECIFIED BEHAVIOR OF RESPIRATORY SYSTEM (2) Hypertensive heart and chronic kidney disease stage 3 Code(s): I13.10 - HYP HRT & CHR KDNY DIS W/O HRT FAIL, W STG 1-4/UNSP CHR KDNY; N18.3 - CHRONIC KIDNEY DISEASE, STAGE 3 (MODERATE) (3) Abnormal EKG Code(s): R94.31 - ABNORMAL ELECTROCARDIOGRAM [ECG] [EKG] (4) Lipidemia Code(s): E78.5 - HYPERLIPIDEMIA, UNSPECIFIED Qualifiers: Hyperlipidemia type: pure hypercholesterolemia Qualified Code(s): E78.00 - Pure hypercholesterolemia, unspecified; E78.0 - Pure hypercholesterolemia (5) Dehydration Code(s): E86.0 - DEHYDRATION (6) PAD (peripheral artery disease) Code(s): I73.9 - PERIPHERAL VASCULAR DISEASE, UNSPECIFIED (7) Delirium due to another medical condition Code(s): F05 - DELIRIUM DUE TO KNOWN PHYSIOLOGICAL CONDITION
[2018-02-16] MEDS: DEXTROSE 5%-NORMAL SALINE 1,000 ML IV SCH ×2 (17:04→21:45)
[2018-02-16] MEDS: MIRTAZAPINE 15 MG TABLET (FP) PO SCH (21:22)
[2018-02-17] MEDS: DEXTROSE 5%-NORMAL SALINE 1,000 ML IV SCH (06:37)
[2018-02-17 07:44] LABS: ANION GAP 8 MMOL/L (8-16); BLOOD UREA NITROGEN 23 mg/dL (7-18); CHLORIDE 120 mmol/L (98-107); CO2 18 mmol/L (21-32); CREATININE 0.7 mg/dL (0.55-1.3); GLUCOSE,RANDOM 95 mg/dL (74-106); PHOSPHOROUS 2.2 mg/dL (2.5-4.9); POTASSIUM 3.6 mmol/L (3.5-5.1); SODIUM 146 mmol/L (136-145)
[2018-02-17] MEDS: ALBUTEROL SO4 2.5/IPRATROPIUM 0.5 INH SOL 3 ML VIAL.NEB. NEB SCH ×4 (07:56→20:23)
--- NOTE | 2018-02-17 10:14 | PN ---
Progress Note, Physician History of Present Illness: Pathology confirms RLL poorly differentiated SCC. Discussed with patient and , they decline all intervention for SCC. - Current Medication List Current Medications: Active Medications Albuterol/Ipratropium (Duoneb -) 1 amp NEB RTID [facility] Last Admin: 02/17/18 07:56 Dose: Not Given Amino Acids (Prosource No Carb Liquid Pkt) 30 ml PO BID@0800,1730 [facility] Last Admin: 02/16/18 17:04 Dose: 30 ml Apixaban (Eliquis -) 2.5 mg PO BID [facility] Last Admin: 02/16/18 21:23 Dose: 2.5 mg Atenolol (Tenormin -) 25 mg PO DAILY [facility] Docusate Sodium (Colace -) 100 mg PO BID [facility] Last Admin: 02/16/18 21:23 Dose: 100 mg Dextrose/Sodium Chloride (D5-Ns -) 1,000 mls @ 100 mls/hr IV ASDIR [facility] Last Admin: 02/17/18 06:37 Dose: 100 mls/hr Mirtazapine (Remeron -) 7.5 mg PO HS [facility] Last Admin: 02/16/18 21:22 Dose: 7.5 mg Multivitamins/Minerals/Vitamin C (Tab-A-Vit -) 1 tab PO DAILY [facility] Last Admin: 02/16/18 09:52 Dose: 1 tab Potassium Phos/Sodium Phos (Phos-Nak Packet -) 1 packet PO DAILY [facility] Last Admin: 02/16/18 09:52 Dose: 1 packet - Objective Vital Signs: Vital Signs Temperature 98.2 F 02/17/18 06:16 Pulse Rate 97 H 02/17/18 06:16 Respiratory Rate 18 02/17/18 06:16 Blood Pressure 152/79 02/17/18 06:16 O2 Sat by Pulse Oximetry (%) 97 02/16/18 21:00 Constitutional: Yes: No Distress, Calm, Thin Neck: Yes: Supple Cardiovascular: Yes: Pulse Irregular Respiratory: Yes: Regular, Diminished, On Nasal O2 Gastrointestinal: Yes: Normal Bowel Sounds, Soft Edema: No Labs: CBC, BMP 02/16/18 06:30 02/17/18 06:35 INR, PTT INR 1.14 (0.83-1.09) H 02/09/18 07:15 - ....Imaging EKG: Report Reviewed (Tele: Afib) Problem List - Problems (1) Coronary artery disease Code(s): I25.10 - ATHSCL HEART DISEASE OF [place] CORONARY ARTERY W/O ANG PCTRS Qualifiers: Coronary Disease-Associated Artery/Lesion type: [place] artery [place] vs. transplanted heart: [place] heart Associated angina: without angina Qualified Code(s): I25.10 - Atherosclerotic heart disease of [place] coronary artery without angina pectoris (2) Lipidemia Code(s): E78.5 - HYPERLIPIDEMIA, UNSPECIFIED Qualifiers: Hyperlipidemia type: pure hypercholesterolemia Qualified Code(s): E78.00 - Pure hypercholesterolemia, unspecified; E78.0 - Pure hypercholesterolemia (3) PAD (peripheral artery disease) Code(s): I73.9 - PERIPHERAL VASCULAR DISEASE, UNSPECIFIED (4) S/P coronary artery stent placement Code(s): Z95.5 - PRESENCE OF CORONARY ANGIOPLASTY IMPLANT AND GRAFT (5) Hypertensive heart and chronic kidney disease stage 3 Code(s): I13.10 - HYP HRT & CHR KDNY DIS W/O HRT FAIL, W STG 1-4/UNSP CHR KDNY; N18.3 - CHRONIC KIDNEY DISEASE, STAGE 3 (MODERATE) (6) Persistent atrial fibrillation Code(s): I48.1 - PERSISTENT ATRIAL FIBRILLATION (7) Squamous cell carcinoma of lung, stage III Code(s): C34.90 - MALIGNANT NEOPLASM OF UNSP PART OF UNSP BRONCHUS OR LUNG Qualifiers: Laterality: right Qualified Code(s): C34.91 - Malignant neoplasm of unspecified part of right bronchus or lung Assessment/Plan 02/06/2018: Normal biventricular size and fxn, mild TR, tr MR 1. SCC of lung with mediastinal involvement- [place] stage III disease s/p post- obstructive PNA resolved post chest tube thoracotomy 2. CAD post PCI (Stent) angina pectoris 3. LV diastolic dysfunction 4. HTN 5. Persistent afib 6. Carotid stenosis post CEA 7. PAD 8. CKD 9. 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 PLAN: 1. Continue Atenolol 25 qd and titrate dosage as needed and as tolerated hemodynamics permitting 2. Completed empiric antibiotic course, BD and O2 as needed 3. Continue Eliquis 2.5 bid for afib and DVT prophylaxis, wants palliative care , not interested in chemotherapy 4. Patient and decline intervention for SCC including RT, d/c planning
[2018-02-17] MEDS ORDERED: PT OWN MED DRAWER 7, Y5N ONE ×2 (10:17→12:10)
[2018-02-17] MEDS: AMINO ACIDS/PROTEIN HYDROLYS 30 ML LIQUID.PKT PO SCH ×2 (10:24→17:32)
[2018-02-17] MEDS: APIXABAN 2.5 MG TABLET PO SCH ×2 (10:24→21:09)
[2018-02-17] MEDS: DOCUSATE SODIUM 100 MG CAPSULE (FP) PO SCH ×2 (10:24→21:09)
[2018-02-17] MEDS: NAPH,MB-DB/K PH,MBDB POWDER PACKET PO SCH (10:24)
[2018-02-17] MEDS: MULTIVITAMINS (DAILY MVI) TABLET (FP) PO SCH (10:24)
[2018-02-17] MEDS: ATENOLOL 25 MG TABLET (FP) PO SCH (11:00)
--- NOTE | 2018-02-17 12:30 | PN ---
Progress Note (short form) - Note Progress Note: Current Medications Albuterol/Ipratropium (Duoneb -) 1 amp NEB RTID [facility] Last Admin: 02/17/18 10:49 Dose: 1 amp Amino Acids (Prosource No Carb Liquid Pkt) 30 ml PO BID@0800,1730 [facility] Last Admin: 02/17/18 10:24 Dose: 30 ml Apixaban (Eliquis -) 2.5 mg PO BID [facility] Last Admin: 02/17/18 10:24 Dose: 2.5 mg Atenolol (Tenormin -) 25 mg PO DAILY [facility] Last Admin: 02/17/18 11:00 Dose: 25 mg Docusate Sodium (Colace -) 100 mg PO BID [facility] Last Admin: 02/17/18 10:24 Dose: 100 mg Dextrose/Sodium Chloride (D5-Ns -) 1,000 mls @ 100 mls/hr IV ASDIR [facility] Last Admin: 02/17/18 06:37 Dose: 100 mls/hr Mirtazapine (Remeron -) 7.5 mg PO HS [facility] Last Admin: 02/16/18 21:22 Dose: 7.5 mg Multivitamins/Minerals/Vitamin C (Tab-A-Vit -) 1 tab PO DAILY [facility] Last Admin: 02/17/18 10:24 Dose: 1 tab Potassium Phos/Sodium Phos (Phos-Nak Packet -) 1 packet PO DAILY [facility] Last Admin: 02/17/18 10:24 Dose: 1 packet Laboratory Results - last 24 hr 02/17/18 06:35 Sodium 146 H Potassium 3.6 Chloride 120 H Carbon Dioxide 18 L Anion Gap 8 BUN 23 H Creatinine 0.7 Creat Clearance w eGFR > 60 Random Glucose 95 Calcium 9.0 Phosphorus 2.2 L Vital Signs Temperature 98.2 F 02/17/18 06:16 Pulse Rate 97 H 02/17/18 06:16 Respiratory Rate 18 02/17/18 06:16 Blood Pressure 152/79 02/17/18 06:16 O2 Sat by Pulse Oximetry (%) 97 02/16/18 21:00 CC; no new complaints ````````````````` skin--pale; IV site non red eyes--midline; anicteric heart--Irreg lungs--distant BS abd--benign ext--no gross edema appreciated neuro--awake; speech fluent; moves all Ext purposefully on command `````````````````````````````````````````````` Summ > 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 He appears to be at stage 3; Patient does not wish to have conventional Chemo, or any other form of intervention. Both he & have been made to understand that his demise will be imminent without treatment, but he has REPEATEDLY declined chemoTx. The only possible agent that he might be eligible for is "Keytruda" if the PDL marker is above 50. He might benefit from RT in order to control local disease effects. Prognosis is poor without any intervention. His was told that he may not last another month if he does not meet his nutritional and hydration needs; notwithstanding the possibility that he may develop additional cancer related morbidities that will expediate his demise. > ATF-->rate seems to be controlled; cont with BB, will revert back to atenolol ; however, the benefit of continuing a/c in the face of an aggressively terminal disease with a very short life expectancy is dubious and will likely discontinue it at the time discharge. > Hypercalcemia--2nd malignant dz; level has normalized post IV hydration and use of Zometa; may need oral Bisphosphonates. > Hypernatremia--2nd isotoniuc fluids; will change to hypotonic fluids > Low phosphate--on neutra-phosph > Low potassium/Magnesium--> correct as needed > azotemia--improved since the start of IVF > fail to thrive--remains bed bound and devoid of stamina & desire to eat; which will likely contribute to his demise once he is discharged ````````````````````````````````` Dr Castaneda Problem List - Problems (1) Lung neoplasm Code(s): D49.1 - NEOPLASM OF UNSPECIFIED BEHAVIOR OF RESPIRATORY SYSTEM (2) Hypertensive heart and chronic kidney disease stage 3 Code(s): I13.10 - HYP HRT & CHR KDNY DIS W/O HRT FAIL, W STG 1-4/UNSP CHR KDNY; N18.3 - CHRONIC KIDNEY DISEASE, STAGE 3 (MODERATE) (3) Abnormal EKG Code(s): R94.31 - ABNORMAL ELECTROCARDIOGRAM [ECG] [EKG] (4) Lipidemia Code(s): E78.5 - HYPERLIPIDEMIA, UNSPECIFIED Qualifiers: Hyperlipidemia type: pure hypercholesterolemia Qualified Code(s): E78.00 - Pure hypercholesterolemia, unspecified; E78.0 - Pure hypercholesterolemia (5) Dehydration Code(s): E86.0 - DEHYDRATION (6) PAD (peripheral artery disease) Code(s): I73.9 - PERIPHERAL VASCULAR DISEASE, UNSPECIFIED (7) Delirium due to another medical condition Code(s): F05 - DELIRIUM DUE TO KNOWN PHYSIOLOGICAL CONDITION
[2018-02-17] MEDS ORDERED: 1/3 NORMAL SALINE IV SCH (12:45)
[2018-02-17] MEDS ORDERED: DEXTROSE 5% IV SCH (12:45)
[2018-02-17] MEDS ORDERED: FUROSEMIDE 40 MG/4 ML INJECTABLE VIAL IVPUSH STA (14:45)
--- NOTE | 2018-02-17 17:03 | PN ---
Progress Note (short form) - Note Progress Note: Rad Onc Consult requested for palliative RT for pt with newly diagnosed lung cancer. Pt off floor for testing this afternoon. Will return when tests complete.
[2018-02-17] MEDS: DEXTROSE 5% IV SCH (18:45)
[2018-02-17] MEDS: 1/3 NORMAL SALINE IV SCH (18:45)
[2018-02-17] MEDS: MIRTAZAPINE 15 MG TABLET (FP) PO SCH (21:09)
[2018-02-18] MEDS: 1/3 NORMAL SALINE IV SCH (02:29)
[2018-02-18] MEDS: DEXTROSE 5% IV SCH (02:29)
[2018-02-18 06:58] LABS: ANION GAP 7 MMOL/L (8-16); BLOOD UREA NITROGEN 26 mg/dL (7-18); CALCIUM 8.7 mg/dL (8.5-10.1); CHLORIDE 115 mmol/L (98-107); CO2 21 mmol/L (21-32); CREATININE 0.9 mg/dL (0.55-1.3); GLUCOSE,RANDOM 92 mg/dL (74-106); POTASSIUM 3.8 mmol/L (3.5-5.1); SODIUM 144 mmol/L (136-145)
[2018-02-18] MEDS: ALBUTEROL SO4 2.5/IPRATROPIUM 0.5 INH SOL 3 ML VIAL.NEB. NEB SCH ×3 (07:45→20:25)
--- NOTE | 2018-02-18 08:52 | PN ---
Progress Note (short form) - Note Progress Note: Chief Complaint: Events noted, notes reviewed, denies any chest pain or dyspnea , complaining of generalized weakness History of Present Illness: Seen and examined on telemetry. Events noted, notes reviewed, denies any chest pain or dyspnea, complaining of generalized weakness - Current Medication List Current Medications Albuterol/Ipratropium (Duoneb -) 1 amp NEB RTID [facility] Last Admin: 02/17/18 20:23 Dose: 1 amp Amino Acids (Prosource No Carb Liquid Pkt) 30 ml PO BID@0800,1730 [facility] Last Admin: 02/17/18 17:32 Dose: 30 ml Apixaban (Eliquis -) 2.5 mg PO BID [facility] Last Admin: 02/17/18 21:09 Dose: 2.5 mg Atenolol (Tenormin -) 25 mg PO DAILY [facility] Last Admin: 02/17/18 11:00 Dose: 25 mg Docusate Sodium (Colace -) 100 mg PO BID [facility] Last Admin: 02/17/18 21:09 Dose: 100 mg Dextrose/Sodium Chloride (D5-1/3ns -) 1,000 mls @ 42 mls/hr IV ASDIR [facility] Last Admin: 02/18/18 02:29 Dose: 42 mls/hr Mirtazapine (Remeron -) 7.5 mg PO HS [facility] Last Admin: 02/17/18 21:09 Dose: 7.5 mg Multivitamins/Minerals/Vitamin C (Tab-A-Vit -) 1 tab PO DAILY [facility] Last Admin: 02/17/18 10:24 Dose: 1 tab Potassium Phos/Sodium Phos (Phos-Nak Packet -) 1 packet PO DAILY [facility] Last Admin: 02/17/18 10:24 Dose: 1 packet - Objective Vital Signs: Last Vital Signs Temp Pulse Resp BP Pulse Ox 97.7 F 98 H 20 156/76 96 02/18/18 06:00 02/18/18 06:00 02/18/18 06:00 02/18/18 06:00 02/17/18 21:00 Intake & Output 02/16/18 02/16/18 02/17/18 02/18/18 00:59 23:59 23:59 23:59 Intake Total 2650 654 Output Total 600 250 Balance 2050 404 HEENT: Atraumatic Neck: Supple Negative JVD No Bruit Cardiovascular: S1 S2 Regular Rate and Rhythm No Murmurs Respiratory: Diminished at the Bases Gastrointestinal: Soft Benign Normal Bowel Sounds Ext: No Edema Labs: CBC, BMP 02/16/18 06:30 02/18/18 06:20 INR, PTT INR 1.14 (0.83-1.09) H 02/09/18 07:15 Assessment/Plan ASSESSMENT: 1. 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 CAD post PCI (stent) angina pectoris 3. Diastolic LV dysfunction with class 0 NYHA classification LV failure, compensated/euvolemic 4. Paroxysmal atrial fibrillation [id number] score of 5 on DOAC's/Eliquis 5. HTN 6. Hyperlipidemia 7. Carotid stenosis post CEA 8. PAD 9. CKD, pre-renal azotemia 10. Anemia 11. 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 Continue Tenormin and titrate dosage as needed and as tolerated hemodynamics permitting 2. Continue Eliquis 3. As outlined in prior note patient and declining intervention for the above noted small cell carcinoma including RT 4. D/C planning as poer the primary team Elías Renteria MD
[2018-02-18] MEDS: AMINO ACIDS/PROTEIN HYDROLYS 30 ML LIQUID.PKT PO SCH ×2 (09:04→17:16)
[2018-02-18] MEDS: NAPH,MB-DB/K PH,MBDB POWDER PACKET PO SCH (10:31)
[2018-02-18] MEDS: DOCUSATE SODIUM 100 MG CAPSULE (FP) PO SCH ×2 (10:31→22:12)
[2018-02-18] MEDS: APIXABAN 2.5 MG TABLET PO SCH ×2 (10:31→22:12)
[2018-02-18] MEDS: MULTIVITAMINS (DAILY MVI) TABLET (FP) PO SCH (10:31)
[2018-02-18] MEDS: ATENOLOL 25 MG TABLET (FP) PO SCH (10:34)
[2018-02-18] MEDS ORDERED: ALPRAZolam 0.25 MG TABLET PO ONE (11:00)
[2018-02-18] MEDS ORDERED: FUROSEMIDE 40 MG/4 ML INJECTABLE VIAL IVPUSH ONE (11:00)
--- NOTE | 2018-02-18 14:03 | PN ---
Progress Note (short form) - Note Progress Note: Radiation Oncology (consult dictated) Pt seen, chart and films reviewed. At least stage III SCC of RLL associated with bulky mediastinal and hilar adenopathy. I discussed palliative radiotherapy to limit risk of postobstructive pneumonia and esophageal obstruction as well as to alleviate some of his current symptoms like SOB and cough. He stated he is not interested in having any therapy and understands that the tumor will progress without treatment. I left my contact in case he or wish to further consider RT.
--- NOTE | 2018-02-18 14:36 | CONS ---
DATE OF CONSULTATION: 02/18/2018 REFERRING PHYSICIAN: Balta Castaneda MD REASON FOR CONSULTATION: Newly-diagnosed lung cancer. HISTORY OF PRESENT ILLNESS: The patient is an 83-year-old gentleman who presented with a history of generalized fatigue and weakness with failure to thrive at home over several months. He has a known right lung mass and was urged to have it evaluated by his PCP, but he either refused or did not follow up. He now presents with increasing shortness of breath, cough, and weight loss over several weeks. He received antibiotic treatment initially with no change in the lung mass. He is now admitted for further evaluation of the lung mass. The CT of the chest showed an 8.4-cm right lower lobe lung mass associated with mediastinal and hilar adenopathy. There is a 5.6-cm subcarinal lymph node as well as a 3.1-cm pretracheal lymph node and several stable, subcentimeter, subpleural nodules in the left upper lobe, left lower lobe, and right middle lobe. He underwent a thoracentesis of the pleural effusion, which showed no evidence of malignancy. A CT-guided biopsy disclosed a poorly differentiated squamous cell carcinoma. He is status post chest tube for post-biopsy pneumothorax. He received Zometa and hydration for hypercalcemia, possibly related to a paraneoplastic syndrome. He has been seen by Oncology and refuses chemotherapy. He had a bone scan yesterday, which shows no gross evidence of metastatic disease, though the official report is pending. Patient reports a productive cough which has increased but no hemoptysis, hoarseness, or chest pain. He reports becoming easily short of breath with minimal activity. He has had poor appetite but no dysphagia. He denies headaches, dizziness, nausea, vomiting, abdominal pain, changes in bowel or bladder habits or incontinence. He denies history of radiation therapy or connective tissue disease. PAST MEDICAL HISTORY: Coronary artery disease, hypertension, chronic kidney disease, hyperlipidemia, peripheral vascular disease, anemia, carotid endarterectomy, cardiac stent, appendectomy in 2018. PAST SURGICAL HISTORY: As noted above. ALLERGIES: No known drug allergies. CURRENT MEDICATIONS: Eliquis, Remeron, DuoNeb nebulizer, Tenormin, Colace, multiple vitamin. SOCIAL HISTORY: He lives with his . Denies children. He is a former tobacco user and former alcohol abuse history. FAMILY HISTORY: Denies history of malignancy. REVIEW OF SYSTEMS: As noted above. PHYSICAL EXAMINATION: General: A thin, elderly male in no acute distress. Vital Signs: Temperature 97.8, blood pressure 127/59, pulse 91, respiratory rate 20, SaO2 of 96% on 2 L nasal cannula. HEENT: Normocephalic and atraumatic. Moist mucous membranes. Anicteric sclerae. Clear oral cavity without mucositis. Neck: No cervical adenopathy. Chest: Decreased breath sounds in the right lower lung field with mild expiratory wheeze. No rhonchi or stridor. Cardiovascular: Regular. Abdomen: Benign. Extremities: No significant edema with normal range of motion. Musculoskeletal: No spine or CVA tenderness. Neurologic: Grossly nonfocal. PATHOLOGIC DATA: CT guided right lung biopsy and thoracentesis. See HPI. RADIOLOGIC DATA: CT chest: See HPI. LABORATORY DATA: WBC 6.2, hemoglobin 10.4, platelet count 327,000. Sodium 144, potassium 3.8, BUN 26, creatinine 0.9. Calcium 8.7, AST 54, ALT 52, alkaline phosphatase 61. Albumin 1.9. IMPRESSION: At least stage III, poorly differentiated, squamous cell carcinoma of the right lower lobe extending to the right hilum and mediastinal lymph nodes. He does have bulky disease in the mediastinum without local mass effect at this time. He had a bone scan which on my review showed no gross evidence of osseous metastatic disease. His performance status is ECOG 3-4. He refuses therapeutic treatment including chemotherapy and radiation therapy. I discussed the potential roll of radiation therapy to palliate and/or prevent local progression, postobstructive infection, and atelectasis that could worsen his cough and shortness of breath, and lead to hemoptysis as well as potential esophageal obstruction for mediastinal progression of the adenopathy. He stated that he has made up his mind and wants no treatment, curative or palliative. I offered him the opportunity to ask questions and left my contact information should he or his change his mind. PLAN: Supportive care. He is a candidate for hospice care. Thank you for asking me to see this patient. AJITH PINEDO M.D. [id number] MTDD
--- NOTE | 2018-02-18 16:06 | PN ---
Progress Note (short form) - Note Progress Note: Current Medications Albuterol/Ipratropium (Duoneb -) 1 amp NEB RTID [facility] Last Admin: 02/18/18 14:26 Dose: 1 amp Amino Acids (Prosource No Carb Liquid Pkt) 30 ml PO BID@0800,1730 [facility] Last Admin: 02/18/18 09:04 Dose: 30 ml Apixaban (Eliquis -) 2.5 mg PO BID [facility] Last Admin: 02/18/18 10:31 Dose: 2.5 mg Atenolol (Tenormin -) 25 mg PO DAILY [facility] Last Admin: 02/18/18 10:34 Dose: 25 mg Docusate Sodium (Colace -) 100 mg PO BID [facility] Last Admin: 02/18/18 10:31 Dose: 100 mg Dextrose/Sodium Chloride (D5-1/3ns -) 1,000 mls @ 42 mls/hr IV ASDIR [facility] Last Admin: 02/18/18 02:29 Dose: 42 mls/hr Mirtazapine (Remeron -) 7.5 mg PO HS [facility] Last Admin: 02/17/18 21:09 Dose: 7.5 mg Multivitamins/Minerals/Vitamin C (Tab-A-Vit -) 1 tab PO DAILY [facility] Last Admin: 02/18/18 10:31 Dose: 1 tab Potassium Phos/Sodium Phos (Phos-Nak Packet -) 1 packet PO DAILY [facility] Last Admin: 02/18/18 10:31 Dose: 1 packet Laboratory Results - last 24 hr 02/18/18 06:20 Sodium 144 Potassium 3.8 Chloride 115 H Carbon Dioxide 21 Anion Gap 7 L BUN 26 H Creatinine 0.9 Creat Clearance w eGFR > 60 Random Glucose 92 Calcium 8.7 Vital Signs Temperature 98.3 F 02/18/18 14:05 Pulse Rate 96 H 02/18/18 14:05 Respiratory Rate 22 H 02/18/18 14:05 Blood Pressure 131/64 02/18/18 14:05 O2 Sat by Pulse Oximetry (%) 96 02/18/18 09:00 CC; general weakness; no pain; some cough ````````````````` skin--pale; IV site non red eyes--midline; anicteric heart--Irreg lungs--distant BS; R more than Lt abd--benign ext--no gross edema appreciated neuro--awake; irritable; moves all Ext purposefully on command; able to lift legs and arms `````````````````````````````````````````````` Summ > 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 He appears to be at stage 3; Patient does not wish to have conventional Chemo, RT or any other form of intervention. has decided to take him home in AM, and knows that she will need to assist him in much of his daily living functions ; and even so, he may still spiral in decline. Prognosis is poor without any intervention. His was told that he may not last another month if he does not meet his nutritional and hydration needs; notwithstanding the possibility that he may develop additional cancer related morbidities that will expedite his demise. > ATF-->rate seems to be controlled; cont with atenolol; however, the benefit of continuing a/c in the face of an aggressively terminal disease with a very short life expectancy is dubious and will likely discontinue it at the time discharge. > Cough--w/ dyspnea; CXR reveals the presence of a considerable effusion on the RT Lung where the chest tube had been draining fluid. Will stop IV fluids and use lasix to hopefully limt the fluid accumulation; but given the underlying disease this is not likely to happen. > Hypercalcemia--2nd malignant dz; level has normalized post IV hydration and use of Zometa; may need oral Bisphosphonates. > Hypernatremia--corrected with hypotonic fluids > Low phosphate--on neutra-phosph > fail to thrive--remains bed bound and devoid of stamina & desire to eat; which will likely contribute to his demise once he is discharged ````````````````````````````````` Dr Castaneda Problem List - Problems (1) Lung neoplasm Code(s): D49.1 - NEOPLASM OF UNSPECIFIED BEHAVIOR OF RESPIRATORY SYSTEM (2) Hypertensive heart and chronic kidney disease stage 3 Code(s): I13.10 - HYP HRT & CHR KDNY DIS W/O HRT FAIL, W STG 1-4/UNSP CHR KDNY; N18.3 - CHRONIC KIDNEY DISEASE, STAGE 3 (MODERATE) (3) Abnormal EKG Code(s): R94.31 - ABNORMAL ELECTROCARDIOGRAM [ECG] [EKG] (4) Lipidemia Code(s): E78.5 - HYPERLIPIDEMIA, UNSPECIFIED Qualifiers: Hyperlipidemia type: pure hypercholesterolemia Qualified Code(s): E78.00 - Pure hypercholesterolemia, unspecified; E78.0 - Pure hypercholesterolemia (5) Dehydration Code(s): E86.0 - DEHYDRATION (6) PAD (peripheral artery disease) Code(s): I73.9 - PERIPHERAL VASCULAR DISEASE, UNSPECIFIED (7) Delirium due to another medical condition Code(s): F05 - DELIRIUM DUE TO KNOWN PHYSIOLOGICAL CONDITION
[2018-02-18] MEDS ORDERED: FUROSEMIDE 40 MG TABLET (FP) PO ONE (20:00)
[2018-02-18] MEDS: MIRTAZAPINE 15 MG TABLET (FP) PO SCH (22:12)
[2018-02-19 06:56] VITALS: BP 126/59; PULSE 107; TEMP 98.1
[2018-02-19] MEDS: ALBUTEROL SO4 2.5/IPRATROPIUM 0.5 INH SOL 3 ML VIAL.NEB. NEB SCH (07:59)
[2018-02-19] MEDS: AMINO ACIDS/PROTEIN HYDROLYS 30 ML LIQUID.PKT PO SCH (08:07)
--- NOTE | 2018-02-19 09:08 | DS ---
Physical Examination Vital Signs: Vital Signs Temperature 98.1 F 02/19/18 06:00 Pulse Rate 107 H 02/19/18 06:00 Respiratory Rate 20 02/19/18 06:00 Blood Pressure 126/59 L 02/19/18 06:00 O2 Sat by Pulse Oximetry (%) 97 02/18/18 21:00 Labs: CBC, BMP 02/16/18 06:30 02/18/18 06:20 Discharge Summary Reason For Visit: SHORTNESS OF BREATH, PLEURAL EFFUSION Current Active Problems Abnormal EKG (Acute) Dehydration (Acute) Delirium due to another medical condition (Acute) Persistent atrial fibrillation (Acute) Pleural effusion (Acute) Shortness of breath (Acute) Squamous cell carcinoma of lung, stage III (Acute) Fail thrive anemia low potassium/magnesium Hypercalcemia of malignant disease Procedures: Principal: thoracentesis. lung biopsy Other Procedures: chest tube placement Hospital Course: admitted because of growing confusion & fail to thrive in association with highly suspicious Rt lung lesion which was discovered as OP several months ago however, he was not inclined to do invasive studies (in order to discover the nature of it). It was only when his condition worsened that his elected to have him sent to the hospital, where he was found to be dehydrated and was given IVF. His PO intake was poor and required IV fluid support. He was also found to have new onset atrial fibrillation {and was then placed on oral a/c by his Manager [employer]}. Chest CT confirmed the presence of an expanding Rt lung lesion with mediastinal node involvement. Thoracic surgeon suggested Biopsy by IR as patient declined any surgical procedure. The Biopsy was done and required a chest tube for a Pneumothorax that developed 2nd to the biopsy. The result revealed poorly differentiated squamous cell cancer. He was seen by Oncology who felt he was at stage 3, but he still did not wish to have any interventions realizing that lack of treatment would likely expedite his demise. This was discussed with his who acted in accordance to his wishes. He was also seen by Radiation Oncologist who offered RT but he again declined, as he only wished to be sent home. It was explained to his that it would be difficult for her to care for him given his immobility; and she declined to send him to short term SNF rehab did not accept hospice or VNS. It was explained clearly to her that if he did not eat or drink sufficient fluids he will likely deteriorate quickly, and was advised to encourage oral fluid intake at home. She knows she has the option of taking him back to the ER if she wishes Condition: Poor - Instructions Diet, Activity, Other Instructions: easy to chew/swallow foods Referrals: Balta Castaneda MD [Primary Care Provider] - Disposition: AGAINST MEDICAL ADVICE - Home Medications Comprehensive Discharge Medication List: Ambulatory Orders Aspirin [ASA -] 81 mg PO DAILY 07/04/17 Acetaminophen [Tylenol .Regular Strength -] 650 mg PO Q6H PRN tablet 07/14/17 Atenolol [Tenormin -] 25 mg PO DAILY tablet 02/19/18 Mirtazapine [Remeron -] 7.5 mg PO HS tablet 02/19/18
== END 2018-02-19 09:06 | disposition left against medical advice (07) | DRG 180 ==
LOC: JER 08:54 → JERBED 11:35 → J5S 21:38 → J4S 02-14 22:00
PROVIDERS: ADMIT Internal Medicine; ATTEND Internal Medicine
PROC: 0W9930Z Drainage of Right Pleural Cavity with Drainage Device, Percutaneous Approach (ICD-10-PCS; 2018-02-10)
PROC: 0BBK3ZX Excision of Right Lung, Percutaneous Approach, Diagnostic (ICD-10-PCS; principal; 2018-02-11)
PROC: 0WP9X0Z Removal of Drainage Device from Right Pleural Cavity, External Approach (ICD-10-PCS; 2018-02-14)
DX: C34.91 Malignant neoplasm of unspecified part of right bronchus or lung (principal); J18.9 Pneumonia, unspecified organism; F05 Delirium due to known physiological condition; I48.1 Persistent atrial fibrillation; J95.811 Postprocedural pneumothorax; E87.0 Hyperosmolality and hypernatremia; J90 Pleural effusion, not elsewhere classified; Z68.1 Body mass index [BMI] 19.9 or less, adult; R62.7 Adult failure to thrive; I25.10 Atherosclerotic heart disease of native coronary artery without angina pectoris; I73.9 Peripheral vascular disease, unspecified; Z87.891 Personal history of nicotine dependence; I12.9 Hypertensive chronic kidney disease with stage 1 through stage 4 chronic kidney disease, or unspecified chronic kidney disease; I45.10 Unspecified right bundle-branch block; Z98.61 Coronary angioplasty status; E78.5 Hyperlipidemia, unspecified; N18.3 Chronic kidney disease, stage 3 (moderate); E86.0 Dehydration; R94.31 Abnormal electrocardiogram [ECG] [EKG]; Y83.8 Other surgical procedures as the cause of abnormal reaction of the patient, or of later complication, without mention of misadventure at the time of the procedure; I95.9 Hypotension, unspecified; E83.52 Hypercalcemia; D64.9 Anemia, unspecified
CPT/HCPCS: 32405; 32557; 36415; 70450-TC; 71045-TC-FY; 71250-TC; 76098-TC-FY; 76998-TC; 77012-TC; 78306-TC; 80048; 80053; 81003; 81015; 82042; 82150; 82310; 82550; 82803; 82945; 82962; 83605; 83615; 83735; 83880; 83970; 84100; 84157; 84311; 84443; 84478; 84484; 85025; 85027; 85610; 85730; 87040; 87070; 87075; 87086; 87102; 87116; 87205; 87206; 87210; 87804; 87899; 88108; 88305-TC; 89051; 90670; 90688; 93005; 93010; 93306-TC; 94640; 97116-GP; 97161-GP; 99285-25; A9503; C1729; C1769; G0008; G0009; J3489; J7030

== ENCOUNTER 2018-02-22 22:18 | Emergency (ER) | payer OTHER ==
--- NOTE | 2018-02-22 22:28 | PDOC ---
History of Present Illness - General Stated Complaint: FALL Time Seen by Provider: 02/22/18 22:28 - History of Present Illness Initial Comments: 02/22/18 22:56 The patient is an 83 year old male with a history of Lung CA, HTN, Anemia, Afib who presents to the ED in PEA arrest. Per EMS, the patient had a witness collapse and was in PEA arrest on EMS arrival. CPR was initiated and the patient was brought to the ED. The patient had a DNR on file here in the ED. No cardiac contractility was observed on bedside echo and the patient was pronounced at 22:25. Past History - Past Medical History Allergies/Adverse Reactions: Allergies Allergy/AdvReac Type Severity Reaction Status Date / Time No Known Allergies Allergy Verified 02/03/18 09:09 Home Medications: Ambulatory Orders Unobtainable 02/22/18 Cardiac Disorders: Yes (cad,angina) COPD: No HTN: Yes Hypercholesterolemia: Yes - Surgical History Cardiac Surgery: Yes (cardiac stent) - Suicide/Smoking/Psychosocial Hx Smoking History: Former smoker Have you smoked in the past 12 months: No Hx Alcohol Use: No Drug/Substance Use Hx: No Substance Use Type: None Review of Systems - Review of Systems Able to Perform ROS?: No (Cardiac Arrest) *Physical Exam - Physical Exam Comments: 02/22/18 22:58 General Appearance: Chronically ill appearing. HEENT: Pupils fixed and dilated. Neck: No Carotid pulse present Respiratory/Chest: No respiratory effort Cardiovascular: No heart sounds present. Extremity: No Capillary Refill Integumentary: Pallor noted. Hypoxic appearing Neurologic: Cardiac arrest. Medical Decision Making - Medical Decision Making 02/22/18 23:01 The patient is an 83 year old male with a history of Lung CA, HTN, Anemia, Afib who presents to the ED in PEA arrest. Patient had a DNR on file. No cardiac contractility on bedside echo. Patient was pronounced at 22:25. Patient' s was present and notified. Patient's primary care provider Dr. Castaneda was notified. The biomedical engineering professor's office was notified. Likely cause of due to Lung CA and PEA arrest. *DC/Admit/Observation/Transfer Diagnosis at time of Disposition: Cardiac arrest - Discharge Dispostion Disposition: Condition at time of disposition: - Referrals - Patient Instructions - Post Discharge Activity
[2018-02-22 22:50] VITALS: BP 00/00; PULSE 0; TEMP 97.8; BMI 23.0
--- NOTE | 2018-02-22 23:18 | PDOC ---
Attending Attestation - HPI HPI: 02/22/18 23:45 The patient is an 83 year old male with a history of Lung CA, HTN, Anemia, Afib who presents to the ED in PEA arrest. As per EMS, the patient had a collapse that was witnessed by his . EMS found the patient in PEA arrest and initiated CPR. Patient's is at bedside, and brought in DNR papers. Patient was pronounced at 10:25PM. <Lydia Lake - Last Filed: 02/22/18 23:45> - Resident Resident Name: AntoniaTejas - ED Attending Attestation I have performed the following: I have examined & evaluated the patient, The case was reviewed & discussed with the resident, I agree w/resident's findings & plan - Physicial Exam PE: 02/23/18 03:12 Agree with resident exam. Pt DOA. at bedside. Thumper stopped, when we printed out the DNR and showed it to EMS. Pt disconnected and he is . No vitals. - Medical Decision Making 02/22/18 23:30 Pt came from home with ALS, after a witnessed collapse. Pt's was there. Pt was in PEA arrest. states that pt is DNR. We have DNR on file, so all of ALS team's efforts were stopped in the ER. 02/23/18 03:13 PMD Ivette is aware and he will sign the certificate on Saturday. <Jeanette Ernst - Last Filed: 02/23/18 03:13>
--- NOTE | 2018-02-23 18:54 | EKG ---
Test Reason : Blood Pressure : / mmHG Vent. Rate : 037 BPM Atrial Rate : 028 BPM P-R Int : 000 ms QRS Dur : 156 ms QT Int : 440 ms P-R-T Axes : 000 106 087 degrees QTc Int : 345 ms JUCTIONAL ESCAPE RHYTHM WITH ST ELEVATION SUGGESTS ACUTE [place] ABNORMAL ECG WHEN COMPARED WITH ECG OF 14-FEB-2018 16:24, VENT. RATE HAS DECREASED BY 39 BPM STEMI, INTEROLATERAL AND ANTERIOR Confirmed by CHE MOLINA, ITALO ([id number]) on 02/23/2018 6:53:50 PM Referred By: Confirmed By:ITALO BOLTON MD
== END 2018-02-22 23:41 | disposition expired ==
LOC: JER 22:18
DX: I46.9 Cardiac arrest, cause unspecified (principal); I25.119 Atherosclerotic heart disease of native coronary artery with unspecified angina pectoris; I10 Essential (primary) hypertension; Z95.5 Presence of coronary angioplasty implant and graft; I48.91 Unspecified atrial fibrillation; D64.9 Anemia, unspecified; Z85.118 Personal history of other malignant neoplasm of bronchus and lung; E78.00 Pure hypercholesterolemia, unspecified
CPT/HCPCS: 93005; 93010; 99283-25